=== PATIENT | female | born 1990 | race Caucasian/White ===

== ENCOUNTER 2019-12-13 16:28 | Outpatient (CLI) | payer OTHER, SELFPAY ==
[2019-12-13 17:17] LABS: Basophils Percent Auto 0.2 % (0.2-1.2); Eosinophils Absolute Auto 0.2 K/mm3 (0-0.3); Eosinophils Percent Auto 0.8 % (0-4.4); Hematocrit 36.7 % (37.0-47.0); Hemoglobin 12.7 g/dL (12.0-15.0); Immature Granulocyte Absolute 0.12 K/mm3 (0.00-0.031); Immature Granulocyte Percent A 0.7 % (0-0.5); Lymphocytes Absolute Auto 2.87 K/mm3 (0.9-3.2); Mean Corpuscular HGB Conc 34.6 g/dl (32-36); Mean Corpuscular Hemoglobin 31.1 pg (26-34); Mean Corpuscular Volume 89.7 fl (80-100); Mean Platelet Volume 9.4 fl (7.4-10.4); Monocytes Absolute Auto 1.2 K/mm3 (0.1-0.6); Monocytes Percent Auto 6.5 % (2.6-8.5); Neutrophils Absolute Auto 13.6 K/mm3 (1.3-6.7); Neutrophils Percent Auto 75.8 % (45.5-73.1); Platelet Count Result 355 k/mm3 (150-375); Red Blood Count 4.09 M/mm3 (4.2-5.4); Red Cell Distribution Width 12.6 % (11.5-14.5); White Blood Count 17.9 K/mm3 (4.5-10.0)
[2019-12-13 17:18] VITALS: BP 130/72; PULSE 93; BMI 45.3
[2019-12-13 17:20] VITALS: BP 130/72; PULSE 97
[2019-12-13 17:25] LABS: Add Urine Microscopic? YES; Appearance Urine Clear (Clear); Bacteria Urine Trace /hpf; Bilirubin Urine Negative (Negative); Blood Urine Negative (Negative); Color Urine Yellow (Yellow); Glucose Urine UA 1+ mg/dL (Negative); Ketones Urine Negative (Negative); Leukocyte Esterase Ur Negative LEU/UL (Negative); Mucus Urine Rare /lpf; Nitrate Urine Negative (Negative); Protein Urine Negative (Negative); RBC Urine 0-2 /hpf (0-2); Specific Grav Ur 1.019 (1.001-1.035); Squamous Epithelial Cell Urine Few /hpf (Few); Urobilinogen Urine Negative mg/dL (<2.0); WBC Urine 0-3 /hpf
[2019-12-13 17:27] VITALS: BP 130/72; PULSE 98
[2019-12-13 17:27] LABS: Total Protein Urine Random 14 mg/dL
--- NOTE | 2019-12-13 17:27 | OBADM ---
This patient, Kaleigh Mancera, admitted to the OB room 116 as clinical outpatient for evaluation of hypertension in . Patient/family oriented to hospital policies and general routines including ID bracelet, bed and alarms, visiting hours, pain management, procedures, bathroom and other care routines, personal items, smoking policy, room service/diet, and visiting hours. Patient/Family are encouraged to report perceived risks to care and to ask questions if they do not understand what they are told or what they should do.
[2019-12-13 17:29] LABS: Alanine Aminotransferase 20 U/L (4-35); Albumin Level 3.5 g/dL (3.5-5.1); Alkaline Phosphatase 105 U/L (38-126); Aspartate Amino Transferase 23 U/L (14-36); Bilirubin,Total 0.1 mg/dL (0.2-1.3); Blood Urea Nitrogen 6 mg/dL (7-17); Carbon Dioxide 23 mmol/L (22-30); Chloride 99 mmol/L (98-107); Estimated CRCL calculation 198 ml/min; Estimated Glomerular Filt Rate > 60; Glucose 104 mg/dL (65-105); Potassium 3.5 mmol/L (3.4-5.0); Sodium 132 mmol/L (137-145); Uric Acid 2.6 mg/dL (2.5-7.5)
[2019-12-13 17:31] VITALS: BP 123/60; PULSE 89
[2019-12-13 17:39] LABS: Creatinine Urine 116.8 mg/dL
[2019-12-13 17:44] VITALS: BP 124/65; PULSE 96
--- NOTE | 2019-12-13 17:44 | PC.NURSE ---
Dr. Delgado informed of lab results, BP's, NST reactive with 15 beat accels at 28 wks gestation. Orders for discharge received.
== END 2019-12-13 18:17 | disposition home or self-care (01) ==
LOC: ANHOBOP 16:32 → ANHOBPP 18:09
PROVIDERS: Obstetrics & Gynecology; Visit Provider Obstetrics & Gynecology Gynecology
DX: O13.9 Gestational [pregnancy-induced] hypertension without significant proteinuria, unspecified trimester (principal)
CPT/HCPCS: 36415; 59025; 80053; 81001; 82570; 84156; 84550; 85025; 99199

== ENCOUNTER 2019-12-21 15:26 | Outpatient (CLI) | payer OTHER, SELFPAY ==
[2019-12-21 15:52] LABS: Hematocrit 37.1 % (37.0-47.0); Hemoglobin 12.6 g/dL (12.0-15.0); Mean Corpuscular Hemoglobin 30.4 pg (26-34); Mean Corpuscular Volume 89.4 fl (80-100); Mean Platelet Volume 9.2 fl (7.4-10.4); Platelet Count Result 348 k/mm3 (150-375); Red Blood Count 4.15 M/mm3 (4.2-5.4); Red Cell Distribution Width 12.3 % (11.5-14.5); White Blood Count 20.5 K/mm3 (4.5-10.0)
[2019-12-21 16:04] LABS: Partial Thromboplastin Time 26.6 SECONDS (22.3-36.8)
[2019-12-21 16:07] LABS: Alanine Aminotransferase 20 U/L (4-35); Albumin Level 3.5 g/dL (3.5-5.1); Alkaline Phosphatase 109 U/L (38-126); Aspartate Amino Transferase 22 U/L (14-36); Bilirubin,Total < 0.1 mg/dL (0.2-1.3); Blood Urea Nitrogen 5 mg/dL (7-17); Calcium 9.2 mg/dL (8.4-10.2); Carbon Dioxide 24 mmol/L (22-30); Chloride 99 mmol/L (98-107); Estimated Glomerular Filt Rate > 60; Glucose 105 mg/dL (65-105); Lactate Dehydrogenase 355 U/L (313-618); Potassium 3.6 mmol/L (3.4-5.0); Sodium 136 mmol/L (137-145)
== END 2019-12-21 15:50 | disposition home or self-care (01) ==
LOC: ANHOBOP 15:29 → ANHLDR 15:32
PROVIDERS: Visit Provider Obstetrics & Gynecology Gynecology
DX: I10 Essential (primary) hypertension (principal)
CPT/HCPCS: 36415; 80053; 83615; 84550; 85027; 85730; 99199

== ENCOUNTER 2019-12-24 11:08 | Outpatient (CLI) | payer OTHER, SELFPAY ==
[2019-12-24 11:42] VITALS: BP 140/83; PULSE 104
[2019-12-24 11:46] VITALS: BP 138/73; PULSE 100
[2019-12-24 11:47] VITALS: BP 140/83
[2019-12-24 11:48] LABS: Basophils Absolute Auto 0.1 K/mm3 (0.0-0.1); Basophils Percent Auto 0.3 % (0.2-1.2); Eosinophils Absolute Auto 0.1 K/mm3 (0-0.3); Eosinophils Percent Auto 0.4 % (0-4.4); Hematocrit 37.8 % (37.0-47.0); Hemoglobin 12.5 g/dL (12.0-15.0); Immature Granulocyte Absolute 0.14 K/mm3 (0.00-0.031); Immature Granulocyte Percent A 0.7 % (0-0.5); Lymphocytes Absolute Auto 2.18 K/mm3 (0.9-3.2); Lymphocytes Percent Auto 11.3 % (18.3-44.2); Mean Corpuscular HGB Conc 33.1 g/dl (32-36); Mean Corpuscular Hemoglobin 30.2 pg (26-34); Mean Corpuscular Volume 91.3 fl (80-100); Mean Platelet Volume 9.4 fl (7.4-10.4); Monocytes Absolute Auto 0.7 K/mm3 (0.1-0.6); Monocytes Percent Auto 3.4 % (2.6-8.5); Neutrophils Absolute Auto 16.2 K/mm3 (1.3-6.7); Neutrophils Percent Auto 83.9 % (45.5-73.1); Platelet Count Result 358 k/mm3 (150-375); Red Blood Count 4.14 M/mm3 (4.2-5.4); Red Cell Distribution Width 12.3 % (11.5-14.5); White Blood Count 19.3 K/mm3 (4.5-10.0)
[2019-12-24 11:50] VITALS: TEMP 36.4
[2019-12-24 12:01] VITALS: BP 125/72; PULSE 97
[2019-12-24 12:02] LABS: Alanine Aminotransferase 21 U/L (4-35); Albumin Level 3.2 g/dL (3.5-5.1); Alkaline Phosphatase 110 U/L (38-126); Aspartate Amino Transferase 26 U/L (14-36); Bilirubin,Total 0.2 mg/dL (0.2-1.3); Blood Urea Nitrogen 7 mg/dL (7-17); Carbon Dioxide 24 mmol/L (22-30); Chloride 101 mmol/L (98-107); Estimated Glomerular Filt Rate > 60; Glucose 165 mg/dL (65-105); Potassium 3.7 mmol/L (3.4-5.0); Sodium 137 mmol/L (137-145); Uric Acid 3.6 mg/dL (2.5-7.5)
[2019-12-24 12:09] VITALS: BP 140/83
--- NOTE | 2019-12-24 12:17 | PC.NURSE ---
5702- Spoke with Dr. Delgado regarding patient lab results. Labs and BP's reviewed. Orders to administer celestone 12 mg M once today, then patient to return tomorrow for a repeat dose. Discharge to home.
[2019-12-24] MEDS: BETAMETHASONE SOD PHOS/ACETATE 30 MG/5 ML VIAL 12 MG IM (12:24)
== END 2019-12-24 12:29 | disposition home or self-care (01) ==
LOC: ANHOBOP 11:17 → ANHOBPP 11:21
PROVIDERS: Visit Provider Obstetrics & Gynecology Gynecology
DX: O14.90 Unspecified pre-eclampsia, unspecified trimester (principal)
CPT/HCPCS: 36415; 59025; 80053; 81050; 82575; 84156; 84550; 85025; 96372; 99199; J0702

== ENCOUNTER 2019-12-25 12:19 | Outpatient (CLI) | payer OTHER, SELFPAY ==
[2019-12-25] MEDS: BETAMETHASONE SOD PHOS/ACETATE 30 MG/5 ML VIAL 12 MG IM (12:50)
== END 2019-12-25 12:30 | disposition home or self-care (01) ==
LOC: ANHOBOP 12:26 → ANHLDR 12:38
PROVIDERS: Visit Provider Obstetrics & Gynecology Gynecology
DX: Z34.90 Encounter for supervision of normal pregnancy, unspecified, unspecified trimester (principal); Z3A.00 Weeks of gestation of pregnancy not specified
CPT/HCPCS: 96372; 99199; J0702

== ENCOUNTER → 2020-01-02 15:19 | Outpatient (CLI) | payer OTHER, SELFPAY ==
--- NOTE | ~2020-01-02 | US_ITS ---
EXAMINATION: US OB follow up DATE: 01/02/2020 15:44 INDICATION: Gestational diabetes. TECHNIQUE: Real-time transabdominal obstetric ultrasound. FINDINGS: Comparison to multiple prior studies sequentially, with oldest reviewed study dated 019. There is a single living fetus in vertex presentation. The placenta is posterior without placenta pr evia. cardiac activity and movement is noted with a heart rate of 157 beats per minute. T he amniotic fluid volume is normal. WAYNE measures 23.1 cm (normal range for gestational age is 8.8-23. 8 cm). The following biometric data were obtained: BPD: 78mm corresponds to gestational age 31 weeks 2 days. Head circumference: 297mm corresponds to gestational age 32 weeks 6 days. Abdominal circumference: 310mm corresponds to gestational age 35 weeks 0 days. Femur length: 64mm corresponds to gestational age 32 weeks 6 days. Estimated weight: 2278grams +/- 342grams. Estimated weight is greater than 97th percentil e. IMPRESSION: 1. Single living intrauterine in vertex presentation with an estimated gestational age of 30 weeks 6 days by inititial ultrasound. 2: Accelerated interval growth. Estimated weight greater than 97th percentile, compatibl e with macrosomia. Reviewed, dictated and finalized at location A. BORE OPERATOR IMPRESSION: 1. Single living intrauterine in vertex presentation with an estimat ed gestational age of 30 weeks 6 days by inititial ultrasound. 2: Accelerated interval growth. Estimated weight greater than 97th percentile, compatible with macrosomia.
== END ==
PROVIDERS: Visit Provider Obstetrics & Gynecology Gynecology
DX: O24.419 Gestational diabetes mellitus in pregnancy, unspecified control (principal); O14.93 Unspecified pre-eclampsia, third trimester; Z3A.30 30 weeks gestation of pregnancy
CPT/HCPCS: 76816

== ENCOUNTER 2020-02-02 21:02 | Outpatient (CLI) | payer OTHER, SELFPAY ==
[2020-02-02 21:26] VITALS: BP 100/48; PULSE 97; RESP 18
[2020-02-02 21:30] VITALS: BP 107/49; PULSE 91
[2020-02-02 21:38] VITALS: BP 101/57
[2020-02-02 21:57] VITALS: BP 100/48; PULSE 91
--- NOTE | 2020-02-02 22:12 | PC.NURSE ---
Notified Dr. Delgado of patient's arrival with complaints of increased blood pressures all day. Pt states that her blood pressure has been 180's/100's all day at different times. Pt has had 3 blood pressures here that have all been normal. Pt's pressure was 101/57 and at the same time was 152/95 on pt's own blood pressure cuff. Discharge orders received.
== END 2020-02-02 21:03 | disposition home or self-care (01) ==
PROVIDERS: Family Provider Obstetrics & Gynecology Gynecology; Visit Provider Obstetrics & Gynecology Gynecology
DX: O13.9 Gestational [pregnancy-induced] hypertension without significant proteinuria, unspecified trimester (principal)
CPT/HCPCS: 59025

== ENCOUNTER 2020-02-11 13:42 | Outpatient (CLI) | payer OTHER, SELFPAY ==
[2020-02-11] VITALS (7 sets, daily range): BP systolic 85–144; BP diastolic 41–75; PULSE 84–97
[2020-02-11 14:30] LABS: Basophils Absolute Auto 0.1 K/mm3 (0.0-0.1); Basophils Percent Auto 0.3 % (0.2-1.2); Eosinophils Absolute Auto 0.1 K/mm3 (0-0.3); Eosinophils Percent Auto 0.7 % (0-4.4); Hematocrit 37.4 % (37.0-47.0); Hemoglobin 12.6 g/dL (12.0-15.0); Immature Granulocyte Percent A 0.6 % (0-0.5); Lymphocytes Absolute Auto 2.16 K/mm3 (0.9-3.2); Lymphocytes Percent Auto 12.5 % (18.3-44.2); Mean Corpuscular HGB Conc 33.7 g/dl (32-36); Mean Corpuscular Hemoglobin 30.1 pg (26-34); Mean Corpuscular Volume 89.3 fl (80-100); Mean Platelet Volume 10.1 fl (7.4-10.4); Monocytes Absolute Auto 1.2 K/mm3 (0.1-0.6); Monocytes Percent Auto 6.7 % (2.6-8.5); Neutrophils Absolute Auto 13.7 K/mm3 (1.3-6.7); Neutrophils Percent Auto 79.2 % (45.5-73.1); Platelet Count Result 334 k/mm3 (150-375); Red Blood Count 4.19 M/mm3 (4.2-5.4); Red Cell Distribution Width 12.4 % (11.5-14.5); White Blood Count 17.3 K/mm3 (4.5-10.0)
[2020-02-11 14:48] LABS: Add Urine Microscopic? YES; Appearance Urine Cloudy (Clear); Bacteria Urine Trace /hpf; Bilirubin Urine Negative (Negative); Blood Urine Negative (Negative); Color Urine Yellow (Yellow); Glucose Urine UA 1+ mg/dL (Negative); Ketones Urine Negative (Negative); Leukocyte Esterase Ur Negative LEU/UL (NEGATIVE); Mucus Urine Rare /lpf; Nitrate Urine Negative (Negative); Protein Urine 2+ mg/dL (Negative); RBC Urine 0-2 /hpf (0-2); Specific Grav Ur 1.024 (1.001-1.035); Squamous Epithelial Cell Urine Many /hpf (Few); Urobilinogen Urine Negative mg/dL (<2.0); WBC Urine 0-3 /hpf (0-3)
[2020-02-11 14:59] LABS: Total Protein Urine Random 14 mg/dL
[2020-02-11 15:23] LABS: Alanine Aminotransferase 16 U/L (4-35); Alkaline Phosphatase 134 U/L (38-126); Aspartate Amino Transferase 23 U/L (14-36); Bilirubin,Total 0.1 mg/dL (0.2-1.3); Blood Urea Nitrogen 7 mg/dL (7-17); Calcium 8.8 mg/dL (8.4-10.2); Carbon Dioxide 24 mmol/L (22-30); Chloride 106 mmol/L (98-107); Estimated Glomerular Filt Rate > 60; Glucose 104 mg/dL (65-105); Potassium 3.8 mmol/L (3.4-5.0); Sodium 133 mmol/L (137-145); Uric Acid 3.7 mg/dL (2.5-7.5)
--- NOTE | 2020-02-11 15:38 | PC.NURSE ---
1530- Spoke with Dr. Delgado, BPS and labs reveiwed. Orders to discharge home with induction scheduled later this week.
== END 2020-02-11 15:50 | disposition home or self-care (01) ==
LOC: ANHOBOP 13:46 → ANHOBPP 13:47
PROVIDERS: PCP Physician Assistant Medical; Visit Provider Obstetrics & Gynecology Gynecology
DX: O13.9 Gestational [pregnancy-induced] hypertension without significant proteinuria, unspecified trimester (principal)
CPT/HCPCS: 36415; 59025; 80053; 81001; 82570; 84156; 84550; 85025; 87086; 87088; 99199

== ENCOUNTER 2020-02-14 16:55 | Inpatient (IN) | payer OTHER, SELFPAY ==
[2020-02-14] VITALS (22 sets, daily range): BP systolic 116–156; BP diastolic 60–93; PULSE 87–107; BMI 49.1
[2020-02-14 17:40] LABS: Basophils Percent Auto 0.2 % (0.2-1.2); Eosinophils Absolute Auto 0.1 K/mm3 (0-0.3); Eosinophils Percent Auto 0.7 % (0-4.4); Hematocrit 36.9 % (37.0-47.0); Hemoglobin 12.3 g/dL (12.0-15.0); Immature Granulocyte Absolute 0.17 K/mm3 (0.00-0.031); Lymphocytes Absolute Auto 2.56 K/mm3 (0.9-3.2); Lymphocytes Percent Auto 14.6 % (18.3-44.2); Mean Corpuscular HGB Conc 33.3 g/dl (32-36); Mean Corpuscular Hemoglobin 29.6 pg (26-34); Mean Corpuscular Volume 88.9 fl (80-100); Monocytes Absolute Auto 1.1 K/mm3 (0.1-0.6); Monocytes Percent Auto 6.1 % (2.6-8.5); Neutrophils Absolute Auto 13.6 K/mm3 (1.3-6.7); Neutrophils Percent Auto 77.4 % (45.5-73.1); Platelet Count Result 348 k/mm3 (150-375); Red Blood Count 4.15 M/mm3 (4.2-5.4); Red Cell Distribution Width 12.7 % (11.5-14.5); White Blood Count 17.6 K/mm3 (4.5-10.0)
--- NOTE | 2020-02-14 17:41 | LDADM ---
This patient, Kaleigh Mancera, was admitted to Labor/Delivery/Recovery 107 on 02/14/20 at 16:55. Plans for labor, pain management and were discussed with patient. Patient/family oriented to hospital policies and general routines including ID bracelet, bed and alarms, visiting hours, pain management, procedures, bathroom and other care routines, personal items, smoking policy, room service/diet and guest tray routines, security routines, and visiting hours. Patient/Family are encouraged to report perceived risks to care and to ask questions if they do not understand what they are told or what they should do. See OBIX for further documentation.
[2020-02-14 17:51] LABS: Alanine Aminotransferase 16 U/L (4-35); Albumin Level 3.1 g/dL (3.5-5.1); Alkaline Phosphatase 132 U/L (38-126); Aspartate Amino Transferase 23 U/L (14-36); Bilirubin,Total 0.1 mg/dL (0.2-1.3); Blood Urea Nitrogen 9 mg/dL (7-17); Calcium 9.1 mg/dL (8.4-10.2); Carbon Dioxide 23 mmol/L (22-30); Chloride 108 mmol/L (98-107); Estimated CRCL calculation 142 ml/min; Estimated Glomerular Filt Rate > 60; Glucose 80 mg/dL (65-105); Potassium 3.8 mmol/L (3.4-5.0); Sodium 135 mmol/L (137-145)
[2020-02-14 17:52] LABS: Uric Acid 3.6 mg/dL (2.5-7.5)
[2020-02-14 18:27] LABS: Glucose Point of Care 58 (65-105)
[2020-02-14] MEDS: DINOPROSTONE 10 MG VAG INSERT VAGINAL (18:38)
[2020-02-14 19:54] LABS: Glucose Point of Care 74 (65-105)
[2020-02-14] MEDS: LABETALOL HCL 100 MG TABLET PO (20:59)
[2020-02-15] VITALS (131 sets, daily range): BP systolic 87–168; BP diastolic 36–96; PULSE 80–122; TEMP 36.6–37.2; O2SAT 96–100
[2020-02-15 04:24] LABS: Glucose Point of Care 127 (65-105)
[2020-02-15 04:47] LABS: Glucose Point of Care 80 (65-105)
[2020-02-15 06:49] LABS: Glucose Point of Care 86 (65-105)
[2020-02-15] MEDS: LACTATED RINGERS 1,000 ML 125 ML IV CONT ×3 (08:00→20:04)
[2020-02-15] MEDS: OXYTOCIN 30 UNITS/NS 500 ML 30 UNITS/500 ML BAG IV CONT (08:00)
[2020-02-15] MEDS: LABETALOL HCL 100 MG TABLET PO (09:03)
[2020-02-15 09:20] LABS: Glucose Point of Care 101 (65-105)
[2020-02-15 11:05] LABS: Glucose Point of Care 78 (65-105)
--- NOTE | 2020-02-15 12:21 | WPDOBADMIT ---
Obstetrics - Admit Note Admission Note: AROm clear fluid 1//-2 station record reviewed. No pertinent additions to the history and/or any subsequent changes in thet physical findings that are not consistent with the expected course of the were found. Additions to the history and/or subsequent changes in the physical findings follow. None.
[2020-02-15 13:21] LABS: Glucose Point of Care 68 (65-105)
[2020-02-15 13:36] LABS: Rapid Plasma Reagin Non-Reactive (NonReactive)
[2020-02-15 15:31] LABS: Glucose Point of Care 59 (65-105)
[2020-02-15 18:39] LABS: Glucose Point of Care 75 (65-105)
--- NOTE | 2020-02-15 20:02 | WPDANESEPPF ---
Anes - Initial Pre Proc Eval Date/Time: 02/15/20 20:02 Surgeon: Tiarra Delgado MD Pre Op Diagnosis: MIL Patient Data Age: 29 Gender: F Height: 5 ft 1.5 in Weight: 120 kg Last Vital Signs Temp 36.9 C 02/15/20 18:34 Pulse 106 H 02/15/20 20:01 BP 124/72 02/15/20 20:01 Pulse Ox 98 02/15/20 19:58 Allergies Allergy/AdvReac Type Severity Reaction Status Date / Time ceftriaxone [From Rocephin] Allergy Intermediate Other Verified 02/05/20 14:38 spironolactone Allergy Rash Verified 02/05/20 14:39 buspirone [From BuSpar] AdvReac Agitated Verified 02/05/20 14:38 doxycycline AdvReac Unknown Verified 02/15/20 05:08 Home Medications Medication Instructions Recorded Confirmed Type PNV cmb#95-ferrous fumarate-FA 1 tablet PO DAILY 11/15/19 02/15/20 History [] acetaminophen [Tylenol Extra 1,000 mg PO Q6H PRN 30 Days tablet 11/15/19 02/15/20 Rx Strength] aspirin [Adult Low Dose Aspirin] 81 mg PO DAILY 11/15/19 02/15/20 History docusate sodium [Colace] 300 mg PO HS PRN 11/15/19 02/15/20 History ergocalciferol (vitamin D2) 50,000 unit PO 2XW 02/05/20 02/15/20 History [Vitamin D2] insulin NPH isoph U-100 human 20 unit SUBCUT BID 02/05/20 02/15/20 History [Humulin N NPH Insulin KwikPen] insulin lispro [Humalog KwikPen 20 unit SUBCUT QAM 02/05/20 02/15/20 History Insulin] insulin lispro [Humalog KwikPen 24 unit SUBCUT QPM 02/05/20 02/15/20 History Insulin] labetalol 100 mg PO Q12H 02/05/20 02/15/20 History Laboratory Tests 02/14/20 02/15/20 02/15/20 17:32 00:07 04:41 POC Capillary Glucose 127 mg/dl H mg/dl 80 mg/dl mg/dl (65-105) (65-105) RPR Non-reactive (NonReactive) 02/15/20 02/15/20 02/15/20 06:46 09:05 11:02 POC Capillary Glucose 86 mg/dl mg/dl 101 mg/dl mg/dl 78 mg/dl mg/dl (65-105) (65-105) (65-105) RPR 02/15/20 02/15/20 02/15/20 13:17 15:28 18:33 POC Capillary Glucose 68 mg/dl mg/dl 59 mg/dl L* mg/dl 75 mg/dl mg/dl (65-105) (65-105) (65-105) RPR Patient hx anesthesia problems: other (aggressive wake-up) Family hx anesthesia problems: none PMF Past Medical History Medical History ADHD Diabetes Hypertension Morbid obesity Family History Family History Grandparent Diabetes mellitus Mother Heart murmur Social History Social History Smoking status: Former smoker Tobacco type: cigarettes Second hand tobacco smoke exposure: No Smoking end date: 07/24/19 Substance use: never Spiritual care concerns: No Anes - Eval Final PreProcedure Day of Procedure 02/15/20 20:02 Patient weight: morbidly obese Heart: regular rate and rhythm Lungs: decreased breath sounds Neurological: alert and oriented ASA classification: III Emergent: no Anesthetic plan: proceed Anesthesia type and monitoring: regional epidural and standard monitoring Informed Consent: The patient's anesthetic plan and its attendant risks and benefits were discussed with the patient/family/POA. Questions were solicited and answers provided to the satisfaction of the patient/family/POA.
[2020-02-15 22:27] LABS: Glucose Point of Care 76 (65-105)
[2020-02-16] VITALS (218 sets, daily range): BP systolic 113–159; BP diastolic 58–91; PULSE 91–133; RESP 15–16; TEMP 36.2–38.2; O2SAT 93–99
[2020-02-16 00:50] LABS: Glucose Point of Care 74 (65-105)
[2020-02-16] MEDS: AMPICILLIN 2 GM/NS 100 ML 2 GM/100 ML BAG IVPB (03:13)
[2020-02-16 05:28] LABS: Glucose Point of Care 79 (65-105)
[2020-02-16] MEDS: LACTATED RINGERS 1,000 ML 125 ML IV CONT (05:41)
[2020-02-16] MEDS: OXYTOCIN 30 UNITS/NS 500 ML 30 UNITS/500 ML BAG IV CONT (05:59)
[2020-02-16] MEDS: ONDANSETRON INJ 4 MG/2 ML VIAL IV PUSH (06:53)
[2020-02-16] MEDS: AMPICILLIN 1 GM/NS 50 ML 1 GM/50 ML BAG IVPB ×2 (07:09→11:13)
[2020-02-16] MEDS: GENTAMICIN 80MG/SOD CHL 50 ML 80 MG/50 ML BAG 100 MG IVPB ×2 (08:00→16:33)
[2020-02-16 10:24] LABS: Glucose Point of Care 75 (65-105)
--- NOTE | 2020-02-16 10:35 | PM.OBPNVD ---
OB - PN: Subj Subjective Date/time seen: 02/16/20 10:35 Interval history: Patient with slow progress. Now /-2 with significant caput. Discussed with patient and will proceed with csection once anesthesia available in approx. 1 hour as long as FHTs remain reassuring. OB - PN: Obj Data Labs CBC & Chem 7: 02/14/20 17:32 02/14/20 17:32 Labs: Laboratory Results - last 24 hr 02/14/20 02/15/20 02/15/20 17:32 11:02 13:17 POC Capillary Glucose 78 68 RPR Non-reactive 02/15/20 02/15/20 02/15/20 15:28 18:33 22:24 POC Capillary Glucose 59 L* 75 76 RPR 02/16/20 02/16/20 02/16/20 00:43 05:13 10:21 POC Capillary Glucose 74 79 75 RPR OB - PN A/P Time Spent With Patient Time: Total time spent is greater than 50% in coordination of care (as documented) at patient's floor/unit and/or counseling patient:
--- NOTE | 2020-02-16 11:56 | PM.OP ---
Procedure Note - Brief Procedure Note - Brief Date of procedure: 02/16/20 Pre-op diagnosis: MIL IUP 37 2/7 wks; CHTN with superimposed preeclampsia; failure to progress Post-op diagnosis: same Procedure performed: LTCS Anesthesia: epidural Surgeon: Tiarra Delgado MD Estimated blood loss (mL): 360 Drains: Yes (altamirano) Packing: No Pathology: yes (placenta) Complications: No immediate complications Condition: stable Disposition: floor Findings: female infant 8#3 oz with 8/9 ; nuchal cord x 1; normal appearing tubes, ovaries, and uterus
--- NOTE | 2020-02-16 11:58 | PM.OBDSVD ---
DS: Diagnosis Discharge Diagnosis (1) delivery delivered: Code(s): O82 - Encounter for delivery without indication Status: Acute (2) Pre-eclampsia superimposed on chronic hypertension: Code(s): O11.9 - Pre-existing hypertension with pre-eclampsia, unspecified trimester Status: Acute (3) GDM, class A2: Code(s): O24.419 - Gestational diabetes mellitus in , unspecified control Status: Acute (4) Failure to progress in labor: Code(s): O62.2 - Other uterine inertia Status: Acute (5) 37 weeks gestation of : Code(s): Z3A.37 - 37 weeks gestation of Status: Acute OB - DS: Summary OB Procedures : NST, PIH Mgmt and Ultrasound OB Procedures Intrapartum: low cervical, transverse OB Procedures: : None Peripartum Data Infant Delivery Method: Section Procedures: Procedures Operation Date: 02/16/20 11:00 <No data on this case meets the specified criteria> complications: none Status at Discharge Functional status at discharge: independent ambulation Overall status at discharge: patient is progressing back to baseline Time Spent with Patient Time attestation: Total time spent providing and/or coordinating discharge services: DS: Data Data Completed and Pending Labs on day of discharge: Labs from last 24 hours 02/16/20 02/16/20 02/16/20 10:21 05:13 00:43 POC Capillary Glucose 75 79 74 RPR 02/15/20 02/15/20 02/15/20 22:24 18:33 15:28 POC Capillary Glucose 76 75 59 L* RPR 02/15/20 02/14/20 13:17 17:32 POC Capillary Glucose 68 RPR Non-reactive Discharge Plan Discharge Attending physician on discharge: Tiarra Delgado Discharging Clinician: Tiarra Delgado Anticipated Discharge Date/Time: 02/18/20 10:40 Patient Disposition: Home, Self-Care Activity: may shower, may drive after 2 weeks and pelvic rest Diet: regular Wound Care Instructions: other - see discharge instructions Discharge Instructions: Keep dressing on until follow up in 1 wk Patient Instructions: Antibiotic Form Stand Alone Forms: General Discharge Information Follow-up/Referrals: Tiarra Delgado MD [Physician] - 1 Week Discharge Medications: New hydrocodone-acetaminophen 5-325 mg Tablet 1 tab PO Q3H PRN (Reason: Moderate Pain (4-6)) Qty: 20 RF: 0 ibuprofen 600 mg Tablet 600 mg PO Q6H PRN (Reason: Cramping) Qty: 60 RF: 0 norethindrone (contraceptive) 0.35 mg tablet 0.35 mg PO DAILY Qty: 84 RF: 3 Continued PNV cmb#95-ferrous fumarate-FA [] 28 mg iron- 800 mcg Tablet 1 tablet PO DAILY RF: 0 acetaminophen [Tylenol Extra Strength] 500 mg Tablet 1,000 mg PO Q6H PRN (Reason: Headache) 30 Days RF: 0 ergocalciferol (vitamin D2) [Vitamin D2] 1,250 mcg (50,000 unit) Capsule 50,000 unit PO 2XW RF: 0 Discontinued aspirin [Adult Low Dose Aspirin] 81 mg Tablet,Delayed Release (Dr/Ec) 81 mg PO DAILY RF: 0 docusate sodium [Colace] 100 mg Capsule 300 mg PO HS PRN (Reason: Constipation) RF: 0 labetalol 100 mg Tablet 100 mg PO Q12H RF: 0 insulin lispro [Humalog KwikPen Insulin] 100 unit/mL Insulin Pen 24 unit SUBCUT QPM RF: 0 insulin lispro [Humalog KwikPen Insulin] 100 unit/mL Insulin Pen 20 unit SUBCUT QAM RF: 0 Humulin N NPH Insulin KwikPen 100 unit/mL (3 mL) Insulin Pen 20 unit SUBCUT BID RF: 0 Date of admission: 02/14/20 16:55 Primary Care Provider: Aretha,Angelique Villagomez Admitting Provider: Tiarra Delgado Attending physician on admission: Tiarra Delgado Condition: Stable
[2020-02-16] MEDS: OXYTOCIN 30 UNITS/NS 500 ML 30 UNITS/500 ML BAG 125 UNITS IV CONT (12:44)
--- NOTE | 2020-02-16 12:50 | OP_ITS ---
DATE OF PROCEDURE: 02/16/2020 PREOPERATIVE DIAGNOSES: 1. Intrauterine at 37 and 2/7th weeks. 2. Gestational diabetes, insulin requiring. 3. Chronic hypertension with superimposed preeclampsia. 4. Failure to progress. 5. Chorioamnionitis. POSTOPERATIVE DIAGNOSES: 1. Intrauterine at 37 and 2/7th weeks. 2. Gestational diabetes, insulin requiring. 3. Chronic hypertension with superimposed preeclampsia. 4. Failure to progress. 5. Chorioamnionitis. PROCEDURE: Primary low transverse section. SURGEON: Tiarra Delgado M.D. ANESTHESIA: Epidural. FINDINGS: An 8-pound 3-ounce female with 8 and 9 Apgars. Normal-appearing tubes, ovaries, and uterus. ESTIMATED BLOOD LOSS: 360 cc. PATHOLOGY: Placenta. DESCRIPTION OF PROCEDURE: The patient was taken to the operating room and placed under epidural anesthesia in the dorsal supine position with a leftward tilt. Once anesthesia was deemed adequate, she was prepped and draped in the usual sterile fashion. A Trexi self-retractor was placed. Once anesthesia was deemed adequate, a Pfannenstiel skin incision was made with a scalpel and carried down to the underlying layer of the fascia. The fascia was nicked in the midline and extended laterally using the Sandoval scissors. Ochsner's were used to tent the fascia, which was then dissected off using sharp and blunt dissection. The rectus muscles were in the midline. The perineum was tented and entered with the Metzenbaum's. The incision was extended with blunt traction. An Isaias O retractor was placed. The vesicouterine perineum was tented, entered with the Metzenbaum's, and extended laterally. A bladder flap was created digitally. The lower uterine segment was incised in a transverse fashion with a scalpel and extended laterally using blunt traction. The 's head was brought up into the incision and delivered through the incision while the business support assistant applied fundal pressure. The nuchal cord x1 was reduced. The cord was clamped and cut, and the was handed to the waiting nursery nurse. The placenta was removed using manual traction. The uterus was cleared of all clots and debris. The uterine incision was closed using 0 Monocryl in a running locked fashion. Same suture was used to imbricate. Good hemostasis was noted. The cul-de-sac and gutters were irrigated. The incision was again inspected and noted to be hemostatic. The fascia was closed using 0 Vicryl in a running fashion. The subcutaneous tissues were irrigated and made hemostatic using Bovie cautery. The skin was closed using 4-0 Vicryl in a subcuticular fashion. DermaFlex and the Mepilex dressing were placed. Sponge, instrument, and needle counts were correct. D I MT: Anil IRAHETA
[2020-02-16] MEDS: KETOROLAC 30 MG/ML VIAL (*BKC) IV PUSH (14:17)
--- NOTE | 2020-02-16 16:47 | OBPPTRN ---
Patient transferred to post room #284 via stretcher, transferred by [facility] [employer] 3 Bs performed prior to transfer. Support person present. Oriented to unit, room, information board, rooming in, admission packet and security measures. Patient verbalizes understanding.
[2020-02-16] MEDS: DEXTROSE 5%/0.45% SOD CHL 1,000 ML 125 ML IV CONT (17:50)
[2020-02-17] VITALS (8 sets, daily range): BP systolic 126–153; BP diastolic 75–88; PULSE 99–112; RESP 14–20; TEMP 35.8–36.8; O2SAT 97–100
[2020-02-17] MEDS: KETOROLAC 30 MG/ML VIAL (*BKC) IV PUSH (01:31)
[2020-02-17] MEDS: LABETALOL HCL 100 MG TABLET PO ×4 (01:32→21:59)
[2020-02-17 04:51] LABS: Basophils Absolute Auto 0.1 K/mm3 (0.0-0.1); Basophils Percent Auto 0.2 % (0.2-1.2); Eosinophils Percent Auto 0.1 % (0-4.4); Hematocrit 35.8 % (37.0-47.0); Hemoglobin 12.1 g/dL (12.0-15.0); Immature Granulocyte Absolute 0.45 K/mm3 (0.00-0.031); Immature Granulocyte Percent A 1.2 % (0-0.5); Lymphocytes Percent Auto 5.2 % (18.3-44.2); Mean Corpuscular HGB Conc 33.8 g/dl (32-36); Mean Corpuscular Hemoglobin 30.3 pg (26-34); Mean Corpuscular Volume 89.7 fl (80-100); Monocytes Absolute Auto 1.3 K/mm3 (0.1-0.6); Monocytes Percent Auto 3.6 % (2.6-8.5); Neutrophils Absolute Auto 32.6 K/mm3 (1.3-6.7); Neutrophils Percent Auto 89.7 % (45.5-73.1); Platelet Count Result 296 k/mm3 (150-375); Red Blood Count 3.99 M/mm3 (4.2-5.4); Red Cell Distribution Width 12.7 % (11.5-14.5); White Blood Count 36.4 K/mm3 (4.5-10.0)
[2020-02-17] MEDS: MULTIVIT/MIN/PREN/FOL AC/IRON TABLET 1 TAB PO (08:38)
[2020-02-17] MEDS: DOCUSATE SODIUM 100 MG CAPSULE PO ×2 (08:38→21:42)
[2020-02-17] MEDS: IBUPROFEN 600 MG TABLET PO ×3 (08:41→22:12)
--- NOTE | 2020-02-17 09:32 | WPDANLDPN2 ---
Anes-Prog Note L&D Date/Time: 02/17/20 09:32 Comfortable throughout: labor and section Neuraxial method: epidural Epidural/Spinal procedure site: clean & non-tender Neuro status: Neuro function grossly intact. Cardiovascular status: normal Respiratory status: normal Airway patency: baseline Mental status: baseline Post-Op hydration status: normal Vital Signs: Last Vital Signs Temp 96.5 F L 02/17/20 03:40 Pulse 108 H 02/17/20 08:38 Resp 16 02/17/20 03:40 BP 126/75 02/17/20 03:40 Pulse Ox 100 02/17/20 03:40 I/O: Intake & Output 02/16/20 02/17/20 02/17/20 23:59 07:59 15:59 Intake Total 300 450 Output Total 600 1550 Balance -300 -1100 Patient feedback: Patient satisfied with anesthetic care.
--- NOTE | 2020-02-17 09:33 | WPDANLDNPN2 ---
Anes-Prog Note L&D-Neuraxial Date/Time: 02/17/20 09:33 Neuraxial medications: epidural PF morphine Opiod-related complaints: pruritis mild, no treatment Patient feedback: Patient satisfied with post-operative pain management.
--- NOTE | 2020-02-17 12:36 | P.PNOB_ITS ---
OB - PN: Subj Subjective Date/time seen: 02/17/20 12:36 Interval history: Patient with slow progress. Now /-2 with significant caput. Discussed with patient and will proceed with csection once anesthesia available in approx. 1 hour as long as FHTs remain reassuring. Patient comments: no complaints and pain well controlled baby status: NICU (at [facility] post several episodes of going limp and blud) OB - PN: Obj Data Labs CBC & Chem 7: 02/17/20 03:33 02/14/20 17:32 Labs: Laboratory Results - last 24 hr 02/17/20 03:33 WBC 36.4 H RBC 3.99 L Hgb 12.1 Hct 35.8 L MCV 89.7 MCH 30.3 MCHC 33.8 RDW 12.7 Plt Count 296 MPV 10.0 Immature Gran % (Auto) 1.2 H Neut % (Auto) 89.7 H Lymph % (Auto) 5.2 L [place] % (Auto) 3.6 Eos % (Auto) 0.1 Baso % (Auto) 0.2 Lymph # (Auto) 1.90 [place] # (Auto) 1.3 H Eos # (Auto) 0.0 Baso # (Auto) 0.1 Abs Immat Gran (auto) 0.45 H Absolute Neuts (auto) 32.6 H Absolute Nucleated RBC 0.0 Nucleated RBC % 0.0 OB - PN A/P Assessment and Plan (1) delivery delivered: Code(s): O82 - Encounter for delivery without indication Status: Acute Assessment and Plan: Patient doing well. Continue care. Possible pass to [facility] this evening (2) Pre-eclampsia superimposed on chronic hypertension: Code(s): O11.9 - Pre-existing hypertension with pre-eclampsia, unspecified trimester Status: Acute Assessment and Plan: BP stable. Continue labetalol. Good diuresis Plan day: 1 Plan: routine care Time Spent With Patient Time: Total time spent is greater than 50% in coordination of care (as documented) at patient's floor/unit and/or counseling patient: Exam GI: Other: bandage c/d/i : Bimanual exam- vagina & uterus: other (Uterus firm, nt @U)
--- NOTE | 2020-02-17 16:10 | PC.NURSE ---
Left on 4-6 hour.Theraputic Pass to [facility] to visit . FOB will be driving.
[2020-02-17] MEDS: LANOLIN (LANSINOH) 7.5 GM CREAM 1 APPLIC TOPICAL (21:44)
--- NOTE | 2020-02-17 21:46 | PC.NURSE ---
Pt and spouse returned from pass at this time.
[2020-02-18] MEDS: IBUPROFEN 600 MG TABLET PO (05:32)
[2020-02-18 07:20] VITALS: BP 132/77; PULSE 96; RESP 18; TEMP 36.4; O2SAT 99
[2020-02-18] MEDS: DOCUSATE SODIUM 100 MG CAPSULE PO (08:16)
[2020-02-18] MEDS: LABETALOL HCL 100 MG TABLET PO (08:16)
[2020-02-18] MEDS: MULTIVIT/MIN/PREN/FOL AC/IRON TABLET 1 TAB PO (08:17)
--- NOTE | 2020-02-18 09:55 | PC.NURSE ---
Consult with pt., mother is pumping due to transfer. Mother has concerns of volume pumping at this time, assured mother this is normal at this time and milk supply should transition in within a few days. Instructions given on breast pump care and usage, pumping schedule, nipple care, and collection and storage of breast milk. Encouraged [id number], breast massage and manual expression to stimulate supply. Pumping log provided and reviewed. Assessed patient for correct flange size, placement and draw. Patient verbalizes and demonstrates understanding of instructions.
--- NOTE | 2020-02-18 10:32 | PC.NURSE ---
Patient was given the opportunity to view the discharge video Mother & Baby Care, The First Two Weeks and to ask questions. Patient declined viewing the video and has been given the mother/baby guide for home reference.
--- NOTE | 2020-02-18 10:39 | PM.OBPNVD ---
OB - PN: Subj Subjective Date/time seen: 02/18/20 10:39 Interval history: Patient with slow progress. Now /-2 with significant caput. Discussed with patient and will proceed with csection once anesthesia available in approx. 1 hour as long as FHTs remain reassuring. Patient comments: no complaints and pain well controlled baby status: doing well OB - PN: Obj Data Labs CBC & Chem 7: 02/17/20 03:33 02/14/20 17:32 OB - PN A/P Assessment and Plan (1) delivery delivered: Code(s): O82 - Encounter for delivery without indication Status: Acute (2) Pre-eclampsia superimposed on chronic hypertension: Code(s): O11.9 - Pre-existing hypertension with pre-eclampsia, unspecified trimester Status: Acute Assessment and Plan: continue labetalol BP check 2 d Plan day: 2 Plan: routine care, discharge home and other (follow up 2 days for BP check and 1 wk to remove bandage and check incision) Time Spent With Patient Time: Total time spent is greater than 50% in coordination of care (as documented) at patient's floor/unit and/or counseling patient: Exam GI: Other: bandage c/d/i : Bimanual exam- vagina & uterus: other (Uterus firm, nt @U)
--- NOTE | 2020-02-28 14:02 | P.HP_ITS ---
H&P: HPI History of Present Illness Chief complaint: MIL Narrative: Kaleigh Mancera is a 29 year old female G1 at 37 2/7 wks here for MIL for CHTN with superimposed preeclampsia. Patient labor not progressive and developed chorioamnionitis. Recommend to proceed with csection and patient agreed. Patient also compliated by GDMA2. REPLACED BY [facility] Past Medical History Medical History (Updated 02/28/20 @ 14:06 by Tiarra Delgado MD) ADHD Bipolar 1 disorder Hx of suicide attempt Borderline personality disorder Diabetes GDMA2 Hypertension Morbid obesity Surgical History Surgical History (Updated 02/28/20 @ 14:06 by Tiarra Delgado MD) S/P ACL repair S/P tonsillectomy Family History Family History Grandparent Diabetes mellitus Mother Heart murmur Social History Social History (Updated 02/28/20 @ 14:07 by Tiarra Delgado MD) Smoking status: Former smoker Tobacco type: cigarettes Second hand tobacco smoke exposure: No Smoking end date: 07/24/19 Alcohol use details: social when not Substance use: never Substance use type: former substance user and marijuana Spiritual care concerns: No Meds Home Medications and Allergies Home Medications Medication Instructions Recorded Confirmed Type PNV cmb#95-ferrous fumarate-FA 1 tablet PO DAILY 11/15/19 02/15/20 History [] acetaminophen [Tylenol Extra 1,000 mg PO Q6H PRN 30 Days tablet 11/15/19 02/15/20 Rx Strength] ergocalciferol (vitamin D2) 50,000 unit PO 2XW 02/05/20 02/15/20 History [Vitamin D2] hydrocodone-acetaminophen 1 tab PO Q3H PRN #20 tablet 02/18/20 Rx ibuprofen 600 mg PO Q6H PRN #60 tablet 02/18/20 Rx norethindrone (contraceptive) 0.35 mg PO DAILY #84 tablet 02/18/20 Rx Allergies Allergy/AdvReac Type Severity Reaction Status Date / Time ceftriaxone [From Rocephin] Allergy Intermediate Other Verified 02/05/20 14:38 spironolactone Allergy Rash Verified 02/05/20 14:39 buspirone [From BuSpar] AdvReac Agitated Verified 02/05/20 14:38 doxycycline AdvReac Unknown Verified 02/15/20 05:08 Exam Resp: Auscultation: clear to auscultation bilaterally Cardio: Rate: regular rate Rhythm: regular rhythm GI: GI Palp: Yes Soft to palpation : Bimanual exam- vagina & uterus: enlarged (41 cm fundal height) Assessment and Plan Assessment and plan (1) Failure to progress in labor: Code(s): O62.2 - Other uterine inertia Status: Acute Assessment and Plan: proceed with csection (2) 37 weeks gestation of : Code(s): Z3A.37 - 37 weeks gestation of Status: Acute (3) Pre-eclampsia superimposed on chronic hypertension: Code(s): O11.9 - Pre-existing hypertension with pre-eclampsia, unspecified trimester Status: Acute (4) GDM, class A2: Code(s): O24.419 - Gestational diabetes mellitus in , unspecified control Status: Acute
== END 2020-02-18 12:53 | disposition home or self-care (01) | DRG 788 ==
LOC: ANHLDR 02-16 12:02 → ANHOB2 02-16 16:05
PROVIDERS: Admitting Provider Obstetrics & Gynecology Gynecology; PCP Physician Assistant Medical; Visit Provider Obstetrics & Gynecology Gynecology
PROC: (CPT 59514; principal; 2020-02-16 09:00)
DX: O24.429 Gestational diabetes mellitus in childbirth, unspecified control (principal); O11.4 Pre-existing hypertension with pre-eclampsia, complicating childbirth; O99.214 Obesity complicating childbirth; F90.9 Attention-deficit hyperactivity disorder, unspecified type; E66.01 Morbid (severe) obesity due to excess calories; Z3A.37 37 weeks gestation of pregnancy; Z37.0 Single live birth; Z23 Encounter for immunization; O69.81X0 Labor and delivery complicated by cord around neck, without compression, not applicable or unspecified; O62.2 Other uterine inertia; O41.1290 Chorioamnionitis, unspecified trimester, not applicable or unspecified; O26.893 Other specified pregnancy related conditions, third trimester; L29.9 Pruritus, unspecified; T40.605A Adverse effect of unspecified narcotics, initial encounter
CPT/HCPCS: 36415; 80053; 84550; 85025; 86592; 86850; 86900; 86901; A9270; J0131; J0290; J1580; J1885; J2274; J2405; J2590; J2795; J3010; J7120

== ENCOUNTER → 2020-07-29 15:36 | Outpatient (CLI) | payer OTHER, SELFPAY ==
--- NOTE | ~2020-07-29 | XR_ITS ---
EXAMINATION: XR lumbar spine min 4V DATE: 07/29/2020 16:16 INDICATION: Acute left-sided low back pain without sciatica. TECHNIQUE: 5 views of lumbar spine were obtained. COMPARISON: CT abdomen and pelvis 03/14/2018 FINDINGS: There is 3 degrees dextrocurvature of lumbar spine. There is mild chronic anterior wedging of T12 and L1 vertebral bodies. There is mildly decreased disc height at T12-L1 and L3-L4. The facet joints are unremarkable. IMPRESSION: 1. Mild lumbar spondylosis. Reviewed, dictated and finalized at location A. IMPRESSION: 1. Mild lumbar spondylosis.
== END ==
PROVIDERS: PCP Physician Assistant Medical; Visit Provider Family Medicine
DX: M47.896 Other spondylosis, lumbar region (principal)
CPT/HCPCS: 72110

== ENCOUNTER → 2020-08-01 14:52 | Outpatient (CLI) | payer OTHER, SELFPAY ==
--- NOTE | ~2020-08-01 | XR_ITS ---
EXAMINATION: XR chest 2V 08/01/2020 15:16 INDICATION: Leukocytosis PROCEDURE: 2 view chest COMPARISON: No prior studies for comparison. FINDINGS: The lungs are clear. The cardiomediastinal silhouette is within normal limits. There are no pleural effusions. There is no pneumothorax suspected. IMPRESSION: 1: NO ACUTE CARDIOPULMONARY DISEASE. Reviewed, dictated and finalized at location B.
== END ==
PROVIDERS: PCP Physician Assistant Medical; Visit Provider Physician Assistant Medical
DX: D72.829 Elevated white blood cell count, unspecified (principal)
CPT/HCPCS: 71046

== ENCOUNTER 2020-08-18 11:05 | Outpatient (CLI) | payer OTHER, SELFPAY ==
[2020-08-18 11:27] LABS: Basophils Absolute Auto 0.1 K/mm3 (0.0-0.1); Basophils Percent Auto 0.5 % (0.2-1.2); Eosinophils Absolute Auto 0.2 K/mm3 (0-0.3); Eosinophils Percent Auto 1.3 % (0-4.4); Hematocrit 44.3 % (37.0-47.0); Hemoglobin 14.9 g/dL (12.0-15.0); Immature Granulocyte Absolute 0.03 K/mm3 (0.00-0.031); Immature Granulocyte Percent A 0.2 % (0-0.5); Lymphocytes Absolute Auto 3.74 K/mm3 (0.9-3.2); Lymphocytes Percent Auto 29.7 % (18.3-44.2); Mean Corpuscular HGB Conc 33.6 g/dl (32-36); Mean Corpuscular Hemoglobin 29.4 pg (26-34); Mean Corpuscular Volume 87.4 fl (80-100); Mean Platelet Volume 8.7 fl (7.4-10.4); Monocytes Absolute Auto 0.7 K/mm3 (0.1-0.6); Monocytes Percent Auto 5.6 % (2.6-8.5); Neutrophils Absolute Auto 7.9 K/mm3 (1.3-6.7); Neutrophils Percent Auto 62.7 % (45.5-73.1); Platelet Count Result 393 k/mm3 (150-375); Red Blood Count 5.07 M/mm3 (4.2-5.4); Red Cell Distribution Width 12.4 % (11.5-14.5); White Blood Count 12.6 K/mm3 (4.5-10.0)
[2020-08-18 12:16] LABS: Alanine Aminotransferase 32 U/L (4-35); Albumin Level 4.2 g/dL (3.5-5.1); Alkaline Phosphatase 72 U/L (38-126); Anion Gap 8 mmol/L (8-16); Aspartate Amino Transferase 32 U/L (14-36); Bilirubin,Total 0.4 mg/dL (0.2-1.3); Blood Urea Nitrogen 6 mg/dL (7-17); CRP 0.6 mg/dL (<1.0); Calcium 9.9 mg/dL (8.4-10.2); Carbon Dioxide 31 mmol/L (22-30); Chloride 101 mmol/L (98-107); Estimated Glomerular Filt Rate > 60; Glucose 102 mg/dL (65-105); Potassium 4.2 mmol/L (3.4-5.0); Sodium 140 mmol/L (137-145)
[2020-08-18 12:26] LABS: Erythrocyte Sedimentation Rate 7 mm/hr (0-20)
== END 2020-08-18 11:06 | disposition home or self-care (01) ==
LOC: ANHLAB 11:07
PROVIDERS: PCP Physician Assistant Medical; Visit Provider Internal Medicine Hematology & Oncology
DX: D72.829 Elevated white blood cell count, unspecified (principal)
CPT/HCPCS: 36415; 80053; 85025; 85652; 86140; 88184

== ENCOUNTER 2021-06-30 14:59 | Outpatient (CLI) | payer OTHER, SELFPAY ==
--- NOTE | ~2021-06-30 | US_ITS ---
EXAMINATION: US breast BI limited HISTORY: Bilateral milky nipple discharge for one month TECHNIQUE: Targeted subareolar ultrasound of the breasts is performed. FINDINGS: There is no evidence of focal abnormal cystic or solid mass in the subareolar breasts. No d ilated subareolar ducts are identified. IMPRESSION: No specific sonographic correlate is identified for the patient's nipple discharge. Further evaluatio n at this time should be based on clinical assessment. Continued follow-up physical examination is re commended. BI-RADS Category 1: Negative Reviewed, dictated and finalized at location A. IMPRESSION: No specific sonographic correlate is identified for the patient's nipple discha rge. Further evaluation at this time should be based on clinical assessment. Co ntinued follow-up physical examination is recommended. BI-RADS Category 1: Negative
== END 2021-06-30 15:00 ==
PROVIDERS: Visit Provider Nurse Practitioner
DX: N64.52 Nipple discharge (principal)
CPT/HCPCS: 76642

== ENCOUNTER → 2021-07-31 15:32 | Outpatient (CLI) | payer OTHER, SELFPAY ==
--- NOTE | ~2021-07-31 | MR_ITS ---
EXAMINATION: MR knee LT wo con DATE: 07/31/2021 16:08 INDICATION: Left knee pain, persistent burning at the lateral aspect of the knee and popping, locking and giving out. TECHNIQUE: Magnetic resonance imaging (MRI) of the left knee was performed without intravenous contra st. Sequences included coronal PD-weighted FSE, coronal PD-weighted FS FSE, sagittal T2-weighted FSE , sagittal PD-weighted FS FSE and axial PD weighted fat saturated FSE. COMPARISON: 04/24/2015 FINDINGS: Medial compartment: Medial meniscus is normal. Articular cartilage is normal. Lateral compartment: Again seen is a discoid lateral meniscus without discrete tear Articular cartilage is normal. Patellofemoral compartment: Articular cartilage is normal. Ligaments and tendons: Again seen are changes of prior anterior cruciate ligament repair. There is intact, taut-appearing no rmal low signal intensity graft extending between the femoral and tibial tunnels. The graft however a ppears thinner than on the prior study on all 3 planes of imaging suspicious for interval partial tea r although no discrete torn portion of the tendons appreciated. The posterior cruciate ligament is no rmal. The medial collateral ligament and fibular collateral ligament complex are normal. Again seen i s a sagittally oriented cleft extending along the central aspect of the patellar tendon consistent wi th a prior patellar tendon autograft donor site. The visualized medial and lateral hamstring tendons as well as the iliotibial band are normal. Fluid: Physiologic amount of fluid in the joint space. No loose osteochondral bodies identified. Osseous/other: Normal marrow signal. No fracture or pathologic marrow replacing process. IMPRESSION: 1. Anterior cruciate ligament reconstruction with intact appearing graft but which appears thinner th an on the prior study suggesting interval partial tear. Reviewed, dictated and finalized at location A. IMPRESSION: 1. Anterior cruciate ligament reconstruction with intact appearing graft but wh ich appears thinner than on the prior study suggesting interval partial tear.
== END ==
PROVIDERS: PCP Physician Assistant Medical; Visit Provider Orthopaedic Surgery
DX: M25.562 Pain in left knee (principal)
CPT/HCPCS: 73721

== ENCOUNTER 2021-08-11 16:21 | Outpatient (CLI) | payer OTHER, SELFPAY ==
--- NOTE | ~2021-08-11 | MR_ITS ---
EXAMINATION: MR lumbar spine wo con EXAM DATE: 08/11/2021 17:12 INDICATION: Low back pain. TECHNIQUE: Multi-sequential, multiplanar MR images of the lumbar spine were obtained without contrast . Sagittal T1, T2, T2 fat saturation images. Axial T2 weighted images. Correlation is made to lumba r x-ray from 2008. FINDINGS: The vertebral bodies are aligned in the AP dimension. There is mild disc disease L3-4 and L 5-S1. There are no suspicious marrow signal abnormalities. The conus medullaris terminates at the L1/ 2 level and has normal signal intensity and morphology. Paraspinal soft tissue is unremarkable. Level by level evaluation: T12-L1: Disc does not extend beyond the endplate margin. Facet arthropathy: None. Neural foraminal stenosis: No stenosis. Central canal stenosis: No stenosis. L1-L2: Disc does not extend beyond the endplate margin. Facet arthropathy: Mild. Neural foraminal stenosis: No stenosis. Central canal stenosis: No stenosis. L2-L3: Disc does not extend beyond the endplate margin. Facet arthropathy: Mild. Neural foraminal stenosis: No stenosis. Central canal stenosis: No stenosis. L3-L4: There is a minimal diffuse disc bulge. Facet arthropathy: Mild. Neural foraminal stenosis: No stenosis. Central canal stenosis: No stenosis. L4-L5: There is a minimal diffuse disc bulge. Facet arthropathy: Mild. Neural foraminal stenosis: No stenosis. Central canal stenosis: No stenosis. L5-S1: There is a mild diffuse disc bulge. Facet arthropathy: Mild. Neural foraminal stenosis: No stenosis. Central canal stenosis: No stenosis. IMPRESSION: 1. Mild lumbar spondylosis without stenosis Reviewed, dictated and finalized at location A.
== END 2021-08-11 16:22 ==
LOC: MICIMG 16:22
PROVIDERS: PCP Physician Assistant Medical; Visit Provider Orthopaedic Surgery
DX: M47.896 Other spondylosis, lumbar region (principal)
CPT/HCPCS: 72148

== ENCOUNTER 2023-03-09 15:49 | Outpatient (CLI) | payer OTHER, SELFPAY ==
[2023-03-09 16:02] LABS: Basophils Absolute Auto 0.1 K/mm3 (0.0-0.1); Basophils Percent Auto 0.4 % (0.2-1.2); Eosinophils Absolute Auto 0.2 K/mm3 (0-0.3); Eosinophils Percent Auto 0.9 % (0-4.4); Hematocrit 46.5 % (37.0-47.0); Hemoglobin 15.8 g/dL (12.0-15.0); Immature Granulocyte Absolute 0.09 K/mm3 (0.00-0.031); Immature Granulocyte Percent A 0.5 % (0-0.5); Lymphocytes Absolute Auto 4.75 K/mm3 (0.9-3.2); Lymphocytes Percent Auto 24.5 % (18.3-44.2); Mean Corpuscular Hemoglobin 30.3 pg (26-34); Mean Corpuscular Volume 89.1 fl (80-100); Mean Platelet Volume 8.6 fl (7.4-10.4); Neutrophils Absolute Auto 13.4 K/mm3 (1.3-6.7); Neutrophils Percent Auto 68.7 % (45.5-73.1); Platelet Count Result 428 k/mm3 (150-375); Red Blood Count 5.22 M/mm3 (4.2-5.4); Red Cell Distribution Width 11.8 % (11.5-14.5); White Blood Count 19.4 K/mm3 (4.5-10.0)
[2023-03-09 16:06] LABS: Blood Urea Nitrogen 9 mg/dL (8-26); Carbon Dioxide 32 mmol/L (22-30); Chloride 96 mmol/L (98-109); Estimated Glomerular Filt Rate > 60; Glucose 148 mg/dL (70-105); Ionized Calcium (POC) 1.21 mmol/L (1.11-1.31); Potassium 4.1 mmol/L (3.5-4.9); Sodium 138 mmol/L (138-146)
[2023-03-09 16:53] LABS: Alanine Aminotransferase 36 U/L (6-35); Albumin Level 4.3 g/dL (3.5-5.1); Alkaline Phosphatase 88 U/L (38-126); Anion Gap 4 mmol/L (8-16); Aspartate Amino Transferase 34 U/L (14-36); Bilirubin,Total 0.5 mg/dL (0.2-1.3); Blood Urea Nitrogen 10 mg/dL (7-17); Calcium 9.1 mg/dL (8.4-10.2); Carbon Dioxide 34 mmol/L (22-30); Chloride 98 mmol/L (98-107); Estimated Glomerular Filt Rate > 60; Glucose 145 mg/dL (65-110); Potassium 4.1 mmol/L (3.4-5.0); Sodium 136 mmol/L (137-145)
== END 2023-03-09 15:50 | disposition home or self-care (01) ==
PROVIDERS: PCP Physician Assistant Medical; Visit Provider Internal Medicine Hematology & Oncology
DX: D72.823 Leukemoid reaction (principal)
CPT/HCPCS: 36415; 80047; 80053; 85025

== ENCOUNTER → 2023-05-16 08:33 | Outpatient (CLI) | payer OTHER, SELFPAY ==
--- NOTE | ~2023-05-16 | XR_ITS ---
EXAMINATION: XR lumbar spine 2-3V DATE: 05/16/2023 09:00 INDICATION: Low back pain TECHNIQUE: Standing anteroposterior, lateral and cone-down lateral lumbosacral views of the lumbar sp ine obtained. COMPARISON: None. FINDINGS: A degree lumbar dextrocurvature. Sagittal alignment is normal. Vertebral body heights are normal. Min imal disc height loss at L5-S1 and with small anterior endplate osteophytes at L3-L4. Sacrum and bila teral sacroiliac joints are unremarkable. IMPRESSION: 1. 8 degree lumbar dextrocurvature with mild spondylosis. Reviewed, dictated and finalized at location D.
== END ==
PROVIDERS: PCP Physician Assistant Medical; Visit Provider Nurse Practitioner Family
DX: M47.896 Other spondylosis, lumbar region (principal)
CPT/HCPCS: 72100

== ENCOUNTER 2023-05-24 02:50 | Day surgery (SDC) | payer OTHER, SELFPAY ==
[2023-05-11 15:01] VITALS: BMI 44.9
[2023-05-24 08:30] VITALS: BP 126/99; PULSE 99; RESP 18; TEMP 36.1; O2SAT 98; BMI 44.9
[2023-05-24 08:43] LABS: Glucose Point of Care 187 mg/dl (65-105)
[2023-05-24] MEDS: LACTATED RINGERS 1,000 ML 150 ML IV CONT (08:43)
--- NOTE | 2023-05-24 09:08 | WPDANESEPPF ---
Anes - Initial Pre Proc Eval Procedure: Operation Date: 05/24/23 09:30 Proposed Procedures p Esophagogastroduodenoscopy - Hudson Griffith MD Date/Time: 05/24/23 09:08 Surgeon: Hudson Griffith MD Pre Op Diagnosis: nausea, vomiting Patient Data Age: 32 Gender: F Height: 1.55 m Weight: 107.8 kg Last Vital Signs Temp 36.1 C L 05/24/23 08:30 Pulse 99 05/24/23 08:30 Resp 18 05/24/23 08:30 BP 126/99 H 05/24/23 08:30 Pulse Ox 98 05/24/23 08:30 O2 Del Method Room Air 05/24/23 08:30 Allergies Allergy/AdvReac Type Severity Reaction Status Date / Time ceftriaxone [From Rocephin] Allergy Intermediate Other Verified 05/24/23 08:24 spironolactone Allergy Rash Verified 05/24/23 08:24 dapagliflozin [From Farxiga] AdvReac Severe Vomiting Verified 05/24/23 08:24 doxycycline AdvReac Severe Vomiting Verified 05/24/23 08:24 metformin AdvReac Mild dysfunctional Verified 05/24/23 08:30 uterine bleeding buspirone [From BuSpar] AdvReac Agitated Verified 05/24/23 08:24 Home Medications Medication Instructions Recorded Confirmed Type hydroxyzine HCl 25 mg tablet 25 mg PO TID PRN Dizziness Or 10/01/22 05/24/23 History Vertigo risankizumab-rzaa 75 mg/0.83 mL 150 mg (1.66 mL) subcut .Q3 months 11/17/22 05/11/23 Rx subcutaneous syringe (David) #0.83 mL blood sugar diagnostic (FreeStyle #100 ea 12/13/22 05/11/23 Rx Lite Strips) blood-glucose meter (FreeStyle #1 ea 12/13/22 05/11/23 Rx Sunset Lite kit) lancets 28 gauge (FreeStyle #100 ea 12/13/22 05/11/23 Rx Lancets) metoprolol succinate 50 mg 75 mg PO DAILY #90 tabs 02/11/23 05/24/23 Rx tablet,extended release 24 hr albuterol sulfate 90 mcg/actuation 2 inh inhalation Q4H PRN shortness 02/24/23 05/24/23 Rx aerosol inhaler of breath or wheezing #8.5 grams omeprazole 40 mg capsule,delayed 40 mg PO DAILY 1 month #30 caps 04/14/23 05/11/23 Rx release semaglutide 1 mg/dose (4 mg/3 mL) See Rx Instructions .Route 04/21/23 05/24/23 Rx subcutaneous pen injector (Ozempic) .COMPLEX #3 mL aripiprazole 10 mg tablet 10 mg PO HS 05/11/23 05/24/23 History Laboratory Tests 05/24/23 08:41 POC Capillary Glucose 187 H mg/dl (65-105) Patient hx anesthesia problems: none Family hx anesthesia problems: none Results Review: All pre-operative results and documents have been reviewed as part of the pre-operative evaluation. [facility] Past Medical History Medical History 37 weeks gestation of ADHD Alternating constipation and diarrhea Bipolar 1 disorder Hx of suicide attempt Borderline personality disorder delivery delivered Diabetes Failure to progress in labor GDM, class A2 Hypertension Lumbago Morbid obesity Pre-eclampsia superimposed on chronic hypertension Tachycardia Surgical History Surgical History S/P ACL repair S/P tonsillectomy [place] teeth extracted Family History Family History Grandparent Diabetes mellitus Mother Heart murmur Social History Social History Smoking packs per day: 0.5 Smoking cigarettes per day: 10.0 Years smoked: 20 Smoking pack-years: 10.00 Smoking status: Current every day smoker Tobacco type: cigarettes Second hand tobacco smoke exposure: No Smoking end date: 07/24/19 Alcohol intake: current Drinks per week: 6 Alcohol use details: social when not Substance use: current Substance use type: marijuana Other substance usage details: smokes marijuana daily Last use: yesterday - for pain Living arrangements: with family Occupation/Education: occupation Spiritual care concerns: No Anes - Eval Final PreProcedure Day of Procedure 05/24/23 09:08 Patient weight: morbidly obese Heart: regular r
--- NOTE | 2023-05-24 09:15 | PM.HPGS ---
History of Present Illness History of Present Illness Consent: Risks, benefits, and alternatives have been discussed and questions answered. Patient agrees to proceed with procedure. Chief complaint: nausea, vomiting Narrative: Kaleigh Delgado is a 32 year old female Presents for EGD. Patient recently seen by the nurse practitioner in the GI office. Patient reports daily vomiting over the last 3 years. She states she will belch fall for smelling breath least weekly. She presents today for EGD to evaluate this. Patient has been treated with Ozempic for weight loss as well as for diabetes and smokes marijuana daily. She continues this despite her symptoms. Patient denies any weight loss. Family history noncontributory. Review of Systems Review of Systems: Review of systems noncontributory. [facility] Past Medical History Medical History 37 weeks gestation of ADHD Alternating constipation and diarrhea Bipolar 1 disorder Hx of suicide attempt Borderline personality disorder delivery delivered Diabetes Failure to progress in labor GDM, class A2 Hypertension Lumbago Morbid obesity Pre-eclampsia superimposed on chronic hypertension Tachycardia Surgical History Surgical History S/P ACL repair S/P tonsillectomy [place] teeth extracted Family History Family History Grandparent Diabetes mellitus Mother Heart murmur Social History Social History Smoking packs per day: 0.5 Smoking cigarettes per day: 10.0 Years smoked: 20 Smoking pack-years: 10.00 Smoking status: Current every day smoker Tobacco type: cigarettes Second hand tobacco smoke exposure: No Smoking end date: 07/24/19 Alcohol intake: current Drinks per week: 6 Alcohol use details: social when not Substance use: current Substance use type: marijuana Other substance usage details: smokes marijuana daily Last use: yesterday - for pain Living arrangements: with family Occupation/Education: occupation Spiritual care concerns: No Meds Home Medications and Allergies Home Medications Medication Instructions Recorded Confirmed Type hydroxyzine HCl 25 mg tablet 25 mg PO TID PRN Dizziness Or 10/01/22 05/24/23 History Vertigo risankizumab-rzaa 75 mg/0.83 mL 150 mg (1.66 mL) subcut .Q3 months 11/17/22 05/11/23 Rx subcutaneous syringe (Skyrizi) #0.83 mL blood sugar diagnostic (FreeStyle #100 ea 12/13/22 05/11/23 Rx Lite Strips) blood-glucose meter (FreeStyle #1 ea 12/13/22 05/11/23 Rx Norvell Lite kit) lancets 28 gauge (FreeStyle #100 ea 12/13/22 05/11/23 Rx Lancets) metoprolol succinate 50 mg 75 mg PO DAILY #90 tabs 02/11/23 05/24/23 Rx tablet,extended release 24 hr albuterol sulfate 90 mcg/actuation 2 inh inhalation Q4H PRN shortness 02/24/23 05/24/23 Rx aerosol inhaler of breath or wheezing #8.5 grams omeprazole 40 mg capsule,delayed 40 mg PO DAILY 1 month #30 caps 04/14/23 05/11/23 Rx release semaglutide 1 mg/dose (4 mg/3 mL) See Rx Instructions .Route 04/21/23 05/24/23 Rx subcutaneous pen injector (Fantasy Shopper) .COMPLEX #3 mL aripiprazole 10 mg tablet 10 mg PO HS 05/11/23 05/24/23 History Allergies Allergy/AdvReac Type Severity Reaction Status Date / Time ceftriaxone [From Rocephin] Allergy Intermediate Other Verified 05/24/23 08:24 spironolactone Allergy Rash Verified 05/24/23 08:24 dapagliflozin [From Farxiga] AdvReac Severe Vomiting Verified 05/24/23 08:24 doxycycline AdvReac Severe Vomiting Verified 05/24/23 08:24 metformin AdvReac Mild dysfunctional Verified 05/24/23 08:30 uterine bleeding buspirone [From BuSpar] AdvReac Agitated Verified 05/24/23 08:24 Vital Signs Vital Signs - 24 hr 05/24/23 08:30 Temperature
[2023-05-24] MEDS: BENZOCAINE (*SP) 60 ML SPRAY CAN (HURRICAINE) 1 SPRAY MUCOUS MEM (10:05)
[2023-05-24 10:12] VITALS: BP 156/97; PULSE 93; RESP 23; O2SAT 97
[2023-05-24 10:22] VITALS: BP 149/106; PULSE 93; RESP 23; O2SAT 97
[2023-05-24 10:32] VITALS: BP 131/74; PULSE 90; RESP 18; O2SAT 98
== END 2023-05-24 10:43 | disposition home or self-care (01) ==
PROVIDERS: PCP Physician Assistant Medical; Visit Provider Internal Medicine Gastroenterology
PROC: 0DJ08ZZ Inspection of Upper Intestinal Tract, Via Natural or Artificial Opening Endoscopic (ICD-10-PCS; CPT 43235; principal; 2023-05-24 09:30)
DX: R11.2 Nausea with vomiting, unspecified (principal); F31.9 Bipolar disorder, unspecified; E11.9 Type 2 diabetes mellitus without complications; I10 Essential (primary) hypertension; E66.01 Morbid (severe) obesity due to excess calories; Z68.41 Body mass index [BMI] 40.0-44.9, adult; Z79.899 Other long term (current) drug therapy; Z79.51 Long term (current) use of inhaled steroids; F17.210 Nicotine dependence, cigarettes, uncomplicated; F12.90 Cannabis use, unspecified, uncomplicated
CPT/HCPCS: 43239; 82948; 87081; J2704; J7120

== ENCOUNTER → 2023-06-11 09:06 | Outpatient (CLI) | payer OTHER, SELFPAY ==
--- NOTE | ~2023-06-11 | MR_ITS ---
MRI of the lumbar spine Clinical History: Back pain Technique: Axial T2-weighted images, and sagittal T1-weighted, T2-weighted, and T2 fat-sat images wer e acquired. COMPARISON: 08/03/2021 Findings: There is no fracture or subluxation of the lumbar spine. Mild chronic compression deformity of T12 noted. Vertebral bodies maintain normal height and alignment. No suspicious bone marrow signa l abnormality seen. At L1-L2, there is no disc bulge or herniation. No spinal canal stenosis or neural foraminal narrowin g. At L2-L3, there is no disc bulge or herniation. There is mild facet joint hypertrophy. No spinal ashish l stenosis or neural foraminal narrowing. L3-L4, there is no disc bulge or herniation. There is mild facet joint hypertrophy. No spinal canal s tenosis or neural foraminal narrowing. At L4-L5, there is no disc bulge or herniation. There is mild to moderate facet arthropathy. No centr al canal stenosis or neural foraminal narrowing. At L5-S1, there is mild central disc protrusion with mild facet arthropathy. No central canal stenosi s or definite neural foraminal narrowing. Paravertebral soft tissues are unremarkable. Impression: Minimal degenerative spondylosis, as above. Reviewed, dictated and finalized at location . Impression: Minimal degenerative spondylosis, as above.
== END ==
PROVIDERS: PCP Physician Assistant Medical; Visit Provider Nurse Practitioner Family
DX: M47.816 Spondylosis without myelopathy or radiculopathy, lumbar region (principal)
CPT/HCPCS: 72148

== ENCOUNTER 2023-10-03 12:29 | Outpatient (CLI) | payer OTHER, SELFPAY ==
[2023-10-03 12:44] LABS: Basophils Absolute Auto 0.1 K/mm3 (0.0-0.1); Basophils Percent Auto 0.4 % (0.2-1.2); Eosinophils Absolute Auto 0.1 K/mm3 (0-0.3); Eosinophils Percent Auto 0.8 % (0-4.4); Hematocrit 43.5 % (37.0-47.0); Hemoglobin 14.8 g/dL (12.0-15.0); Immature Granulocyte Absolute 0.08 K/mm3 (0.00-0.031); Immature Granulocyte Percent A 0.5 % (0-0.5); Lymphocytes Absolute Auto 3.19 K/mm3 (0.9-3.2); Lymphocytes Percent Auto 20.4 % (18.3-44.2); Mean Corpuscular Volume 91.2 fl (80-100); Mean Platelet Volume 8.8 fl (7.4-10.4); Monocytes Absolute Auto 0.7 K/mm3 (0.1-0.6); Monocytes Percent Auto 4.4 % (2.6-8.5); Neutrophils Absolute Auto 11.5 K/mm3 (1.3-6.7); Neutrophils Percent Auto 73.5 % (45.5-73.1); Platelet Count Result 343 k/mm3 (150-375); Red Blood Count 4.77 M/mm3 (4.2-5.4); White Blood Count 15.6 K/mm3 (4.5-10.0)
== END 2023-10-03 12:30 | disposition home or self-care (01) ==
PROVIDERS: PCP Physician Assistant Medical; Visit Provider Internal Medicine Hematology & Oncology
DX: D72.823 Leukemoid reaction (principal)
CPT/HCPCS: 36415; 85025

== ENCOUNTER 2023-10-21 09:14 | Outpatient (CLI) | payer OTHER, SELFPAY ==
--- NOTE | ~2023-10-21 | CT_ITS ---
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 TECHNIQUE: Computed tomographic angiography (CTA) of the chest was performed with 100 mL Omnipaque-35 0 intravenous contrast. The dose-length product was 1888.81 mGy-cm. Maximum intensity projection 3D-r econstructions of the aorta and other arteries were constructed by the technologist on a separate wor kstation. Automated exposure control and iterative reconstruction technique were employed. COMPARISON: None. FINDINGS: Study is technically adequate. No large central pulmonary embolism. Evaluation of the right upper lobe segmental arteries limited by streak artifact and contrast bolus timing. No significant p leural or pericardial effusion. Heart size normal. No endobronchial lesions. Fatty infiltration of th e liver. No endobronchial lesions. No pneumothorax. No focal airspace disease. No thoracic lymphadeno henrik. IMPRESSION: 1. No acute cardiopulmonary disease. No evidence for pulmonary embolism. Reviewed, dictated and finalized at location B. 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
== END 2023-10-21 09:15 | disposition home or self-care (01) ==
PROVIDERS: PCP Physician Assistant Medical; Visit Provider Physician Assistant Medical
DX: R07.9 Chest pain, unspecified (principal); R05.4 Cough syncope; R55 Syncope and collapse
CPT/HCPCS: 71275; Q9967

== ENCOUNTER 2024-04-02 14:57 | Outpatient (CLI) | payer OTHER, SELFPAY ==
[2024-04-02 15:09] LABS: Basophils Absolute Auto 0.1 K/mm3 (0.0-0.1); Basophils Percent Auto 0.4 % (0.2-1.2); Eosinophils Absolute Auto 0.2 K/mm3 (0-0.3); Eosinophils Percent Auto 1.1 % (0-4.4); Hematocrit 43.6 % (37.0-47.0); Immature Granulocyte Absolute 0.19 K/mm3 (0.00-0.031); Immature Granulocyte Percent A 0.8 % (0-0.5); Lymphocytes Absolute Auto 4.39 K/mm3 (0.9-3.2); Lymphocytes Percent Auto 19.4 % (18.3-44.2); Mean Corpuscular HGB Conc 34.4 g/dl (32-36); Mean Corpuscular Hemoglobin 31.6 pg (26-34); Mean Platelet Volume 8.5 fl (7.4-10.4); Monocytes Absolute Auto 1.2 K/mm3 (0.1-0.6); Monocytes Percent Auto 5.1 % (2.6-8.5); Neutrophils Absolute Auto 16.5 K/mm3 (1.3-6.7); Neutrophils Percent Auto 73.2 % (45.5-73.1); Platelet Count Result 386 k/mm3 (150-375); Red Blood Count 4.74 M/mm3 (4.2-5.4); Red Cell Distribution Width 11.3 % (11.5-14.5); White Blood Count 22.6 K/mm3 (4.5-10.0)
[2024-04-02 15:15] LABS: Blood Urea Nitrogen 4 mg/dL (8-26); Carbon Dioxide 26 mmol/L (22-30); Chloride 99 mmol/L (98-109); Estimated Glomerular Filt Rate > 60; Glucose 144 mg/dL (70-105); Ionized Calcium (POC) 1.19 mmol/L (1.11-1.31); Potassium 3.9 mmol/L (3.5-4.9); Sodium 138 mmol/L (138-146)
== END 2024-04-02 14:58 | disposition home or self-care (01) ==
LOC: ANHLAB 14:58
PROVIDERS: PCP Physician Assistant Medical; Visit Provider Internal Medicine Hematology & Oncology
DX: D72.823 Leukemoid reaction (principal)
CPT/HCPCS: 36415; 80047; 85025

== ENCOUNTER 2024-04-13 09:37 | Emergency (ER) | payer OTHER, SELFPAY ==
[2024-04-13 09:46] VITALS: BP 132/90; PULSE 101; RESP 16; TEMP 36.2; O2SAT 99
--- NOTE | 2024-04-13 10:00 | ED.GENADULT ---
HPI - General Adult General Chief complaint: Skin/Abscess/Foreign Body Stated complaint: Right foot toe infection Time Seen by Provider: 04/13/24 10:00 Source: patient, RN notes reviewed and old records reviewed Mode of arrival: ambulatory Limitations: no limitations History of Present Illness HPI narrative: 33-year-old female with a history diabetes presents to the [facility] with redness and pain to the right 5th toe that started 1-2 days ago. No treatment prior to arrival No fluctuance noted. Denies any injury. No open wounds. Onset (ago): day(s) (1-2) Related Data Home Medications Medication Instructions Recorded Confirmed hydroxyzine HCl 25 mg tablet 25 mg PO TID PRN Dizziness Or 10/01/22 04/13/24 Vertigo aripiprazole 10 mg tablet 10 mg PO HS 05/11/23 04/13/24 metoprolol succinate 50 mg 75 mg PO DAILY 11/15/23 04/13/24 tablet,extended release 24 hr levonorgestrel 21 mcg/24 hr (up to See Rx Instructions .Route .COMPLEX 04/13/24 04/13/24 8 years) 52 mg intrauterine device (Mirena) Allergies Allergy/AdvReac Type Severity Reaction Status Date / Time buspirone [From BuSpar] AdvReac Severe Agitated Verified 04/13/24 09:47 ceftriaxone [From Rocephin] AdvReac Intermediate Other Verified 04/13/24 09:47 dapagliflozin [From Farxiga] AdvReac Intermediate Nausea and Verified 04/13/24 09:47 Vomiting doxycycline AdvReac Intermediate Nausea and Verified 04/13/24 09:47 Vomiting metformin AdvReac Mild dysfunctional Verified 04/13/24 09:47 uterine bleeding spironolactone AdvReac Mild Rash Verified 04/13/24 09:47 Review of Systems Review of Systems: All systems reviewed & are unremarkable except as noted in HPI and below Constitutional: Constitutional: Reports no additional constitutional complaints Eyes: Eyes: Reports no additional eye complaints ENT: Reports system reviewed and no additional complaints, except as documented Cardiovascular: Cardiovascular: Reports no additional cardiovascular complaints, Denies chest pain and Denies dyspnea Respiratory: Respiratory: Reports no additional respiratory complaints, Denies chest congestion, Denies cough and Denies dyspnea Gastrointestinal: Gastrointestinal: Reports no additional gastrointestinal complaints, Denies abdominal pain, Denies nausea and Denies vomiting Musculoskeletal: Musculoskeletal: Reports as per HPI Integumentary/Breasts: Skin/Breast: Reports as per HPI Neurologic: Reports system reviewed and no additional complaints, except as documented Psychiatric: Psychiatric: Reports no additional psychiatric complaints Allergic/Immunologic: Allergic/Immunologic: Reports no additional allergic/immunologic complaints PMF Past Medical History Medical History 37 weeks gestation of ADHD Alternating constipation and diarrhea Bipolar 1 disorder Hx of suicide attempt Blood in stool Borderline personality disorder delivery delivered Diabetes Failure to progress in labor GDM, class A2 Hemorrhoids Hypertension Lumbago Morbid obesity Neutrophilic leukocytosis (~11/2019) Pre-eclampsia superimposed on chronic hypertension Smoker Tachycardia Surgical History Surgical History S/P ACL repair S/P tonsillectomy [place] teeth extracted Family History Family History Grandparent Diabetes mellitus Mother Heart murmur Social History Social History Smoking packs per day: 0.5 Smoking cigarettes per day: 10.0 Years smoked: 20 Smoking pack-years: 10.00 Smoking status: Current every day smoker Tobacco type: cigarettes Second hand tobacco smoke exposure: No Smoking end date: 07/24/19 Alcohol intake: current Drinks per week: 6 Alcohol use details: social when not Substance u
[2024-04-13 10:16] LABS: Glucose Point of Care 123 mg/dl (65-105)
== END 2024-04-13 10:19 | disposition home or self-care (01) ==
PROVIDERS: Emergency Provider Nurse Practitioner; PCP Physician Assistant Medical
DX: L03.031 Cellulitis of right toe (principal); Z87.891 Personal history of nicotine dependence; F12.90 Cannabis use, unspecified, uncomplicated; E11.9 Type 2 diabetes mellitus without complications; I10 Essential (primary) hypertension; E66.01 Morbid (severe) obesity due to excess calories; Z68.41 Body mass index [BMI] 40.0-44.9, adult
CPT/HCPCS: 82948; 99213; G0463

== ENCOUNTER 2024-04-16 12:38 | Outpatient (CLI) | payer OTHER, SELFPAY ==
[2024-04-25 01:04] LABS: Block/Specimen ID BLOOD; JAK2 V617F Mutation NOT DETECTED (NOT DETECTED); Specimen Source Blood
== END 2024-04-16 12:39 | disposition home or self-care (01) ==
LOC: ANHLAB 12:41
PROVIDERS: PCP Physician Assistant Medical; Visit Provider Internal Medicine Hematology & Oncology
DX: D72.823 Leukemoid reaction (principal); D47.3 Essential (hemorrhagic) thrombocythemia
CPT/HCPCS: 36415; 81270; 88184

== ENCOUNTER 2024-06-12 01:33 | Emergency (ER) | payer OTHER, SELFPAY ==
[2024-06-12 01:43] VITALS: BP 155/102; PULSE 108; RESP 12; TEMP 36.6; O2SAT 97
--- NOTE | 2024-06-12 01:45 | ED.NAVMDI ---
HPI - Nausea/Vomiting/Diarrhea General Chief complaint: Nausea/Vomiting/Diarrhea <Nat Valentine PA-C - Last Filed: 06/12/24 04:07> Stated complaint: n/v x 3 days <aNt Valentine PA-C - Last Filed: 06/12/24 04:07> Time Seen by Provider: 06/12/24 01:36 <Nat Valentine PA-C - Last Filed: 06/12/24 04:07> History of Present Illness HPI Narrative: 33-year-old female with a past medical history of diabetes, hypertension and chronic lumbar pain presents to emergency department for nausea and vomiting for 3 days. Patient states she is unable to keep down food or fluid due to vomiting. She states she has chronic GI issues in normally vomits daily but states this is different. States she has been seen for chronic n/v and told it is secondary to marijuana use. She denies fever, abdominal pain, dysuria or hematuria. Last bowel movement was today normal. She does states she had diarrhea yesterday but that has since resolved. States she is concerned about her sugars given she is diabetic step, however does state that they have been okay at home. She reports occasional alcohol use and states she normally smokes marijuana daily but has not used marijuana in past couple of days. <Nat Valentine PA-C - Last Filed: 06/12/24 04:07> Related Data Home medications: Home Medications Medication Instructions Recorded Confirmed hydroxyzine HCl 25 mg tablet 25 mg PO TID PRN Dizziness Or 10/01/22 06/11/24 Vertigo aripiprazole 10 mg tablet 10 mg PO HS 05/11/23 06/11/24 metoprolol succinate 50 mg 75 mg PO DAILY 11/15/23 06/11/24 tablet,extended release 24 hr levonorgestrel 21 mcg/24 hr (up to See Rx Instructions .Route .COMPLEX 04/13/24 06/11/24 8 years) 52 mg intrauterine device (Mirena) <PAT Zamora Last Filed: 06/12/24 04:07> Allergies/Adverse reactions: Allergies Allergy/AdvReac Type Severity Reaction Status Date / Time buspirone [From BuSpar] AdvReac Severe Agitated Verified 06/11/24 11:27 ceftriaxone [From Rocephin] AdvReac Intermediate Other Verified 06/11/24 11:27 dapagliflozin [From Farxiga] AdvReac Intermediate Nausea and Verified 06/11/24 11:27 Vomiting doxycycline AdvReac Intermediate Nausea and Verified 06/11/24 11:27 Vomiting metformin AdvReac Mild dysfunctional Verified 06/11/24 11:27 uterine bleeding spironolactone AdvReac Mild Rash Verified 06/11/24 11:27 <Nat Valentine PA-C - Last Filed: 06/12/24 04:07> Review of Systems Review of Systems: All systems reviewed & are unremarkable except as noted in HPI and below <Nat Valentine PA-C - Last Filed: 06/12/24 04:07> [facility] Past Medical History Medical History: Medical History 37 weeks gestation of ADHD Alternating constipation and diarrhea Bipolar 1 disorder Hx of suicide attempt Blood in stool Borderline personality disorder delivery delivered Diabetes Failure to progress in labor GDM, class A2 Hemorrhoids Hypertension Lumbago Morbid obesity Neutrophilic leukocytosis (~11/2019) Pre-eclampsia superimposed on chronic hypertension Smoker Tachycardia <Nat Valentine PA-C - Last Filed: 06/12/24 04:07> Surgical History Surgical History: Surgical History S/P ACL repair S/P tonsillectomy [place] teeth extracted <Nat Valentine PA-C - Last Filed: 06/12/24 04:07> Family History Family History: Family History Grandparent Diabetes mellitus Mother Heart murmur <Nat Valentine PA-C - Last Filed: 06/12/24 04:07> Social History Social History: Social History Smoking packs per day: 0.5 Smoking cigarettes per day: 10.0 Years smoked: 20 Smoking pack-years: 10.00 Smoking status: Cur
[2024-06-12] MEDS: SODIUM CHLORIDE 0.9% IV 1,000 ML 999 ML IV CONT (01:56)
[2024-06-12] MEDS: ONDANSETRON INJ 4 MG/2 ML VIAL IV PUSH (01:57)
[2024-06-12 02:05] LABS: Basophils Absolute Auto 0.1 K/mm3 (0.0-0.1); Basophils Percent Auto 0.4 % (0.2-1.2); Hematocrit 43.5 % (37.0-47.0); Hemoglobin 15.1 g/dL (12.0-15.0); Immature Granulocyte Absolute 0.12 K/mm3 (0.00-0.031); Immature Granulocyte Percent A 0.6 % (0-0.5); Lymphocytes Absolute Auto 2.74 K/mm3 (0.9-3.2); Lymphocytes Percent Auto 12.9 % (18.3-44.2); Mean Corpuscular HGB Conc 34.7 g/dl (32-36); Mean Corpuscular Hemoglobin 32.1 pg (26-34); Mean Corpuscular Volume 92.6 fl (80-100); Mean Platelet Volume 9.1 fl (7.4-10.4); Monocytes Absolute Auto 1.1 K/mm3 (0.1-0.6); Monocytes Percent Auto 5.3 % (2.6-8.5); Neutrophils Absolute Auto 17.1 K/mm3 (1.3-6.7); Neutrophils Percent Auto 80.8 % (45.5-73.1); Platelet Count Result 399 k/mm3 (150-375); Red Cell Distribution Width 11.8 % (11.5-14.5); White Blood Count 21.2 K/mm3 (4.5-10.0)
[2024-06-12 02:15] LABS: Alanine Aminotransferase 25 U/L (6-35); Albumin Level 4.6 g/dL (3.5-5.1); Alkaline Phosphatase 85 U/L (38-126); Anion Gap 13 mmol/L (4-12); Aspartate Amino Transferase 30 U/L (14-36); Bilirubin,Total 0.5 mg/dL (0.2-1.3); Blood Urea Nitrogen 10 mg/dL (7-17); Calcium 9.4 mg/dL (8.4-10.2); Carbon Dioxide 32 mmol/L (22-30); Chloride 93 mmol/L (98-107); Estimated CRCL calculation 67 ml/min; Estimated Glomerular Filt Rate 57; Glucose 182 mg/dL (65-110); Lipase 89 U/L (23-300); Potassium 3.1 mmol/L (3.4-5.0); Sodium 138 mmol/L (137-145)
[2024-06-12 02:26] LABS: Lactic Acid Reflex 1.7 mmol/L (0.7-2.0)
[2024-06-12 02:33] LABS: BEDSIDEPREGUCG Negative
[2024-06-12 02:46] LABS: Appearance Urine Cloudy (Clear); Bacteria Urine 1+ /hpf; Bilirubin Urine Negative (Negative); Blood Urine Negative (Negative); Color Urine Yellow (Yellow); Glucose Urine UA Negative (Negative); Ketones Urine 1+ mg/dL (Negative); Leukocyte Esterase Ur Negative LEU/UL (Negative); Need Manual Microscopic Reviewed; Nitrate Urine Negative (Negative); Protein Urine 1+ mg/dL (Negative); Specific Grav Ur 1.018 (1.001-1.035); Squamous Epithelial Cell Urine Few /hpf (Few); WBC Urine 0-5 /hpf (0-3)
[2024-06-12 02:47] LABS: Add Urine Microscopic? YES
[2024-06-12 02:52] LABS: Beta-Hydroxybutyrate/Acetoacetate 0.21 mmol/L (0.02-0.27)
[2024-06-12] MEDS: LACTATED RINGERS 1,000 ML 999 ML IV CONT (02:53)
[2024-06-12] MEDS: POTASSIUM CHLORIDE 20 MEQ PACKET (FOR LIQUID) 40 MEQ PO (02:53)
[2024-06-12 03:01] LABS: Magnesium 2.2 mg/dL (1.6-2.3)
[2024-06-12 03:07] VITALS: BP 198/89; PULSE 109; RESP 20; O2SAT 100
[2024-06-12] MEDS: HALOPERIDOL LACTATE 5 MG/ML VIAL IM (03:27)
[2024-06-12 03:45] VITALS: BP 187/90; PULSE 105; RESP 16; O2SAT 98
== END 2024-06-12 05:05 | disposition home or self-care (01) ==
PROVIDERS: Emergency Provider Physician Assistant; PCP Physician Assistant Medical
DX: R11.2 Nausea with vomiting, unspecified (principal); F12.90 Cannabis use, unspecified, uncomplicated; E87.6 Hypokalemia; D72.829 Elevated white blood cell count, unspecified; E11.9 Type 2 diabetes mellitus without complications; I10 Essential (primary) hypertension; M54.50 Low back pain, unspecified; G89.29 Other chronic pain; E66.01 Morbid (severe) obesity due to excess calories; Z68.38 Body mass index [BMI] 38.0-38.9, adult; Z87.891 Personal history of nicotine dependence; Z97.5 Presence of (intrauterine) contraceptive device; Z79.899 Other long term (current) drug therapy; Z79.85 Long-term (current) use of injectable non-insulin antidiabetic drugs
CPT/HCPCS: 36415; 80053; 81001; 81025; 82010; 83605; 83690; 83735; 85025; 96361; 96372; 96374; 99284; A9270; J1630; J2405; J7030; J7120

== ENCOUNTER 2024-07-23 08:27 | Outpatient (CLI) | payer OTHER, SELFPAY ==
--- NOTE | ~2024-07-23 | MMUS_ITS ---
EXAMINATION: MM diagnostic isi BI w dora, US breast BI limited HISTORY: Palpable bilateral breast lumps TECHNIQUE: Additional 3-D tomosynthesis images of the bilateral breasts were performed and synthetic 2-D images were generated. CAD analysis was submitted and interpreted. High resolution limited bilate ral breast ultrasound was performed. COMPARISON: None BREAST PARENCHYMAL COMPOSITION:Not Dense. The breasts are almost entirely fatty FINDINGS: MAMMOGRAPHIC FINDINGS: No abnormal mass lesion or architectural distortion seen in either breast. No suspicious calcificatio ns seen. No mammographic abnormality evident. ULTRASOUND: There is no evidence of focal abnormal solid or cystic lesion in the areas scanned, including the rig ht breast 3:00 and 9:00 positions, and left breast 4:00 position. IMPRESSION: No mammographic evidence for malignancy. No mammographic or sonographic correlate seen for the areas of palpable concern. BI-RADS Category 1: Negative Reviewed, dictated and finalized at [facility]. IMPRESSION: No mammographic evidence for malignancy. No mammographic or sonographic correl ate seen for the areas of palpable concern. BI-RADS Category 1: Negative
== END 2024-07-23 08:28 | disposition home or self-care (01) ==
LOC: MICIMG 08:29
PROVIDERS: PCP Physician Assistant Medical; Visit Provider Nurse Practitioner Women's Health
DX: N63.10 Unspecified lump in the right breast, unspecified quadrant (principal); N63.20 Unspecified lump in the left breast, unspecified quadrant; R92.8 Other abnormal and inconclusive findings on diagnostic imaging of breast
CPT/HCPCS: 76642; 77062; 77066; G0279

== ENCOUNTER 2024-07-23 08:31 | Outpatient (CLI) | payer OTHER, SELFPAY ==
--- NOTE | ~2024-07-23 | XR_ITS ---
EXAMINATION: XR lumbar spine min 4V DATE: 07/23/2024 09:03 INDICATION: Other intervertebral disc degeneration of lumbar region. TECHNIQUE: 4 views of lumbar spine including flexion and extension views were obtained. COMPARISON: Lumbar spine radiographs 05/16/2023 FINDINGS: There is 4 degrees dextrocurvature of lumbar spine. There is mild chronic anterior wedging of L1 and L3 vertebral bodies. There is mildly decreased disc height at L4-L5 and L5-S1. No abnormal motion on flexion or extension. There is multilevel facet joint osteoarthritis, severe in lower lumba r spine. IMPRESSION: 1. Mild lumbar spondylosis. Reviewed, dictated and finalized at location A. IMPRESSION: 1. Mild lumbar spondylosis.
== END 2024-07-23 08:32 | disposition home or self-care (01) ==
PROVIDERS: PCP Physician Assistant Medical
DX: M51.36 Other intervertebral disc degeneration, lumbar region (principal); M47.816 Spondylosis without myelopathy or radiculopathy, lumbar region
CPT/HCPCS: 72110

== ENCOUNTER 2024-08-04 09:57 | Emergency (ER) | payer OTHER, SELFPAY ==
--- NOTE | ~2024-08-04 | CT_ITS ---
EXAMINATION: CT abdomen pelvis w con DATE: 08/04/2024 11:12 INDICATION: Bowel obstruction. TECHNIQUE: Computed tomography (CT) of the abdomen and pelvis was performed with 100 mL Omnipaque 350 intravenous contrast. Automated exposure control and iterative reconstruction technique were employe d. The dose-length product was 982.62 mGy-cm. COMPARISON: CT abdomen and pelvis 03/14/2018 FINDINGS: The visualized portions of the lung bases are clear without pneumonia or pleural effusion. The heart size is normal. No pericardial effusion. There is fluid in the distal esophagus. The liver, gallbladder, spleen, pancreas, adrenal glands, and kidneys are normal. There is an intrauterine gi ce in expected position. There are no dilated loops of bowel. The appendix is normal. There are no pa thologically enlarged lymph nodes. There is no free intraperitoneal fluid. There is mild thoracic spo ndylosis and moderate lumbar spondylosis. IMPRESSION: 1. No etiology for the patient's symptoms. Reviewed, dictated and finalized at location A.
[2024-08-04 10:18] VITALS: BP 158/117; PULSE 115; RESP 18; TEMP 36.3; O2SAT 100
[2024-08-04 10:21] LABS: Basophils Absolute Auto 0.1 K/mm3 (0.0-0.1); Basophils Percent Auto 0.2 % (0.2-1.2); Eosinophils Absolute Auto 0.1 K/mm3 (0-0.3); Eosinophils Percent Auto 0.2 % (0-4.4); Hematocrit 46.1 % (37.0-47.0); Hemoglobin 16.5 g/dL (12.0-15.0); Immature Granulocyte Percent A 0.4 % (0-0.5); Lymphocytes Absolute Auto 3.45 K/mm3 (0.9-3.2); Lymphocytes Percent Auto 13.6 % (18.3-44.2); Mean Corpuscular HGB Conc 35.8 g/dl (32-36); Mean Corpuscular Hemoglobin 32.2 pg (26-34); Mean Corpuscular Volume 89.9 fl (80-100); Monocytes Absolute Auto 1.7 K/mm3 (0.1-0.6); Monocytes Percent Auto 6.6 % (2.6-8.5); Neutrophils Absolute Auto 20.1 K/mm3 (1.3-6.7); Platelet Count Result 412 k/mm3 (150-375); Red Blood Count 5.13 M/mm3 (4.2-5.4); Red Cell Distribution Width 11.2 % (11.5-14.5); White Blood Count 25.4 K/mm3 (4.5-10.0)
[2024-08-04 10:34] LABS: Alanine Aminotransferase 35 U/L (6-35); Albumin Level 4.9 g/dL (3.5-5.1); Alkaline Phosphatase 76 U/L (38-126); Anion Gap 12 mmol/L (4-12); Aspartate Amino Transferase 37 U/L (14-36); Bilirubin,Total 0.7 mg/dL (0.2-1.3); Blood Urea Nitrogen 11 mg/dL (7-17); Calcium 9.3 mg/dL (8.4-10.2); Carbon Dioxide 30 mmol/L (22-30); Chloride 92 mmol/L (98-107); Estimated CRCL calculation 87 ml/min; Estimated Glomerular Filt Rate > 60; Glucose 182 mg/dL (65-110); Lipase 109 U/L (23-300); Magnesium 2.5 mg/dL (1.6-2.3); Potassium 4.1 mmol/L (3.4-5.0); Sodium 134 mmol/L (137-145)
[2024-08-04] MEDS: SODIUM CHLORIDE 0.9% IV 1,000 ML 999 ML IV CONT (10:35)
--- NOTE | 2024-08-04 11:03 | ED.ABDPAIN ---
HPI - Abdominal Pain General Chief Complaint: Abdominal Pain Stated Complaint: constipated Time Seen by Provider: 08/04/24 10:07 History of Present Illness HPI narrative: Patient is a 33-year-old female who presents to the emergency department this morning complaining of constipation for the past 8 days. Patient states that she does not normally struggles constipation and the last time that her constipation got bad was approximately 5 years ago while she was and at that time patient did not have a bowel movement for approximately 5 days. Patient states that this time it has been 8 days since she had a bowel movement. Patient states that for the past 3 days she has resorted to a liquid diet to try and help alleviate the constipation and states that she has been struggling with keep the fluid down and admits to multiple episodes of nausea and vomiting. Denies any history of bowel obstruction. Patient denies any urinary symptoms including dysuria or hematuria. Patient states that every time she has the urge to go the bathroom no matter how hard she strains she feels as though there is a large stool in her rectum. Patient tried to perform a manual disimpaction herself with no improvement of her symptoms. She states that she has tried all oral laxatives and enemas and suppositories without any relief. Denies any abdominal pain, states that she only feels a little bit of pressure in her lower abdomen when she stands up. Denies any sick contacts at home, any chest pain or shortness of breath and any recent fevers or chills. No additional symptoms or concerns at this time. Related Data Home Medications Medication Instructions Recorded Confirmed hydroxyzine HCl 25 mg tablet 25 mg PO TID PRN Dizziness Or 10/01/22 06/11/24 Vertigo aripiprazole 10 mg tablet 10 mg PO HS 05/11/23 06/11/24 metoprolol succinate 50 mg 75 mg PO DAILY 11/15/23 06/11/24 tablet,extended release 24 hr levonorgestrel 21 mcg/24 hr (up to See Rx Instructions .Route .COMPLEX 04/13/24 06/11/24 8 years) 52 mg intrauterine device (Mirena) Allergies Allergy/AdvReac Type Severity Reaction Status Date / Time buspirone [From BuSpar] AdvReac Severe Agitated Verified 08/04/24 10:22 ceftriaxone [From Rocephin] AdvReac Intermediate Other Verified 08/04/24 10:22 dapagliflozin [From Farga] AdvReac Intermediate Nausea and Verified 08/04/24 10:22 Vomiting doxycycline AdvReac Intermediate Nausea and Verified 08/04/24 10:22 Vomiting metformin AdvReac Mild dysfunctional Verified 08/04/24 10:22 uterine bleeding spironolactone AdvReac Mild Rash Verified 08/04/24 10:22 Review of Systems Review of Systems: All systems are reviewed and are negative unless stated otherwise in the HPI. [facility] Past Medical History Medical History 37 weeks gestation of ADHD Alternating constipation and diarrhea Bipolar 1 disorder Hx of suicide attempt Blood in stool Borderline personality disorder delivery delivered Diabetes Failure to progress in labor GDM, class A2 Hemorrhoids Hypertension Lumbago Morbid obesity Neutrophilic leukocytosis (~11/2019) Pre-eclampsia superimposed on chronic hypertension Smoker Tachycardia Surgical History Surgical History S/P ACL repair S/P tonsillectomy [place] teeth extracted Family History Family History Grandparent Diabetes mellitus Mother Heart murmur Social History Social History Smoking packs per day: 0.5 Smoking cigarettes per day: 10.0 Years smoked: 20 Smoking pack-years: 10.00 Smoking status: Current every day smoker Tobacco type: cigarettes Second hand tobacco smoke exposure: No Smoking end date: 07/24/19 Alcohol intake: current Drinks per
--- NOTE | 2024-08-04 11:23 | PC.NURSE ---
pt states that she is still unable to urinate.
[2024-08-04 11:31] VITALS: BP 135/92; PULSE 101; RESP 18; O2SAT 97
[2024-08-04 12:00] VITALS: O2SAT 97
[2024-08-04 12:01] LABS: BEDSIDEPREGUCG Negative (Negative)
[2024-08-04 12:16] LABS: Add Urine Microscopic? YES; Appearance Urine Clear (Clear); Bacteria Urine None Seen /hpf; Bilirubin Urine Negative (Negative); Blood Urine Negative (Negative); Color Urine Yellow (Yellow); Glucose Urine UA Negative (Negative); Ketones Urine Negative (Negative); Leukocyte Esterase Ur Negative LEU/UL (Negative); Nitrate Urine Negative (Negative); Non Pathogenic Casts 0-2; Protein Urine 1+ mg/dL (Negative); Specific Grav Ur > 1.045 (1.001-1.035); Squamous Epithelial Cell Urine None Seen /hpf (Few); Urobilinogen Urine 0.2 mg/dL (<2.0); WBC Urine 0-5 /hpf (0-3); pH Urine 7.5 (5.0-9.0)
[2024-08-04 12:36] VITALS: BP 142/102; PULSE 129; RESP 20; TEMP 36.4; O2SAT 99
== END 2024-08-04 12:38 | disposition home or self-care (01) ==
PROVIDERS: Emergency Medicine; Emergency Provider Emergency Medicine; PCP Physician Assistant Medical
DX: R10.9 Unspecified abdominal pain (principal); R11.2 Nausea with vomiting, unspecified; I10 Essential (primary) hypertension; E11.9 Type 2 diabetes mellitus without complications; E66.01 Morbid (severe) obesity due to excess calories; Z68.36 Body mass index [BMI] 36.0-36.9, adult; F90.9 Attention-deficit hyperactivity disorder, unspecified type; F31.9 Bipolar disorder, unspecified; Z87.891 Personal history of nicotine dependence; Z97.5 Presence of (intrauterine) contraceptive device; Z79.85 Long-term (current) use of injectable non-insulin antidiabetic drugs; Z79.899 Other long term (current) drug therapy; Z79.69 Long term (current) use of other immunomodulators and immunosuppressants
CPT/HCPCS: 36415; 74177; 80053; 81001; 81025; 83690; 83735; 85025; 96360; 96361; 99284; J7030; Q9967

== ENCOUNTER 2024-10-29 12:36 | Outpatient (CLI) | payer OTHER, SELFPAY ==
[2024-10-29 12:52] LABS: Basophils Absolute Auto 0.1 K/mm3 (0.0-0.1); Basophils Percent Auto 0.4 % (0.2-1.2); Eosinophils Absolute Auto 0.1 K/mm3 (0-0.3); Eosinophils Percent Auto 0.6 % (0-4.4); Hematocrit 43.2 % (37.0-47.0); Hemoglobin 14.8 g/dL (12.0-15.0); Immature Granulocyte Absolute 0.06 K/mm3 (0.00-0.031); Immature Granulocyte Percent A 0.3 % (0-0.5); Lymphocytes Absolute Auto 3.04 K/mm3 (0.9-3.2); Lymphocytes Percent Auto 16.3 % (18.3-44.2); Mean Corpuscular HGB Conc 34.3 g/dl (32-36); Mean Corpuscular Hemoglobin 32.2 pg (26-34); Mean Corpuscular Volume 93.9 fl (80-100); Mean Platelet Volume 9.7 fl (7.4-10.4); Monocytes Absolute Auto 0.8 K/mm3 (0.1-0.6); Monocytes Percent Auto 4.3 % (2.6-8.5); Neutrophils Absolute Auto 14.6 K/mm3 (1.3-6.7); Neutrophils Percent Auto 78.1 % (45.5-73.1); Platelet Count Result 388 k/mm3 (150-375); Red Cell Distribution Width 11.4 % (11.5-14.5); White Blood Count 18.7 K/mm3 (4.5-10.0)
[2024-10-29 12:59] LABS: Blood Urea Nitrogen 6 mg/dL (8-26); Carbon Dioxide 29 mmol/L (22-30); Chloride 99 mmol/L (98-109); Estimated Glomerular Filt Rate > 60; Glucose 98 mg/dL (70-105); Ionized Calcium (POC) 1.06 mmol/L (1.11-1.31); Potassium 3.9 mmol/L (3.5-4.9); Sodium 139 mmol/L (138-146)
== END 2024-10-29 12:37 | disposition home or self-care (01) ==
LOC: ANHLAB 12:37
PROVIDERS: PCP Nurse Practitioner Family; Visit Provider Internal Medicine Hematology & Oncology
DX: D47.3 Essential (hemorrhagic) thrombocythemia (principal)
CPT/HCPCS: 36415; 80047; 85025

== ENCOUNTER 2024-11-19 08:09 | Outpatient (CLI) | payer OTHER, SELFPAY ==
--- NOTE | ~2024-11-19 | US_ITS ---
US soft tissue lower back 11/19/2024 08:28 Indication: Localized swelling Procedure: Real-time Limited soft tissue ultrasound of the left lower back in the area of palpable co ncern Comparison: No prior studies for comparison. Findings: Normal heterogeneous echotexture without focal solid or cystic mass. Impression: 1: Normal limited soft tissue ultrasound of the left lower back. Reviewed, dictated and finalized at location B. T ENGINEER Impression: 1: Normal limited soft tissue ultrasound of the left lower back.
== END 2024-11-19 08:10 | disposition home or self-care (01) ==
LOC: MICIMG 08:11
PROVIDERS: PCP Nurse Practitioner Family; Visit Provider Nurse Practitioner Family
DX: R22.2 Localized swelling, mass and lump, trunk (principal)
CPT/HCPCS: 76705

== ENCOUNTER 2025-01-14 12:39 | Outpatient (CLI) | payer OTHER, SELFPAY | END 2025-01-14 12:40 | disposition home or self-care (01) | LOC: MICIMG 12:40 | PROVIDERS: PCP Nurse Practitioner Family; Visit Provider Nurse Practitioner Women's Health | DX: N83.292 Other ovarian cyst, left side (principal); R10.32 Left lower quadrant pain | CPT/HCPCS: 76830 ==

== ENCOUNTER 2025-02-11 12:46 | Outpatient (CLI) | payer OTHER, SELFPAY ==
--- NOTE | 2025-02-11 12:54 | ECG_ITS ---
Test Date: 2025-02-11 13:25:03 Measurements Intervals [place] Rate: 99 P: 38 MT: 123 QRS: 49 QRSD: 81 T: 36 QT: 323 QTc: 415 Interpretive Statements SINUS RHYTHM WITH SHORT MT INTERVAL ABNORMAL ECG No previous ECG available for comparison Electronically Signed On 02-11-2025 14:07:55 CDT by Arnulfo Martinez M.D.
[2025-02-11 13:53] LABS: Anion Gap 8 mmol/L (4-12); Blood Urea Nitrogen 11 mg/dL (7-17); Calcium 9.4 mg/dL (8.4-10.2); Carbon Dioxide 31 mmol/L (22-30); Chloride 96 mmol/L (98-107); Estimated Glomerular Filt Rate > 60; Glucose 166 mg/dL (65-110); Potassium 4.3 mmol/L (3.4-5.0); Sodium 135 mmol/L (137-145)
--- OUTSIDE RECORDS SUMMARY | 2025-02-11 14:05 | XMS_ITS ---
Author Organization [facility] As [facility] Address [address] [facility] [address] [place] [address] Care Team Providers Care Health Safety Specialist Name Role Phone Kathie Patel Unavailable [phone] Allergies Allergen (clinical drug ingredient) Drug/Non Drug Allergy documented on EMR Reaction Allergy Type Onset Date Status BuSpar Unknown Drug Allergy 02/13/2024 Active Rocephin Unknown Drug Allergy 02/13/2024 Active REASON FOR VISIT Follow up Medications Medication SIG (Take, Route, Frequency, Duration) Notes Start Date End Date Status Minoxidil 2.5 MG TAKE 1 TABLET BY MOUTH DAILY Oral for 90 Days Active Spironolactone 100 MG TAKE 1 TABLET BY MOUTH TWICE DAILY Oral for 90 Days Active ARIPiprazole 10 MG 1 tablet Oral Once a day for 90 days Active hydrOXYzine HCl 10 MG 1 tablet Orally twice a day for 90 days Active Qelbree 200 MG 2 capsule Oral Once a day for 90 days Active Omeprazole 40 MG Oral for 90 Days Active Ozempic (2 MG/DOSE) 8 MG/3ML Subcutaneous for 84 Days Active valACYclovir HCl 500 MG TAKE 1 TABLET BY MOUTH EVERY DAY Oral for 90 Days Active Metoprolol Succinate ER 50 MG TAKE 1 AND 1/2 TABLETS BY MOUTH DAILY Oral for 90 Days Active SKYRIZI 150 MG/ML SUBCUTANEOUS SYRINGE *Reorder from [facility] for eRx and Interaction Alerts* 02/13/2024 Active Social History Tobacco Use: Social History Observation Description Date Details (start date - stop date) Former Smoker NA - NA Sex Assigned At : Social History Observation Description Sex Assigned At Female Household Question Answer Notes Marital status: Number of adults in household: 2 Number of children in household: 1 Tobacco Control (Standard) Question Answer Notes Tobacco use: Former smoker How long has it been since you last smoked? 1-3 months Additional Findings: Tobacco non-user Current no nsmoker AUDIT-C (Standard) Question Answer Notes Did you have a drink contain ing alcohol in the past year? Yes How often did you have six o r more drinks on one occasion in the past year? Less than monthly (1 point) How many drinks did you have on a typical day when you were drinking in the past year? 1 or 2 drinks (0 point) How often did you have a dri nk containing alcohol in the past year? 2 to 4 times a month (2 points) Points 3 Interpretation Positive Problems Problem Type SNOMED Code ICD Code Onset Dates Problem Status W/U Status Risk Notes Problem [id number] Marijuana user (F12.90) Active confirmed Problem 806805146 Tobacco user (Z72.0) Active confirmed Vital Signs Respiratory Rate 16 /min 11/16/2024 Height 61.00 in 11/16/2024 Weight 183 lbs 11/16/2024 BMI 34.57 kg/m2 11/16/2024 Height-cm 154.94 cm 11/16/2024 Weight-kg 83.01 kg 11/16/2024 [facility]counters [facility] [address] [address] 11/16/2024 Kathie Patel Bipolar disorder, current episode depressed, mild F31.31 ; Generalized anxiety disorder F41.1 ; Attention-deficit hyperactivity disorder, unspecified type F90.9 ; 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 Bipolar I disorder, most recent episode depression - Abilify 10 mg at night labs reviewed in [facility] 06/06 compelted educated on all medications, benefits, side effects and risk, and educated on depression, anxiety, and ADHD, mood d/o and educated on compliance of medications, metabolic and movement d/o education appointment is, continue therapy discussion with patient about course of treatment and patient instructions. education on serotonin syndrome Second generation antipsychotics (SGAs) have metabolic syndrome issues with weight gain, increase in prolactin, increased waist circumference, increased lipids, and increased glucose. Thus routine monitoring of weight, metabolic labs, etc. is indicated. A general rank ordering of antipsychotics that have the greatest to the least risk of metabolic effects is olanzapine, quetiapine, risperidone, ziprasidone, and aripiprazole. However, weight gain can occur with all of these drugs and considerable variability exists among patients receiving the same drug regarding the risk of metabolic effects. Anti-psychotic agents not only increase the risk of metabolic disorder, they also increase the risk of CVA, akathisia, and movement disorders including EPS or tardive dyskinesia (more common with first generation antipsychotics) and more. discuss seeing Dr. Downing for austic dxn http_s://www.sofia .org/About-Mental -Illness/Mental-H ealth-Conditions http_s://psychcen tral.com/depressi on/the-cognitive- hxqsrkhn-jw-phmrs ssion#treatments http__s://www.[facility].nih.gov/health/ topics/mental-hea lth-medications http__s://www.nam i.org/About-Menta l-Illness/Treatme nts/Mental-Health -Medications 2. Generalized anxiety disorder - Hydroxyzine 10 mg twice a day as needed for anxiety - therapy SSRI side effects discussed including but not limited to, gastric upset, nausea, vomiting, diarrhea and/or constipation, weight changes, sexual side effects including loss of libido, increased suicidal thoughts/behavior s in children and young adults, and serotonin syndrome. 3. Attention deficit hyperactivity disorder - no stimulates related to cannabis use Qelbree 400 mg daily co-pay card given ducation on rx hx Wellbutrin 4. Cannabis use Recommend decrease/stop cannabis use as it can negatively impact mood, motivation, anxiety, sleep, focus/concentrati on/memory (vigilance, elasticity, processing and attention); can also contribute to development of psychosis. http_s://www.[facility] .nih.gov/health/t opics/mental-heal th-medications http_s://www.sofia .org/About-Mental -Illness/Treatmen ts/Mental-Health- Medications Recommend decrease/stop cannabis use as it may be negatively impacting mood, motivation, anxiety, sleep, focus; can also contribute to development of psychosis Cannabis/marijuan a information: http_s://sierra.nih .gov/publications /drugfacts/cannab is-marijuana http_s://www.[employer]/canna uor-knx-ehkosbac- marijuana-adhd/ 5. tobacco use Do not smoke. Nicotine and other chemicals in cigarettes and cigars can cause lung damage. Ask your healthcare provider for information if you currently smoke and need help to quit. E-cigarettes or smokeless tobacco still contain nicotine. Talk to your healthcare provider before you use these products. education on decrease to stopping nicotine products and stop smoking hotline given 814-Quit - Yes [place] Tobacco Quitline Call a Smoking Quitline The [employer]'s Smoking Quitline, (0-591-07N-QUIT) Smokefree.gov, which connects you with your [facility]'s Quitline, (3-339-PPMHSKM) [facility] Smoking Quitline, (9-585-ZEWCYFR) . Long-term drug therapy 11/16/2024 Generalized anxiety disorder (ICD-10 - F41.1) 1. Bipolar I disorder, most recent episode depression - Abilify 10 mg at night labs reviewed in [facility] 06/06 compelted educated on all medications, benefits, side effects and risk, and educated on depression, anxiety, and ADHD, mood d/o and educated on compliance of medications, metabolic and movement d/o education appointment is, continue therapy discussion with patient about course of treatment and patient instructions. education on serotonin syndrome Second generation antipsychotics (SGAs) have metabolic syndrome issues with weight gain, increase in prolactin, increased waist circumference, increased lipids, and increased glucose. Thus routine monitoring of weight, metabolic labs, etc. is indicated. A general rank ordering of antipsychotics that have the greatest to the least risk of metabolic effects is olanzapine, quetiapine, risperidone, ziprasidone, and aripiprazole. However, weight gain can occur with all of these drugs and considerable variability exists among patients receiving the same drug regarding the risk of metabolic effects. Anti-psychotic agents not only increase the risk of metabolic disorder, they also increase the risk of CVA, akathisia, and movement disorders including EPS or tardive dyskinesia (more common with first generation antipsychotics) and more. discuss seeing Dr. Downing for austic dxn http_s://www.sofia .org/About-Mental -Illness/Mental-H ealth-Conditions http_s://psychcen tral.com/depressi on/the-cognitive- gswwmruv-jb-xzdqo ssion#treatments http__s://www.[facility].nih.gov/health/ topics/mental-hea lth-medications http__s://www.[facility] i.org/About-Menta l-Illness/Treatme nts/Mental-Health -Medications 2. Generalized anxiety disorder - Hydroxyzine 10 mg twice a day as needed for anxiety - therapy SSRI side effects discussed including but not limited to, gastric upset, nausea, vomiting, diarrhea and/or constipation, weight changes, sexual side effects including loss of libido, increased suicidal thoughts/behavior s in children and young adults, and serotonin syndrome. 3. Attention deficit hyperactivity disorder - no stimulates related to cannabis use Qelbree 400 mg daily co-pay card given ducation on rx hx Wellbutrin 4. Cannabis use Recommend decrease/stop cannabis use as it can negatively impact mood, motivation, anxiety, sleep, focus/concentrati on/memory (vigilance, elasticity, processing and attention); can also contribute to development of psychosis. http_s://www.nim .nih.gov/health/t opics/mental-heal th-medications http_s://www.sofia .org/About-Mental -Illness/Treatmen ts/Mental-Health- Medications Recommend decrease/stop cannabis use as it may be negatively impacting mood, motivation, anxiety, sleep, focus; can also contribute to development of psychosis Cannabis/marijuan a information: http_s://sierra.nih .gov/publications /drugfacts/cannab is-marijuana http_s://www.[employer]/canna eql-hut-pkzojzvz- marijuana-adhd/ 5. tobacco use Do not smoke. Nicotine and other chemicals in cigarettes and cigars can cause lung damage. Ask your healthcare provider for information if you currently smoke and need help to quit. E-cigarettes or smokeless tobacco still contain nicotine. Talk to your healthcare provider before you use these products. education on decrease to stopping nicotine products and stop smoking hotline given Quit - Yes [place] Tobacco Quitline Call a Smoking Quitline The [employer]'s Smoking Quitline, (4-534-73I-QUIT) Smokefree.gov, which connects you with your State's Quitline, (8-940-QVUMJNM) [facility] Smoking Quitline, (4-322-SBNBHSW) . Long-term drug therapy 11/16/2024 Attention-deficit hyperactivity disorder, unspecified type (ICD-10 - F90.9) 1. Bipolar I disorder, most recent episode depression - Abilify 10 mg at night labs reviewed in [facility] 06/06 compelted educated on all medications, benefits, side effects and risk, and educated on depression, anxiety, and ADHD, mood d/o and educated on compliance of medications, metabolic and movement d/o education appointment is, continue therapy discussion with patient about course of treatment and patient instructions. education on serotonin syndrome Second generation antipsychotics (SGAs) have metabolic syndrome issues with weight gain, increase in prolactin, increased waist circumference, increased lipids, and increased glucose. Thus routine monitoring of weight, metabolic labs, etc. is indicated. A general rank ordering of antipsychotics that have the greatest to the least risk of metabolic effects is olanzapine, quetiapine, risperidone, ziprasidone, and aripiprazole. However, weight gain can occur with all of these drugs and considerable variability exists among patients receiving the same drug regarding the risk of metabolic effects. Anti-psychotic agents not only increase the risk of metabolic disorder, they also increase the risk of CVA, akathisia, and movement disorders including EPS or tardive dyskinesia (more common with first generation antipsychotics) and more. discuss seeing Dr. Downing for austic dxn http_s://www.sofia .org/About-Mental -Illness/Mental-H ealth-Conditions http_s://psychcen tral.com/depressi on/the-cognitive- tvanekfq-es-daaqr ssion#treatments http__s://www.nim h.nih.gov/health/ topics/mental-hea lth-medications http__s://www.nam i.org/About-Menta l-Illness/Treatme nts/Mental-Health -Medications 2. Generalized anxiety disorder - Hydroxyzine 10 mg twice a day as needed for anxiety - therapy SSRI side effects discussed including but not limited to, gastric upset, nausea, vomiting, diarrhea and/or constipation, weight changes, sexual side effects including loss of libido, increased suicidal thoughts/behavior s in children and young adults, and serotonin syndrome. 3. Attention deficit hyperactivity disorder - no stimulates related to cannabis use Qelbree 400 mg daily co-pay card given ducation on rx hx Wellbutrin 4. Cannabis use Recommend decrease/stop cannabis use as it can negatively impact mood, motivation, anxiety, sleep, focus/concentrati on/memory (vigilance, elasticity, processing and attention); can also contribute to development of psychosis. http_s://www.[facility] .nih.gov/health/t opics/mental-heal th-medications http_s://www.sofia .org/About-Mental -Illness/Treatmen ts/Mental-Health- Medications Recommend decrease/stop cannabis use as it may be negatively impacting mood, motivation, anxiety, sleep, focus; can also contribute to development of psychosis Cannabis/marijuan a information: http_s://sierra.nih .gov/publications /drugfacts/cannab is-marijuana http_s://www.[employer]/canna mlg-wax-urmyjvev- marijuana-adhd/ 5. tobacco use Do not smoke. Nicotine and other chemicals in cigarettes and cigars can cause lung damage. Ask your healthcare provider for information if you currently smoke and need help to quit. E-cigarettes or smokeless tobacco still contain nicotine. Talk to your healthcare provider before you use these products. education on decrease to stopping nicotine products and stop smoking hotline given Quit - Yes [place] Tobacco Quitline Call a Smoking Quitline The [employer]'s Smoking Quitline, (8-217-77F-QUIT) Smokefree.gov, which connects you with your State's Quitline, (0-501-PGHHDZI) [facility] Smoking Quitline, (3-824-WPWNUUI) . Long-term drug therapy 11/16/2024 Other snf (current) drug therapy (ICD-10 - Z79.899) 1. Bipolar I disorder, most recent episode depression - Abilify 10 mg at night labs reviewed in [facility] 06/06 compelted educated on all medications, benefits, side effects and risk, and educated on depression, anxiety, and ADHD, mood d/o and educated on compliance of medications, metabolic and movement d/o education appointment is, continue therapy discussion with patient about course of treatment and patient instructions. education on serotonin syndrome Second generation antipsychotics (SGAs) have metabolic syndrome issues with weight gain, increase in prolactin, increased waist circumference, increased lipids, and increased glucose. Thus routine monitoring of weight, metabolic labs, etc. is indicated. A general rank ordering of antipsychotics that have the greatest to the least risk of metabolic effects is olanzapine, quetiapine, risperidone, ziprasidone, and aripiprazole. However, weight gain can occur with all of these drugs and considerable variability exists among patients receiving the same drug regarding the risk of metabolic effects. Anti-psychotic agents not only increase the risk of metabolic disorder, they also increase the risk of CVA, akathisia, and movement disorders including EPS or tardive dyskinesia (more common with first generation antipsychotics) and more. discuss seeing Dr. Downing for austic dxn http_s://www.sofia .org/About-Mental -Illness/Mental-H ealth-Conditions http_s://psychcen tral.com/depressi on/the-cognitive- ghggndxl-vy-woxhv ssion#treatments http__s://www.nim h.nih.gov/health/ topics/mental-hea lth-medications http__s://www.nam i.org/About-Menta l-Illness/Treatme nts/Mental-Health -Medications 2. Generalized anxiety disorder - Hydroxyzine 10 mg twice a day as needed for anxiety - therapy SSRI side effects discussed including but not limited to, gastric upset, nausea, vomiting, diarrhea and/or constipation, weight changes, sexual side effects including loss of libido, increased suicidal thoughts/behavior s in children and young adults, and serotonin syndrome. 3. Attention deficit hyperactivity disorder - no stimulates related to cannabis use Qelbree 400 mg daily co-pay card given ducation on rx hx Wellbutrin 4. Cannabis use Recommend decrease/stop cannabis use as it can negatively impact mood, motivation, anxiety, sleep, focus/concentrati on/memory (vigilance, elasticity, processing and attention); can also contribute to development of psychosis. http_s://www.nimh .nih.gov/health/t opics/mental-heal th-medications http_s://www.sofia .org/About-Mental -Illness/Treatmen ts/Mental-Health- Medications Recommend decrease/stop cannabis use as it may be negatively impacting mood, motivation, anxiety, sleep, focus; can also contribute to development of psychosis Cannabis/marijuan a information: http_s://sierra.nih .gov/publications /drugfacts/cannab is-marijuana http_s://www.[employer]/canna cwg-arw-gvauihye- marijuana-adhd/ 5. tobacco use Do not smoke. Nicotine and other chemicals in cigarettes and cigars can cause lung damage. Ask your healthcare provider for information if you currently smoke and need help to quit. E-cigarettes or smokeless tobacco still contain nicotine. Talk to your healthcare provider before you use these products. education on decrease to stopping nicotine products and stop smoking hotline given 584-Quit - Yes [place] Tobacco Quitline Call a Smoking Quitline The [employer] Smoking Quitline, (7-048-18T-QUIT) Smokefree.gov, which connects you with your State's Quitline, (1-615-MYCXRSF) [facility] Smoking Quitline, (5-240-PMGKKSZ) . Long-term drug therapy 11/16/2024 Borderline personality disorder (ICD-10 - F60.3) 1. Bipolar I disorder, most recent episode depression - Abilify 10 mg at night labs reviewed in [facility] 06/06 compelted educated on all medications, benefits, side effects and risk, and educated on depression, anxiety, and ADHD, mood d/o and educated on compliance of medications, metabolic and movement d/o education appointment is, continue therapy discussion with patient about course of treatment and patient instructions. education on serotonin syndrome Second generation antipsychotics (SGAs) have metabolic syndrome issues with weight gain, increase in prolactin, increased waist circumference, increased lipids, and increased glucose. Thus routine monitoring of weight, metabolic labs, etc. is indicated. A general rank ordering of antipsychotics that have the greatest to the least risk of metabolic effects is olanzapine, quetiapine, risperidone, ziprasidone, and aripiprazole. However, weight gain can occur with all of these drugs and considerable variability exists among patients receiving the same drug regarding the risk of metabolic effects. Anti-psychotic agents not only increase the risk of metabolic disorder, they also increase the risk of CVA, akathisia, and movement disorders including EPS or tardive dyskinesia (more common with first generation antipsychotics) and more. discuss seeing Dr. Downing for austic dxn http_s://www.sofia .org/About-Mental -Illness/Mental-H ealth-Conditions http_s://psychcen Lifesuml.com/depressi on/the-cognitive- wdmtdifv-zg-tckys ssion#treatments http__s://www.[facility].nih.gov/health/ topics/mental-hea lth-medications http__s://www.nam i.org/About-Menta l-Illness/Treatme nts/Mental-Health -Medications 2. Generalized anxiety disorder - Hydroxyzine 10 mg twice a day as needed for anxiety - therapy SSRI side effects discussed including but not limited to, gastric upset, nausea, vomiting, diarrhea and/or constipation, weight changes, sexual side effects including loss of libido, increased suicidal thoughts/behavior s in children and young adults, and serotonin syndrome. 3. Attention deficit hyperactivity disorder - no stimulates related to cannabis use Qelbree 400 mg daily co-pay card given ducation on rx hx Wellbutrin 4. Cannabis use Recommend decrease/stop cannabis use as it can negatively impact mood, motivation, anxiety, sleep, focus/concentrati on/memory (vigilance, elasticity, processing and attention); can also contribute to development of psychosis. http_s://www.nim .nih.gov/health/t opics/mental-heal th-medications http_s://www.sofia .org/About-Mental -Illness/Treatmen ts/Mental-Health- Medications Recommend decrease/stop cannabis use as it may be negatively impacting mood, motivation, anxiety, sleep, focus; can also contribute to development of psychosis Cannabis/marijuan a information: http_s://sierra.nih .gov/publications /drugfacts/cannab is-marijuana http_s://www.[employer]/canna edz-iyx-xymfslzi- marijuana-adhd/ 5. tobacco use Do not smoke. Nicotine and other chemicals in cigarettes and cigars can cause lung damage. Ask your healthcare provider for information if you currently smoke and need help to quit. E-cigarettes or smokeless tobacco still contain nicotine. Talk to your healthcare provider before you use these products. education on decrease to stopping nicotine products and stop smoking hotline given 803-Quit - Yes [place] Tobacco Quitline Call a Smoking Quitline The [employer] Smoking Quitline, (8-893-14G-QUIT) Smokefree.gov, which connects you with your State's Quitline, (5-923-IUQIJUR) [facility] Smoking Quitline, (9-659-YXIOUJS) . Long-term drug therapy 11/16/2024 Marijuana user (ICD-10 - F12.90) 1. Bipolar I disorder, most recent episode depression - Abilify 10 mg at night labs reviewed in [facility] 06/06 compelted educated on all medications, benefits, side effects and risk, and educated on depression, anxiety, and ADHD, mood d/o and educated on compliance of medications, metabolic and movement d/o education appointment is, continue therapy discussion with patient about course of treatment and patient instructions. education on serotonin syndrome Second generation antipsychotics (SGAs) have metabolic syndrome issues with weight gain, increase in prolactin, increased waist circumference, increased lipids, and increased glucose. Thus routine monitoring of weight, metabolic labs, etc. is indicated. A general rank ordering of antipsychotics that have the greatest to the least risk of metabolic effects is olanzapine, quetiapine, risperidone, ziprasidone, and aripiprazole. However, weight gain can occur with all of these drugs and considerable variability exists among patients receiving the same drug regarding the risk of metabolic effects. Anti-psychotic agents not only increase the risk of metabolic disorder, they also increase the risk of CVA, akathisia, and movement disorders including EPS or tardive dyskinesia (more common with first generation antipsychotics) and more. discuss seeing Dr. Downing for austic dxn http_s://www.sofia .org/About-Mental -Illness/Mental-H ealth-Conditions http_s://psychcen tral.com/depressi on/the-cognitive- dflfncdd-dk-akhzy ssion#treatments http__s://www.[facility].nih.gov/health/ topics/mental-hea lth-medications http__s://www.[facility] i.org/About-Menta l-Illness/Treatme nts/Mental-Health -Medications 2. Generalized anxiety disorder - Hydroxyzine 10 mg twice a day as needed for anxiety - therapy SSRI side effects discussed including but not limited to, gastric upset, nausea, vomiting, diarrhea and/or constipation, weight changes, sexual side effects including loss of libido, increased suicidal thoughts/behavior s in children and young adults, and serotonin syndrome. 3. Attention deficit hyperactivity disorder - no stimulates related to cannabis use Qelbree 400 mg daily co-pay card given ducation on rx hx Wellbutrin 4. Cannabis use Recommend decrease/stop cannabis use as it can negatively impact mood, motivation, anxiety, sleep, focus/concentrati on/memory (vigilance, elasticity, processing and attention); can also contribute to development of psychosis. http_s://www.nim .nih.gov/health/t opics/mental-heal th-medications http_s://www.sofia .org/About-Mental -Illness/Treatmen ts/Mental-Health- Medications Recommend decrease/stop cannabis use as it may be negatively impacting mood, motivation, anxiety, sleep, focus; can also contribute to development of psychosis Cannabis/marijuan a information: http_s://sierra.nih .gov/publications /drugfacts/cannab is-marijuana http_s://www.AllClear [employer].S&N Airoflo/canna gfs-hsv-wlvmvnvg- marijuana-adhd/ 5. tobacco use Do not smoke. Nicotine and other chemicals in cigarettes and cigars can cause lung damage. Ask your healthcare provider for information if you currently smoke and need help to quit. E-cigarettes or smokeless tobacco still contain nicotine. Talk to your healthcare provider before you use these products. education on decrease to stopping nicotine products and stop smoking hotline given -Quit - Yes [place] Tobacco Quitline Call a Smoking Quitline The National [employer] [place]'s Smoking Quitline, (9-199-34Q-QUIT) Smokefree.gov, which connects you with your State's Quitline, (2-282-MWWFCGQ) Veterans Smoking Quitline, (3-489-YBQYMML) . Long-term drug therapy 11/16/2024 Tobacco user (ICD-10 - Z72.0) 1. Bipolar I disorder, most recent episode depression - Abilify 10 mg at night labs reviewed in Prism 06/06 compelted educated on all medications, benefits, side effects and risk, and educated on depression, anxiety, and ADHD, mood d/o and educated on compliance of medications, metabolic and movement d/o education appointment is, continue therapy discussion with patient about course of treatment and patient instructions. education on serotonin syndrome Second generation antipsychotics (SGAs) have metabolic syndrome issues with weight gain, increase in prolactin, increased waist circumference, increased lipids, and increased glucose. Thus routine monitoring of weight, metabolic labs, etc. is indicated. A general rank ordering of antipsychotics that have the greatest to the least risk of metabolic effects is olanzapine, quetiapine, risperidone, ziprasidone, and aripiprazole. However, weight gain can occur with all of these drugs and considerable variability exists among patients receiving the same drug regarding the risk of metabolic effects. Anti-psychotic agents not only increase the risk of metabolic disorder, they also increase the risk of CVA, akathisia, and movement disorders including EPS or tardive dyskinesia (more common with first generation antipsychotics) and more. discuss seeing Dr. Downing for austic dxn http_s://www.sofia .org/About-Mental -Illness/Mental-H ealth-Conditions http_s://psychcen tral.com/depressi on/the-cognitive- wvaogjvd-rl-jedzt ssion#treatments http__s://www.[facility].nih.gov/health/ topics/mental-hea lth-medications http__s://www.nam i.org/About-Menta l-Illness/Treatme nts/Mental-Health -Medications 2. Generalized anxiety disorder - Hydroxyzine 10 mg twice a day as needed for anxiety - therapy SSRI side effects discussed including but not limited to, gastric upset, nausea, vomiting, diarrhea and/or constipation, weight changes, sexual side effects including loss of libido, increased suicidal thoughts/behavior s in children and young adults, and serotonin syndrome. 3. Attention deficit hyperactivity disorder - no stimulates related to cannabis use Qelbree 400 mg daily co-pay card given ducation on rx hx Wellbutrin 4. Cannabis use Recommend decrease/stop cannabis use as it can negatively impact mood, motivation, anxiety, sleep, focus/concentrati on/memory (vigilance, elasticity, processing and attention); can also contribute to development of psychosis. http_s://www.[facility] .nih.gov/health/t opics/mental-heal th-medications http_s://www.sofia .org/About-Mental -Illness/Treatmen ts/Mental-Health- Medications Recommend decrease/stop cannabis use as it may be negatively impacting mood, motivation, anxiety, sleep, focus; can also contribute to development of psychosis Cannabis/marijuan a information: http_s://sierra.nih .gov/publications /drugfacts/cannab is-marijuana http_s://www.[employer]/canna dpc-bnp-asxzukpe- marijuana-adhd/ 5. tobacco use Do not smoke. Nicotine and other chemicals in cigarettes and cigars can cause lung damage. Ask your healthcare provider for information if you currently smoke and need help to quit. E-cigarettes or smokeless tobacco still contain nicotine. Talk to your healthcare provider before you use these products. education on decrease to stopping nicotine products and stop smoking hotline given Quit - Yes [place] Tobacco Quitline Call a Smoking Quitline The [employer]'s Smoking Quitline, (5-142-90R-QUIT) Smokefree.gov, which connects you with your State's Quitline, (1-294-KUMYGNA) [facility] Smoking Quitline, (2-119-UZUPSFN) . Long-term drug therapy Plan Of Treatment Medication Medication Name Sig Start Date Stop Date Notes ARIPiprazole 10 MG 1 tablet Oral Once a day for 90 days hydrOXYzine HCl 10 MG 1 tablet Orally tw ice a day for 90 days Qelbree 200 MG 2 capsule Oral Once a day for 90 days Next Appt Details Follow Up: 3 Months, Reason: f/u rx Provider Name:Kathie Patel , 02/14/2025 01:30:00 PM, [address], [facility] [address], [place], [address], Progress Notes * CAROLINA LEWISREADOB:1989 (34 yo F)Acc No.[id number]:11/16/2024 Patient: PALOMO HITCHCOCK Provider: MARIANNA HANDHNP :1990 A ge:34 Y S ex:Female Date:11/16/2024 Address:[address] [place], [place] [id number] Subjective: * Chief Complaints: * 1 . Follow up. * HPI: D epression screening: PHQ-9 L ittle interest or pleasure in doing things N ot at all, F eeling down, depressed, or hopeless N ot at all, T rouble falling or staying asleep, or sleeping too much N ot at all, F eeling tired or having little energy N ot at all, P oor appetite or overeating N ot at all, F eeling bad about yourself or that you are a failure, or have let yourself or your family down N ot at all, T rouble concentrating on things, such as reading the newspaper or watching television N ot at all, M oving or speaking so slowly that other people could have noticed; or the opposite, being so fidgety or restless that you have been moving around a lot more than usual N ot at all, T houghts that you would be better off or of hurting yourself in some way N ot at all, T otal Score 1 , I nterpretation M inimal Depression. I ntervention D epression Screening Findings N egative, F ollow-Up for Depression M ental health care management, S uicide Risk Assessment Performed , A dditional Evaluation for Depression P sychiatric interview and evaluation, N nathalie of the standardized tool used for adult depression screening: [facility] (PHQ-9). Bipolar depression and anxiety chronic since report I things been ok I am seeing surgery for back and and I decided on getting a divorce we only got r/t I was and I am working at [employer] as [employer] and I will have state insurance when divorce and I am in so much pain with back and US Tuesday and need surgery, I see surgeon 11/29/24, over all mood good and concentration and focus still same and Qelbree not best and I know I can not have stimulate wiht cannabis and I have to make it work, and I have lost 65 pounds and plan to lose about 20 pounds more, daughter is almost 5 years old, no hopeless or helpless, and no sad or down, no psychosis, no jie, no SI/HI, tolerating all rx no s/e, no abnormal involuntary movement reported or noted, anxiety is always and certain things cause it like going to store and public, I go still, and also driving. I am getting better, I have [place] to [place] times, and sleep fine and and I are in seperate rooms, and I am still on Ozempic, A1c still consider DM but low and next time may be consider pre DM and unsure if stay on Ozempic maintain, in open marriage body is creating cancer with RBC increase and may get lukemia and I do not have generic Roberto 2 mutation and seen GI and I Cough less since stopped smoking 9 weeks ago and still NV daily s ick, (chronic GI issues) I see neurosurgeon 06/08/24 with back pain thinking about gastric bypass, still have to pay co-pay and not able to this year,Labs and PAP done 12/06 I will rather smoke cannabis than take Adderall smoking 2 ppd-trying to quit, Chantix,1 week etoh occasional-twice a month, 5-6 drinks at that time drugs cannabis-, was smoking daily labs recently BC IUD AND Condoms psoriasis. D epression Screening: LINDA-7 (2018 Edition) F eeling nervous, anxious, or on edge?Several days, N ot being able to stop or control worrying S everal days, W orrying too much about different things N ot at all, T rouble relaxing N ot at all, B eing so restless that it is hard to sit still S everal days, B ecoming easily annoyed or irritable?Not at all, F eeling afraid as if something awful might happen N ot at all. C [place]-Suicide Severity Rating Scale: Suicide Risk (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) i n the past one month Have you wished you were or wished you could go to sleep and not wake up? N o, i n the past one month Have you actually had any thoughts of killing yourself? N o, H ave you ever done anything, started to do anything, or prepared to do anything to end your life? N o. * ROS: P rigoient reports w eight loss (65 lbs) (Ozempic). She reports improved sleep apnea with weight loss (no CPAP) b ut reports no cough and no shortness of breath. She reports a bdominal pain, nausea, vomiting, and frequent diarrhea b ut reports no constipation, less appetite, and no GERD; s een GI and had upper GI GI issues chronic- G I issues 11/03/23 and seen PCP . S he reports a rthralgias/joint pain (knees), back pain, and neck pain b ut reports no muscle aches, no muscle weakness, and no difficulty walking; p matt management surgeon schedule for back. She reports a nxiety b ut reports no depression, no sleep disturbances, feeling safe in a relationship, no alcohol abuse, no hallucinations, no suicidal thoughts, no mood swings, no memory loss, no agitation, S he reports f atigue. S he reports wears glasses. She reports no chest pain, no shortness of breath no palpitations, no known heart murmur, and no ankle swelling. S he reports no incontinence, no difficulty urinating, and no increased frequency. She reports no loss of consciousness, no weakness, no seizures, no dizziness, and no gait dysfunction. * Medical History: P roblems: Attention deficit hyperactivity disorder, Bipolar I disorder, most recent episode depression, Borderline personality disorder, Cannabis dependence, Drug indicated, Generalized anxiety disorder, Long-term drug therapy, Moderate mixed bipolar I disorder, Tobacco user, ,, Past Psychiatric Hospitalizations: Y Past Suicide Attempt: Y Anxiety Disorder: Y Bipolar Disorder: Y Depression Major: Y Panic Episodes: Y Psychotic Episodes: Y ADD/ADHD: Y Anemia: Y Diabetes Mellitus: Y Obesity: Y Notes: Carpal Tunnel; PCOS; Frontal Fibrosing Alopecia; Psoriasis; pre- eclampsia. HSV. * Social History: T obacco Use: T obacco Control (Standard) T obacco use: F ormer smoker, H ow long has it been since you last smoked? 1 -3 months, A dditional Findings: Tobacco non-user C urrent nonsmoker. M igrated Social History: M igrated Social History: Alcohol Intake: Occasional 09/08/2018,Tobacco Years: Current every day smoker 08/18/2023,Smoking Status: 12 12/23/2023. D rug/Alcohol: D rugs H ave you used drugs other than those for medical reasons in the past 12 months??Yes, M arijuana? Y es. D o you smoke marijuana?: Admits. Do you drink alcohol?: Yes. AUDIT-C (Standard) D id you have a drink containing alcohol in the past year? Y es, H ow often did you have six or more drinks on one occasion in the past year? L ess than monthly (1 point), H ow many drinks did you have on a typical day when you were drinking in the past year??1 or 2 drinks (0 point), H ow often did you have a drink containing alcohol in the past year? 2 to 4 times a month (2 points), P oints 3 , I nterpretation P ositive. H ousehold: H ousehold M arital status: m arried, N umber of adults in household: 2 , N umber of children in household: 1 , M arital status of the child's parents: m arried, With whom does the child live? w ith both parents, A ny household tobacco use? Y es. M iscellaneous: A dvance Care Planning A re you your own decision-maker Y es, D o you have Power of Newspaper Delivery Counselor for Health or Medical? N o. * Medications: T aking Omeprazole 40 MG Capsule Delayed Release Oral , Taking valACYclovir HCl 500 MG Tablet TAKE 1 TABLET BY MOUTH EVERY DAY Oral , Taking Ozempic (2 MG/DOSE) 8 MG/3ML Solution Pen-injector Subcutaneous , Taking Metoprolol Succinate ER 50 MG Tablet Extended Release 24 Hour TAKE 1 AND 1/2 TABLETS BY MOUTH DAILY Oral , Taking SKYRIZI 150 MG/ML SUBCUTANEOUS SYRINGE , Notes to Pharmacist: *Reorder from [facility] for eRx and Interaction Alerts*, Taking ARIPiprazole 10 MG Tablet 1 tablet Oral Once a day , Taking Qelbree 200 MG Capsule Extended Release 24 Hour 2 capsule Oral Once a day , Taking hydrOXYzine HCl 10 MG Tablet 1 tablet Orally twice a day , Taking Spironolactone 100 MG Tablet TAKE 1 TABLET BY MOUTH TWICE DAILY Oral , Taking Minoxidil 2.5 MG Tablet TAKE 1 TABLET BY MOUTH DAILY Oral , Medication List reviewed and reconciled with the patient * Allergies: B uSpar: Allergy - Onset Date 02/13/2024, Rocephin: Allergy - Onset Date 02/13/2024. Objective: * Vitals: R R:16/min, Wt:183lbs, Wt-k.01 kg, Ht: 61.00 in, Ht-cm: 154.94 cm, BMI:34.57Index, Body Surface Area: 1.89. * Examination: P sychiatry: Appearance: w ell-groomed, well-nourished, appears stated age. Abnormal body movements: n one. Affect / mood: a ppropriate, full range. Aggression: l ow. Anger control: g ood. Attention: g ood. Attitude: c ooperative. Homicidal ideation: n one. Suicidal ideation: n one. Memory status: n o impairment. Degree of awareness of surroundings: w ithin normal limits.? Delusions: n o. Hallucinations: n o. Impulse control: g ood. Insight: g ood. Comprehension - Intellectual function: a verage. Judgement: g ood. Orientation: a wake, alert and oriented x 3. Perceptual disorders: n o perceptual disorder noted. Psychomotor activity: w ithin normal range. Sexual impulse control: g ood. Speech / language: a ppropriate pitch/modulation, clear and coherent, normal rate, volume, and articulation (RVR), proper grammar used. Thought content: a ppropriate. Thought process: i ntact. Assessment: * Assessment: 1. B ipolar disorder, current episode depressed, mild - F31.31 (Primary) 2 .?Generalized anxiety disorder - F41.1 3 . A ttention-deficit hyperactivity disorder, unspecified type - F90.9 4 . 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 B orderline personality disorder - F60.3 6 . M arijuana user - F12.90 7 . T obacco user - Z72.0 1. Bipolar I disorder, most recent episode depression - Abilify 10 mg at night labs reviewed in Prism 06/06 compelted educated on all medications, benefits, side effects and risk, and educated on depression, anxiety, and ADHD, mood d/o and educated on compliance of medications, metabolic and movement d/o education appointment is, continue therapy discussion with patient about course of treatment and patient instructions. education on serotonin syndrome Second generation antipsychotics (SGAs) have metabolic syndrome issues with weight gain, increase in prolactin, increased waist circumference, increased lipids, and increased glucose. Thus routine monitoring of weight, metabolic labs, etc. is indicated. A general rank ordering of antipsychotics that have the greatest to the least risk of metabolic effects is olanzapine, quetiapine, risperidone, ziprasidone, and aripiprazole. However, weight gain can occur with all of these drugs and considerable variability exists among patients receiving the same drug regarding the risk of metabolic effects. Anti-psychotic agents not only increase the risk of metabolic disorder, they also increase the risk of CVA, akathisia, and movement disorders including EPS or tardive dyskinesia (more common with first generation antipsychotics) and more. discuss seeing Dr. Downing for austic dxn http_s://www.sofia.org/Cxexm-Nalufr-Zxfqxun/Xchjxc-Ulnwzu-Mcpgfipjub http_s://psychcentral.com/depression/xbe-qjhdzcvqy-rcdoymky-of-depression#treatm ents http__s://www.nimh.nih.gov/health/topics/yususl-tawjqt-uhcvgounkay http__s://www.sofia.org/Ahxvm-Jzsoyd-Mjkdygn/Treatments/Ulveih-Tdzdbg-Kjjjoyytqmu 2. Generalized anxiety disorder - Hydroxyzine 10 mg twice a day as needed for anxiety - therapy SSRI side effects discussed including but not limited to, gastric upset, nausea, vomiting, diarrhea and/or constipation, weight changes, sexual side effects including loss of libido, increased suicidal thoughts/behaviors in children and young adults, and serotonin syndrome. 3. Attention deficit hyperactivity disorder - no stimulates related to cannabis use Qelbree 400 mg daily co-pay card given ducation on rx hx Wellbutrin 4. Cannabis use Recommend decrease/stop cannabis use as it can negatively impact mood, motivation, anxiety, sleep, focus/concentration/memory (vigilance, elasticity, processing and attention); can also contribute to development of psychosis. http_s://www.nimh.nih.gov/health/topics/ioobze-oxmkea-gukbyltmfgn http_s://www.sofia.org/Gwghs-Lxzgyu-Jvdsmyr/Treatments/Ocicum-Lfubna-Udoipsxztzf Recommend decrease/stop cannabis use as it may be negatively impacting mood, motivation, anxiety, sleep, focus; can also contribute to development of psychosis Cannabis/marijuana information: http_s://sierra.nih.gov/publications/drugfacts/cannabis-marijuana http_s://www.[employer]/pfcpzhwm-dbo-imrbfrtb-marijuana-adhd/ 5. tobacco use Do not smoke. Nicotine and other chemicals in cigarettes and cigars can cause lung damage. Ask your healthcare provider for information if you currently smoke and need help to quit. E-cigarettes or smokeless tobacco still contain nicotine. Talk to your healthcare provider before you use these products. education on decrease to stopping nicotine products and stop smoking hotline given 37-Quit - Yes [place] Tobacco Quitline Call a Smoking Quitline The [employer] Smoking Quitline, (3-507-60M-QUIT) Smokefree.gov, which connects you with your State's Quitline, (2-427-GFAVCXO) Veterans Smoking Quitline, (7-174-KJOFFEL) . Long-term drug therapy Plan: * Treatment: 2. A ttention-deficit hyperactivity disorder, unspecified type Refill Qelbree Capsule Extended Release 24 Hour, 200 MG, 2 capsule, Oral, Once a day, 90 days, 180 Capsule, Refills 0. * Procedure Codes: G 9902 Pt scrn tbco and id as user, G2211 VISIT COMPLEXITY INHERENT TO ONGOING CARE RELATED TO A PATIENT'S SINGLE, SERIOUS CONDITION OR A COMPLEX CONDITION * Preventive Medicine: Counseling: C ommunication to patient: Nayeli ounseled the Patient on tobacco use; cessation provided 0 11/16/2024 Do not smoke. Nicotine and other chemicals in cigarettes and cigars can cause lung damage. Ask your healthcare provider for information if you currently smoke and need help to quit. E-cigarettes or smokeless tobacco still contain nicotine. Talk to your healthcare provider before you use these products.education on decrease to stopping nicotine products and stop smoking hotline qtalb0-148-Waew - Yes [place] Tobacco QuitlineCall a Smoking QuitlineThe National Cancer [place]'s Smoking Quitline, (8-663-03B-QUIT)Smokefree.gov, which connects you with your [facility]'s Quitline, (2-252-ZXMWBGQ)[facility] Smoking Quitline, (3-048-TRCIDSK). Screenings: F all risk screening F all Risk Assessment: N o falls in the past year. B reast cancer screening (mammogram) H ave you had a recent mammogram? Y es,?Date of mammogram: 1 . C ervical cancer screening (Pap smear) H ave you had a recent Pap smear? Y es, D ate of Pap smear: 0 06/14/2024, R esult of Pap smear:?normal cervical cytology. D iabetes screening H ave you had a recent diabetes screening??Yes, D ate of diabetes screenin 04/16/2024. D epression screening H ave you had a recent depression screening? Y es, D ate of depression screenin 11/16/2024. A lcohol misuse screening H ave you had a recent alcohol misuse screening? Y es, D ate of alcohol misuse screenin 11/16/2024. S moking Cessation counseling done Discuss the importance of quitting smoking,. * Follow Up: 3 Months (Reason: f/u rx) * Billing Information: * Visit Code: 63710 OFFICE OUTPATIENT VISIT 25 MINUTES DETAILED HISTORY AND EXAM/MODERATE MEDICAL DECISION MAKING. * Procedure Codes: G9902 Pt scrn tbco and id as user. G2211 VISIT COMPLEXITY INHERENT TO ONGOING CARE RELATED TO A PATIENT'S SINGLE, SERIOUS CONDITION OR A COMPLEX CONDITION. * N [employer] OFFICER Sign off status: Completed true * Provider: URBAN HANDP Date: 0 11/16/2024 Generated for Margarita russo/Jeff/Jennifer on: 0 02/11/2025 02:05 PM CDT History and Physical Notes * HPI (History of Present Illness) Category Sub-Category Detail Notes Category Not es Depression screening PHQ-9 Little inte rest or pleasure in doing things: Not at all Bipolar depression and anxiety chronic since report I things been ok I am seeing surgery for back and and I decided on getting a divorce we only got r/t I was and I am working at [employer] as [employer] and I will have state insurance when divorce and I am in so much pain with back and US Tuesday and need surgery, I see surgeon 11/29/24, over all mood good and concentration and focus still same and Qelbree not best and I know I can not have stimulate wiht cannabis and I have to make it work, and I have lost 65 pounds and plan to lose about 20 pounds more, daughter is almost 5 years old, no hopeless or helpless, and no sad or down, no psychosis, no jie, no SI/HI, tolerating all rx no s/e, no abnormal involuntary movement reported or noted, anxiety is always and certain things cause it like going to store and public, I go still, and also driving. I am getting better, I [place] times, and sleep fine and and I are in seperate rooms, and I am still on Ozempic, A1c still consider DM but low and next time may be consider pre DM and unsure if stay on Ozempic maintain, in open marriage body is creating cancer with RBC increase and may get lukemia and I do not have generic Roberto 2 mutation and seen GI and I Cough less since stopped smoking 9 weeks ago and still NV daily sick, (chronic GI issues) I see neurosurgeon 06/08/24 with back pain thinking about gastric bypass, still have to pay co-pay and not able to this year,Labs and PAP done 12/06 I will rather smoke cannabis than take Adderall smoking 11/15 ppd-trying to quit, Chantix,1 week etoh occasional-twice a month, 5-6 drinks at that time drugs cannabis-, was smoking daily labs recently BC IUD AND Condoms psoriasis Feeling down, depressed, or hopeless: No t at all Trouble falling or staying asleep, or sl eeping too much: Not at all Feeling tired or having little energy: N ot at all Poor appetite or overeating: Not at all Feeling bad about yourself o r that you are a failure, or have let yourself or your family down: Not at all Trouble concentrating on thi ngs, such as reading the newspaper or watching television: Not at all Moving or speaking so slowly that other people could have noticed; or the opposite, being so fidgety or restless that you have been moving around a lot more than usual: Not at all Thoughts that you would be b [place] off or of hurting yourself in some way: Not at all Total Score: 1 Interpretation: Minimal Depression Intervention Depression Screening Findings: N egative Follow-Up for Depression: Mental health care management Suicide Risk Assessment Performed: ____ Additional Evaluation for Depression: Ps ychiatric interview and evaluation Name of the standardized too l used for adult depression screening:: Patient Health Questionnaire (PHQ-9) Depression Screening LINDA-7 (2018 Edition) Feelin g nervous, anxious, or on edge: Several days Not being able to stop or control worryi ng: Several days Worrying too much about different things : Not at all Trouble relaxing: Not at all Being so restless that it is hard to sit still: Several days Becoming easily annoyed or irritable: No t at all Feeling afraid as if something awful lee ht happen: Not at all [place]-Suicide Severity Rating Scale Suicide Risk (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) in the past one month Have you wished you were or wished you could go to sleep and not wake up?: No in the past one month Have y ou actually had any thoughts of killing yourself?: No Have you ever done anything, started to do anything, or prepared to do anything to end your life?: No Examination Category Sub-Category Detail Notes Category Not es Psychiatry Appearance: well-groomed, we ll-nourished, appears stated age Attitude: cooperative Psychomotor activity: within normal rang e Abnormal body movements: none Attention: good Degree of awareness of surroundings: wit hin normal limits Orientation: awake, alert and marya ented x 3 Affect / mood: appropriate, full ra nge Speech / language: appropriate pitch/mo dulation, clear and coherent, normal rate, volume, and articulation (RVR), proper grammar used Insight: good Judgement: good Thought process: intact Thought content: appropriate Perceptual disorders: no perceptual diso rder noted Aggression: low Anger control: good Suicidal ideation: none Homicidal ideation: none Impulse control: good Sexual impulse control: good Memory status: no impairment Delusions: no Hallucinations: no Comprehension - Intellectual function: a verage
--- OUTSIDE RECORDS SUMMARY | 2025-02-11 14:06 | XMS_ITS | Encounter Summary ---
Author Organization [facility] Address [address] [place] [address] Care Team Providers Care Child Support Agent Name Role Phone Ambrosio Landers MD Primary Care Provider +1 [phone] Encounter Details Date Type Department Care Team (Latest Contact Info) Description 07/10/2003 Inpatient Historical HIS PATIENT IN A BED [place], Seamus Varghese MD 1 [facility] [place] [phone] BIPOLAR AFFECTIVE NOS (CMS/HCC) (Primary Dx) Social History Tobacco Use Types Packs/Day Years Used Date Smoking Tobacco: Never Assessed Comments Unknown Sex and Gender Information Value Date Recorded Sex Assigned at Not on file 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 Gender Identity Not on file Sexual Orientation Not on file documented as of this encounter Plan of Treatment Upcoming Encounters Date Type Department Care Team (Late st Contact Info) Description 04/29/2025 1:15 PM CDT Office Visit [facility] Oncology and Hematology - [place] [address] [facility] [address] [place] [address] Michele Ford MD 2[address] [facility] [address] [place] [address] documented as of this encounter Visit Diagnoses Diagnosis Bipolar I disorder, most recent episode (or current) unspecified (CMS/HCC)- Primary Bipolar I disorder, most recent episode (or current) unspecified documented in this encounter Care Teams Child Support Agent Relationship Specialty Start Date End Date Ambrosio Landers MD [address] [place] [phone] PCP - General Family Practice 04/02/24 documented as of this encounter
--- OUTSIDE RECORDS SUMMARY | 2025-02-11 14:06 | XMS_ITS ---
Author Organization [facility] Address [address] [facility] [address] [place] [address] Care Team Providers Care Hearing Screen Coordinator Name Role Phone Kathie Patel Unavailable [phone] Nandini Schumacher Unavailable [phone] REASON FOR VISIT Medical stressors, Financial stressors Medications Medication SIG (Take, Route, Frequency, Duration) Notes Start Date End Date Status Ozempic (2 MG/DOSE) 8 MG/3ML Subcutaneous for 84 Days Active Metoprolol Succinate ER 50 MG TAKE 1 AND 1/2 TABLETS BY MOUTH DAILY Oral for 90 Days Active SKYRIZI 150 MG/ML SUBCUTANEOUS SYRINGE *Reorder from [facility] for eRx and Interaction Alerts* 02/13/2024 Active Spironolactone 100 MG TAKE 1 TABLET BY MOUTH TWICE DAILY Oral for 90 Days Active Minoxidil 2.5 MG TAKE 1 TABLET BY MOUTH DAILY Oral for 90 Days Active Qelbree 200 MG 2 capsule Oral Once a day for 90 days Active hydrOXYzine HCl 10 MG 1 tablet Orally twice a day for 90 days Active ARIPiprazole 10 MG 1 tablet Oral Once a day for 90 days Active Omeprazole 40 MG Oral for 90 Days Active valACYclovir HCl 500 MG TAKE 1 TABLET BY MOUTH EVERY DAY Oral for 90 Days Active Social History Tobacco Use: Social History [...] month (2 points) Points 3 Interpretation Positive Encounters Encounter Location Date [facility] [address] [place] [address] [place] [address] 12/06/2024 Nandini Schumacher Attention-deficit hyperactivity disorder, predominantly inattentive type F90.0 and Generalized anxiety disorder F41.1 Assessments Encounter Date Diagnosis (ICD Code) Assessment Notes Treatment Notes Treatment Clinical Notes Section Notes 12/06/2024 Attention-deficit hyperactivity disorder, predominantly inattentive type (ICD-10 - F90.0) 12/06/2024 Generalized anxiety disorder (ICD-10 - F41.1) Plan Of Treatment Next Appt Details Follow Up: prn, Reason: Provider Name:Kathie Patel , 02/14/2025 01:30:00 PM, [address], [facility] [address], [place], [address], Progress Notes * CAROLINA LEWISREADOB:1989 (34 yo F)Acc No.[id number]:12/06/2024 Patient: PALOMO HITCHCOCK Provider: Halima SCHUMACHER LCSW :1990 A ge:34 Y S ex:Female Date:12/06/2024 Address:[address] [place] [address], [id number] Data: * Time Tracker: * Date Start Time End Time Duration User Type Captured By Mode Notes 12/06/2024 01:58 PM 03:04 PM 01:05:35 Therapist Nandini Schumacher Prosper er * Chief Complaints: * 1 . Medical stressors. 2. Financial stressors. * HPI: F unctional Status: Date: 06 December 2024 Current symptoms: Anxiety, worry, chronic pain Severity: severe Context: Cl. reported significant stressors- upcoming surgery in December, lost job in June- has been working at [employer] at [employer]. Getting . Considering re-do of diagnosis- Cl. discussed dx bipolar disorder and possibilty that sx may be attributed to autism- sensory processing sensitivities which cause rage- textures- food pickiness- realization that seeing Ex at work was causing high level of anxiety-not vomiting every day before work anymore. Cl. plans to ask Kathie about med change for ADHD- Cl. having difficulty focusing on anything and needing to get life back together after the above mentioned losses. Discussed concerns about financial situation and frustration with insurance issue Intervention: During this session, clinician prompted Cl. to process thoughts and feelings associated with f amily system, medical stressors, financial stressors for the purpose of gaining insight. Clinician provided support and validation where appropriate. Response: Cl. participated actively in discussion and displayed good insight. Cl. appears to be making good progress. Plan: See treatment plan. * Family History: F ather: No current problems or disability . M other: No current problems or disability .? * Social History: T obacco Use: T [...] child live? w ith both parents, A mi household tobacco use? Y es. M iscellaneous: A dvance Care Planning A re you your own decision-maker Y es, D o you have Power of Business Rules Analyst for Health or Medical? N o. * Medications: T aking ARIPiprazole 10 MG Tablet 1 tablet Oral Once a day , Taking Qelbree 200 MG Capsule Extended Release 24 Hour 2 capsule Oral Once a day , Taking hydrOXYzine HCl 10 MG Tablet 1 tablet Orally twice a day , Taking Omeprazole 40 MG Capsule Delayed Release Oral [...] SYRINGE , Notes to Pharmacist: *Reorder from [facility] for eRx and Interaction Alerts*, Taking Spironolactone 100 MG Tablet TAKE 1 TABLET BY MOUTH TWICE DAILY Oral , Taking Minoxidil 2.5 MG Tablet TAKE 1 TABLET BY MOUTH DAILY Oral * Examination: P sychiatry: Appearance: w ell-groomed. Attitude: c ooperative. Insight: g ood. Intellectual functioning: a dayna average. Orientation: a wake, alert and oriented x 3. Speech / language: a ppropriate pitch/modulation, clear and coherent, normal rate, volume, and articulation (RVR), proper grammar used. Assessment: * Assessment: 1. A ttention-deficit hyperactivity disorder, predominantly inattentive type - F90.0 (Primary)? 2. G eneralized anxiety disorder - F41.1 Plan: * Treatment: * Procedure Codes: 9 0837 PSYCHOTHERAPY W/PATIENT 60 MINUTES * Follow Up: p rn * Billing Information: * Visit Code: * Procedure Codes: 18905 PSYCHOTHERAPY W/PATIENT 60 MINUTES. * THODONTIST Sign off status: Completed Signatures: No Ad Hoc Signature Added true * Provider: Halima SCHUMACHER LCSW Date: 0 12/06/2024 Generated for Margarita russo/Jeff/Jennifer on: 0 02/11/2025 02:05 PM CDT History and Physical Notes * HPI (History of Present Illness) Category Sub-Category Detail Notes Category Not es Functional Status Date: 06 December 2024 Current symptoms: Anxiety, worry, chronic pain Severity: severe Context: Cl. reported significant stressors- upcoming surgery in December, lost job in June- has been working at [employer] at [employer]. Getting . Considering re-do of diagnosis- Cl. discussed dx bipolar disorder and possibilty that sx may be attributed to autism- sensory processing sensitivities which cause rage- textures- food pickiness- realization that seeing Ex at work was causing high level of anxiety-not vomiting every day before work anymore. Cl. plans to ask Kathie about med change for ADHD- Cl. having difficulty focusing on anything and needing to get life back together after the above mentioned losses. Discussed concerns about financial situation and frustration with insurance issue Intervention: During this session, clinician prompted Cl. to process thoughts and feelings associated with family system, medical stressors, financial stressors for the purpose of gaining insight. Clinician provided support and validation where appropriate. Response: Cl. participated actively in discussion and displayed good insight. Cl. appears to be making good progress. Plan: See treatment plan Examination Category Sub-Category Detail Notes Category Not es Psychiatry Appearance: well-groomed Attitude: cooperative Orientation: awake, alert and marya ented x 3 Speech / language: appropriate pitch/mo dulation, clear and coherent, normal rate, volume, and articulation (RVR), proper grammar used Insight: good Intellectual functioning: above average
--- OUTSIDE RECORDS SUMMARY | 2025-02-11 14:06 | XMS_ITS | Clinical Summary ---
Author Organization [facility] Address [address] [address] Care Team Providers Care Engineered Wood Designer Name Role Phone Ambrosio Landers MD Primary Care Provider [phone] [phone] Allergies Active Allergy Reactions Criticality Noted Date Comments Bupropion Other (See Comments) 06/18/2020 Suicidal thoughts Ceftriaxone Anaphylaxis High 03/09/2023 Medications ARIPiprazole (ABILIFY) 10 mg tablet Take 1 Tablet by mouth daily. 0 Active albuterol sulfate HFA 90 mcg/actuation aerosol inhaler INHALE 2 PUFFS BY MOUTH EVERY 4 HOURS NEEDED FOR SHORTNESS OF BREATH OR WHEEZING 3 Active atomoxetine (STRATTERA) 80 mg capsule TAKE 1 CAPSULE BY MOUTH EVERY DAY IN THE MORNING 3 Active FreeStyle Lite Strips Strip TEST ONCE DAILY 3 Active cyclobenzaprine (FLEXERIL) 5 mg Tablet TAKE 1 TO 2 TABLETS BY MOUTH EVERY DAY AT BEDTIME NEEDED FOR MUSCLE SPASM 3 Active hydrOXYzine HCL (ATARAX) 10 mg tablet TAKE 1 TABLET BY MOUTH TWICE DAILY NEEDED 3 Active Super Thin Lancets 28 gauge USE TO TEST EVERY DAY 3 Active metoprolol succinate (TOPROL XL) 25 mg Extended Release 24 hour tablet Take 25 mg by mouth daily. 3 Active metoprolol succinate (TOPROL XL) 50 mg Extended Release 24 hour tablet Take 50 mg by mouth daily. 3 Active ondansetron (ZOFRAN ODT) 8 mg Tablet, Rapid Dissolve DISSOLVE 1 TABLET ON THE TONGUE EVERY 8 HOURS FOR 5 DAYS NEEDED FOR NAUSEA OR VOMITING 3 Active Ozempic 1 mg/dose (4 mg/3 mL) Pen Injector INJECT 1 MG UNDER THE SKIN WEEKLY 3 Active varenicline (CHANTIX) 0.5 mg (11)- 1 mg (42) tablets STARTER dose pack FOLLOW PACKAGE DIRECTIONS 3 Active valACYclovir (VALTREX) 500 mg tablet Take 500 mg by mouth 2 times daily. Active minoxidiL (LONITEN) 2.5 mg tablet Take 1 Tablet by mouth daily. 4 Active spironolactone (ALDACTONE) 100 mg tablet Take 100 mg by mouth every 24 hours. 4 Active Active Problems Problem Noted Date Diagnosed Date Leukemoid reaction 08/18/2020 Encounters Date Type Department Care Team Description 01/30/2025 External Device Data [facility] ABSTRACTION Provider, Abstract 01/30/2025 External Device Data [facility]STRACTION Provider, Abstract 01/19/2025 External Device Data [facility] Provider, Abstract 01/18/2025 External Device Data [facility] Provider, Abstract 01/16/2025 External Device Data [facility]STRACTION Provider, Abstract 01/02/2025 External Device Data [facility] ABSTRACTION Provider, Abstract 12/11/2024 External Device Data [facility]STRACTION Provider, Abstract 12/05/2024 External Device Data [facility]STRACTION Provider, Abstract 12/05/2024 External Device Data [facility]STRACTION Provider, Abstract from Last 3 Months Family History Medical History Relation Name Comments No Known Problems Daughter No Known Problems Father No Known Problems Half-Brother No Known Problems Half-Sister Diabetes Maternal Grandfather Diabetes Maternal Grandmother No Known Problems Mother Diabetes Paternal Grandfather Stroke Paternal Grandfather No Known Problems Paternal Grandmother Relation Name Status Comments Daughter Alive Father Alive Half-Brother Alive Half-Sister Alive Maternal Grandfather Alive Maternal Grandmother Alive Mother Alive Paternal Grandfather Alive Paternal Grandmother Alive Social History Tobacco Use Types Packs/Day Years Used Date Smoking Tobacco: Former Cigarettes 0.5 12 0 07/19/2007 - 07/19/2019 Smokeless Tobacco: Never Tobacco Cessation:Counseling Given: Not Answered Alcohol Use Standard Drinks/Week Comments Yes 0 (1 standard drink = 0.6 oz pur e alcohol) Comments No Sex and Gender Information Value Date Recorded Sex Assigned at Not on file 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 Gender Identity Not on file Sexual Orientation Not on file Last Filed Vital Signs Vital Sign Reading Time Taken Comments Blood Pressure 137/91 10/29/2024 1:07 PM PV INSTALLER TECH Pulse 59 04/02/2024 3:10 PM CDT Temperature 41.1 C (106 F) 10/29/2024 1:04 PM PV INSTALLER TECH Respiratory Rate 16 10/29/2024 1:04 PM PV INSTALLER TECH Oxygen Saturation 96% 10/29/2024 1:0 4 PM PV INSTALLER TECH Inhaled Oxygen Concentration - - Weight 84.2 kg (185 lb 9.6 oz) 10/29/2024 1:04 PM PV INSTALLER TECH Patient verbally confirmed that since bein on Ozempic it has caused her to lose weight Height 157.5 cm (5' 2 ) 08/18/2020 10:2 5 AM CDT Body Mass Index 33.95 08/18/2020 10:25 AM CDT Plan of Treatment Upcoming Encounters Date Type Department Care Team (Late st Contact Info) Description 04/29/2025 1:15 PM CDT Office Visit [facility] Oncology and Hematology - [place] [address] [facility] [address] [place] [address] Michele Ford MD [address] [facility] [address] [place] [address] Health Maintenance Due Date Last Done Comments PNEUMOCOCCAL VACCINE 0-49 YE ARS (1 of 2 - PCV) 1995 DIABETES ANNUAL FOOT EXAM 2007 DIABETES ANNUAL RETINAL EXAM 2007 DIABETES HBA1C Q 6 MONTHS 2007 DIABETES MICROALBUMIN ANNUAL SCREEN 2007 LDL CHOLESTEROL ANNUAL 2007 DTAP/TDAP/TD VACCINES (1 - Tdap) 2008 HEPATITIS B VACCINES (1 of 3 - 19+ 3-dose series) 2008 HPV/Cotest (30-65) 2019 CERVICAL CANCER SCREENING 09/26/2020 PAP SMEAR 09/26/2020 09/26/2017 PAP SMEAR 09/26/2020 09/26/2017 INFLUENZA VACCINE (#1) 2024 HPV VACCINES Aged Out No longer eligi ble based on patient's age to complete this topic Insurance Care Teams Engineered Wood Designer Relationship Specialty Start Date End Date Ambrosio Landers MD [address] [place] [phone] PCP - General Family Practice 04/02/24
--- OUTSIDE RECORDS SUMMARY | 2025-02-11 14:06 | XMS_ITS | Encounter Summary ---
Author Organization [facility] Address [address] [place] [address] Care Team Providers Care Book Editor Name Role Phone Ambrosio Landers MD Primary Care Provider +1 [phone] Encounter Details Date Type Department Care Team (Late Contact Info) Description 07/11/2003 Outpatient Historical [facility] Child and Adolescent Psychiatry [facility] [address] [place] [address] Seamus Castro MD 6[address] [facility] [place] [address] Social History Tobacco Use Types Packs/Day Years Used Date Smoking Tobacco: Never Assessed Comments Unknown Sex and Gender Information Value Date Recorded Sex Assigned at Not on file 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 Gender Identity Not on file Sexual Orientation Not on file documented as of this encounter Plan of Treatment Upcoming Encounters Date Type Department Care Team (Late Contact Info) Description 04/29/2025 1:15 PM CDT Office Visit [facility] Oncology and Hematology - [place] [address] [facility] [address] [place] [address] Michele Ford MD [address] [facility] [address] [place] [address] documented as of this encounter Visit Diagnoses Not on filedocumented in this encounter Care Teams Book Editor Relationship Specialty Start Date End Date Ambrosio Landers MD [address] [place] [phone] PCP - General Family Practice 04/02/24 documented as of this encounter
--- OUTSIDE RECORDS SUMMARY | 2025-02-11 14:06 | XMS_ITS | Encounter Summary ---
Author Organization [facility] Address [address] [place] [address] Care Team Providers Care Land Planner Name Role Phone Ambrosio Landers MD Primary Care Provider +1 [phone] Encounter Details Date Type Department Care Team (Late Contact Info) Description 09/30/2003 Outpatient Historical [facility] Child and Adolescent Psychiatry [facility] [address] [place] [address] Seamus Castro MD 6[address] [facility] [place] [address] Social History Tobacco Use Types Packs/Day Years Used Date Smoking Tobacco: Never Assessed Comments Unknown Sex and Gender Information Value Date Recorded Sex Assigned at Not on file 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 Gender Identity Not on file Sexual Orientation Not on file documented as of this encounter Plan of Treatment Upcoming Encounters Date Type Department Care Team (Late Contact Info) Description 04/29/2025 1:15 PM CDT Office Visit [facility] Oncology and Hematology - [place] [address] [facility] [address] [place] [address] Michele Ford MD [address] [facility] [address] [place] [address] documented as of this encounter Visit Diagnoses Not on filedocumented in this encounter Care Teams Land Planner Relationship Specialty Start Date End Date Ambrosio Landers MD [address] [place] [phone] PCP - General Family Practice 04/02/24 documented as of this encounter
--- OUTSIDE RECORDS SUMMARY | 2025-02-11 14:06 | XMS_ITS | Encounter Summary ---
Author Organization [facility] Address [address] [place] [address] Care Team Providers Care Power Chisel Operator Name Role Phone Ambrosio Landers MD Primary Care Provider +1 [phone] Encounter Details Date Type Department Care Team (Late Contact Info) Description 07/24/2003 Outpatient Historical [facility] Child and Adolescent Psychiatry [facility] [address] [place] [address] Seamus Castro MD 6[address] [facility] [place] [address] Social History Tobacco Use Types Packs/Day Years Used Date Smoking Tobacco: Never Assessed Comments Unknown Sex and Gender Information Value Date Recorded Sex Assigned at Not on file 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 Gender Identity Not on file Sexual Orientation Not on file documented as of this encounter Plan of Treatment Upcoming Encounters Date Type Department Care Team (Late Contact Info) Description 04/29/2025 1:15 PM CDT Office Visit [facility] Oncology and Hematology - [place] 2[address] [facility] [address] [place] [address] Michele Ford MD [address] [facility] [address] [place] [address] documented as of this encounter Visit Diagnoses Not on filedocumented in this encounter Care Teams Power Chisel Operator Relationship Specialty Start Date End Date Ambrosio Landers MD [address] [place] [phone] PCP - General Family Practice 04/02/24 documented as of this encounter
--- OUTSIDE RECORDS SUMMARY | 2025-02-11 14:06 | XMS_ITS | Clinical Summary ---
Author Organization [facility] Address [address] [place] [address] Care Team Providers Care Manhole Builder Name Role Phone Jarett aHile MD Primary Care Provider [phone] Allergies Active Allergy Reactions Criticality Noted Date Comments Buspirone Unknown 06/06/2024 Ceftriaxone Chest pressure High 06/06/2024 Dapagliflozin Unknown 06/06/2024 Doxycycline Unknown 06/06/2024 Spironolactone Unknown 06/06/2024 Tizanidine Other (see comment) Medium 06/06/2024 Mental fogginess, dry mouth Medications valACYclovir (VALTREX) 500 MG tablet Take 1 tablet (500 mg total) by mouth 2 (two) times daily. Active Viloxazine HCl ER (QELBREE) 200 MG CAPSULE SR 24 HR Take 400 mg by mouth 2 (two) times a day. Active ARIPiprazole (ABILIFY) 2 MG tablet Take 1 tablet (2 mg total) by mouth daily. Active Semaglutide (OZEMPIC, 0.25 OR 0.5 MG/DOSE, SC) Active omeprazole (PRILOSEC) 40 MG capsule Take 1 capsule (40 mg total) by mouth daily. Active metoprolol succinate ER (TOPROL-XL) 50 MG 24 hr tablet Take 1 tablet (50 mg total) by mouth daily. Active hydrOXYzine (ATARAX) 25 MG tablet Take 1 tablet (25 mg total) by mouth 3 (three) times daily as needed for Itching. Active albuterol sulfate HFA 108 (90 Base) MCG/ACT inhaler Inhale 2 puffs into the lungs every 6 (six) hours as needed for Wheezing. Active spironolactone (ALDACTONE) 100 MG tablet Take 1 tablet (100 mg total) by mouth daily. 07/04/2024 Active Active Problems Problem Noted Date Diagnosed Date Migraine headache 06/06/2024 Hypertension 06/06/2024 Asthma ([facility]) 06/06/2024 Diabetes ([facility]) 06/06/2024 Depression 06/06/2024 Anxiety 06/06/2024 Sleep apnea 06/06/2024 Social History Tobacco Use Types Packs/Day Years Used Date Smoking Tobacco: Former Cigarettes Smokeless Tobacco: Never Alcohol Use Standard Drinks/Week Comments Yes 0 (1 standard drink = 0.6 oz pur e alcohol) PHQ-2 Answer Date Recorded Patient Health Questionnaire-2 Score 0 07/12/2024 Comments Unknown Sex and Gender Information Value Date Recorded Sex Assigned at Not on file Legal Sex Female 7:29 PM CDT Gender Identity Not on file Sexual Orientation Not on file Last Filed Vital Signs Vital Sign Reading Time Taken Comments Blood Pressure 147/95 07/12/2024 1:15 PM CDT Pulse 97 07/12/2024 1:15 PM CDT Temperature 36.3 C (97.4 F) 07/12/2024 1:15 PM CDT Respiratory Rate 16 07/12/2024 1:15 PM CDT Oxygen Saturation 93% 07/12/2024 1:15 PM CDT Inhaled Oxygen Concentration - - Weight 91.6 kg (202 lb) 07/12/2024 1:15 PM CDT Height 154.9 cm (5' 1 ) 07/12/2024 1:15 PM CDT Body Mass Index 38.17 07/12/2024 1:15 PM CDT Plan of Treatment Health Maintenance Due Date Last Done Comments Kidney Health Evaluation 1989 Hemoglobin A1C 1989 Lipid Panel 1989 Annual Physical 1992 Pneumococcal Vaccine: Pediat rics (0 to 5 Years) and At-Risk Patients (6 to 64 Years) (1 of 2 - PCV) 1995 Diabetes: Retinopathy Eye Exam 2007 Hepatitis C 2007 DTaP, Tdap and Td Vaccines ( 1 - Tdap) 2008 Hepatitis B Vaccines (1 of 3 - 19+ 3-dose series) 2008 Cervical Cancer Screening Pa p with HPV Testing (Age 30 to 64) Every 5 Years 2019 09/26/2017 Cervical Cancer Screening Pa p Smear (Age 30 to 64) Every 3 Years 09/26/2020 09/26/2017 Cervical Cancer Screening with HPV 09/26/2020 COVID-19 Vaccine (2023- 5 season) 2024 Influenza Adult (#1) 2024 PHQ-2 ([facility]ician [facility] [facility]) 11/14/2024 07/12/2024 HPV Vaccines Aged Out No longer eligi ble based on patient's age to complete this topic Meningococcal B Vaccine Aged Out No l onger eligible based on patient's age to complete this topic Meningococcal Vaccine Aged Out No bentley adair eligible based on patient's age to complete this topic RSV Immunizations Under 20 Months Aged Out No longer eligible based on patient's age to complete this topic Insurance GENERIC - COMMERCIAL on file [employer] Care Teams Manhole Builder Relationship Specialty Start Date End Date Jarett Haile MD [address] [place] [id number] PCP - General INTERNAL MEDICINE 11/13/19
--- OUTSIDE RECORDS SUMMARY | 2025-02-11 14:06 | XMS_ITS ---
Author Organization [facility] Address [address] [facility] [address] [address] Care Team Providers Care Fluxer Name Role Phone AmandaMaria ElenaKathie Unavailable [phone] Nandini Rodríguez [phone] Social History Sex Assigned At : Social History Observation Description Sex Assigned At Female Encounters Encounter Location Date Provider Diagnosis [facility] [address] [facility] [address] [address] 08/23/2024 Nandini Rodríguez Plan Of Treatment Next Appt Details Provider Name:Kathie Amanda , 02/14/2025 01:30:00 PM, [address], [address], [address], Progress Notes * CAROLINA LEWISREADOB:1989 (34 yo F)Acc No.[id number]:08/23/2024 Patient: PALOMO HITCHCOCK Provider: Halima RODRÍGUEZ LCSW :1990 A ge:33 Y S ex:Female Date:08/23/2024 Address:[address] [facility] Data: * Chief Complaints: * Assessment: Plan: * Treatment: * Billing Information: * Visit Code: * Procedure Codes: * Electronic signature of Nandini Rodríguez LCSW on 02/11/2025 at 02:05 PM CDT Sign off status: Pending Signatures: No Ad Hoc Signature Added * Provider: Halima RODRÍGUEZ LCSW Date: 1 Generated for Margarita russo/Jeff/Jennifer on: 0 02/11/2025 02:05 PM CDT
== END 2025-02-11 12:47 | disposition home or self-care (01) ==
LOC: ANHSURGERY 12:52
PROVIDERS: Anesthesiology; PCP Nurse Practitioner Family; Visit Provider Surgery
DX: E11.9 Type 2 diabetes mellitus without complications (principal); I10 Essential (primary) hypertension; Z01.818 Encounter for other preprocedural examination
CPT/HCPCS: 36415; 80048; 93005

== ENCOUNTER 2025-02-15 00:20 | Day surgery (SDC) | payer OTHER, SELFPAY ==
[2024-12-26 08:18] VITALS: BMI 34.5
--- NOTE | 2024-12-26 08:27 | PC.NURSE ---
Report to the Outpatient Waiting Room, entrance under the green pavilion located off [facility], at time 1200_ on date _01/04/25_. Planned Procedure Time: .? 1400 Time changes happen often and if your time is changed the preop area will call you the afternoon before. - You and your visitor will be asked to self-screen and do not enter if you have any COVID symptoms. Please call surgeon if you need to reschedule. - A mask is optional within the hospital at this time. Patients may have clear liquids (water, carbonated beverages, clear teas, apple juice) until 3 hours prior to surgery with a maximum of 20 ounces. - No food from midnight until time of surgery and no smoking, or chewing tobacco (or any form of nicotine). No chewing gum, candy or mints. - Infants may have breast milk until 4 hours before surgery, formula 6 hours prior to surgery. - Children will be allowed to drink immediately following surgery.? If applicable, please bring a bottle or sippy cup to assist with drinking. Juice, water, soda, and popsicles are readily available.? For infants on formula, please bring formula the day of surgery.? Pacifiers are allowed. Take only the following medications with a SIP of water on the morning of surgery: HYDROXIZINE DO NOT STOP ANY OF YOUR OTHER PRESCRIPTION MEDICATIONS PRIOR TO SURGERY EXCEPT THE FOLLOWING Hold all vitamins and supplements for 3 days per anesthesiologist. Medications to discontinue per physician NONE Date to take last dose Please no make-up, nail czech, hairspray, perfume, deodorant, or body powder the day of surgery.? No jewelry (including any body piercings) or valuables the day of surgery, leave them at home.? Please take a shower or bath the night before, or the morning of, surgery with HIBICLENS antibacterial soap.? Wear comfortable, loose fitting clothing.? Children are encouraged to wear pajamas. - Jewelry must be removed prior to entering the operating room.? Rings and piercings that are not removed may be cut off. - The hospital will not accept responsibility for valuables.? - Please leave all valuables, including medications, at home the day of surgery. If you are going home after surgery, a licensed driver starting gate must drive you home.? - NO public transportation without another adult if you receive anesthesia. - We recommend that an adult stay with you for 24 hours following discharge. - We also recommend that you do not drive, make important decision, drink alcoholic beverages, or take any drugs that were not prescribed by your health care provider for at least 24 hours after your discharge time. For Pediatric surgeries, we recommend two adults accompany the child home. Follow any additional instructions given to you from your surgeon. Telephone instructions given to _PATIENT__and asked if any additional questions and then verbalized understanding. Patient advised to call surgeon office or pre surgery nurse liaison [phone] if any additional questions.
--- NOTE | 2025-02-06 10:13 | PC.NURSE ---
Report to the Outpatient Waiting Room, entrance under the green pavilion located off [facility], at time _1100_ on date _[id number]_. Planned Procedure Time: _1pm_.? Time changes happen often and if your time is changed the preop area will call you the afternoon before. - You and your visitor will be asked to self-screen and do not enter if you have any COVID symptoms. Please call surgeon if you need to reschedule. - A mask is optional within the hospital at this time. Patients may have clear liquids (water, carbonated beverages, clear teas, apple juice) until 3 hours prior to surgery with a maximum of 20 ounces. - No food from midnight until time of surgery and no smoking, or chewing tobacco (or any form of nicotine). No chewing gum, candy or mints. Take only the following medications with a SIP of water on the morning of surgery: ___Hydroxyzine__ DO NOT STOP ANY OF YOUR OTHER PRESCRIPTION MEDICATIONS PRIOR TO SURGERY EXCEPT THE FOLLOWING Hold all vitamins and supplements for 3 days per anesthesiologist. Medications to discontinue per physician Date to take last dose Please no make-up, nail vatican citizen, hairspray, perfume, deodorant, or body powder the day of surgery.? No jewelry (including any body piercings) or valuables the day of surgery, leave them at home.? Please take a shower or bath the night before, or the morning of, surgery with an antibacterial soap.? Wear comfortable, loose fitting clothing.? - Jewelry must be removed prior to entering the operating room.? Rings and piercings that are not removed may be cut off. - The hospital will not accept responsibility for valuables.? - Please leave all valuables, including medications, at home the day of surgery. If you are going home after surgery, a licensed corporate driver must drive you home.? - NO public transportation without another adult if you receive anesthesia. - We recommend that an adult stay with you for 24 hours following discharge. - We also recommend that you do not drive, make important decision, drink alcoholic beverages, or take any drugs that were not prescribed by your health care provider for at least 24 hours after your discharge time. Follow any additional instructions given to you from your surgeon. Telephone instructions given to __Kaleigh__and asked if any additional questions and then verbalized understanding. Patient advised to call surgeon office or pre surgery nurse liaison [phone] if any additional questions.
[2025-02-15] VITALS (7 sets, daily range): BP systolic 114–143; BP diastolic 51–88; PULSE 77–92; RESP 12–16; TEMP 36.2–36.4; O2SAT 99–100
--- OUTSIDE RECORDS SUMMARY | 2025-02-15 00:23 | XMS_ITS | Encounter Summary ---
Author Organization [facility] Address [address] [place] [address] Care Team Providers Care Police Matron Name Role Phone Ambrosio Landers MD Primary Care Provider [phone] Encounter Details Date Type Department Care Team (Latest Contact Info) Description 07/10/2003 Inpatient Historical HIS PATIENT IN A BED [place], Seamus Varghese MD 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 Gender Identity Not on file Sexual Orientation Not on file documented as of this encounter Plan of Treatment Upcoming Encounters Date Type Department Care Team (Late st Contact Info) Description 04/29/2025 1:15 PM CDT Office Visit [facility] Oncology and Hematology - [place] [address] [facility] [address] [place] [address] Michele Ford MD [address] [facility] [address] [place] [address] documented as of this encounter Visit Diagnoses Diagnosis Bipolar I disorder, most recent episode (or current) unspecified (CMS/HCC)- Primary Bipolar I disorder, most recent episode (or current) unspecified documented in this encounter Care Teams Police Matron Relationship Specialty Start Date End Date Ambrosio Landers MD [address] [place] [phone] PCP - General Family Practice 04/02/24 documented as of this encounter
--- OUTSIDE RECORDS SUMMARY | 2025-02-15 00:23 | XMS_ITS ---
Author Organization [facility] Address [address] [facility] [address] [place] [address] Care Team Providers Care Plate Drying Machine Tender Name Role Phone Kathie Patel Unavailable [phone] Nandini Schumacher Unavailable [phone] REASON FOR VISIT Medical stressors, Financial stressors Medications Medication SIG (Take, Route, Frequency, Duration) Notes Start Date End Date Status Ozempic (2 MG/DOSE) 8 MG/3ML Subcutaneous for 84 Days Active Metoprolol Succinate ER 50 MG TAKE 1 AND 1/2 TABLETS BY MOUTH DAILY Oral for 90 Days Active SKYRIZI 150 MG/ML SUBCUTANEOUS SYRINGE *Reorder from [employer] for eRx and Interaction Alerts* 02/13/2024 Active [...] Positive Encounters Encounter [facility] Date [facility] [address] [place] [address] 12/06/2024 Nandini Schumacher Attention-deficit hyperactivity disorder, predominantly inattentive type F90.0 and Generalized anxiety disorder F41.1 Assessments Encounter Date Diagnosis (ICD Code) Assessment Notes Treatment Notes Treatment Clinical Notes Section Notes 12/06/2024 Attention-deficit hyperactivity disorder, predominantly inattentive type (ICD-10 - F90.0) 12/06/2024 Generalized anxiety disorder (ICD-10 - F41.1) Plan Of Treatment Next Appt Details Follow Up: prn, Reason: Provider Name:Kathie Patel , 05/20/2025 01:30:00 PM, [address], [facility] [address], [place], [address], Progress Notes * CAROLINA LEWISREADOB:1989 (34 yo F)Acc No.[id number]:12/06/2024 Patient: PALOMO HITCHCOCK Provider: Halima SCHUMACHER LCSW :1990 A ge:34 Y S ex:Female Date:12/06/2024 Address:[address] [place] [address], [facility] Data: * Time Tracker: * Date Start [...] job in June- has been working at [employer]. Getting . Considering re-do of diagnosis- Cl. [...] child live? w ith both parents, A fl household tobacco use? Y es. M iscellaneous: A dvance Care Planning A re you your own decision-maker Y es, D o you have Power of Heel Scourer for Health or Medical? N o. * [...] SYRINGE , Notes to Pharmacist: *Reorder from [place] for eRx and Interaction Alerts*, Taking Spironolactone [...] Information: * Visit Code: * Procedure Codes: 16232 PSYCHOTHERAPY W/PATIENT 60 MINUTES. * BLOCKER Sign off status: Completed Signatures: No Ad Hoc Signature Added true * Provider: Halima SCHUMACHER LCSW Date: 0 12/06/2024 Generated for Margarita russo/Jeff/Jennifer on: 0 02/15/2025 12:23 AM CDT History and Physical Notes * HPI (History of Present Illness) Category Sub-Category Detail Notes Category Not es Functional Status Date: 06 December 2024 Current symptoms: Anxiety, worry, chronic pain Severity: severe Context: Cl. reported significant stressors- upcoming surgery in December, lost job in June- has been working at [employer]. Getting . Considering re-do of diagnosis- Cl. [...]
--- OUTSIDE RECORDS SUMMARY | 2025-02-15 00:23 | XMS_ITS | Clinical Summary ---
Author Organization [facility] Address [address] [place] [address] Care Team Providers Care Windows Deployment Technician Name Role Phone Jarett Haile MD Primary Care Provider [phone] Allergies Active Allergy Reactions Criticality Noted Date [...] Date Migraine headache 06/06/2024 Hypertension 06/06/2024 Asthma ([facility]) 06/06/2024 Diabetes ([facility]) 06/06/2024 Depression 06/06/2024 Anxiety 06/06/2024 Sleep apnea [...] 2024 Influenza Adult (#1) 2024 PHQ-2 (Physician [place]) 11/14/2024 07/12/2024 HPV Vaccines Aged Out [...] - COMMERCIAL on file [employer] Care Teams Windows Deployment Technician Relationship Specialty Start Date End Date Jarett Haile MD [address] [place] [id number] PCP - General INTERNAL MEDICINE 11/13/19
--- OUTSIDE RECORDS SUMMARY | 2025-02-15 00:24 | XMS_ITS ---
Author Organization [facility] [employer] Address [address] [facility] [address] [place] [address] Care Team Providers Care Medical Office Supervisor Name Role Phone Kathie Patel Unavailable [phone] Allergies Allergen (clinical drug ingredient) Drug/Non Drug Allergy documented on EMR Reaction Allergy Type Onset Date Status BuSpar Unknown Drug Allergy 02/13/2024 Active Rocephin Unknown Drug Allergy 02/13/2024 Active REASON FOR VISIT f/u rx Medications Medication SIG (Take, Route, Frequency, Duration) Notes Start Date End Date Status Qelbree 200 MG 2 capsule Oral Once a day for 30 days PA approved 12/10/24-01/09/26 01/09/2025 Active Metoprolol Succinate ER 50 MG TAKE 1 AND 1/2 TABLETS BY MOUTH DAILY Oral for 90 Days Not-Taking Qelbree 200 MG 2 capsule Oral Once a day for 90 days Active hydrOXYzine HCl 10 MG 1 tablet Orally twice a day for 90 days Active Minoxidil 2.5 MG TAKE 1 TABLET BY MOUTH DAILY Oral for 90 Days Active ARIPiprazole 10 MG 1 tablet Oral Once a day for 90 days Active SKYRIZI 150 MG/ML SUBCUTANEOUS SYRINGE *Reorder from [facility] for eRx and Interaction Alerts* 02/13/2024 Active Spironolactone 100 MG TAKE 1 TABLET BY MOUTH TWICE DAILY Oral for 90 Days Active valACYclovir HCl 500 MG TAKE 1 TABLET BY MOUTH EVERY DAY Oral for 90 Days Active Ozempic (2 MG/DOSE) 8 MG/3ML Subcutaneous for 84 Days Active Omeprazole 40 MG Oral for 90 Days Active Social History [...] Problem Status W/U Status Risk Notes Problem Depression Screening (657924030) Encounter for screening for depression (Z13.31) Active confirmed Problem Screening for cardiovascular system disease (911063742) Encounter for screening for cardiovascular disorders (Z13.6) Active confirmed Problem Dietary management surveillance (328651678) Dietary counseling and surveillance (Z71.3) Active confirmed Vital Signs Blood pressure systolic 130 mm Hg 02/15/20 25 Blood pressure diastolic 92 mm Hg 025 Heart Rate 103 /min 02/14/2025 Height 61.00 in 02/14/2025 Weight 183 lbs 02/14/2025 BMI 34.57 kg/m2 02/14/2025 Height-cm 154.94 cm 02/14/2025 Weight-kg 83.01 kg 02/14/2025 Encounters [facility]counter [facility] [address] [address] 02/14/2025 Kathie Patel Bipolar disorder, current episode depressed, mild F31.31 ; Generalized anxiety disorder F41.1 ; Attention-deficit hyperactivity disorder, unspecified type F90.9 ; Other watermaster (current) drug therapy Z79.899 ; Borderline personality disorder F60.3 ; Marijuana user F12.90 ; Tobacco user Z72.0 ; Encounter for screening for depression Z13.31 ; Encounter for screening for cardiovascular disorders Z13.6 and Dietary counseling and surveillance Z71.3 Assessments Encounter Date Diagnosis (ICD Code) Assessment Notes Treatment Notes Treatment Clinical Notes Section Notes 02/14/2025 Bipolar disorder, current episode depressed, mild (ICD-10 - F31.31) 1. Bipolar I disorder, most recent episode depression - Abilify 10 mg at night labs reviewed in [facility] 06/06 completed educated on all medications, benefits, side effects [...] http_s://www.sofia .org/About-Mental -Illness/Mental-H ealth-Conditions http_s://psychcen tral.com/depressi on/the-cognitive- dpxlqaci-bu-nidlu ssion#treatments http__s://www.nim h.nih.gov/health/ topics/mental-hea lth-medications http__s://www.nam i.org/About-Menta [...] syndrome. 3. Attention deficit hyperactivity disorder - disucss stimualtes use when not using cannabis and random UDS over next few months patient reported plan to stop cannabis hx Adderall, Concerta, Vyvanse no stimulates related to cannabis use Qelbree [...] Cannabis/marijuan a information: http_s://sierra.nih .gov/publications /drugfacts/cannab is-marijuana http_s://www.6Waves/canna siz-rel-sskfnzav- marijuana-adhd/ . Long-term drug therapy 02/14/2025 Generalized anxiety disorder (ICD-10 - F41.1) 1. Bipolar I disorder, most recent episode depression - Abilify 10 mg at night labs reviewed in [facility] 06/06 completed educated on all medications, benefits, side effects [...] http_s://www.sofia .org/About-Mental -Illness/Mental-H ealth-Conditions http_s://psychcen tral.com/depressi on/the-cognitive- tugnhcld-tw-gdgkf ssion#treatments http__s://www.nim .nih.gov/health/ topics/mental-hea lth-medications http__s://www.nam i.org/About-Menta l-Illness/Treatme nts/Mental-Health -Medications [...] syndrome. 3. Attention deficit hyperactivity disorder - disucss stimualtes use when not using cannabis and random UDS over next few months patient reported plan to stop cannabis hx Adderall, Concerta, Vyvanse no stimulates related to cannabis use Qelbree [...] Cannabis/marijuan a information: http_s://sierra.nih .gov/publications /drugfacts/cannab is-marijuana http_s://www.6Waves/jose elias acz-vca-yyaghwai- marijuana-adhd/ . Long-term drug therapy 02/14/2025 Attention-deficit hyperactivity disorder, unspecified type (ICD-10 - F90.9) 1. Bipolar I disorder, most recent episode depression - Abilify 10 mg at night labs reviewed in [facility] 06/06 completed educated on all medications, benefits, side effects [...] http_s://www.sofia .org/About-Mental -Illness/Mental-H ealth-Conditions http_s://psychcen tral.com/depressi on/the-cognitive- tnxnvrbx-jt-qduyt ssion#treatments http__s://www.nim h.nih.gov/health/ topics/mental-hea lth-medications http__s://www.nam i.org/About-Menta [...] syndrome. 3. Attention deficit hyperactivity disorder - disucss stimualtes use when not using cannabis and random UDS over next few months patient reported plan to stop cannabis hx Adderall, Concerta, Vyvanse no stimulates related to cannabis use Qelbree [...] Cannabis/marijuan a information: http_s://sierra.nih .gov/publications /drugfacts/cannab is-marijuana http_s://www.6Waves/canna arp-xor-yrjuoygq- marijuana-adhd/ . Long-term drug therapy 02/14/2025 Other watermaster (current) drug therapy (ICD-10 - Z79.899) 1. Bipolar I disorder, most recent episode depression - Abilify 10 mg at night labs reviewed in [facility] 06/06 completed educated on all medications, benefits, side effects [...] http_s://www.sofia .org/About-Mental -Illness/Mental-H ealth-Conditions http_s://psychcen tral.com/depressi on/the-cognitive- aftvnoiv-yw-ezais ssion#treatments http__s://www.[facility].nih.gov/health/ topics/mental-hea lth-medications http__s://www.nam i.org/About-Menta l-Illness/Treatme nts/Mental-Health [...] syndrome. 3. Attention deficit hyperactivity disorder - disucss stimualtes use when not using cannabis and random UDS over next few months patient reported plan to stop cannabis hx Adderall, Concerta, Vyvanse no stimulates related to cannabis use Qelbree [...] Cannabis/marijuan a information: http_s://sierra.nih .gov/publications /drugfacts/cannab is-marijuana http_s://www.6Waves/jose elias luy-lzi-fdrhaxtg- marijuana-adhd/ . Long-term drug therapy 02/14/2025 Borderline personality disorder (ICD-10 - F60.3) 1. Bipolar I disorder, most recent episode depression - Abilify 10 mg at night labs reviewed in [facility] 06/06 completed educated on all medications, benefits, side effects [...] austic dxn http_s://www.sofia .org/About-Mental -Illness/Mental-H ealth-Conditions http_s://psychcen Punchhl.com/depressi on/the-cognitive- aquijqtd-vz-mfbvz ssion#treatments http__s://www.nim h.nih.gov/health/ topics/mental-hea lt-medications http__s://www.nam i.org/About-Menta l-Illness/Treatme nts/Mental-Health -Medications 2. Generalized [...] syndrome. 3. Attention deficit hyperactivity disorder - disucss stimualtes use when not using cannabis and random UDS over next few months patient reported plan to stop cannabis hx Adderall, Concerta, Vyvanse no stimulates related to cannabis use Qelbree [...] Cannabis/marijuan a information: http_s://sierra.nih .gov/publications /drugfacts/cannab is-marijuana http_s://www.6Waves/[employer] jjt-lkj-tpxqilhq- marijuana-adhd/ . Long-term drug therapy 02/14/2025 Marijuana user (ICD-10 - F12.90) 1. Bipolar I disorder, most recent episode depression - Abilify 10 mg at night labs reviewed in [facility] 06/06 completed educated on all medications, benefits, side effects [...] http_s://www.sofia .org/About-Mental -Illness/Mental-H ealth-Conditions http_s://psychcen tral.com/depressi on/the-cognitive- axdmlwcw-lf-hotlw ssion#treatments http__s://www.nim .nih.gov/health/ topics/mental-hea [facility]-medications http__s://www.nam i.org/About-Menta l-Illness/Treatme nts/Mental-Health -Medications 2. Generalized [...] syndrome. 3. Attention deficit hyperactivity disorder - disucss stimualtes use when not using cannabis and random UDS over next few months patient reported plan to stop cannabis hx Adderall, Concerta, Vyvanse no stimulates related to cannabis use Qelbree [...] Cannabis/marijuan a information: http_s://sierra.nih .gov/publications /drugfacts/cannab is-marijuana http_s://www.6Waves/jose elias fnr-aqr-flhtdrji- marijuana-adhd/ . Long-term drug therapy 02/14/2025 Tobacco user (ICD-10 - Z72.0) 1. Bipolar I disorder, most recent episode depression - Abilify 10 mg at night labs reviewed in [facility] 06/06 completed educated on all medications, benefits, side effects [...] http_s://www.sofia .org/About-Mental -Illness/Mental-H ealth-Conditions http_s://psychcen tral.com/depressi on/the-cognitive- bpqqmgvs-sv-yvlew ssion#treatments http__s://www.nim h.nih.gov/health/ topics/mental-hea lth-medications http__s://www.nam i.org/About-Menta [...] syndrome. 3. Attention deficit hyperactivity disorder - disucss stimualtes use when not using cannabis and random UDS over next few months patient reported plan to stop cannabis hx Adderall, Concerta, Vyvanse no stimulates related to cannabis use Qelbree [...] Cannabis/marijuan a information: http_s://sierra.nih .gov/publications /drugfacts/cannab is-marijuana http_s://www.6Waves/canna egs-emr-mvqwojia- marijuana-adhd/ . Long-term drug therapy 02/14/2025 Encounter for screening for depression (ICD-10 - Z13.31) 1. Bipolar I disorder, most recent episode depression - Abilify 10 mg at night labs reviewed in [facility] 06/06 completed educated on all medications, benefits, side effects [...] http_s://www.sofia .org/About-Mental -Illness/Mental-H ealth-Conditions http_s://psychcen tral.com/depressi on/the-cognitive- ahcqjzqk-ir-azrwz ssion#treatments http__s://www.[facility].nih.gov/health/ topics/mental-hea [facility]-medications http__s://www.nam i.org/About-Menta l-Illness/Treatme nts/Mental-Health -Medications 2. Generalized [...] syndrome. 3. Attention deficit hyperactivity disorder - disucss stimualtes use when not using cannabis and random UDS over next few months patient reported plan to stop cannabis hx Adderall, Concerta, Vyvanse no stimulates related to cannabis use Qelbree 400 mg daily co-pay card given ducation on rx hx Wellbutrin 4. Cannabis use Recommend decrease/stop cannabis use as it can negatively impact mood, motivation, anxiety, sleep, focus/concentrati on/memory (vigilance, elasticity, processing and attention); can also contribute to development of psychosis. http_s://www.[facility] .nih.gov/health/t opics/mental-heal th-medications http_s://www.sofia .org/About-Mental -Illness/Treatmen ts/Mental-Health- Medications Recommend decrease/stop cannabis use as it may be negatively impacting mood, motivation, anxiety, sleep, focus; can also contribute to development of psychosis Cannabis/marijuan a information: http_s://sierra.nih .gov/publications /drugfacts/cannab is-marijuana http_s://www.6Waves/cannchata bgd-kmg-qxcmwooc- marijuana-adhd/ . Long-term drug therapy 02/14/2025 Encounter for screening for cardiovascular disorders (ICD-10 - Z13.6) 1. Bipolar I disorder, most recent episode depression - Abilify 10 mg at night labs reviewed in [facility] 06/06 completed educated on all medications, benefits, side effects [...] austic dxn http_s://www.sofia .org/About-Mental -Illness/Mental-H ealth-Conditions http_s://psychcen [employer].com/depressi on/the-cognitive- nzabyvux-jh-lrney ssion#treatments http__s://www.[facility].nih.gov/health/ topics/mental-hea lth-medications http__s://www.[facility] i.org/About-Menta l-Illness/Treatme nts/Mental-Health -Medications 2. Generalized anxiety [...] syndrome. 3. Attention deficit hyperactivity disorder - disucss stimualtes use when not using cannabis and random UDS over next few months patient reported plan to stop cannabis hx Adderall, Concerta, Vyvanse no stimulates related to cannabis use Qelbree 400 mg daily co-pay card given ducation on rx hx Wellbutrin 4. Cannabis use Recommend decrease/stop cannabis use as it can negatively impact mood, motivation, anxiety, sleep, focus/concentrati on/memory (vigilance, elasticity, processing and attention); can also contribute to development of psychosis. http_s://www.[facility] .nih.gov/health/t opics/mental-heal th-medications http_s://www.sofia .org/About-Mental -Illness/Treatmen ts/Mental-Health- Medications Recommend decrease/stop cannabis use as it may be negatively impacting mood, motivation, anxiety, sleep, focus; can also contribute to development of psychosis Cannabis/marijuan a information: http_s://sierra.nih .gov/publications /drugfacts/cannab is-marijuana http_s://www.6Waves/cannLuqit ctj-urp-djcnkqcx- marijuana-adhd/ . Long-term drug therapy 02/14/2025 Dietary counseling and surveillance (ICD-10 - Z71.3) 1. Bipolar I disorder, most recent episode depression - Abilify 10 mg at night labs reviewed in [facility] 06/06 completed educated on all medications, benefits, side effects [...] http_s://www.sofia .org/About-Mental -Illness/Mental-H ealth-Conditions http_s://psychcen tral.com/depressi on/the-cognitive- mtilsymv-tm-sjkup ssion#treatments http__s://www.nim .nih.gov/health/ topics/mental-hea lth-medications http__s://www.nam i.org/About-Menta l-Illness/Treatme nts/Mental-Health -Medications [...] syndrome. 3. Attention deficit hyperactivity disorder - disucss stimualtes use when not using cannabis and random UDS over next few months patient reported plan to stop cannabis hx Adderall, Concerta, Vyvanse no stimulates related to cannabis use Qelbree [...] Cannabis/marijuan a information: http_s://sierra.nih .gov/publications /drugfacts/cannab is-marijuana http_s://www.6Waves/jose elias tns-nck-wewdjxay- marijuana-adhd/ . Long-term drug therapy Plan Of Treatment Medication Medication Name Sig Start Date Stop Date Notes Qelbree 200 MG 2 capsule Oral Once a day for 90 days hydrOXYzine HCl 10 MG 1 tablet Orally tw ice a day for 90 days ARIPiprazole 10 MG 1 tablet Oral Once a day for 90 days Next Appt Details Follow Up: 3 Months, Reason: medication follow up Provider Name:Kathie Patel , 05/20/2025 01:30:00 PM, [address], [address], [place], [address], Progress Notes * CAROLINA LEWISREADOB:1989 (34 yo F)Acc No.[id number]:02/14/2025 Patient: PALOMO HITCHCOCK Provider: NORA HAND :1990 A ge:34 Y S ex:Female Date:02/14/2025 Address:[address] [place] [address], [facility], [id number] Subjective: * Chief Complaints: * 1 . F/u rx. * HPI: D epression screening: PHQ-9 L ittle interest or pleasure in doing things?Not at all F eeling down, depressed, or hopeless N ot at all T rouble falling or staying asleep, or sleeping too much N ot at all F eeling tired or having little energy N ot at all P oor appetite or overeating N ot at all F eeling bad about yourself or that you are a failure, or have let yourself or your family down N ot at all T rouble concentrating on things, such as reading the newspaper or watching television N ot at all M oving or speaking so slowly that other people could have noticed; or the opposite, being so fidgety or restless that you have been moving around a lot more than usual N ot at all T houghts that you would be better off or of hurting yourself in some way N ot at all T otal Score 1 I nterpretation M inimal Depression Intervention D epression Screening Findings N egative F ollow-Up for Depression M ental health care management S uicide Risk Assessment Performed 0 02/14/2025 denies SI/HI no plans or intent A dditional Evaluation for Depression P sychiatric interview and evaluation N nathalie of the standardized tool used for adult depression screening: P atient Health Questionnaire (PHQ-9) Bipolar depression and anxiety chronic since report I things been good, I am having back surgery 02/15/25 remove cyst out back and daughter turns 5 tomorrow also, I do use cannabis I smoke it couple times a day and I can not focus with Qelbree and I am willing to stop cannabis to get back on stimulas I have to force self to clean house and take everything to get up and do it and over whelm, when on stimulate I am able to get things done, I am willing to stop cannabis and get my life back functioning, I am willing to do random UDS, 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, and going well, still and co-existing, been ok, and not talked about file for divorce we may stay for a while and I can not afford insurance and not make enough to pay, it will help me get back on my feet, no hopeless or helpless, and no sad or down, no psychosis, no jie, no SI/HI, tolerating all rx no s/e, no abnormal involuntary movement reported or noted, h air growing back being on rx and Spirolactone helps my facial hair also (prescribed by another provider), I feel anxious with surgery and woke up with anxious this am, and not normal anxiety, appetite on Ozempic still and working well and BS good, weight loss still and I am at 183 pounds now, I had COVID last month when I was to have surgery and had to wait to have surgery. in open marriage body is creating cancer [...] to this year,Labs and PAP done 12/06 former smoking 2 ppd- 1 year stopped hx vap- former etoh occasional-twice a month, 5-6 drinks at that time drugs cannabis-, smoking daily labs recently BC IUD AND Condoms psoriasis. D epression Screening: LINDA-7 (2018 Edition) F eeling nervous, anxious, or on edge N ot at all N ot being able to stop or control worrying?Not at all W orrying too much about different things N ot at all T rouble relaxing N ot at all B eing so restless that it is hard to sit still N ot at all B ecoming easily annoyed or irritable N ot at all F eeling afraid as if something awful might happen N ot at all T otal LINDA-7 Score 3 I f you checked any problems, how difficult have they made it for you to do your work, take care of things at home, or get along with other people? V marlon difficult I nterpretation of Total ( 0 to 4) No Anxiety C [place]-Suicide Severity Rating Scale: Suicide Risk (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) i n the past one month Have you wished you were or wished you could go to sleep and not wake up? N o i n the past one month Have you actually had any thoughts of killing yourself? N o H ave you ever done anything, started to do anything, or prepared to do anything to end your life? N o H istory of Presenting Problem: Depression screening negativeDepression screening negativeElevated BP. * ROS: P atient reports w eight loss ( lbs) (Ozempic). She reports improved sleep apnea with weight loss (no CPAP) b ut reports no cough and no shortness of breath. She reports a bdominal pain, nausea, vomiting, and no frequent diarrhea b ut reports no constipation, less appetite, and no GERD; s een GI and had upper GI GI issues chronic- G I issues 11/03/23 and seen PCP . S he reports a rthralgias/joint pain (knees), back pain, and neck pain b ut reports no muscle aches, no muscle weakness, and no difficulty walking; p ain management surgery schedule for back.- cycst 02/15/25 She reports a nxiety b ut reports [...] no gait dysfunction. * Medical History: P jose manuel: Attention deficit hyperactivity disorder, Bipolar I disorder, most recent episode depression, Borderline personality disorder, Cannabis dependence, Drug indicated, Generalized anxiety disorder, Long-term drug therapy, Moderate mixed bipolar I disorder, Tobacco user former, ,, Past Psychiatric Hospitalizations: Y Past Suicide Attempt: Y Anxiety Disorder: Y Bipolar Disorder: Y Depression Major: Y Panic Episodes: Y Psychotic Episodes: Y ADD/ADHD: Y Anemia: Y Diabetes Mellitus: Y Obesity: Y Notes: Carpal Tunnel; PCOS; Frontal Fibrosing Alopecia; Psoriasis; pre- eclampsia. HSV. * Social History: T obacco Use: T obacco Control (Standard) T obacco use: F ormer smoker H ow long has it been since you last smoked??1-3 months A dditional Findings: Tobacco non-user C urrent nonsmoker M igrated Social History: M igrated Social History: Alcohol Intake: Occasional 09/08/2018,Tobacco Years: Current every day smoker 08/18/2023,Smoking Status: 12 12/23/2023. D rug/Alcohol: D rugs H ave you used drugs other than those for medical reasons in the past 12 months? Y es M arijuana? Y es Do you smoke marijuana?: Admits. Do you drink alcohol?: Yes. AUDIT-C (Standard) D id you have a drink containing alcohol in the past year? Y es H ow often did you have six or more drinks on one occasion in the past year? L ess than monthly (1 point) H ow many drinks did you have on a typical day when you were drinking in the past year? 1 or 2 drinks (0 point) H ow often did you have a drink containing alcohol in the past year? 2 to 4 times a month (2 points) P oints 3 I nterpretation P ositive H ousehold: H ousehold M arital status: m arried N umber of adults in household: 2 N umber of children in household: 1 M arital status of the child's parents: m arried W ith whom does the child live? w ith both parents A ny household tobacco use? Y es M iscellaneous: A dvance Care Planning A re you your own decision-maker Y es D o you have Power of Saw Boss for Health or Medical? N o * Medications: T aking ARIPiprazole 10 MG Tablet 1 tablet Oral Once a day , Taking hydrOXYzine HCl 10 MG Tablet 1 tablet Orally twice a day , Taking Omeprazole 40 MG Capsule Delayed Release Oral , Taking valACYclovir HCl 500 MG Tablet TAKE 1 TABLET BY MOUTH EVERY DAY Oral , Taking Ozempic (2 MG/DOSE) 8 MG/3ML Solution Pen-injector Subcutaneous , Taking SKYRIZI 150 MG/ML SUBCUTANEOUS SYRINGE , Notes to Pharmacist: *Reorder from [facility] for eRx and Interaction Alerts*, Taking Spironolactone 100 MG Tablet TAKE 1 TABLET BY MOUTH TWICE DAILY Oral , Taking Minoxidil 2.5 MG Tablet TAKE 1 TABLET BY MOUTH DAILY Oral , Taking Qelbree 200 MG Capsule Extended Release 24 Hour 2 capsule Oral Once a day , stop date 07/08/2025, Notes to Pharmacist: FRANDY approved 12/10/24-01/09/26, Not-Taking Metoprolol Succinate ER 50 MG Tablet Extended Release 24 Hour TAKE 1 AND 1/2 TABLETS BY MOUTH DAILY Oral , Medication List reviewed and reconciled with the patient * Allergies: B uSpar: Allergy - Onset Date 02/13/2024, Rocephin: Allergy - Onset Date 02/13/2024. Objective: * Vitals: B P:130/92mm Hg, HR:103/min, Wt:183lbs, Wt-k.01 kg, Ht: 61.00 in, Ht-cm: [...] type - F90.9 4 . O ther retirement (current) drug therapy - Z79.899 5 . B orderline personality disorder - F60.3 6 . M arijuana user - F12.90 7 . T obacco user - Z72.0 8 . E ncounter for screening for depression - Z13.31 9 . E ncounter for screening for cardiovascular disorders - Z13.6 1 0. D ietary counseling and surveillance - Z71.3 ? 1. Bipolar I disorder, most recent episode depression - Abilify 10 mg at night labs reviewed in [facility] 06/06 completed educated on all medications, benefits, side effects [...] discuss seeing Dr. Downing for austic dxn http_s://www.sofia.org/Usjpi-Tkfxej-Awdzbsc/Mpjhcy-Zhdrqt-Ptscpdfpgr http_s://psychcentral.com/depression/zkj-fqnhfvmpn-wmsyddqx-of-depression#treatm ents http__s://www.nimh.nih.gov/health/topics/ptbzfy-klvmkn-yhzsjckempx http__s://www.sofia.org/Mjufr-Xohvmn-Obfqzpy/Treatments/Rgugas-Fyutsz-Krfdjntldmb 2. Generalized anxiety disorder - Hydroxyzine 10 mg twice a day as needed for anxiety - therapy SSRI side effects discussed including but not limited to, gastric upset, nausea, vomiting, diarrhea and/or constipation, weight changes, sexual side effects including loss of libido, increased suicidal thoughts/behaviors in children and young adults, and serotonin syndrome. 3. Attention deficit hyperactivity disorder - disucss stimualtes use when not using cannabis and random UDS over next few months patient reported plan to stop cannabis hx Adderall, Concerta, Vyvanse no stimulates related to cannabis use Qelbree 400 mg daily co-pay card given ducation on rx hx Wellbutrin 4. Cannabis use Recommend decrease/stop cannabis use as it can negatively impact mood, motivation, anxiety, sleep, focus/concentration/memory (vigilance, elasticity, processing and attention); can also contribute to development of psychosis. http_s://www.nimh.nih.gov/health/topics/ffkrqd-wwyklj-yjsujymkhru http_s://www.sofia.org/Fdmuo-Jpzhzc-Bfjeykg/Treatments/Aayxtx-Ecysrn-Vegpcjrszlo Recommend decrease/stop cannabis use as it may be negatively impacting mood, motivation, anxiety, sleep, focus; can also contribute to development of psychosis Cannabis/marijuana information: http_s://sierra.nih.gov/publications/drugfacts/cannabis-marijuana http_s://www.[employer]/ubisgnsd-yoa-wixtivck-marijuana-adhd/ . Long-term drug therapy Plan: * Treatment: 2. A ttention-deficit hyperactivity disorder, unspecified type Refill Qelbree Capsule Extended Release 24 Hour, 200 MG, 2 capsule, Oral, Once a day, 90 days, 180 Capsule, Refills 0. * Procedure Codes: G 8950 PREHTN/HTN BP DOC INDCD F/U DOC, 89505 BEHAV ASSMT W/SCORE & DOCD/STAND INSTRUMENT, 26069 BEHAV ASSMT W/SCORE & DOCD/STAND INSTRUMENT, G8755 MOST RECENT DIASTOLIC BP >= 90MM HG, G2211 VISIT COMPLEXITY INHERENT TO ONGOING CARE RELATED TO A PATIENT'S SINGLE, SERIOUS CONDITION OR A COMPLEX CONDITION * Preventive Medicine: Counseling: B P Management: PRE-HYPERTENSIVE FOLLOW-UP PLAN: F ollow-up 2-3 months LIFESTYLE RECOMMENDATION: L ifestyle education REFERRAL TO ALTERNATIVE / PRIMARY CARE PROVIDER: Varsha snowden to general physician educated on healthy b/p 120/80monitor b/p at homerefer to PCP,heart healthy diet and exciselimit salt intakelimit soda intake and caffieneincrease water * Follow Up: 3 Months (Reason: medication follow up) * Billing Information: * Visit Code: 31543 OFFICE OUTPATIENT VISIT 25 MINUTES DETAILED HISTORY AND EXAM/MODERATE MEDICAL DECISION MAKING. * Procedure Codes: G8950 PREHTN/HTN BP DOC INDCD F/U DOC. 85356 BEHAV ASSMT W/SCORE & DOCD/STAND INSTRUMENT. 38899 BEHAV ASSMT W/SCORE & DOCD/STAND INSTRUMENT. G8755 MOST RECENT DIASTOLIC BP >= 90MM HG. G2211 VISIT COMPLEXITY INHERENT TO ONGOING CARE RELATED TO A PATIENT'S SINGLE, SERIOUS CONDITION OR A COMPLEX CONDITION. * Sign off status: Completed true * Provider: NORA HAND Date: 0 02/14/2025 Generated for Margarita russo/Jeff/Tishaitting on: 0 02/15/2025 12:23 AM CDT History and Physical Notes * HPI (History of Present Illness) Category Sub-Category Detail Notes Category Not es Depression screening PHQ-9 Little inte rest or pleasure in doing things: Not at all Bipolar depression and anxiety chronic since report I things been good, I am having back surgery 02/15/25 remove cyst out back and daughter turns 5 tomorrow also, I do use cannabis I smoke it couple times a day and I can not focus with Qelbree and I am willing to stop cannabis to get back on stimulas I have to force self to clean house and take everything to get up and do it and over whelm, when on stimulate I am able to get things done, I am willing to stop cannabis and get my life back functioning, I am willing to do random UDS, 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, and going well, still and co-existing, been ok, and not talked about file for divorce we may stay for a while and I can not afford insurance and not make enough to pay, it will help me get back on my feet, no hopeless or helpless, and no sad or down, no psychosis, no jie, no SI/HI, tolerating all rx no s/e, no abnormal involuntary movement reported or noted, hair growing back being on rx and Spirolactone helps my facial hair also (prescribed by another provider), I feel anxious with surgery and woke up with anxious this am, and not normal anxiety, appetite on Ozempic still and working well and BS good, weight loss still and I am at 183 pounds now, I had COVID last month when I was to have surgery and had to wait to have surgery. in open marriage body is creating cancer [...] to this year,Labs and PAP done 12/06 former smoking 11/15 ppd- 1 year stopped hx vap- former etoh occasional-twice a month, 5-6 drinks at that time drugs cannabis-, smoking daily labs recently BC IUD AND [...] Screening Findings: N egative Follow-Up for Depression: [facility] health care management Suicide Risk Assessment Performed: 02/14 denies SI/HI no plans or intent Additional Evaluation for De pression: Psychiatric interview and evaluation Name of the standardized too l used for adult depression screening:: Patient Health Questionnaire (PHQ-9) Depression Screening LINDA-7 (2018 Edition) Johnnie roa nervous, anxious, or on edge: Not at all Not being able to stop or control worryi ng: Not at all Worrying too much about different things : Not at all Trouble relaxing: Not at all Being so restless that it is hard to sit still: Not at all Becoming easily annoyed or irritable: No t at all Feeling afraid as if something awful lee ht happen: Not at all Total LINDA-7 Score: 3 If you checked any problems, how difficult have they made it for you to do your work, take care of things at home, or get along with other people?: Very difficult Interpretation of Total: (0 to 4) No Anx iety [place]-Suicide Severity Rating Scale Suicide Risk (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) in [...]
--- OUTSIDE RECORDS SUMMARY | 2025-02-15 00:24 | XMS_ITS | Encounter Summary ---
Author Organization [facility] Address [address] [place] [address] Care Team Providers Care White Goods Appliance Tech Name Role Phone Ambrosio Landers MD Primary Care Provider [phone] [phone] Encounter Details Date Type Department Care Team (Late Contact Info) Description 09/30/2003 Outpatient Historical [facility] Child and Adolescent Psychiatry [facility] [address] [place] [address] Seamus Castro MD [address] [facility] [place] [address] Social History Tobacco Use Types Packs/Day Years Used Date Smoking Tobacco: Never Assessed Comments Unknown Sex and Gender Information Value Date Recorded Sex Assigned at Not on file 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 Gender Identity Not on file Sexual Orientation Not on file documented as of this encounter Plan of Treatment Upcoming Encounters Date Type Department Care Team (Late Contact Info) Description 04/29/2025 1:15 PM CDT Office Visit [facility] Oncology and Hematology - [place] [address] [facility] [address] [place] [address] Michele Ford MD [address] [facility] [address] [place] [address] documented as of this encounter Visit Diagnoses Not on filedocumented in this encounter Care Teams White Goods Appliance Tech Relationship Specialty Start Date End Date Ambrosio Landers MD [address] [place] [phone] PCP - General Family Practice 04/02/24 documented as of this encounter
--- OUTSIDE RECORDS SUMMARY | 2025-02-15 00:24 | XMS_ITS | Encounter Summary ---
Author Organization [facility] Address [address] [place] [address] Care Team Providers Care Amortization Clerk Name Role Phone Ambrosio Landers MD Primary Care Provider [phone] Encounter Details Date Type Department Care Team (Late Contact Info) Description 07/24/2003 Outpatient Historical [facility] Child and Adolescent Psychiatry [facility] [address] [place] [address] Seamus Castro MD [address] [facility] [place] [address] Social History Tobacco Use Types Packs/Day Years Used Date Smoking Tobacco: Never Assessed Comments Unknown Sex and Gender Information Value Date Recorded Sex Assigned at Not on file 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 [address] [place] [address] documented as of this encounter Visit Diagnoses Not on filedocumented in this encounter Care Teams Amortization Clerk Relationship Specialty Start Date End Date Ambrosio Landers MD [address] [place] [phone] PCP - General Family Practice 04/02/24 documented as of this encounter
--- OUTSIDE RECORDS SUMMARY | 2025-02-15 00:24 | XMS_ITS | Clinical Summary ---
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 Gender Identity Not on file Sexual Orientation Not on file Last Filed Vital Signs Vital Sign Reading Time Taken Comments Blood Pressure 137/91 10/29/2024 1:07 PM SUPERVISOR PUBLIC HEALTH NURSING Pulse 59 04/02/2024 3:10 PM CDT Temperature 41.1 C (106 F) 10/29/2024 1:04 PM SUPERVISOR PUBLIC HEALTH NURSING Respiratory Rate 16 10/29/2024 1:04 PM SUPERVISOR PUBLIC HEALTH NURSING Oxygen Saturation 96% 10/29/2024 1:0 4 PM SUPERVISOR PUBLIC HEALTH NURSING Inhaled Oxygen Concentration - - Weight 84.2 kg (185 lb 9.6 oz) 10/29/2024 1:04 PM SUPERVISOR PUBLIC HEALTH NURSING Patient verbally confirmed that since bein on Ozempic it has caused her to lose weight Height 157.5 cm (5' 2 ) 08/18/2020 10:2 5 AM CDT Body Mass Index 33.95 08/18/2020 10:25 AM CDT Plan of Treatment Upcoming Encounters Date Type Department Care Team (Late st Contact Info) Description 04/29/2025 1:15 PM CDT Office Visit [facility] Oncology and Hematology - [place] [address] [facility] [address] [place] [address] Michele Ford MD [address] [facility] [address] [place] [address] Health Maintenance Due Date Last Done Comments PNEUMOCOCCAL VACCINE 0-49 YE ARS (1 of 2 - PCV) 1995 DIABETES ANNUAL FOOT EXAM 2007 DIABETES ANNUAL RETINAL EXAM 2007 DIABETES HBA1C Q 6 MONTHS 2007 DIABETES MICROALBUMIN ANNUAL SCREEN 2007 LDL CHOLESTEROL ANNUAL 2007 DTAP/TDAP/TD VACCINES (1 - Tdap) 2008 HEPATITIS B VACCINES (1 of 3 - 19+ 3-dose series) 2008 HPV/Cotest (21-29) 2010 HPV/Cotest (30-65) 2019 CERVICAL CANCER SCREENING 09/26/2020 PAP SMEAR 09/26/2020 09/26/2017 PAP SMEAR 09/26/2020 09/26/2017 INFLUENZA VACCINE (#1) 2024 HPV VACCINES Aged Out No longer eligi ble based on patient's age to complete this topic Insurance ALLEGIANCE OPEN ACCESS Care Teams Manufacturing Millwright Relationship Specialty Start Date End Date Ambrosio Landers MD [address] [place] [phone] PCP - General Family Practice 04/02/24
--- OUTSIDE RECORDS SUMMARY | 2025-02-15 00:24 | XMS_ITS | Encounter Summary ---
Author Organization [facility] Address [address] [place] [address] Care Team Providers Care Storm Window Installer Name Role Phone Ambrosio Landers MD Primary Care Provider [phone] [phone] Encounter Details Date Type Department Care Team (Late Contact Info) Description 07/11/2003 Outpatient Historical [facility] Child and Adolescent Psychiatry [facility] [address] [place] [address] Seamus Castro MD [address] [facility] [place] [address] Social History Tobacco Use Types Packs/Day Years Used Date Smoking Tobacco: Never Assessed Comments Unknown Sex and Gender Information Value Date Recorded Sex Assigned at Not on file 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 Gender Identity Not on file Sexual Orientation Not on file documented as of this encounter Plan of Treatment Upcoming Encounters Date Type Department Care Team (Late Contact Info) Description 04/29/2025 1:15 PM CDT Office Visit [facility] Oncology and Hematology - [place] [address] [facility] [address] [place] [address] Michele Ford MD [address] [facility] [address] [place] [address] documented as of this encounter Visit Diagnoses Not on filedocumented in this encounter Care Teams Storm Window Installer Relationship Specialty Start Date End Date Ambrosio Landers MD [address] [place] [phone] PCP - General Family Practice 04/02/24 documented as of this encounter
[2025-02-15 10:41] LABS: Glucose Point of Care 118 mg/dl (65-105)
[2025-02-15] MEDS: LACTATED RINGERS 1,000 ML 30 ML IV CONT ×2 (10:50→13:43)
--- NOTE | 2025-02-15 11:37 | WPDANESEPPF ---
Anes - Initial Pre Proc Eval Procedure: Operation Date: 02/15/25 12:00 Proposed Procedures p Excision of Left Lower Back Mass - Tyrone Joya DO Date/Time: 02/15/25 11:37 Surgeon: Tyrone Joya DO Pre Op Diagnosis: Lt Lower Back Mass, 4cm Patient Data Age: 34 Gender: F Height: 1.55 m Weight: 82.9 kg Last Vital Signs Temp 97.5 F L 02/15/25 10:42 Pulse 77 02/15/25 10:42 Resp 14 02/15/25 10:42 BP 123/51 L 02/15/25 10:42 Pulse Ox 100 02/15/25 10:42 O2 Del Method Room Air 02/15/25 10:42 Allergies Allergy/AdvReac Type Severity Reaction Status Date / Time buspirone (From BuSpar) AdvReac Severe Agitated Verified 02/15/25 10:51 ceftriaxone (From [facility]) AdvReac Intermediate Other Verified 02/15/25 10:51 dapagliflozin (From Farxiga) AdvReac Intermediate Nausea and Verified 02/15/25 10:51 Vomiting doxycycline AdvReac Intermediate Nausea and Verified 02/15/25 10:51 Vomiting metformin AdvReac Mild dysfunctional Verified 02/15/25 10:51 uterine bleeding Home Medications ?Medication ?Instructions ?Recorded ?Confirmed ?Type hydroxyzine HCl 25 mg tablet 25 mg PO TID PRN Dizziness Or 10/01/22 02/05/25 History Vertigo risankizumab-rzaa 75 mg/0.83 mL 150 mg (1.66 mL) subcut .Q3 months 11/17/22 02/05/25 Rx subcutaneous syringe (Skyrizi) #0.83 mL blood-glucose meter (FreeStyle #1 ea 12/13/22 02/06/25 Rx [place] Lite kit) albuterol sulfate 90 mcg/actuation 2 inh inhalation Q4H PRN shortness 02/24/23 02/05/25 Rx aerosol inhaler of breath or wheezing #8.5 grams aripiprazole 10 mg tablet 10 mg PO DAILY 05/11/23 02/05/25 History valacyclovir 500 mg tablet 500 mg PO DAILY #90 tabs 10/11/23 02/05/25 Rx (Valtrex) levonorgestrel (Mirena) See Rx Instructions .Route .COMPLEX 04/13/24 02/05/25 History ubrogepant 100 mg tablet (Ubrelvy) 100 mg PO ONCE PRN migraine 11/05/24 02/05/25 Rx headache #14 tabs ondansetron 4 mg disintegrating 4 mg PO Q8H #20 tabs 11/23/24 02/05/25 Rx tablet semaglutide 2 mg/dose (8 mg/3 mL) 2 mg (0.75 mL) subcut WEEKLY #3 mL 12/21/24 02/15/25 Rx subcutaneous pen injector (Ozempic) spironolactone 100 mg tablet 100 mg PO BID 12/26/24 02/05/25 History blood sugar diagnostic (FreeStyle #100 ea 01/23/25 02/06/25 Rx Lite Strips) lancets 28 gauge (FreeStyle #100 ea 01/23/25 02/06/25 Rx Lancets) minoxidil 2.5 mg tablet 2.5 mg PO DAILY #90 tabs 01/25/25 02/06/25 Rx Laboratory Tests 02/15/25 10:36 POC Capillary Glucose 118 H mg/dl (65-105) Patient hx anesthesia problems: none Family hx anesthesia problems: none Results Review: All pre-operative results and documents have been reviewed as part of the pre-operative evaluation. [facility] Past Medical History Medical History Blood in stool Hemorrhoids Neutrophilic leukocytosis (~11/2019) Smoker Tachycardia Lumbago Borderline personality disorder Bipolar 1 disorder Hx of suicide attempt GDM, class A2 delivery delivered Failure to progress in labor Pre-eclampsia superimposed on chronic hypertension 37 weeks gestation of Morbid obesity Hypertension Diabetes ADHD Surgical History Surgical History [place] teeth extracted S/P ACL repair S/P tonsillectomy Family History Family History Grandparent Diabetes mellitus Mother Heart murmur Social History Social History Social History: 01/16/25 somewhat confident with medical forms, Smoking packs per day: 0.5 Smoking cigarettes per day: 10.0 Years smoked: 20 Smoking pack-years: 10.00 Smoking status: Current every day smoker Tobacco type: cigarettes Second hand tobacco smoke exposure: No Smoking end date: 07/24/19 Additional smoking assessment comments: QUIT DATE 01/2024 Alcohol intake: current Drinks per week: 6 Alcohol use details: social when not Substance use: current Substance use type: marijuana Other substance usage details: smokes marijuana daily Last use: yesterday - for pain Do You Feel Safe in your Home?: Yes Lack of Transportation: No Lack of Food: Sometimes True Current Housing: Decline to Answer Concerned About Future Housing: No Difficulty Paying Gas/Electric Bills: No Difficulty Paying for Meds: No Currently Unemployed: No Education: High School Diploma/GED Difficulty w/ Childcare or Family Care: No Living arrangements: with family Occupation/Education: occupation Spiritual care concerns: No Anes - Eval Final PreProcedure Day of Procedure 02/15/25 11:37 Patient weight: normal Lungs: normal air movement Airway: Mallampati scale class II Neurological: alert and oriented Last oral intake: >/= 8 hours ASA classification: III Emergent: no Anesthetic plan: proceed Anesthesia type and monitoring: general ETT and standard monitoring Results Review: All pre-operative results and documents have been reviewed as part of the pre-operative evaluation. BMI 34, smoker, quit 2023, now smokes marijuana 3 bowls/day, hx bipolar disorder. Informed Consent: The patient's anesthetic plan and its attendant risks and benefits were discussed with the patient/family/POA. Questions were solicited and answers provided to the satisfaction of the patient/family/POA.
--- NOTE | 2025-02-15 11:48 | WPDHPUPDATE1 ---
History and Physical Update Update Date/Time: 02/15/25 11:48 History and Physical has been reviewed, including an updated exam of the patient. There are NO changes in the patient's condition. Risks, benefits, and alternatives have been discussed and questions answered. Patient agrees to proceed with procedure.
--- NOTE | 2025-02-15 11:49 | PM.IMHP ---
H&P: HPI History of Present Illness Date/Time: 02/15/25 11:49 Chief Complaint: back mass Narrative: 34 yo woman presents for excision of left lower back mass. She reports no changes since last seen in office. Review of Systems Review of Systems: All systems reviewed & are unremarkable except as noted in HPI and below Constitutional: Constitutional: Denies chills, Denies fever(s), Denies headache(s) and Denies weight loss Eyes: Eyes: Denies change in vision ENT: Denies dizziness, Denies headache(s), Denies neck mass and Denies throat swelling Cardiovascular: Cardiovascular: Denies chest pain, Denies lightheadedness and Denies dyspnea Respiratory: Respiratory: Denies cough, Denies dyspnea and Denies wheezing Gastrointestinal: Gastrointestinal: Denies abdominal pain, Denies change in bowel habits, Denies nausea and Denies vomiting Genitourinary: Genitourinary: Denies hematuria and Denies dysuria Musculoskeletal: Musculoskeletal: Reports as per HPI Integumentary/Breasts: Skin/Breast: Reports as per HPI Neurologic: Denies dizziness and Denies headache(s) Allergic/Immunologic: Allergic/Immunologic: Denies throat swelling and Denies wheezing PMF Past Medical History Medical History Blood in stool Hemorrhoids Neutrophilic leukocytosis (~11/2019) Smoker Tachycardia Lumbago Borderline personality disorder Bipolar 1 disorder Hx of suicide attempt GDM, class A2 delivery delivered Failure to progress in labor Pre-eclampsia superimposed on chronic hypertension 37 weeks gestation of Morbid obesity Hypertension Diabetes ADHD Surgical History Surgical History [place] teeth extracted S/P ACL repair S/P tonsillectomy Family History Family History Grandparent Diabetes mellitus Mother Heart murmur Social History Social History Social History: 01/16/25 somewhat confident with medical forms, Smoking packs per day: 0.5 Smoking cigarettes per day: 10.0 Years smoked: 20 Smoking pack-years: 10.00 Smoking status: Current every day smoker Tobacco type: cigarettes Second hand tobacco smoke exposure: No Smoking end date: 07/24/19 Additional smoking assessment comments: QUIT DATE 01/2024 Alcohol intake: current Drinks per week: 6 Alcohol use details: social when not Substance use: current Substance use type: marijuana Other substance usage details: smokes marijuana daily Last use: yesterday - for pain Do You Feel Safe in your Home?: Yes Lack of Transportation: No Lack of Food: Sometimes True Current Housing: Decline to Answer Concerned About Future Housing: No Difficulty Paying Gas/Electric Bills: No Difficulty Paying for Meds: No Currently Unemployed: No Education: High School Diploma/GED Difficulty w/ Childcare or Family Care: No Living arrangements: with family Occupation/Education: occupation Spiritual care concerns: No Meds Home Medications and Allergies Home Medications ?Medication ?Instructions ?Recorded ?Confirmed ?Type hydroxyzine HCl 25 mg tablet 25 mg PO TID PRN Dizziness Or 10/01/22 02/05/25 History Vertigo risankizumab-rzaa 75 mg/0.83 mL 150 mg (1.66 mL) subcut .Q3 months 11/17/22 02/05/25 Rx subcutaneous syringe (Skyrizi) #0.83 mL blood-glucose meter (FreeStyle #1 ea 12/13/22 02/06/25 Rx [place]bin Lite kit) albuterol sulfate 90 mcg/actuation 2 inh inhalation Q4H PRN shortness 02/24/23 02/05/25 Rx aerosol inhaler of breath or wheezing #8.5 grams aripiprazole 10 mg tablet 10 mg PO DAILY 05/11/23 02/05/25 History valacyclovir 500 mg tablet 500 mg PO DAILY #90 tabs 10/11/23 02/05/25 Rx (Valtrex) levonorgestrel (Mirena) See Rx Instructions .Route .COMPLEX 04/13/24 02/05/25 History ubrogepant 100 mg tablet (Ubrelvy) 100 mg PO ONCE PRN migraine 11/05/24 02/05/25 Rx headache #14 tabs ondansetron 4 mg disintegrating 4 mg PO Q8H #20 tabs 11/23/24 02/05/25 Rx tablet semaglutide 2 mg/dose (8 mg/3 mL) 2 mg (0.75 mL) subcut WEEKLY #3 mL 12/21/24 02/15/25 Rx subcutaneous pen injector (Ozempic) spironolactone 100 mg tablet 100 mg PO BID 12/26/24 02/05/25 History blood sugar diagnostic (FreeStyle #100 ea 01/23/25 02/06/25 Rx Lite Strips) lancets 28 gauge (FreeStyle #100 ea 01/23/25 02/06/25 Rx Lancets) minoxidil 2.5 mg tablet 2.5 mg PO DAILY #90 tabs 01/25/25 02/06/25 Rx Allergies Allergy/AdvReac Type Severity Reaction Status Date / Time buspirone (From BuSpar) AdvReac Severe Agitated Verified 02/15/25 10:51 ceftriaxone (From Rocephin) AdvReac Intermediate Other Verified 02/15/25 10:51 dapagliflozin (From Farxiga) AdvReac Intermediate Nausea and Verified 02/15/25 10:51 Vomiting doxycycline AdvReac Intermediate Nausea and Verified 02/15/25 10:51 Vomiting metformin AdvReac Mild dysfunctional Verified 02/15/25 10:51 uterine bleeding Vital Signs Vital Signs - 24 hr 02/15/25 10:42 Temperature 97.5 F L Pulse Rate 77 Respiratory Rate 14 Blood Pressure 123/51 L Pulse Oximetry 100 Oxygen Delivery Room Air Exam Const: General: no acute distress and alert Orientation/consciousness: patient oriented x3 HENMT: Head: normocephalic and atraumatic Ears: hearing grossly normal bilaterally Face/Nose/Sinus: Normal nares present Mouth: Yes Normal oral and palatal mucosa present Eyes: Periorbital: periorbital findings normal Sclera: sclerae normal EOM: EOMs intact bilaterally Neck: Neck: normal visual inspection, no lymphadenopathy and trachea midline Chest: Chest palpation & inspection: normal inspection of the chest Resp: Effort & Inspection: normal respiratory effort Auscultation: clear to auscultation bilaterally Cardio: Jugular venous distension: no JVD Rate: regular rate Rhythm: regular rhythm Heart sounds: S1 normal heart sound present and S2 normal heart sound present Peripheral pulses: Peripheral pulses 2+ throughout GI: Inspection: normal to inspection GI Palp: Yes Soft to palpation, No Tenderness to palpation present (GI), No Guarding due to palpation present (GI) and No Rebound tenderness present Percussion: Yes normal to percussion Auscultation: normal bowel sounds : General: Yes no CVA tenderness Back/Spine/Pelvis: Back: no CVA tenderness Skin: Other: 4cm left lower back mass consistent with lipoma Neuro: General: patient oriented x3, no focal motor deficits and CN's II-XI intact bilaterally Cognition (Neuro): normal cognition Speech: normal speech Motor exam (neuro): 5/5 motor strength present throughout Extrem: General: capillary refill normal and no clubbing, cyanosis or edema Assessment and Plan Assessment and plan (1) Palpable mass of lower back: Code(s): R22.2 - Localized swelling, mass and lump, trunk Status: Acute Assessment and Plan: I have recommended excision of 4cm left lower back mass. I have discussed the procedure, risks, benefits, and alternatives with the patient. All questions answered. No changes since last seen in office.
[2025-02-15] MEDS: CLINDAMYCIN 900 MG/D5W 50 ML 900 MG/50 ML PIGGYBACK 50 MG IVPB (12:12)
[2025-02-15] MEDS: LIDO 1%/EPINEPHRINE 1:100,000 20 ML VIAL 30 ML INFILTRATE (12:32)
--- NOTE | 2025-02-15 12:58 | W.PM.PROC2 ---
Procedure Note - Detailed Date of Procedure 02/15/25 Pre-op Diagnosis Left lower back mass Post-op Diagnosis Same Procedure Performed Excision of 4 cm left lower back mass Surgeon Tyrone Joya, DO Anesthesia General (LMA) and Local (1% lidocaine with epinephrine) Indications This is a 34-year-old woman who presented with a painful left lower back mass that had been present for several years. She had prior workup included ultrasound which appeared normal, however on exam she was found to have a mobile subcutaneous mass consistent with a lipoma. This was causing her significant tenderness around the area which was worse with bending or pressing on the area. Discussions were made with the patient about treatment options and decision was made to proceed with excision of left lower back mass. Findings Excision of 4 cm left lower back mass was performed. The patient was found have a subcutaneous mobile lipoma within the deep subcutaneous area. This did not appear to be extending beyond the fascia or muscle layers. The fatty tissue was completely excised and sent to the lab for pathology. No other surrounding abnormalities were noted. Description of Procedure Procedure as well as risks, benefits, and alternatives were discussed with the patient. Written consent was obtained and placed in chart prior to procedure. Patient was brought back to surgical suite. She was placed supine on operating table. Time-out was done to confirm patient and procedure. She was then intubated by the anesthesia department. She was then repositioned into right lateral decubitus position. Her left back area was prepped and draped in sterile fashion using chlorhexidine prep. 1% lidocaine with epinephrine was then infiltrated locally around the palpable mass. A 6 cm transverse incision was made over the mass using a 15 blade scalpel. Electrocautery was used for hemostasis and for dissection through subcutaneous tissue. The mass was identified and carefully dissected free using electrocautery. This was completely excised and sent to the lab for pathology. The wound bed was then inspected. No other palpable abnormalities were noted within this region. Hemostasis appeared adequate. Shoshana's fascia was reapproximated using 3-0 Vicryl simple interrupted sutures. The skin was then approximated using 3-0 nylon vertical mattress interrupted sutures. Bacitracin ointment was then applied 4 x 4 gauze and tape. The patient was then awakened from anesthesia, extubated, and transferred to recovery. Estimated Blood Loss 5 Pathology Yes (left lower back mass) Complications No immediate complications Condition Stable Disposition Same day [facility] - Charge Forward: Surgery Billing
[2025-02-15 13:32] LABS: Glucose Point of Care 130 mg/dl (65-105)
[2025-02-15 14:30] LABS: Glucose Point of Care 135 mg/dl (65-105)
== END 2025-02-15 14:58 | disposition home or self-care (01) ==
PROVIDERS: PCP Nurse Practitioner Family; Visit Provider Surgery
PROC: (CPT 21931; principal; 2025-02-15 12:00)
DX: D17.1 Benign lipomatous neoplasm of skin and subcutaneous tissue of trunk (principal); E11.9 Type 2 diabetes mellitus without complications; I10 Essential (primary) hypertension; R00.0 Tachycardia, unspecified; F60.3 Borderline personality disorder; F31.9 Bipolar disorder, unspecified; F90.9 Attention-deficit hyperactivity disorder, unspecified type; F17.210 Nicotine dependence, cigarettes, uncomplicated; F12.90 Cannabis use, unspecified, uncomplicated; Z79.51 Long term (current) use of inhaled steroids; Z79.85 Long-term (current) use of injectable non-insulin antidiabetic drugs; Z98.890 Other specified postprocedural states; Z82.49 Family history of ischemic heart disease and other diseases of the circulatory system
CPT/HCPCS: 21931; 82948; 88304; A9270; J1100; J2003; J2004; J2250; J2371; J2405; J2704; J3010; J7120

== ENCOUNTER 2025-04-29 13:00 | Outpatient (CLI) | payer OTHER, SELFPAY ==
[2025-04-29 13:12] LABS: Basophils Absolute Auto 0.1 K/mm3 (0.0-0.1); Basophils Percent Auto 0.4 % (0.2-1.2); Eosinophils Absolute Auto 0.2 K/mm3 (0-0.3); Eosinophils Percent Auto 0.7 % (0-4.4); Hematocrit 45.2 % (37.0-47.0); Hemoglobin 15.3 g/dL (12.0-15.0); Immature Granulocyte Percent A 0.5 % (0-0.5); Lymphocytes Absolute Auto 7.25 K/mm3 (0.9-3.2); Lymphocytes Percent Auto 35.7 % (18.3-44.2); Mean Corpuscular HGB Conc 33.8 g/dl (32-36); Mean Corpuscular Hemoglobin 31.5 pg (26-34); Mean Platelet Volume 8.6 fl (7.4-10.4); Monocytes Absolute Auto 1.1 K/mm3 (0.1-0.6); Monocytes Percent Auto 5.6 % (2.6-8.5); Neutrophils Absolute Auto 11.6 K/mm3 (1.3-6.7); Neutrophils Percent Auto 57.1 % (45.5-73.1); Platelet Count Result 370 k/mm3 (150-375); Red Blood Count 4.86 M/mm3 (4.2-5.4); Red Cell Distribution Width 11.2 % (11.5-14.5); White Blood Count 20.3 K/mm3 (4.5-10.0)
[2025-04-29 13:17] LABS: Blood Urea Nitrogen 10 mg/dL (8-26); Carbon Dioxide 30 mmol/L (22-30); Chloride 96 mmol/L (98-109); Estimated Glomerular Filt Rate > 60; Glucose 121 mg/dL (70-105); Ionized Calcium (POC) 1.24 mmol/L (1.11-1.31); Potassium 3.6 mmol/L (3.5-4.9); Sodium 139 mmol/L (138-146)
--- OUTSIDE RECORDS SUMMARY | 2025-04-29 13:54 | XMS_ITS | Clinical Summary ---
Author Organization [facility] Address [address] [place] [address] Care Team Providers Care Fashion Consultant Sales Name Role Phone Jarett Haile MD Primary Care Provider [phone] Allergies Active Allergy Reactions Criticality Noted Date [...] Date Migraine headache 06/06/2024 Hypertension 06/06/2024 Asthma ([facility]) 06/06/2024 Diabetes ([facility]) 06/06/2024 Depression 06/06/2024 Anxiety 06/06/2024 Sleep apnea [...] 1:15 PM CDT Height 154.9 cm (5' 1) 07/12/2024 1:15 PM CDT Body Mass Index 38.17 07/12/2024 1:15 PM CDT Plan of Treatment Health Maintenance Due Date Last Done Comments Kidney Health Evaluation 1989 Hemoglobin A1C 1989 Lipid Panel 1989 Annual Physical 1992 Diabetes: Retinopathy Eye Exam 2007 Hepatitis C 2007 DTaP, Tdap and Td Vaccines ( 1 - Tdap) 2008 Hepatitis B Vaccines (1 of 3 - 19+ 3-dose series) 2008 Pneumococcal Vaccine: Pediat rics (0 to 5 Years) and At-Risk Patients (6 to 49 Years) (1 of 2 - PCV) 2008 Cervical Cancer Screening Pa p with HPV Testing (Age 30 to 64) Every 5 Years 2019 09/26/2017 Cervical Cancer Screening Pa p Smear (Age 30 to 64) Every 3 Years 09/26/2020 09/26/2017 Cervical Cancer Screening with HPV 09/26/2020 COVID-19 Vaccine (2023- 5 season) 2024 PHQ-2 (Physician [place]) 11/14/2024 07/12/2024 HPV Vaccines Aged Out No [...] - COMMERCIAL on file [employer] Care Teams Fashion Consultant Sales Relationship Specialty Start Date End Date Jarett Haile MD [address] [place] [address] [phone] PCP - General INTERNAL MEDICINE 12/31/19
--- OUTSIDE RECORDS SUMMARY | 2025-04-29 13:54 | XMS_ITS | Encounter Summary ---
Author Organization [employer] Address [address] [place] [address] Care Team Providers Care Insurance Claims Analyst Name Role Phone Ambrosio Landers MD Primary Care Provider [phone] Encounter Details Date Type Department Care Team (Latest Contact Info) Description 07/10/2003 Inpatient Historical HIS PATIENT IN A BED [place], Seamus Varghese MD 1 [facility] [place] [address] [phone] BIPOLAR AFFECTIVE NOS (CMS/HCC) (Primary Dx) Social History Tobacco Use Types Packs/Day Years Used Date Smoking Tobacco: Never Assessed Comments Unknown Sex and Gender Information Value Date Recorded Sex Assigned at Not on file Legal 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 Gender Identity Not on file Sexual Orientation Not on file documented as of this encounter Plan of Treatment Upcoming Encounters Date Type Department Care Team (Late st Contact Info) Description 10/31/2025 10:15 AM ASSEMBLY INSPECTOR HELPER Office Visit [facility] Oncology and Hematology - [place] [address] [facility] [address] [place] [address] Michele Ford MD [address] [facility] [address] [place] [address] documented as of this encounter Visit Diagnoses Diagnosis Bipolar I disorder, most recent episode (or current) unspecified (CMS/HCC)- Primary Bipolar I disorder, most recent episode (or current) unspecified documented in this encounter Care Teams Insurance Claims Analyst Relationship Specialty Start Date End Date Ambrosio Landers MD [address] [place] [phone] PCP - General Family Practice 04/02/24 04/28/25 documented as of this encounter
--- OUTSIDE RECORDS SUMMARY | 2025-04-29 13:54 | XMS_ITS | Patient Health Record ---
Author Organization [facility] Message [facility] Address [address] [facility] [address] [place] [address] Care Team Providers Care General Merchandise Manager Name Role Phone Kathie Patel Unavailable [phone] Nandini Rodríguez Unavailable [phone] Allergies Allergen (clinical drug ingredient) Drug/Non Drug Allergy documented on EMR Reaction Allergy Type Onset Date Status BuSpar Unknown Drug Allergy 02/13/2024 Active Rocephin Unknown Drug Allergy 02/13/2024 Active Reason For Referral No Information Medications Medication SIG (Take, Route, Frequency, Duration) Notes Start Date End Date Status ARIPiprazole 10 MG 1 tablet Oral Once a day for 90 days Active hydrOXYzine HCl 10 MG 1 tablet Orally twice a day for 90 days Active Qelbree 200 MG 2 capsule Oral Once a day for 90 days Active valACYclovir HCl 500 MG TAKE 1 TABLET BY MOUTH EVERY DAY Oral for 90 Days Active Omeprazole 40 MG Oral for 90 Days Active SKYRIZI 150 MG/ML SUBCUTANEOUS SYRINGE *Reorder from [employer] for eRx and Interaction Alerts* 02/13/2024 Active Ozempic (2 MG/DOSE) 8 MG/3ML Subcutaneous for 84 Days Active Minoxidil 2.5 MG TAKE 1 TABLET BY MOUTH DAILY Oral for 90 Days Active Spironolactone 100 MG TAKE 1 TABLET BY MOUTH TWICE DAILY Oral for 90 Days Active Metoprolol Succinate ER 50 MG TAKE 1 AND 1/2 TABLETS BY MOUTH DAILY Oral for 90 Days Not-Taking Qelbree 200 MG 2 capsule Oral Once a day for 30 days PA approved 12/10/24-2/26/26 01/09/2025 08/25/202 5 Active Immunizations Vaccine Route Administration Date Status Comme nts Influenza virus vaccine, quadrivalent (IIV4), split virus, 0.25 mL dosage Unknown 09/27/2019 Administered Moderna Covid-19 Vaccine 1st dose Unknown 03/11/2021 Ad ministered Moderna Covid-19 Vaccine 1st dose Unknown 04/08/2021 Ad ministered Social History Tobacco Use: Social History Observation [...] month (2 points) Points 3 Interpretation Positive Section Notes: Do you or have you ever smok ed tobacco?: Current every day smokerHow many years have you smoked tobacco?: 12 (Notes: off and on - mainly on)At what age did you start smoking tobacco?: 11How much tobacco do you smoke?: 1/2 pack per dayDo you or have you ever used any other forms of tobacco or nicotine?: YesDo you or have you ever used e-cigarettes or vape?: Former user of electronic cigarettesDo you or have you ever used smokeless tobacco?: Never used smokeless tobaccoHow much tobacco do you chew?: noneWhat was the date of your most recent tobacco screening?: 02/13/2024Has tobacco cessation counseling been provided?: YesOn what date was tobacco cessation counseling provided?: 11/18/2023What is your level of alcohol consumption?: OccasionalHow many years have you consumed alcohol?: 13Have you ever been counseled for unhealthy alcohol use?: NoDo you use any illicit or recreational drugs?: YesWhich illicit or recreational drugs have you used?: MarijuanaHave you used IV drugs?: NoWhat is your level of caffeine consumption?: ModerateEducation and OccupationWhat is the highest grade or level of school you have completed or the highest degree you have received?: Some college, no degreeAre you currently in school?: NoAre you currently employed?: YesWho is your employer?: [employer]Marriage and SexualityWhat is your relationship status?: MarriedAre you sexually active?: YesDo you use protection during sex?: UsuallyHow many children do you have?: 1 (Notes: daughter)Home and EnvironmentAre you a caregiver?: Yes (Notes: one daughter)Do you have any siblings?: 2 (Notes: Step brother (real estate transaction coordinator)-no close; Half brother-trying to work on improving relationship.)Do you have any pets?: YesDo you have smoke and carbon monoxide detectors in your home?: YesAre there any smokers in your house?: NoAre there any guns present in your home?: NoDiet and ExerciseWhat type of diet are you following?: RegularLifestyleDo you use your seat belt or car seat routinely?: YesAdvance DirectiveDo you have an advance directive?: NoWhat is your code status?: Full CodeDo you have a medical power of senior trial attorney?: NoPublic Health and TravelHave you been to an area known to be high risk for COVID-19?: NoActivities of Daily LivingAre you able to care for yourself?: YesAre you blind or do you have difficulty seeing?: NoAre you deaf or do you have serious difficulty hearing? : NoDo you have difficulty concentrating, remembering or making decisions?: NoDo you have difficulty walking or climbing stairs?: NoDo you have difficulty dressing or bathing?: NoDo you have difficulty doing errands alone?: NoAre you able to walk?: Yes: walks without restrictionsDo you have transportation difficulties?: NoOtherHigh blood pressure: YesHigh Cholesterol: NoPast steroid/HgH use?: NoGender Identity and LGBTQ IdentityGender identity: Identifies as FemaleAssigned sex at : FemaleFirst name used: ANDREASexual orientation: Straight or heterosexual Problems Problem Type SNOMED Code ICD Code Onset Dates Problem Status W/U Status Risk Notes Problem Bipolar affective disorder, currently depressed, mild (339284474) Bipolar disorder, current episode depressed, mild (F31.31) 02/13/20 24 Active confirmed Problem Generalized anxiety disorder (39247385) Generalized anxiety disorder (F41.1) 03/23/20 24 Active confirmed Problem Borderline personality disorder (53196477) Borderline personality disorder (F60.3) 04/07/20 23 Active confirmed Problem Attention deficit hyperactivity disorder, predominantly inattentive type (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) Attention-deficit hyperactivity disorder, 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 confirmed Problem Attention deficit hyperactivity disorder (626164382) Attention-deficit hyperactivity disorder, unspecified type (F90.9) 01/23/20 24 Active confirmed Problem Screening for cardiovascular system disease (905754195) Encounter for screening for cardiovascular disorders (Z13.6) Active confirmed Problem Dietary management surveillance (635900645) Dietary counseling and surveillance (Z71.3) Active confirmed Problem Long-term current use of drug therapy (733389179) Other stick puller (current) drug therapy (Z79.899) 02/13/20 24 Active confirmed Problem Depression Screening (873027653) Encounter for screening for depression (Z13.31) Active confirmed Problem 951881739 Marijuana user (F12.90) Active confirmed Problem 272938947 Tobacco user (Z72.0) Active confirmed Vital Signs Heart Rate 103 /min 02/14/2025 Respiratory Rate 16 /min 11/16/2024 Height-cm 154.94 cm 02/14/2025 Blood pressure diastolic 92 mm Hg 02/14/2025 Weight-kg 83.01 kg 02/14/2025 Height 61.00 in 02/14/2025 Blood pressure systolic 130 mm Hg 02/14/2025 Weight 183 lbs 02/14/2025 BMI 34.57 kg/m2 02/14/2025 Encounters Encounter Location Date Provider Diagnosis [facility] [address] [facility] [address] [place] [address] 07/23/2024 Nandiin Rodríguez [facility] [address] [facility] [address] [place] [address] 05/14/2024 Kathie Patel Bipolar disorder, current episode depressed, mild F31.31 ; Generalized anxiety disorder F41.1 ; Attention-deficit hyperactivity disorder, unspecified type F90.9 ; Other mcc (current) drug therapy Z79.899 and Borderline personality disorder F60.3 [facility] [address] [facility] [address] [facility] [address] [place] [address] 05/24/2024 Nandini Hemann Attention-deficit hyperactivity disorder, predominantly inattentive type F90.0 and Generalized anxiety disorder F41.1 [facility] [address] [facility] [address] [facility] [address] [place] [address] 08/17/2024 Kathie Patel Bipolar disorder, current episode depressed, mild F31.31 ; Generalized anxiety disorder F41.1 ; Attention-deficit hyperactivity disorder, unspecified type F90.9 ; Other stick puller (current) drug therapy Z79.899 and Borderline personality disorder F60.[address] [facility] [address] [place] [address] 11/16/2024 Kathie Patel Bipolar disorder, current episode depressed, mild F31.31 ; Generalized anxiety disorder F41.1 ; Attention-deficit hyperactivity disorder, unspecified type F90.9 ; Other mcc (current) drug therapy Z79.899 ; Borderline personality disorder F60.3 ; Marijuana user F12.90 and Tobacco user Z72.0 [place] [id number] [facility] [address] [facility] [address] [place] [address] 12/06/2024 Nandini Hemann Attention-deficit hyperactivity disorder, predominantly inattentive type F90.0 and Generalized anxiety disorder F41.1 [place] [id number] [facility] [address] [facility] [address] [place] [address] 02/14/2025 Kathie Patel Bipolar disorder, current episode depressed, mild F31.31 ; Generalized anxiety disorder F41.1 ; Attention-deficit hyperactivity disorder, unspecified type F90.9 ; Other stick puller (current) drug therapy Z79.899 ; Borderline personality disorder F60.3 ; Marijuana user F12.90 ; Tobacco user Z72.0 ; Encounter for screening for depression Z13.31 ; Encounter for screening for cardiovascular disorders Z13.6 and Dietary counseling and surveillance [facility]71.3 [facility] [address] [facility] [address] [place] [address] 04/01/2025 Nandini Hemann Attention-deficit hyperactivity disorder, predominantly inattentive type F90.0 and Generalized anxiety disorder F41.1 Assessments Encounter Date Diagnosis (ICD Code) Assessment Notes Treatment Notes Treatment Clinical Notes Section Notes 05/14/2024 Bipolar disorder, current episode depressed, mild (ICD-10 - F31.31) 1. Bipolar I disorder, most recent episode depression -Abilify 10 mg at nightlabs order educated on all medications, benefits, side effects [...] common with first generation antipsychotics) and more. F31.31: Bipolar disorder, current episode depressed, mildaripiprazole 10 mg tablet - TAKE 1 TABLET BY MOUTH EVERY DAY AT BEDTIME Qty: (90) tablet Refills: 0 Pharmacy: [facility] #[id number] 2. Generalized anxiety disorder -Hydroxyzine 10 mg twice a day as needed for anxiety - therapy SSRI side effects discussed including but not limited to, gastric upset, nausea, vomiting, diarrhea and/or constipation, weight changes, sexual side effects including loss of libido, increased suicidal thoughts/behaviors in children and young adults, and serotonin syndrome.F41.1: Generalized anxiety disorder 3. 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 Qty: 180 Pharmacy: [facility] #[id number] 4. Long-term drug therapy 1. Bipolar I disorder, most recent episode depression - Abilify 10 mg at night labs order educated on all medications, benefits, side effects [...] common with first generation antipsychotics) and more. F31.31: Bipolar disorder, current episode depressed, mild aripiprazole 10 mg tablet - TAKE 1 TABLET BY MOUTH EVERY DAY AT BEDTIME Qty: (90) tablet Refills: 0 Pharmacy: [facility] #[id number] 2. Generalized anxiety disorder - Hydroxyzine 10 mg twice a day as needed for anxiety - therapy SSRI side effects discussed including but not limited to, gastric upset, nausea, vomiting, diarrhea and/or constipation, weight changes, sexual side effects including loss of libido, increased suicidal thoughts/behavio rs in children and young adults, and serotonin syndrome. F41.1: Generalized anxiety disorder 3. 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 Qty: 180 Pharmacy: [facility] #[id number] 4. Long-term drug therapy 05/14/2024 Generalized anxiety disorder (ICD-10 - F41.1) 1. Bipolar I disorder, most recent episode depression - Abilify 10 mg at night labs order educated on all medications, benefits, side effects [...] common with first generation antipsychotics) and more. F31.31: Bipolar disorder, current episode depressed, mild aripiprazole 10 mg tablet - TAKE 1 TABLET BY MOUTH EVERY DAY AT BEDTIME Qty: (90) tablet Refills: 0 Pharmacy: [facility] #[id number] 2. Generalized anxiety disorder - Hydroxyzine 10 mg twice a day as needed for anxiety - therapy SSRI side effects discussed including but not limited to, gastric upset, nausea, vomiting, diarrhea and/or constipation, weight changes, sexual side effects including loss of libido, increased suicidal thoughts/behavio rs in children and young adults, and serotonin syndrome. F41.1: Generalized anxiety disorder 3. 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 Qty: 180 Pharmacy: [facility] #[id number] 4. Long-term drug therapy 04/01/2025 Attention-defici t hyperactivity disorder, predominantly inattentive type (ICD-10 - F90.0) 05/24/2024 Attention-defici t hyperactivity disorder, predominantly inattentive type (ICD-10 - F90.0) 08/17/2024 Bipolar disorder, current episode depressed, mild (ICD-10 - F31.31) 1. Bipolar I disorder, most recent episode depression - Abilify 10 mg at night labs obtain from ER educated on all medications, benefits, side effects [...] discuss seeing Dr. Downing for austic dxn 2. Generalized anxiety disorder - Hydroxyzine 10 mg twice a day as needed for anxiety - therapy SSRI side effects discussed including but not limited to, gastric upset, nausea, vomiting, diarrhea and/or constipation, weight changes, sexual side effects including loss of libido, increased suicidal thoughts/behavio rs in children and young adults, and serotonin syndrome. 3. Attention deficit hyperactivity disorder - no stimulates related to cannabis use Qelbree 400 mg daily co-pay card givene ducation on rx hx Wellbutrin 4. Long-term drug therapy 11/16/2024 Bipolar disorder, current episode depressed, mild [...] discuss seeing Dr. Downing for austic dxn http_s://www.nam i.org/About-Ment al-Illness/Menta j-Jydigl-Hdnnhtl ons http_s://[employer]ce [employer].Alk[employer]os/maya alcantar/the-cogniti ul-zpvlyyjy-pl-d epression#treatm ents http__s://www.ni .nih.gov/healt h/topics/mental- health-medicatio ns http__s://www.na mi.org/About-Men andrea-Illness/Malaika tments/Mental-He alth-Medications 2. Generalized anxiety disorder - Hydroxyzine 10 mg twice a day as needed for anxiety - therapy SSRI side effects discussed including but not limited to, gastric upset, nausea, vomiting, diarrhea and/or constipation, weight changes, sexual side effects including loss of libido, increased suicidal thoughts/behavio rs in children and young adults, and serotonin syndrome. 3. Attention deficit hyperactivity disorder - no stimulates related to cannabis use Qelbree 400 mg daily co-pay card given ducation on rx hx Wellbutrin 4. Cannabis use Recommend decrease/stop cannabis use as it can negatively impact mood, motivation, anxiety, sleep, focus/concentrat ion/memory (vigilance, elasticity, processing and attention); can also contribute to development of psychosis. http_s://www.nim h.nih.gov/health /topics/mental-h ealth-medication s http_s://www.nam i.org/About-Ment al-Illness/Treat ments/Mental-Hea lth-Medications Recommend decrease/stop cannabis use as it may be negatively impacting mood, motivation, anxiety, sleep, focus; can also contribute to development of psychosis Cannabis/marijua na information: http_s://sierra.ni h.gov/publicatio ns/drugfacts/can nabis-marijuana http_s://www.[employer]/can sanfg-ftc-eiyxnn kh-zlysxafxo-rol d/ 5. tobacco use Do not smoke. Nicotine and other chemicals in cigarettes and cigars can cause lung damage. Ask your healthcare provider for information if you currently smoke and need help to quit. E-cigarettes or smokeless tobacco still contain nicotine. Talk to your healthcare provider before you use these products. education on decrease to stopping nicotine products and stop smoking hotline given 239-Quit - Yes [place] Tobacco Quitline Call a Smoking Quitline The [employer] [place]'s Smoking Quitline, (1-452-72G-QUIT) Smokefree.gov, which connects you with your State's Quitline, (3-174-POYARJE) Veterans Smoking Quitline, (2-507-SKVJBRJ) . Long-term drug therapy 11/16/2024 Generalized anxiety [...] discuss seeing Dr. Downing for austic dxn http_s://www.nam i.org/About-Ment al-Illness/Menta b-Stigsr-Fndulhn ons http_s://[employer]/depres ortiz/the-cogniti qi-hhgjmebo-uy-d epression#treatm ents http__s://www.[facility].nih.gov/healt h/topics/mental- health-medicatio ns http__s://www.na mi.org/About-Men andrea-Illness/Malaika tments/Mental-He alth-Medications 2. Generalized anxiety disorder - Hydroxyzine 10 mg twice a day as needed for anxiety - therapy SSRI side effects discussed including but not limited to, gastric upset, nausea, vomiting, diarrhea and/or constipation, weight changes, sexual side effects including loss of libido, increased suicidal thoughts/behavio rs in children and young adults, and serotonin syndrome. 3. Attention deficit hyperactivity disorder - no stimulates related to cannabis use Qelbree 400 mg daily co-pay card given ducation on rx hx Wellbutrin 4. Cannabis use Recommend decrease/stop cannabis use as it can negatively impact mood, motivation, anxiety, sleep, focus/concentrat ion/memory (vigilance, elasticity, processing and attention); can also contribute to development of psychosis. http_s://www.[facility] h.nih.gov/health /topics/mental-h ealth-medication s http_s://www.nam i.org/About-Ment al-Illness/Treat ments/Mental-Hea lth-Medications Recommend decrease/stop cannabis use as it may be negatively impacting mood, motivation, anxiety, sleep, focus; can also contribute to development of psychosis Cannabis/marijua na information: http_s://sierra.ni h.gov/publicatio ns/drugfacts/can nabis-marijuana http_s://www.[employer]/can tqozh-jce-uqzmyd qg-eljycmxsw-uoq d/ 5. tobacco use Do not smoke. Nicotine and other chemicals in cigarettes and cigars can cause lung damage. Ask your healthcare provider for information if you currently smoke and need help to quit. E-cigarettes or smokeless tobacco still contain nicotine. Talk to your healthcare provider before you use these products. education on decrease to stopping nicotine products and stop smoking hotline given 3045-Quit - Yes [place] Tobacco Quitline Call a Smoking Quitline The [employer] [facility] [place]'s Smoking Quitline, (3-063-50F-QUIT) Smokefree.gov, which connects you with your [facility]'s Quitline, (2-488-ZJLTGIB) [facility] Smoking Quitline, (5-702-JWQZLTZ) . Long-term drug therapy 12/06/2024 Attention-defici t hyperactivity disorder, predominantly inattentive type (ICD-10 - F90.0) 02/14/2025 Bipolar disorder, current episode depressed, mild [...] discuss seeing Dr. Downing for austic dxn http_s://www.nam i.org/About-Ment al-Illness/Menta p-Eqpera-Unyvspr ons http_s://psychce [employer].com/depres ortiz/the-cogniti ne-bmozxksj-pp-d epression#treatm ents http__s://www.ni .nih.gov/healt h/topics/mental- health-medicatio ns http__s://www.na mi.org/About-Men andrea-Illness/Malaika tments/Mental-He alth-Medications 2. Generalized anxiety disorder - Hydroxyzine 10 mg twice a day as needed for anxiety - therapy SSRI side effects discussed including but not limited to, gastric upset, nausea, vomiting, diarrhea and/or constipation, weight changes, sexual side effects including loss of libido, increased suicidal thoughts/behavio rs in children and young adults, and serotonin [...] can negatively impact mood, motivation, anxiety, sleep, focus/concentrat ion/memory (vigilance, elasticity, processing and attention); can also contribute to development of psychosis. http_s://www.nim h.nih.gov/health /topics/mental-h ealth-medication s http_s://www.nam i.org/About-Ment al-Illness/Treat ments/Mental-Hea lth-Medications Recommend decrease/stop cannabis use as it may be negatively impacting mood, motivation, anxiety, sleep, focus; can also contribute to development of psychosis Cannabis/marijua na information: http_s://sierra.ni h.gov/publicatio ns/drugfacts/can nabis-marijuana http_s://www.[employer].Alkymos/can vucro-knd-ppctal lv-viavqabzu-iij d/ . Long-term drug therapy 02/14/2025 Generalized anxiety [...] discuss seeing Dr. Downing for austic dxn http_s://www.nam i.org/About-Ment al-Illness/Menta r-Ruvzyg-Dqhjwvo ons http_s://psychce ntral.com/depres ortiz/the-cogniti ot-qrcwayle-oq-d epression#treatm ents http__s://www.ni mh.nih.gov/healt h/topics/mental- health-medicatio ns http__s://www.na mi.org/About-Men andrea-Illness/Malaika tments/Mental-He alth-Medications 2. Generalized anxiety disorder - Hydroxyzine 10 mg twice a day as needed for anxiety - therapy SSRI side effects discussed including but not limited to, gastric upset, nausea, vomiting, diarrhea and/or constipation, weight changes, sexual side effects including loss of libido, increased suicidal thoughts/behavio rs in children and young adults, and serotonin [...] can negatively impact mood, motivation, anxiety, sleep, focus/concentrat ion/memory (vigilance, elasticity, processing and attention); can also contribute to development of psychosis. http_s://www.nim h.nih.gov/health /topics/mental-h ealth-medication s http_s://www.nam i.org/About-Ment al-Illness/Treat ments/Mental-Hea lth-Medications Recommend decrease/stop cannabis use as it may be negatively impacting mood, motivation, anxiety, sleep, focus; can also contribute to development of psychosis Cannabis/marijua na information: http_s://sierra.ni h.gov/publicatio ns/drugfacts/can nabis-marijuana http_s://www.[employer]/can tbruo-shj-yrmttm ve-chbvvodtc-mla d/ . Long-term drug therapy 04/01/2025 Generalized anxiety disorder (ICD-10 - F41.1) 05/24/2024 Generalized anxiety disorder (ICD-10 - F41.1) 12/06/2024 Generalized anxiety disorder (ICD-10 - F41.1) 11/16/2024 Attention-defici t hyperactivity disorder, unspecified type (ICD-10 - F90.9) [...] discuss seeing Dr. Downing for austic dxn http_s://www.nam i.org/About-Ment al-Illness/Menta s-Dldlii-Bynmoup ons http_s://[employer]/deprchristy ortiz/the-cogniti ms-olmwqwyp-yx-d epression#treatm ents http__s://www.[facility].nih.gov/healt h/topics/mental- health-medicatio ns http__s://www.na mi.org/About-Men andrea-Illness/Malaika tments/Mental-He alth-Medications 2. Generalized anxiety disorder - Hydroxyzine 10 mg twice a day as needed for anxiety - therapy SSRI side effects discussed including but not limited to, gastric upset, nausea, vomiting, diarrhea and/or constipation, weight changes, sexual side effects including loss of libido, increased suicidal thoughts/behavio rs in children and young adults, and serotonin syndrome. 3. Attention deficit hyperactivity disorder - no stimulates related to cannabis use Qelbree 400 mg daily co-pay card given ducation on rx hx Wellbutrin 4. Cannabis use Recommend decrease/stop cannabis use as it can negatively impact mood, motivation, anxiety, sleep, focus/concentrat ion/memory (vigilance, elasticity, processing and attention); can also contribute to development of psychosis. http_s://www.[facility] h.nih.gov/health /topics/mental-h ealth-medication s http_s://www.nam i.org/About-Ment al-Illness/Treat ments/Mental-Hea lth-Medications Recommend decrease/stop cannabis use as it may be negatively impacting mood, motivation, anxiety, sleep, focus; can also contribute to development of psychosis Cannabis/marijua na information: http_s://sierra.ni h.gov/publicatio ns/drugfacts/can nabis-marijuana http_s://www.Blend.Alkymos/can wbpqw-iex-zntpye rf-ydpzrezbz-vkt d/ 5. tobacco use Do not smoke. Nicotine and other chemicals in cigarettes and cigars can cause lung damage. Ask your healthcare provider for information if you currently smoke and need help to quit. E-cigarettes or smokeless tobacco still contain nicotine. Talk to your healthcare provider before you use these products. education on decrease to stopping nicotine products and stop smoking hotline given 330-Quit - Yes [place] Tobacco Quitline Call a Smoking Quitline The [employer] [place]'s Smoking Quitline, (1-255-54Z-QUIT) Smokefree.gov, which connects you with your State's Quitline, (3-411-IQANWLV) [facility] Smoking Quitline, (2-126-QPLBHJN) . Long-term drug therapy 08/17/2024 Generalized anxiety disorder (ICD-10 - F41.1) 1. Bipolar I disorder, most recent episode depression - Abilify 10 mg at night labs obtain from ER educated on all medications, benefits, side effects [...] discuss seeing Dr. Downing for austic dxn 2. Generalized anxiety disorder - Hydroxyzine 10 mg twice a day as needed for anxiety - therapy SSRI side effects discussed including but not limited to, gastric upset, nausea, vomiting, diarrhea and/or constipation, weight changes, sexual side effects including loss of libido, increased suicidal thoughts/behavio rs in children and young adults, and serotonin syndrome. 3. Attention deficit hyperactivity disorder - no stimulates related to cannabis use Qelbree 400 mg daily co-pay card givene ducation on rx hx Wellbutrin 4. Long-term drug therapy 05/14/2024 Attention-defici t hyperactivity disorder, unspecified type (ICD-10 - F90.9) 1. Bipolar I disorder, most recent episode depression - Abilify 10 mg at night labs order educated on all medications, benefits, side effects [...] common with first generation antipsychotics) and more. F31.31: Bipolar disorder, current episode depressed, mild aripiprazole 10 mg tablet - TAKE 1 TABLET BY MOUTH EVERY DAY AT BEDTIME Qty: (90) tablet Refills: 0 Pharmacy: [facility] #[id number] 2. Generalized anxiety disorder - Hydroxyzine 10 mg twice a day as needed for anxiety - therapy SSRI side effects discussed including but not limited to, gastric upset, nausea, vomiting, diarrhea and/or constipation, weight changes, sexual side effects including loss of libido, increased suicidal thoughts/behavio rs in children and young adults, and serotonin syndrome. F41.1: Generalized anxiety disorder 3. 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 Qty: 180 Pharmacy: [facility] #[id number] 4. Long-term drug therapy 05/14/2024 Other [facility] (current) drug therapy (ICD-10 - Z79.899) 1. Bipolar I disorder, most recent episode depression - Abilify 10 mg at night labs order educated on all medications, benefits, side effects [...] common with first generation antipsychotics) and more. F31.31: Bipolar disorder, current episode depressed, mild aripiprazole 10 mg tablet - TAKE 1 TABLET BY MOUTH EVERY DAY AT BEDTIME Qty: (90) tablet Refills: 0 Pharmacy: [facility] #[id number] 2. Generalized anxiety disorder - Hydroxyzine 10 mg twice a day as needed for anxiety - therapy SSRI side effects discussed including but not limited to, gastric upset, nausea, vomiting, diarrhea and/or constipation, weight changes, sexual side effects including loss of libido, increased suicidal thoughts/behavio rs in children and young adults, and serotonin syndrome. F41.1: Generalized anxiety disorder 3. 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 Qty: 180 Pharmacy: [facility] #[id number] 4. Long-term drug therapy 08/17/2024 Attention-defici t hyperactivity disorder, unspecified type (ICD-10 - F90.9) 1. Bipolar I disorder, most recent episode depression - Abilify 10 mg at night labs obtain from ER educated on all medications, benefits, side effects [...] discuss seeing Dr. Downing for austic dxn 2. Generalized anxiety disorder - Hydroxyzine 10 mg twice a day as needed for anxiety - therapy SSRI side effects discussed including but not limited to, gastric upset, nausea, vomiting, diarrhea and/or constipation, weight changes, sexual side effects including loss of libido, increased suicidal thoughts/behavio rs in children and young adults, and serotonin syndrome. 3. Attention deficit hyperactivity disorder - no stimulates related to cannabis use Qelbree 400 mg daily co-pay card givene ducation on rx hx Wellbutrin 4. Long-term drug therapy 11/16/2024 Other [facility] (current) drug therapy (ICD-10 - Z79.899) 1. [...] discuss seeing Dr. Downing for austic dxn http_s://www.nam i.org/About-Ment al-Illness/Menta e-Rrvuzy-Jrnmeft ons http_s://psychce ntral.com/depres ortiz/the-cogniti tl-cbnnzwyr-fm-d epression#treatm ents http__s://www.ni mh.nih.gov/healt h/topics/mental- health-medicatio ns http__s://www.na mi.org/About-Men andrea-Illness/Malaika tments/Mental-He alth-Medications 2. Generalized anxiety disorder - Hydroxyzine 10 mg twice a day as needed for anxiety - therapy SSRI side effects discussed including but not limited to, gastric upset, nausea, vomiting, diarrhea and/or constipation, weight changes, sexual side effects including loss of libido, increased suicidal thoughts/behavio rs in children and young adults, and serotonin syndrome. 3. Attention deficit hyperactivity disorder - no stimulates related to cannabis use Qelbree 400 mg daily co-pay card given ducation on rx hx Wellbutrin 4. Cannabis use Recommend decrease/stop cannabis use as it can negatively impact mood, motivation, anxiety, sleep, focus/concentrat ion/memory (vigilance, elasticity, processing and attention); can also contribute to development of psychosis. http_s://www.nim h.nih.gov/health /topics/mental-h ealth-medication s http_s://www.nam i.org/About-Ment al-Illness/Treat ments/Mental-Hea lth-Medications Recommend decrease/stop cannabis use as it may be negatively impacting mood, motivation, anxiety, sleep, focus; can also contribute to development of psychosis Cannabis/marijua na information: http_s://sierra.ni h.gov/publicatio ns/drugfacts/can nabis-marijuana http_s://www.FortyCloud/can rnwnc-zgs-strqfq cw-ltzlyhpnd-lpk d/ 5. tobacco use Do not smoke. Nicotine and other chemicals in cigarettes and cigars can cause lung damage. Ask your healthcare provider for information if you currently smoke and need help to quit. E-cigarettes or smokeless tobacco still contain nicotine. Talk to your healthcare provider before you use these products. education on decrease to stopping nicotine products and stop smoking hotline given 14-Quit - Yes [place] Tobacco Quitline Call a Smoking Quitline The [employer] [facility] [place]'s Smoking Quitline, (2-448-01U-QUIT) Smokefree.gov, which connects you with your State's Quitline, (1-954-DLLSQJG) [facility] Smoking Quitline, (9-317-UPQZJOU) . Long-term drug therapy 02/14/2025 Attention-defici t hyperactivity disorder, unspecified type (ICD-10 - F90.9) [...] discuss seeing Dr. Downing for austic dxn http_s://www.nam i.org/About-Ment al-Illness/Menta a-Bzqddo-Ckfkiou ons http_s://psychce Future Simple.com/deprchristy ortiz/the-cogniti wm-muyhfury-cp-d epression#treatm ents http__s://www.ni .nih.gov/healt h/topics/mental- health-medicatio ns http__s://www.na mi.org/About-Men andrea-Illness/Malaika tments/Mental-He alth-Medications 2. Generalized anxiety disorder - Hydroxyzine 10 mg twice a day as needed for anxiety - therapy SSRI side effects discussed including but not limited to, gastric upset, nausea, vomiting, diarrhea and/or constipation, weight changes, sexual side effects including loss of libido, increased suicidal thoughts/behavio rs in children and young adults, and serotonin [...] can negatively impact mood, motivation, anxiety, sleep, focus/concentrat ion/memory (vigilance, elasticity, processing and attention); can also contribute to development of psychosis. http_s://www.nim h.nih.gov/health /topics/mental-h ealth-medication s http_s://www.nam i.org/About-Ment al-Illness/Treat ments/Mental-Hea lth-Medications Recommend decrease/stop cannabis use as it may be negatively impacting mood, motivation, anxiety, sleep, focus; can also contribute to development of psychosis Cannabis/marijua na information: http_s://sierra.ni h.gov/publicatio ns/drugfacts/can nabis-marijuana http_s://www.FortyCloud/can vgwht-xwk-jvttap ga-vriqngwfh-foy d/ . Long-term drug therapy 02/14/2025 Other stick puller (current) drug therapy (ICD-10 - Z79.899) 1. [...] discuss seeing Dr. Downing for austic dxn http_s://www.nam i.org/About-Ment al-Illness/Menta i-Rnbfzy-Sqdxank ons http_s://psychce Future Simple.com/valentinchristy alcantar/the-cogniti zz-ttjtovzo-ym-d epression#treatm ents http__s://www.ni .nih.gov/healt h/topics/mental- health-medicatio ns http__s://www.na mi.org/About-Men andrea-Illness/Malaika tments/Mental-He alth-Medications 2. Generalized anxiety disorder - Hydroxyzine 10 mg twice a day as needed for anxiety - therapy SSRI side effects discussed including but not limited to, gastric upset, nausea, vomiting, diarrhea and/or constipation, weight changes, sexual side effects including loss of libido, increased suicidal thoughts/behavio rs in children and young adults, and serotonin [...] can negatively impact mood, motivation, anxiety, sleep, focus/concentrat ion/memory (vigilance, elasticity, processing and attention); can also contribute to development of psychosis. http_s://www.nim h.nih.gov/health /topics/mental-h ealth-medication s http_s://www.nam i.org/About-Ment al-Illness/Treat ments/Mental-Hea lth-Medications Recommend decrease/stop cannabis use as it may be negatively impacting mood, motivation, anxiety, sleep, focus; can also contribute to development of psychosis Cannabis/marijua na information: http_s://sierra.ni h.gov/publicatio ns/drugfacts/can nabis-marijuana http_s://www.FortyCloud/can tstov-grk-tigzat dp-ycmlvisqf-ble d/ . Long-term drug therapy 11/16/2024 Borderline personality [...] discuss seeing Dr. Downing for austic dxn http_s://www.nam i.org/About-Ment al-Illness/Menta u-Gsljfe-Njbdiwa ons http_s://psychce Cloupia/depres ortiz/the-cogniti hk-qgsbkevb-da-d epression#treatm ents http__s://www.ni mh.nih.gov/healt h/topics/mental- health-medicatio ns http__s://www.na mi.org/About-Men andrea-Illness/Malaika tments/Mental-He alth-Medications 2. Generalized anxiety disorder - Hydroxyzine 10 mg twice a day as needed for anxiety - therapy SSRI side effects discussed including but not limited to, gastric upset, nausea, vomiting, diarrhea and/or constipation, weight changes, sexual side effects including loss of libido, increased suicidal thoughts/behavio rs in children and young adults, and serotonin syndrome. 3. Attention deficit hyperactivity disorder - no stimulates related to cannabis use Qelbree 400 mg daily co-pay card given ducation on rx hx Wellbutrin 4. Cannabis use Recommend decrease/stop cannabis use as it can negatively impact mood, motivation, anxiety, sleep, focus/concentrat ion/memory (vigilance, elasticity, processing and attention); can also contribute to development of psychosis. http_s://www.nim h.nih.gov/health /topics/mental-h ealth-medication s http_s://www.nam i.org/About-Ment al-Illness/Treat ments/Mental-Hea lth-Medications Recommend decrease/stop cannabis use as it may be negatively impacting mood, motivation, anxiety, sleep, focus; can also contribute to development of psychosis Cannabis/marijua na information: http_s://sierra.ni h.gov/publicatio ns/drugfacts/can nabis-marijuana http_s://www.FortyCloud/can lpaeb-apf-mvbldk kd-imoitokag-chr d/ 5. tobacco use Do not smoke. Nicotine and other chemicals in cigarettes and cigars can cause lung damage. Ask your healthcare provider for information if you currently smoke and need help to quit. E-cigarettes or smokeless tobacco still contain nicotine. Talk to your healthcare provider before you use these products. education on decrease to stopping nicotine products and stop smoking hotline given 492-Quit - Yes [place] Tobacco Quitline Call a Smoking Quitline The [employer] [place]'s Smoking Quitline, (6-111-63W-QUIT) Smokefree.gov, which connects you with your State's Quitline, (6-411-HQFLRGE) [facility] Smoking Quitline, (4-428-KDFICQM) . Long-term drug therapy 08/17/2024 Other stick puller (current) drug therapy (ICD-10 - Z79.899) 1. Bipolar I disorder, most recent episode depression - Abilify 10 mg at night labs obtain from ER educated on all medications, benefits, side effects [...] discuss seeing Dr. Downing for austic dxn 2. Generalized anxiety disorder - Hydroxyzine 10 mg twice a day as needed for anxiety - therapy SSRI side effects discussed including but not limited to, gastric upset, nausea, vomiting, diarrhea and/or constipation, weight changes, sexual side effects including loss of libido, increased suicidal thoughts/behavio rs in children and young adults, and serotonin syndrome. 3. Attention deficit hyperactivity disorder - no stimulates related to cannabis use Qelbree 400 mg daily co-pay card givene ducation on rx hx Wellbutrin 4. Long-term drug therapy 05/14/2024 Borderline personality disorder (ICD-10 - F60.3) 1. Bipolar I disorder, most recent episode depression - Abilify 10 mg at night labs order educated on all medications, benefits, side effects [...] common with first generation antipsychotics) and more. F31.31: Bipolar disorder, current episode depressed, mild aripiprazole 10 mg tablet - TAKE 1 TABLET BY MOUTH EVERY DAY AT BEDTIME Qty: (90) tablet Refills: 0 Pharmacy: [facility] #[id number] 2. Generalized anxiety disorder - Hydroxyzine 10 mg twice a day as needed for anxiety - therapy SSRI side effects discussed including but not limited to, gastric upset, nausea, vomiting, diarrhea and/or constipation, weight changes, sexual side effects including loss of libido, increased suicidal thoughts/behavio rs in children and young adults, and serotonin syndrome. F41.1: Generalized anxiety disorder 3. 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 Qty: 180 Pharmacy: [facility] #[id number] 4. Long-term drug therapy 08/17/2024 Borderline personality disorder (ICD-10 - F60.3) 1. Bipolar I disorder, most recent episode depression - Abilify 10 mg at night labs obtain from ER educated on all medications, benefits, side effects [...] discuss seeing Dr. Downing for austic dxn 2. Generalized anxiety disorder - Hydroxyzine 10 mg twice a day as needed for anxiety - therapy SSRI side effects discussed including but not limited to, gastric upset, nausea, vomiting, diarrhea and/or constipation, weight changes, sexual side effects including loss of libido, increased suicidal thoughts/behavio rs in children and young adults, and serotonin syndrome. 3. Attention deficit hyperactivity disorder - no stimulates related to cannabis use Qelbree 400 mg daily co-pay card givene ducation on rx hx Wellbutrin 4. Long-term drug therapy 11/16/2024 Marijuana user (ICD-10 [...] discuss seeing Dr. Downing for austic dxn http_s://www.nam i.org/About-Ment al-Illness/Menta f-Pgdspc-Igybdim ons http_s://psychce ntral.com/depres ortiz/the-cogniti fi-klyxnvqi-ac-d epression#treatm ents http__s://www.[facility].nih.gov/healt h/topics/mental- health-medicatio ns http__s://www.na mi.org/About-Men andrea-Illness/Malaika tments/Mental-He alth-Medications 2. Generalized anxiety disorder - Hydroxyzine 10 mg twice a day as needed for anxiety - therapy SSRI side effects discussed including but not limited to, gastric upset, nausea, vomiting, diarrhea and/or constipation, weight changes, sexual side effects including loss of libido, increased suicidal thoughts/behavio rs in children and young adults, and serotonin syndrome. 3. Attention deficit hyperactivity disorder - no stimulates related to cannabis use Qelbree 400 mg daily co-pay card given ducation on rx hx Wellbutrin 4. Cannabis use Recommend decrease/stop cannabis use as it can negatively impact mood, motivation, anxiety, sleep, focus/concentrat ion/memory (vigilance, elasticity, processing and attention); can also contribute to development of psychosis. http_s://www.[facility] h.nih.gov/health /topics/mental-h ealth-medication s http_s://www.nam i.org/About-Ment al-Illness/Treat ments/Mental-Hea lth-Medications Recommend decrease/stop cannabis use as it may be negatively impacting mood, motivation, anxiety, sleep, focus; can also contribute to development of psychosis Cannabis/marijua na information: http_s://sierra.ni h.gov/publicatio ns/drugfacts/can nabis-marijuana http_s://www.FortyCloud/can ybbbi-hke-yiqnby rr-hkekacbgr-wei d/ 5. tobacco use Do not smoke. Nicotine [...] stop smoking hotline given -Quit - Yes [place] Tobacco Quitline Call a Smoking Quitline The [employer] [place]'s Smoking Quitline, (1-975-82M-QUIT) Smokefree.gov, which connects you with your State's Quitline, (7-539-LDPWGCG) [facility] Smoking Quitline, (3-207-QTGUZVD) . Long-term drug therapy 02/14/2025 Borderline personality disorder (ICD-10 - F60.3) 1. Bipolar I disorder, most recent episode depression - Abilify 10 mg at night labs reviewed in [facility] 06/06 completed educated on all [...] discuss seeing Dr. Downing for austic dxn http_s://www.nam i.org/About-Ment al-Illness/Menta t-Zgiphw-Nzivnil ons http_s://psychce ntral.com/depres ortiz/the-cogniti rf-uuyjbyxg-tf-d epression#treatm ents http__s://www.ni mh.nih.gov/healt h/topics/mental- health-medicatio ns http__s://www.na mi.org/About-Men andrea-Illness/Malaika tments/Mental-He alth-Medications 2. Generalized anxiety disorder - Hydroxyzine 10 mg twice a day as needed for anxiety - therapy SSRI side effects discussed including but not limited to, gastric upset, nausea, vomiting, diarrhea and/or constipation, weight changes, sexual side effects including loss of libido, increased suicidal thoughts/behavio rs in children and young adults, and serotonin [...] can negatively impact mood, motivation, anxiety, sleep, focus/concentrat ion/memory (vigilance, elasticity, processing and attention); can also contribute to development of psychosis. http_s://www.nim h.nih.gov/health /topics/mental-h ealth-medication s http_s://www.nam i.org/About-Ment al-Illness/Treat ments/Mental-Hea lth-Medications Recommend decrease/stop cannabis use as it may be negatively impacting mood, motivation, anxiety, sleep, focus; can also contribute to development of psychosis Cannabis/marijua na information: http_s://sierra.ni h.gov/publicatio ns/drugfacts/can nabis-marijuana http_s://www.FortyCloud/can olxmo-bht-otccxv et-rqmdvrvmc-rgx d/ . Long-term drug therapy 02/14/2025 Marijuana user [...] discuss seeing Dr. Downing for austic dxn http_s://www.nam i.org/About-Ment al-Illness/Menta a-Iuzkra-Qjnrzjs ons http_s://psychce Future Simple.com/depres ortiz/the-cogniti kn-zdwinlsk-rf-d epression#treatm ents http__s://www.ni .nih.gov/healt h/topics/mental- health-medicatio ns http__s://www.na mi.org/About-Men andrea-Illness/Malaika tments/Mental-He alth-Medications 2. Generalized anxiety disorder - Hydroxyzine 10 mg twice a day as needed for anxiety - therapy SSRI side effects discussed including but not limited to, gastric upset, nausea, vomiting, diarrhea and/or constipation, weight changes, sexual side effects including loss of libido, increased suicidal thoughts/behavio rs in children and young adults, and serotonin [...] can negatively impact mood, motivation, anxiety, sleep, focus/concentrat ion/memory (vigilance, elasticity, processing and attention); can also contribute to development of psychosis. http_s://www.nim h.nih.gov/health /topics/mental-h ealth-medication s http_s://www.nam i.org/About-Ment al-Illness/Treat ments/Mental-Hea lth-Medications Recommend decrease/stop cannabis use as it may be negatively impacting mood, motivation, anxiety, sleep, focus; can also contribute to development of psychosis Cannabis/marijua na information: http_s://sierra.ni h.gov/publicatio ns/drugfacts/can nabis-marijuana http_s://www.FortyCloud/can dnpzb-nav-hgqozz mp-zrpsijslv-utw d/ . Long-term drug therapy 11/16/2024 Tobacco user [...] discuss seeing Dr. Downing for austic dxn http_s://www.nam i.org/About-Ment al-Illness/Menta i-Shprxq-Dulvcxv ons http_s://psychce ntral.com/depres ortiz/the-cogniti kv-fujzyyea-hc-d epression#treatm ents http__s://www.ni mh.nih.gov/healt h/topics/mental- health-medicatio ns http__s://www.na mi.org/About-Men andrea-Illness/Malaika tments/Mental-He alth-Medications 2. Generalized anxiety disorder - Hydroxyzine 10 mg twice a day as needed for anxiety - therapy SSRI side effects discussed including but not limited to, gastric upset, nausea, vomiting, diarrhea and/or constipation, weight changes, sexual side effects including loss of libido, increased suicidal thoughts/behavio rs in children and young adults, and serotonin syndrome. 3. Attention deficit hyperactivity disorder - no stimulates related to cannabis use Qelbree 400 mg daily co-pay card given ducation on rx hx Wellbutrin 4. Cannabis use Recommend decrease/stop cannabis use as it can negatively impact mood, motivation, anxiety, sleep, focus/concentrat ion/memory (vigilance, elasticity, processing and attention); can also contribute to development of psychosis. http_s://www.nim h.nih.gov/health /topics/mental-h ealth-medication s http_s://www.nam i.org/About-Ment al-Illness/Treat ments/Mental-Hea lth-Medications Recommend decrease/stop cannabis use as it may be negatively impacting mood, motivation, anxiety, sleep, focus; can also contribute to development of psychosis Cannabis/marijua na information: http_s://sierra.ni h.gov/publicatio ns/drugfacts/can nabis-marijuana http_s://www.FortyCloud/can xjbhw-cgc-culhms ks-noxqtfqgy-ctb d/ 5. tobacco use Do not smoke. Nicotine and other chemicals in cigarettes and cigars can cause lung damage. Ask your healthcare provider for information if you currently smoke and need help to quit. E-cigarettes or smokeless tobacco still contain nicotine. Talk to your healthcare provider before you use these products. education on decrease to stopping nicotine products and stop smoking hotline given 32-Quit - Yes [place] Tobacco Quitline Call a Smoking Quitline The [employer] [place]'s Smoking Quitline, (3-369-11V-QUIT) Smokefree.gov, which connects you with your State's Quitline, ([id number]) Veterans Smoking Quitline, (2-058-PODXTTO) . Long-term drug therapy 02/14/2025 Tobacco user [...] discuss seeing Dr. Downing for austic dxn http_s://www.nam i.org/About-Ment al-Illness/Menta s-Genwlj-Knmlmoe ons http_s://psychce Future Simple.com/deprchristy ortiz/the-cogniti mf-fbhykxfs-qh-d epression#treatm ents http__s://www.ni .nih.gov/healt h/topics/mental- health-medicatio ns http__s://www.na mi.org/About-Men andrea-Illness/Malaika tments/Mental-He alth-Medications 2. Generalized anxiety disorder - Hydroxyzine 10 mg twice a day as needed for anxiety - therapy SSRI side effects discussed including but not limited to, gastric upset, nausea, vomiting, diarrhea and/or constipation, weight changes, sexual side effects including loss of libido, increased suicidal thoughts/behavio rs in children and young adults, and serotonin [...] can negatively impact mood, motivation, anxiety, sleep, focus/concentrat ion/memory (vigilance, elasticity, processing and attention); can also contribute to development of psychosis. http_s://www.nim h.nih.gov/health /topics/mental-h ealth-medication s http_s://www.nam i.org/About-Ment al-Illness/Treat ments/Mental-Hea lth-Medications Recommend decrease/stop cannabis use as it may be negatively impacting mood, motivation, anxiety, sleep, focus; can also contribute to development of psychosis Cannabis/marijua na information: http_s://sierra.ni h.gov/publicatio ns/drugfacts/can nabis-marijuana http_s://www.FortyCloud/can ufllq-wce-qupihs jj-twvmiccez-tiv d/ . Long-term drug therapy 02/14/2025 Encounter for [...] discuss seeing Dr. Downing for austic dxn http_s://www.nam i.org/About-Ment al-Illness/Menta j-Pjhmgp-Tybrhdf ons http_s://psychce Future Simple.com/maya alcantar/the-cogniti iy-ohavvakx-fo-d epression#treatm ents http__s://www.[facility].nih.gov/healt h/topics/mental- health-medicatio ns http__s://www.na mi.org/About-Men andrea-Illness/Malaika tments/Mental-He alth-Medications 2. Generalized anxiety disorder - Hydroxyzine 10 mg twice a day as needed for anxiety - therapy SSRI side effects discussed including but not limited to, gastric upset, nausea, vomiting, diarrhea and/or constipation, weight changes, sexual side effects including loss of libido, increased suicidal thoughts/behavio rs in children and young adults, and serotonin [...] can negatively impact mood, motivation, anxiety, sleep, focus/concentrat ion/memory (vigilance, elasticity, processing and attention); can also contribute to development of psychosis. http_s://www.[facility] h.nih.gov/health /topics/mental-h ealth-medication s http_s://www.nam i.org/About-Ment al-Illness/Treat ments/Mental-Hea lth-Medications Recommend decrease/stop cannabis use as it may be negatively impacting mood, motivation, anxiety, sleep, focus; can also contribute to development of psychosis Cannabis/marijua na information: http_s://sierra.ni h.gov/publicatio ns/drugfacts/can nabis-marijuana http_s://www.Blend.Alkymos/can dmdmj-jko-xipbap pb-bgmqvltzj-cmx d/ . Long-term drug therapy 02/14/2025 Encounter for [...] discuss seeing Dr. Downing for austic dxn http_s://www.nam i.org/About-Ment al-Illness/Menta i-Dyfkzq-Gjyhfpf ons http_s://psychce Future Simple.Alkymos/deprchristy ortiz/the-cogniti uq-wslgsvje-qg-d epression#treatm ents http__s://www.ni .nih.gov/healt h/topics/mental- health-medicatio ns http__s://www.na mi.org/About-Men andrea-Illness/Malaika tments/Mental-He alth-Medications 2. Generalized anxiety disorder - Hydroxyzine 10 mg twice a day as needed for anxiety - therapy SSRI side effects discussed including but not limited to, gastric upset, nausea, vomiting, diarrhea and/or constipation, weight changes, sexual side effects including loss of libido, increased suicidal thoughts/behavio rs in children and young adults, and serotonin [...] can negatively impact mood, motivation, anxiety, sleep, focus/concentrat ion/memory (vigilance, elasticity, processing and attention); can also contribute to development of psychosis. http_s://www.nim h.nih.gov/health /topics/mental-h ealth-medication s http_s://www.nam i.org/About-Ment al-Illness/Treat ments/Mental-Hea lth-Medications Recommend decrease/stop cannabis use as it may be negatively impacting mood, motivation, anxiety, sleep, focus; can also contribute to development of psychosis Cannabis/marijua na information: http_s://sierra.ni h.gov/publicatio ns/drugfacts/can nabis-marijuana http_s://www.FortyCloud/can yrpgd-uey-fdotkn va-exaudeovu-iiv d/ . Long-term drug therapy 02/14/2025 Dietary counseling [...] discuss seeing Dr. Downing for austic dxn http_s://www.nam i.org/About-Ment al-Illness/Menta k-Grtowd-Uwkklcv ons http_s://psychce Future Simple.Alkymos/maya ortiz/the-cogniti kf-nggztdzy-hr-d epression#treatm ents http__s://www.ni .nih.gov/healt h/topics/mental- health-medicatio ns http__s://www.na mi.org/About-Men andrea-Illness/Malaika tments/Mental-He alth-Medications 2. Generalized anxiety disorder - Hydroxyzine 10 mg twice a day as needed for anxiety - therapy SSRI side effects discussed including but not limited to, gastric upset, nausea, vomiting, diarrhea and/or constipation, weight changes, sexual side effects including loss of libido, increased suicidal thoughts/behavio rs in children and young adults, and serotonin [...] can negatively impact mood, motivation, anxiety, sleep, focus/concentrat ion/memory (vigilance, elasticity, processing and attention); can also contribute to development of psychosis. http_s://www.nim h.nih.gov/health /topics/mental-h ealth-medication s http_s://www.nam i.org/About-Ment al-Illness/Treat ments/Mental-Hea lth-Medications Recommend decrease/stop cannabis use as it may be negatively impacting mood, motivation, anxiety, sleep, focus; can also contribute to development of psychosis Cannabis/marijua na information: http_s://sierra.ni h.gov/publicatio ns/drugfacts/can nabis-marijuana http_s://www.FortyCloud/can xdvja-ddz-tjyyks vt-vakitzsum-xuw d/ . Long-term drug therapy Plan Of Treatment Next Appt Details Provider Name:Kathie Patel , 05/20/2025 01:30:00 PM, [address] [facility] [address], [facility] [address], [place], [address], Insurance Providers Payer Name Payer Address Payer Phone Subscriber Number Group Number Insured Name Patient Relationship to Insured Coverage Start Date Coverage End Date [employer] Benef[employer] Plan Management [address] [place] [address] [id number] LUIS LEWIS Spouse - patient is the spouse of the insured Medical (General) History Medical History History ICD Code Problems: Attention deficit hyperactivit y disorder Bipolar I disorder, most recent episode depression Borderline personality disorder Cannabis dependence Drug indicated Generalized anxiety disorder Long-term drug therapy Moderate mixed bipolar I disorder Tobacco user former , Past Psychiatric Hospitaliza tions: Y Past Suicide Attempt: Y Anxiety Disorder: Y Bipolar Disorder: Y Depression Major: Y Panic Episodes: Y Psychotic Episodes: Y ADD/ADHD: Y Anemia: Y Diabetes Mellitus: Y Obesity: Y Notes: Carpal Tunnel; PCOS; Frontal Fibrosing Alopecia; Psoriasis; pre-eclampsia. HSV Surgical History Surgery Date(Month/Year) Tonsilectomy/adenoids Other 06/25/2013 tonsilectomy/adenoids Other - 06/25/2013 c section
--- OUTSIDE RECORDS SUMMARY | 2025-04-29 13:54 | XMS_ITS | Encounter Summary ---
Author Organization [facility] Address [address] [place] [address] Care Team Providers Care Image Scientist Name Role Phone Ambrosio Landers MD Primary Care Provider [phone] Encounter Details Date Type Department Care Team ([facility] Contact Info) Description 09/30/2003 Outpatient Historical [facility] Child and Adolescent Psychiatry [facility] [address] [place] [address] Seamus Castro MD [address] [facility] [place] [address] Social History Tobacco Use Types Packs/Day Years Used Date Smoking Tobacco: Never Assessed Comments Unknown Sex and Gender Information Value Date Recorded Sex Assigned at Not on file Legal Sex Female 4:44 AM PUBLIC HEALTH NURSE Gender Identity Not on file Sexual Orientation Not on file documented as of this encounter Plan of Treatment Upcoming Encounters Date Type Department Care Team (Late Contact Info) Description 10/31/2025 10:15 AM PUBLIC HEALTH NURSE Office Visit [facility] Oncology and Hematology - [place] [address] [facility] [address] [place] [address] Michele Ford MD [address] [facility] [address] [place] [address] documented as of this encounter Visit Diagnoses Not on filedocumented in this encounter Care Teams Image Scientist Relationship Specialty Start Date End Date Ambrosio Landers MD [address] [place] [phone] PCP - General Family Practice 04/02/24 04/28/25 documented as of this encounter
--- OUTSIDE RECORDS SUMMARY | 2025-04-29 13:55 | XMS_ITS | Encounter Summary ---
Author Organization [facility] Address [address] [place] [address] Care Team Providers Care Activities Concierge Name Role Phone Ambrosio Landers MD Primary Care Provider [phone] Encounter Details Date Type Department Care Team (Late Contact Info) Description 07/11/2003 Outpatient Historical [facility] Child and Adolescent Psychiatry [facility] [address] [place] [address] Seamus Castro MD [address] [facility] [place] [address] Social History Tobacco Use Types Packs/Day Years Used Date Smoking Tobacco: Never Assessed Comments Unknown Sex and Gender Information Value Date Recorded Sex Assigned at Not on file Legal Sex Female 4:44 AM PUMPING PLANT OPERATOR Gender Identity Not on file Sexual Orientation Not on file documented as of this encounter Plan of Treatment Upcoming Encounters Date Type Department Care Team (Late Contact Info) Description 10/31/2025 10:15 AM PUMPING PLANT OPERATOR Office Visit [facility] Oncology and Hematology - [place] [address] [facility] [address] [place] [address] Michele Ford MD [address] [facility] [address] [place] [address] documented as of this encounter Visit Diagnoses Not on filedocumented in this encounter Care Teams Activities Concierge Relationship Specialty Start Date End Date Ambrosio Landers MD [address] [place] [phone] PCP - General Family Practice 04/02/24 04/28/25 documented as of this encounter
--- OUTSIDE RECORDS SUMMARY | 2025-04-29 13:55 | XMS_ITS | Encounter Summary ---
Author Organization [facility] Address [address] [place] [address] Care Team Providers Care Ticket Speculator Name Role Phone Ambrosio Landers MD Primary Care Provider [phone] Encounter Details Date Type Department Care Team ([facility] Contact Info) Description 07/24/2003 Outpatient Historical [facility] Child and Adolescent Psychiatry [facility] [address] [place] [address] Seamus Castro MD [address] [facility] [place] [address] Social History Tobacco Use Types Packs/Day Years Used Date Smoking Tobacco: Never Assessed Comments Unknown Sex and Gender Information Value Date Recorded Sex Assigned at Not on file Legal Sex Female 4:44 AM ACCESS CONTROL SPECIALIST Gender Identity Not on file Sexual Orientation Not on file documented as of this encounter Plan of Treatment Upcoming Encounters Date Type Department Care Team (Late Contact Info) Description 10/31/2025 10:15 AM ACCESS CONTROL SPECIALIST Office Visit [facility] Oncology and Hematology - [place] [address] [facility] [address] [place] [address] Michele Ford MD [address] [facility] [address] [place] [address] documented as of this encounter Visit Diagnoses Not on filedocumented in this encounter Care Teams Ticket Speculator Relationship Specialty Start Date End Date Ambrosio Landers MD [address] [place] [phone] PCP - General Family Practice 04/02/24 04/28/25 documented as of this encounter
--- OUTSIDE RECORDS SUMMARY | 2025-04-29 13:55 | XMS_ITS | Encounter Summary ---
Author Organization [facility] JOHN Castellano [facility] Address [address] [place] [address] Care Team Providers Care Dental Ceramist Helper Name Role Phone Unavailable Primary Care Provider Unavailabl e Reason for Visit * Reason Comments Follow Up Encounter Details Date Type Department Care Team (Late st Contact Info) Description 04/29/2025 1:15 PM CDT Office Visit [facility] Oncology and Hematology - [place] [address] [place] [address] [facility] [address] [place] [address] Michele Ford MD [address] [facility] [address] [place] [address] Essential thrombocytosis (CMS/HCC) (Primary Dx) Social History Tobacco Use [...] on file Legal Sex Female 4:44 AM OFFICE CLEANER Gender Identity Not on file Sexual Orientation Not on file documented as of this encounter Last Filed Vital Signs Vital Sign Reading Time Taken Comments Blood Pressure 137/85 04/29/2025 1:13 PM CDT Pulse 95 04/29/2025 1:13 PM CDT Temperature 36.2 C (97.1 F) 04/29/2025 1:13 PM CDT Respiratory Rate 15 04/29/2025 1:13 PM CDT Oxygen Saturation 92% 04/29/2025 1:1 3 PM CDT Inhaled Oxygen Concentration - - Weight 92.6 kg (204 lb 3.2 oz) 04/29/2025 1:13 PM CDT Pt verbally stated that this is the correct weight Height - - Body Mass Index 37.35 08/18/2020 10:25 AM CDT documented in this encounter Progress Notes * Michele Ford MD - 04/29/2025 1:41 PM CDT HEMATOLOGY / ONCOLOGY PROGRESS NOTE Patient Identification: Name: Kaleigh Delgado Age: 34 y.o. Sex: female : 1990 DIAGNOSIS Reactive leukocytosis and thrombocytosis JAK2 mutation negative CURRENT TREATMENT Surveillance TREATMENT HISTORY SUBJECTIVE Patient came to the office for follow-up visit. She denies any night sweats fevers and chills. Complaining of back pain and knee pain. She is currently on a steroid for the back pain. No new lumps bumps or lymphadenopathy. Denies any other new complaints. Review of system Constitutional: Patient did not mention fevers, sweats, denies any tiredness and fatigue, weight and appetite stable HEENT: Patient did not mention sinus congestion, hearing or vision problems Respiratory: Patient did not mention cough, dyspnea, wheeze Cardiovascular: Patient did not mention chest pain, exertional chest pressure/discomfort, nausea, syncope, shortness of breath GI: Patient did not mention constipation, diarrhea, dsyphagia, reflux symptoms, vomiting, melena : Patient did not mention dysuria, frequency, incontinence, urgency Integumentary system: no lymphadenopathy, sweats, flushing Musculoskeletal: Patient not mention: myalgia, arthralgia, complain of bodyaches Neurological: Patient did not mention blurry or disturbed vision, numbness/weakness, dizziness Skin: No lumps, bumps or rashes. 12 point review of system was reviewed Objective: Vital signs in last 24 hours: As per nursing note Exam: HEENT: Atraumatic, external ears normal, nose normal, oropharynx moist, no pharyngeal exudates. no sinus tenderness Neck- normal range of motion, no tenderness, supple Respiratory: No respiratory distress, normal breath sounds, no rales, no wheezing Cardiovascular: Normal rate, normal rhythm, no murmurs, no gallops, no rubs GI: Soft, nondistended, normal bowel sounds, nontender, no splenomegaly, no hepatomegaly, no mass, no rebound, no guarding : No costovertebral angle tenderness Musculoskeletal: No edema, no tenderness, no deformities. Back- no tenderness Integument: Well hydrated, no rash, Digits and nails inspection normal Lymphatic: No lymphadenopathy noted Neurologic: Alert & oriented x 3, CN 2-12 normal, normal motor function, normal sensory function, no focal deficits noted Exam as above PATH LABS Labs from March 18 showed WBC 11.7 hemoglobin 14.5 platelet 420,000 neutrophils 72% lymphocyte 21% sedimentation rate 2 C-reactive protein 14.5 Labs from October 03 show WBC 15.6 hemoglobin 14.8 platelet 343,000 neutrophils 73% improved by 20% Labs from April 02 show WBC 22.6 hemoglobin 15 platelet 386,000 neutrophils 73% lymphocyte 19% creatinine 0.6 Labs from October 29 showed WBC 18.7 hemoglobin 14.8 platelet 388,000 neutrophils 78% lymphocyte 16% Labs from April 29 showed WBC 20.3 hemoglobin 15.3 hematocrit 45.2 platelets 370,000 neutrophil 57% creatinine 0.9 Assessment: Plan: Patient Active Problem List Diagnosis Date Noted Leukemoid reaction 08/18/2020 Reactive leukocytosis. Previous work-up showed elevated C-reactive protein consistent with reactiveleukocytosis. JAK2 mutation came back negative. Flow cytometric analysis done on April 17 showed no evidence of leukemia and lymphoma. Patient is clinically symptomatic with back and knees pain. Patient is on steroids with some improvement. No evidence of lymphadenopathy on my examination. WBC count has increased slightly but could be secondary to back pain and the use of a steroid. I will see her back in 6 months with repeat labs. Reactive thrombocytosis JAK2 mutation negative. Resolved. I have recommended regular exercise and weight loss. Continue baby aspirin. Psoriasis. Stable. Follow-up in 6 months. 04/29/2025 Michele Ford MD documented in this encounter Plan of Treatment Upcoming Encounters Date Type Department Care Team (Late st Contact Info) Description 10/31/2025 10:15 AM OFFICE CLEANER Office Visit [facility] Oncology and Hematology - [place] [address] [place] [address] Michele Ford MD [address] [facility] [address] [place] [address] Scheduled Orders Name Type Priority Associated Diagnoses Orde r Schedule CBC WITH DIFFERENTIAL Lab Stat Essential thrombocytosis (CMS/HCC) Expected: 10/29/2025, Expires: 04/29/2026 BASIC METABOLIC PANEL Lab Stat Essential thrombocytosis (CMS/HCC) Expected: 10/29/2025, Expires: 04/29/2026 documented as of this encounter Visit Diagnoses Diagnosis Essential thrombocytosis (CMS/HCC)- Primary Essential thrombocythemia documented in this encounter
--- OUTSIDE RECORDS SUMMARY | 2025-04-29 13:55 | XMS_ITS | Clinical Summary ---
Author Organization [facility] [place] Address [address] [address] Care Team Providers Care Flight Test Shop Mechanic Name Role Phone Unavailable Primary Care Provider Unavailabl e Allergies Active Allergy Reactions Criticality Noted Date [...] Encounters Date Type Department Care Team Description 04/29/2025 1:15 PM CDT Office Visit [facility] Oncology and Hematology [place] [address] [address] [address] Michele Ford MD Essential thrombocytosis (CMS/HCC) (Primary Dx) 04/09/2025 External Device Data STL ABSTRACTION Provider, Abstract 04/03/2025 External Device Data STL ABSTRACTION Provider, Abstract 04/02/2025 External Device Data STL ABSTRACTION Provider, Abstract 02/26/2025 External Device Data STL ABSTRACTION Provider, Abstract [...] file Legal Sex Female 4:44 AM SUPERVISOR METAL FABRICATING Gender Identity Not on file Sexual Orientation [...] that this is the correct weight Height 157.5 cm (5' 2) 08/18/2020 10:2 5 AM CDT Body Mass Index 37.35 08/18/2020 10:25 AM CDT Plan of Treatment Upcoming Encounters Date Type Department Care Team (Late st Contact Info) Description 10/31/2025 10:15 AM SUPERVISOR METAL FABRICATING Office Visit [facility] Oncology and Hematology - [place] [address] [facility] [address] [place] [address] Michele Ford MD [address] [facility] [address] [place] [address] Health Maintenance Due Date Last Done Comments DIABETES ANNUAL FOOT EXAM 2007 DIABETES ANNUAL RETINAL EXAM 2007 DIABETES HBA1C Q 6 MONTHS 2007 DIABETES MICROALBUMIN ANNUAL SCREEN 2007 LDL CHOLESTEROL ANNUAL 2007 DTAP/TDAP/TD VACCINES (1 - Tdap) 2008 HEPATITIS B VACCINES (1 of 3 - 19+ 3-dose series) 2008 HPV/Cotest (21-29) 2010 HPV/Cotest (30-65) 2019 CERVICAL CANCER SCREENING 09/26/2020 PAP SMEAR 09/26/2020 09/26/2017 INFLUENZA VACCINE (#1) 2024 09/27/2019 Preventative Visit- Commercial 11/14/2024 HPV VACCINES Aged Out No longer eligi ble based on patient's age to complete this topic Insurance
[2025-04-29 14:24] LABS: Alanine Aminotransferase 18 U/L (6-35); Albumin Level 4.3 g/dL (3.5-5.1); Alkaline Phosphatase 59 U/L (38-126); Anion Gap 7 mmol/L (4-12); Aspartate Amino Transferase 87 U/L (14-36); Bilirubin,Total 0.3 mg/dL (0.2-1.3); Blood Urea Nitrogen 12 mg/dL (7-17); Calcium 9.6 mg/dL (8.4-10.2); Carbon Dioxide 33 mmol/L (22-30); Chloride 98 mmol/L (98-107); Estimated Glomerular Filt Rate > 60; Glucose 119 mg/dL (65-110); Potassium 3.6 mmol/L (3.4-5.0); Sodium 138 mmol/L (137-145); Total Protein 7.2 g/dL (6.3-8.2)
== END 2025-04-29 13:01 | disposition home or self-care (01) ==
LOC: ANHLAB 13:01
PROVIDERS: PCP Nurse Practitioner Family; Visit Provider Internal Medicine Hematology & Oncology
DX: D47.3 Essential (hemorrhagic) thrombocythemia (principal)
CPT/HCPCS: 36415; 80047; 80053; 85025

== ENCOUNTER 2025-09-17 11:11 | Outpatient (CLI) | payer OTHER, SELFPAY ==
--- NOTE | ~2025-09-17 | XR_ITS ---
XR lumbar spine 2-3V Indication: Other low back pain Comparison: None Findings: The vertebral heights are intact. No fracture or subluxation. Moderate loss of disc height at L4-5 and L5-S1 Soft tissues unremarkable Impression: No acute abnormality. Reviewed, dictated and finalized at location P. T TILE SHADER Impression: No acute abnormality.
== END 2025-09-17 11:12 | disposition home or self-care (01) ==
LOC: MICIMG 11:12
PROVIDERS: PCP Nurse Practitioner Family; Visit Provider Nurse Practitioner Family
DX: M54.59 Other low back pain (principal); R29.890 Loss of height
CPT/HCPCS: 72100

== ENCOUNTER 2025-10-31 10:35 | Outpatient (CLI) | payer OTHER, SELFPAY ==
--- OUTSIDE RECORDS SUMMARY | 2024-07-23 09:00 | XMS_ITS ---
Author Organization [facility] As [employer] Address [address] [address] Care Team Providers Care [employer] And Policy Professor Name Role Phone Angelique Carias PA-C Primary Care Provider Kathie Pratt Unavailable [phone] Nandini Schumacher Unavailable [phone] Social History Sex Assigned At : Social History Observation Description Sex Assigned At Female Encounters Encounter Location Date Provider Diagnosis [facility] [address] [facility] [address] [place] [address] 07/23/2024 Nandini Schumacher Plan Of Treatment Next Appt Details Provider Name:Kathie Kapoordomo , 11/18/2025 11:15:00 AM, [address], [address], [address], Progress Notes * CAROLINA LEWISREADOB:1989 (34 yo F)Acc No.[id number]:07/23/2024 Patient: PALOMO HITCHCOCK Provider: Halima SCHUMACHER LCSW :1990 A ge:33 Y S ex:Female Date:07/23/2024 Address:[address], [place] Pcp:Angelique Carias PA-C Plan: * Procedure Codes: N STHR NO SHOW THERAPY Billing Information: * Procedure Codes: NSTHR NO SHOW THERAPY. * Electronic signature of Nandini Schumacher LCSW on 10/31/2025 at 11:27 AM IT APPLICATION SUPPORT ANALYST Sign off status: Pending Signatures: No Ad Hoc Signature Added * Provider: Halima SCHUMACHER LCSW Date: 0 07/23/2024 Generated for Margarita russo/Jeff/Jennifer on: 1 01/01/2025 11:27 AM IT APPLICATION SUPPORT ANALYST
--- OUTSIDE RECORDS SUMMARY | 2024-08-23 05:00 | XMS_ITS ---
Author Organization [facility] [employer] Address [address] [address] Care Team Providers Care Special Education Professor Name Role Phone Angelique Carias PA-C Primary Care Provider Kathie Pratt Unavailable [phone] Nandini Schumacher Unavailable [phone] Social History Sex Assigned At : Social History Observation Description Sex Assigned At Female Encounters Encounter Location Date Provider Diagnosis [facility] [email or web address] [facility] [address] [facility] [address] [place] [address] 08/23/2024 Nandini Schumacher Plan Of Treatment Next Appt Details Provider Name:Kathie Patel , 11/18/2025 11:15:00 AM, [address], [address], [address], Progress Notes * CAROLINA LEWISREADOB:1989 (34 yo F)Acc No.[id number]:08/23/2024 Patient: PALMOO HITCHCOCK Provider: Halima SCHUMACHER LCSW :1990 A ge:33 Y S ex:Female Date:08/23/2024 Address:[address] [place], [place] Pcp:Angelique Carias PA-C * Electronic signature of Nandini Schumacher LCSW on 10/31/2025 at 11:28 AM ENVIRONMENTAL CONSERVATION OFFICER Sign off status: Pending Signatures: No Ad Hoc Signature Added * Provider: Halima SCHUMACHER LCSW Date: 1 Generated for Margarita russo/Jeff/Jennifer on: 1 01/01/2025 11:28 AM ENVIRONMENTAL CONSERVATION OFFICER
--- OUTSIDE RECORDS SUMMARY | 2025-10-31 10:15 | XMS_ITS | Encounter Summary ---
Author Organization [facility] JOHN Castellano [facility] Address [address] [place] [address] Care Team Providers Care Plsql Developer Name Role Phone Unavailable Primary Care Provider Unavailabl e Encounter Details Date Type Department Care Team (Late st Contact Info) Description 10/31/2025 10:15 AM COSTUME RENTAL CLERK Office Visit [facility] Oncology and Hematology - [place] [address] [place] [address] [facility] [address] [place] [address] Michele Ford MD [address] [facility] [address] [place] [address] Essential thrombocytosis (CMS/HCC) (Primary Dx) [...] on file Legal Sex Female 4:44 AM COSTUME RENTAL CLERK Gender Identity Not on file Sexual Orientation Not on file documented as of this encounter Last Filed Vital Signs Vital Sign Reading Time Taken Comments Blood Pressure 139/87 10/31/2025 10:36 AM COSTUME RENTAL CLERK Pulse 69 10/31/2025 10:36 AM COSTUME RENTAL CLERK Temperature 36.2 C (97.1 F) 10/31/2025 10:36 AM COSTUME RENTAL CLERK Respiratory Rate 15 10/31/2025 10:36 AM COSTUME RENTAL CLERK Oxygen Saturation 94% 10/31/2025 10:36 AM COSTUME RENTAL CLERK Inhaled Oxygen Concentration - - Weight 81.6 kg (180 lb) 10/31/2025 10:36 AM COSTUME RENTAL CLERK Height - - Body Mass Index 32.92 08/18/2020 10:25 AM CDT documented in this encounter Plan of Treatment Upcoming Encounters Date Type Department Care Team (Late st Contact Info) Description 05/05/2026 10:15 AM CDT Office Visit [facility] Oncology and Hematology - [place] [address] [facility] [address] [place] [address] Michele Ford MD [address] [facility] [address] [place] [address] Scheduled Orders Name Type Priority Associated Diagnoses Orde r Schedule CBC WITH DIFFERENTIAL Lab Stat Essential thrombocytosis (CMS/HCC) Expected: 05/01/2026, Expires: 10/31/2026 documented as of this encounter Visit Diagnoses Diagnosis Essential thrombocytosis (CMS/HCC)- Primary Essential thrombocythemia documented in this encounter
[2025-10-31 10:44] LABS: Hematocrit 42.9 % (37.0-47.0); Hemoglobin 14.8 g/dL (12.0-15.0); Immature Granulocyte Percent A 0.3 % (0-0.5); Lymphocytes Absolute Auto 2.65 K/mm3 (0.9-3.2); Mean Corpuscular HGB Conc 34.5 g/dl (32-36); Mean Corpuscular Hemoglobin 31.3 pg (26-34); Mean Corpuscular Volume 90.7 fl (80-100); Nucleated Red Blood Cells Absolute Auto 0.000 K/mm3 (0.0-0.012); Nucleated Red Blood Cells Perc 0.0 % (0.0-0.2); Platelet Count Result 405 k/mm3 (150-375); Red Blood Count 4.73 M/mm3 (4.2-5.4); White Blood Count 14.9 K/mm3 (4.5-10.0)
[2025-10-31 11:19] LABS: Blood Urea Nitrogen 4 mg/dL (8-26); Carbon Dioxide 27 mmol/L (22-30); Chloride 101 mmol/L (98-109); Estimated Glomerular Filt Rate > 60; Glucose 97 mg/dL (70-105); Ionized Calcium (POC) 1.17 mmol/L (1.11-1.31); Potassium 3.9 mmol/L (3.5-4.9); Sodium 140 mmol/L (138-146)
--- OUTSIDE RECORDS SUMMARY | 2025-10-31 11:27 | XMS_ITS | Encounter Summary ---
Author Organization [facility] Address [address] [place] [address] Care Team Providers Care Payloader Machine Operator Name Role Phone Ambrosio Landers MD Primary Care Provider [phone] Encounter Details Date Type Department Care Team (Late Contact Info) Description 07/11/2003 Outpatient Historical [facility] Child and Adolescent Psychiatry [facility] [address] [place] [address] Seamus Castro MD [address] [facility] [place] [address] Social History Tobacco Use Types Packs/Day Years Used Date Smoking Tobacco: Never Assessed Comments Unknown Sex and Gender Information Value Date Recorded Sex Assigned at Not on file Legal Sex Female 4:44 AM SALESPERSON HOSIERY Gender Identity Not on file Sexual Orientation Not on file documented as of this encounter Plan of Treatment Upcoming Encounters Date Type Department Care Team (Late Contact Info) Description 05/05/2026 10:15 AM CDT Office Visit [facility] Oncology and Hematology - [place] [address] [facility] [address] [place] [address] Michele Ford MD [address] [facility] [address] [place] [address] documented as of this encounter Visit Diagnoses Not on filedocumented in this encounter Care Teams Payloader Machine Operator Relationship Specialty Start Date End Date Ambrosio Landers MD [address] [place] [phone] PCP - General Family Practice 04/02/24 04/28/25 documented as of this encounter
--- OUTSIDE RECORDS SUMMARY | 2025-10-31 11:27 | XMS_ITS | Encounter Summary ---
Author Organization [facility] Address [address] [place] [address] Care Team Providers Care Leather Colorer Name Role Phone Ambrosio Landers MD Primary Care Provider [phone] Encounter Details Date Type Department Care Team (Late Contact Info) Description 09/30/2003 Outpatient Historical [facility] Child and Adolescent Psychiatry [facility] [address] [place] [address] Seamus Castro MD [address] [facility] [place] [address] Social History Tobacco Use Types Packs/Day Years Used Date Smoking Tobacco: Never Assessed Comments Unknown Sex and Gender Information Value Date Recorded Sex Assigned at Not on file Legal Sex Female 4:44 AM MERCANTILE REPORTER Gender Identity Not on file Sexual Orientation Not on file documented as of this encounter Plan of Treatment Upcoming Encounters Date Type Department Care Team (Late Contact Info) Description 05/05/2026 10:15 AM CDT Office Visit [facility] Oncology and Hematology - [place] [address] [facility] [address] [place] [address] Michele Ford MD [address] [facility] [address] [place] [address] documented as of this encounter Visit Diagnoses Not on filedocumented in this encounter Care Teams Leather Colorer Relationship Specialty Start Date End Date Ambrosio Landers MD [address] [place] [phone] PCP - General Family Practice 04/02/24 04/28/25 documented as of this encounter
--- OUTSIDE RECORDS SUMMARY | 2025-10-31 11:27 | XMS_ITS | Encounter Summary ---
Author Organization [facility] Address [address] [place] [address] Care Team Providers Care Plant Senior Manager Name Role Phone Ambrosio Landers MD Primary Care Provider [phone] Encounter Details Date Type Department Care Team (Latest Contact Info) Description 07/10/2003 Inpatient Historical [facility] IN [facility] BED [place], Seamus Varghese MD [address] [facility] [address] [place] [id number] BIPOLAR AFFECTIVE NOS (CMS/HCC) (Primary Dx) Social History Tobacco Use Types Packs/Day Years Used Date Smoking Tobacco: Never Assessed Comments Unknown Sex and Gender Information Value Date Recorded Sex Assigned at Not on file Legal Sex Female 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 Gender Identity Not on file Sexual Orientation Not on file documented as of this encounter Plan of Treatment Upcoming Encounters Date Type Department Care Team (Late st Contact Info) Description 05/05/2026 10:15 AM CDT Office Visit [facility] Oncology and Hematology - [place] [address] [facility] [address] [place] [address] Michele Ford MD [address] [facility] [address] [place] [address] documented as of this encounter Visit Diagnoses Diagnosis Bipolar I disorder, most recent episode (or current) unspecified (CMS/HCC)- Primary Bipolar I disorder, most recent episode (or current) unspecified documented in this encounter Care Teams Plant Senior Manager Relationship Specialty Start Date End Date Ambrosio Landers MD [address] [place] [phone] PCP - General Family Practice 04/02/24 04/28/25 documented as of this encounter
--- OUTSIDE RECORDS SUMMARY | 2025-10-31 11:28 | XMS_ITS | Clinical Summary ---
Author Organization [facility] Address [address] [address] Care Team Providers Care Cellophane Worker Name Role Phone Unavailable Primary Care Provider [...] Encounters Date Type Department Care Team Description 10/31/2025 10:15 AM NEIGHBORHOOD AIDE Office Visit [facility] Oncology and Hematology - [place] [address] [facility] [address] [address] Michele Ford MD Essential thrombocytosis (CMS/HCC) (Primary Dx) 09/03/2025 External Device Data STL ABSTRACTION Provider, Abstract [...] on file Legal Sex Female 4:44 AM NEIGHBORHOOD AIDE Gender Identity Not on file Sexual Orientation Not on file Last Filed Vital Signs Vital Sign Reading Time Taken Comments Blood Pressure 139/87 10/31/2025 10:36 AM NEIGHBORHOOD AIDE Pulse 69 10/31/2025 10:36 AM NEIGHBORHOOD AIDE Temperature 36.2 C (97.1 F) 10/31/2025 10:36 AM NEIGHBORHOOD AIDE Respiratory Rate 15 10/31/2025 10:36 AM NEIGHBORHOOD AIDE Oxygen Saturation 94% 10/31/2025 10:36 AM NEIGHBORHOOD AIDE Inhaled Oxygen Concentration - - Weight 81.6 kg (180 lb) 10/31/2025 10:36 AM NEIGHBORHOOD AIDE Height 157.5 cm (5' 2) 08/18/2020 10:25 AM CDT Body Mass Index 32.92 08/18/2020 10:25 AM CDT Plan of Treatment Upcoming Encounters Date Type Department Care Team (Late st Contact Info) Description 05/05/2026 10:15 AM CDT Office Visit [facility] Oncology and Hematology - [place] [address] [facility] [address] [place] [address] Michele Ford MD [address] [facility] [address] [place] [address] Health Maintenance Due Date Last Done Comments DIABETES ANNUAL FOOT EXAM 2007 DIABETES ANNUAL RETINAL EXAM 2007 DIABETES HBA1C Q 6 MONTHS 2007 DIABETES MICROALBUMIN ANNUAL SCREEN 2007 LDL CHOLESTEROL ANNUAL 2007 DTAP/TDAP/TD VACCINES (1 - Tdap) 2008 HEPATITIS B VACCINES (1 of 3 - 19+ 3-dose series) 10/15 HPV/Cotest (21-29) 2010 HPV/Cotest (30-65) 2019 CERVICAL CANCER SCREENING 09/26/2020 PAP SMEAR 09/26/2020 09/26/2017 Preventative Visit- Commercial 11/14/2024 INFLUENZA VACCINE (#1) 2025 09/27/2019 HPV VACCINES (No Doses Required) Completed Insurance [employer] OPEN ACCESS
--- OUTSIDE RECORDS SUMMARY | 2025-10-31 11:28 | XMS_ITS | Encounter Summary ---
Author Organization [facility] Address [address] [place] [address] Care Team Providers Care Alining Inspector Name Role Phone Ambrosio Landers MD Primary Care Provider [phone] Encounter Details Date Type Department Care Team (Late Contact Info) Description 07/24/2003 Outpatient Historical [facility] Child and Adolescent Psychiatry [facility] [address] [place] [address] Seamus Castro MD [address] [facility] [place] [address] Social History Tobacco Use Types Packs/Day Years Used Date Smoking Tobacco: Never Assessed Comments Unknown Sex and Gender Information Value Date Recorded Sex Assigned at Not on file Legal Sex Female 4:44 AM MARKETING ADMINISTRATOR Gender Identity Not on file Sexual Orientation Not on file documented as of this encounter Plan of Treatment Upcoming Encounters Date Type Department Care Team (Late Contact Info) Description 05/05/2026 10:15 AM CDT Office Visit [facility] Oncology and Hematology - [place] [address] [facility] [address] [place] [address] Michele Ford MD [address] [facility] [address] [place] [address] documented as of this encounter Visit Diagnoses Not on filedocumented in this encounter Care Teams Alining Inspector Relationship Specialty Start Date End Date Ambrosio Landers MD [address] [place] [phone] PCP - General Family Practice 04/02/24 04/28/25 documented as of this encounter
--- OUTSIDE RECORDS SUMMARY | 2025-10-31 11:28 | XMS_ITS | Patient Health Record ---
Author Organization [facility] [employer] [facility] Address [address] [facility] [address] [place] [address] Care Team Providers Care Sap Bi Architect Name Role Phone Angelique Carias PA-C Primary Care Provider Kathie Pratt Unavailable [phone] Nandini Rodríguez Unavailable [phone] Allergies Allergen (clinical drug ingredient) Drug/Non Drug Allergy documented on EMR Reaction Allergy Type Onset Date Status BuSpar Unknown Drug Allergy 02/13/2024 Active Rocephin Unknown Drug Allergy 02/13/2024 Active Reason For Referral No Information Medications Medication SIG (Take, Route, Frequency, Duration) Notes Start Date End Date Status Gabapentin 100 MG Capsule 1 capsule at bedtime Orally Once a day Active Minoxidil 2.5 MG Tablet TAKE 1 TABLET BY MOUTH DAILY Oral; Duration: 90 Days Active hydrOXYzine HCl 10 MG Tablet 1 tablet Orally Once a day; Duration: 90 days 08/19/2025 Active Spironolactone 100 MG Tablet TAKE 1 TABLET BY MOUTH TWICE DAILY Oral; Duration: 90 Days Active Omeprazole 40 MG Capsule Delayed Release Oral; Duration: 90 Days Active ARIPiprazole 10 MG Tablet 1 tablet Oral Once a day; Duration: 90 days 08/19/2025 Active Qelbree 200 MG Capsule Extended Release 24 Hour 2 capsule Oral Once a day; Duration: 90 days 08/19/2025 Active SKYRIZI 150 MG/ML SUBCUTANEOUS SYRINGE *Reorder from [employer] Electronic Cigarette for eRx and Interaction Alerts* 02/13/2024 Active valACYclovir HCl 500 MG Tablet TAKE 1 TABLET BY MOUTH EVERY DAY Oral; Duration: 90 Days Active Metoprolol Succinate ER 50 MG Tablet Extended Release 24 Hour TAKE 1 AND 1/2 TABLETS BY MOUTH DAILY Oral; Duration: 90 Days Not-Taking Ozempic (2 MG/DOSE) 8 MG/3ML Solution Pen-injector Subcutaneous; Duration: 84 Days Active Immunizations Vaccine Route Administration Date Status Comme nts Influenza virus vaccine, quadrivalent (IIV4), split virus, 0.25 mL dosage Unknown 09/27/2019 Administered Moderna Covid-19 Vaccine 1st dose Unknown 03/11/2021 Ad ministered Moderna Covid-19 Vaccine 1st dose Unknown 04/08/2021 Ad ministered Social History Tobacco Use: Social History Observation Description Date Details (start date - stop date) Current Smoker NA - NA Sex Assigned At : Social History Observation Description Sex Assigned At Female Social History Miscellaneous: Social Info Question Answer Notes Advance Care Planning Are you your own decision-maker Yes Do you have Power of Supervisor [employer] [facility] or [facility]? No Household: Social Info Question Answer Notes Household Marital status: Number of adults in household: 2 Number of children in household: 1 Marital status of the child's parents: With whom does the child live? with both parents Any household tobacco use? Yes Drug/Alcohol: Social Info Question Answer Notes Drugs Have you used drugs other than those for medical reasons in the past 12 months? Yes Marijuana? Yes AUDIT-C (Standard) Did you have a drink containi ng alcohol in the past year? Yes How often did you have six or more drinks on one occasion in the past year? Less than monthly (1 point) How many drinks did you have on a typical day when you were drinking in the past year? 1 or 2 drinks (0 point) How often did you have a drink containing alcohol in the past year? 2 to 4 times a month (2 points) Points 3 Interpretation Positive Tobacco Use: Social Info Question Answer Notes Tobacco Control (Standard) How soon after you wake up do you smoke your first cigarette? After 60 minutes Are you interested in quitting? Ready to quit Tobacco use: Current smoker How long has it been since you last smoked? 1-3 months Additional Findings: Tobacco non-user Current no nsmoker Additional Details Category Social Info Options Details Migrated Social History Migrated Social History Alcohol Intake: Occasional 09/08/2018,Tobacco Years: Current every day smoker 08/18/2023,Smoking Status: 12 12/23/2023 Drug/Alcohol: Do you smoke marijuana? Adm its Do you drink alcohol? Yes Section Notes: Do you or have you [...] have any siblings?: 2 (Notes: Step brother (statement clerks supervisor)-no close; Half brother-trying to work on improving [...] you have a medical power of senior attorney?: NoPublic Health and TravelHave you been [...] Problem Bipolar affective disorder, currently depressed, mild (681332026) Bipolar disorder, current episode depressed, mild (F31.31) 02/13/20 24 Active confirmed Problem Generalized anxiety disorder (22328393) Generalized anxiety disorder (F41.1) 03/23/20 24 Active confirmed Problem Borderline personality disorder (36412870) Borderline personality disorder (F60.3) 04/07/20 23 Active confirmed Problem Attention deficit hyperactivity disorder, 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, 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 confirmed Problem Attention deficit hyperactivity disorder (504879703) Attention-deficit hyperactivity disorder, unspecified type (F90.9) 01/23/20 24 Active confirmed Problem Screening for cardiovascular system disease (551018201) Encounter for screening for cardiovascular disorders (Z13.6) Active confirmed Problem Dietary management surveillance (967956309) Dietary counseling and surveillance (Z71.3) Active confirmed Problem Long-term current use of drug therapy (505811207) 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 (Z79.899) 02/13/20 24 Active confirmed Problem Depression Screening (820893031) Encounter for screening for depression (Z13.31) Active confirmed Problem Marijuana user (340152992) Marijuana user (F12.90) Active confirmed Problem Tobacco user (836160605) Tobacco user (Z72.0) Active confirmed Vital Signs Heart Rate 85 /min 08/19/2025 Respiratory Rate 16 /min 08/19/2025 Blood pressure diastolic 93 mm Hg 08/19/2025 Height-cm 154.94 cm 08/19/2025 Weight-kg 85.55 kg 08/19/2025 Height 61.00 in 08/19/2025 Blood pressure systolic 134 mm Hg 08/19/2025 Weight 188.6 lbs 08/19/2025 BMI 35.63 kg/m2 08/19/2025 Encounters Encounter Location Date Provider Diagnosis [address] [address] 11/16/2024 Kathie Patel Bipolar disorder, current episode depressed, mild F31.31 ; Generalized anxiety disorder F41.1 ; Attention-deficit hyperactivity disorder, unspecified type F90.9 ; Other senior living (current) drug therapy Z79.899 ; Borderline personality disorder F60.3 ; Marijuana user F12.90 and Tobacco user Z72.0 [facility] [employer] [address] 12/06/2024 Nandini Rodríguez Attention-deficit hyperactivity disorder, predominantly inattentive type F90.0 and Generalized anxiety disorder F41.[address] [address] 02/14/2025 Kathie Patel Bipolar disorder, current episode depressed, mild F31.31 ; Generalized anxiety disorder F41.1 ; Attention-deficit hyperactivity disorder, unspecified type F90.9 ; 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 Z79.899 ; Borderline personality disorder F60.3 ; Marijuana user F12.90 ; Tobacco user Z72.0 ; Encounter for screening for depression Z13.31 ; Encounter for screening for cardiovascular disorders Z13.6 and Dietary counseling and surveillance Z71.[address] [address] 04/01/2025 Nandini Rodríguez Attention-deficit hyperactivity disorder, predominantly inattentive type F90.0 and Generalized anxiety disorder F41.1 [facility] [employer] [address] [place] [address] 05/20/2025 Kathie Patel Encounter for screen ing for cardiovascular disorders Z13.6 ; Bipolar disorder, current episode depressed, mild F31.31 ; Generalized anxiety disorder F41.1 ; Attention-deficit hyperactivity disorder, unspecified type F90.9 ; 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 Z79.899 ; Borderline personality disorder F60.3 ; Marijuana user F12.90 ; Tobacco user Z72.0 ; Encounter for screening for depression Z13.31 ; Dietary counseling and surveillance Z71.3 and Nicotine use Z72.0 [facility] [employer] [facility] [address] [place] [address] 08/19/2025 Kathie Patel Bipolar disorder, current episode depressed, mild F31.31 ; Generalized anxiety disorder F41.1 ; Attention-deficit hyperactivity disorder, unspecified type F90.9 ; Borderline personality disorder F60.3 ; Marijuana [...] austic dxn http_s://www.sofia .org/About-Mental -Illness/Mental-H ealth-Conditions http_s://psychcen Vocus Communicationsl.com/depressi on/the-cognitive- ztkvbsdh-ei-qlvxa ssion#treatments http__s://www.[facility].nih.gov/health/ topics/mental-hea lth-medications http__s://www.nam i.org/About-Menta l-Illness/Treatme nts/Mental-Health -Medications [...] Cannabis/marijuan a information: http_s://sierra.nih .gov/publications /drugfacts/cannab is-marijuana http_s://www.ReferralMD/canna hdb-xpq-octnutzq- marijuana-adhd/ 5. tobacco use Do not smoke. Nicotine and other chemicals in cigarettes and cigars can cause lung damage. Ask your healthcare provider for information if you currently smoke and need help to quit. E-cigarettes or smokeless tobacco still contain nicotine. Talk to your healthcare provider before you use these products. education on decrease to stopping nicotine products and stop smoking hotline given 2-691-Quit - Yes [place] Tobacco Quitline Call a Smoking Quitline The National Cancer [place]'s Smoking Quitline, (6-975-05O-QUIT) Smokefree.gov, which connects you with your State's Quitline, (0-323-JSRSMHV) Veterans Smoking Quitline, (2-505-AKRASSQ) . Long-term drug therapy 11/16/2024 Generalized anxiety [...] http_s://www.sofia .org/About-Mental -Illness/Mental-H ealth-Conditions http_s://psychcen tral.com/depressi on/the-cognitive- xvwslsqk-nx-sieay ssion#treatments http__s://www.nim .nih.gov/health/ topics/mental-hea lth-medications http__s://www.nam i.org/About-Menta [...] Cannabis/marijuan a information: http_s://sierra.nih .gov/publications /drugfacts/cannab is-marijuana http_s://www.ReferralMD/canna vqu-jvd-xmuupyqq- marijuana-adhd/ 5. tobacco use Do not smoke. [...] stop smoking hotline given -Quit - Yes [place] Tobacco Quitline Call a Smoking Quitline The National Cancer [place]'s Smoking Quitline, (1-957-69D-QUIT) Smokefree.gov, which connects you with your State's Quitline, (2-113-OCPJJDT) Veterans Smoking Quitline, (5-122-RBPJBLW) . Long-term drug therapy 12/06/2024 Attention-deficit hyperactivity disorder, predominantly inattentive type (ICD-10 - F90.0) 02/14/2025 Bipolar disorder, current episode depressed, mild (ICD-10 - F31.31) 1. Bipolar I disorder, most recent episode depression - Abilify 10 mg at night labs reviewed in [facility] 06/06 completed educated on all medications, benefits, [...] http_s://www.sofia .org/About-Mental -Illness/Mental-H ealth-Conditions http_s://psychcen tral.com/depressi on/the-cognitive- qhglhpuu-cl-zlped ssion#treatments http__s://www.nim h.nih.gov/health/ topics/mental-hea [facility]-medications http__s://www.nam i.org/About-Menta l-Illness/Treatme nts/Mental-Health -Medications 2. Generalized [...] Cannabis/marijuan a information: http_s://sierra.nih .gov/publications /drugfacts/cannab is-marijuana http_s://www.ReferralMD/jose elias ykp-eex-qodxtuxl- marijuana-adhd/ . Long-term drug therapy 04/01/2025 Attention-deficit hyperactivity disorder, predominantly inattentive type (ICD-10 - F90.0) 05/20/2025 Encounter for screening for cardiovascular disorders (ICD-10 - Z13.6) 1. Bipolar I disorder, most recent episode depression - Abilify 10 mg at night labs recently PCP educated on all medications, benefits, side effects [...] http_s://www.sofia .org/About-Mental -Illness/Mental-H ealth-Conditions http_s://psychcen tral.com/depressi on/the-cognitive- jnxzmafa-wk-hcrez ssion#treatments http__s://www.nim .nih.gov/health/ topics/mental-hea lth-medications http__s://www.nam i.org/About-Menta l-Illness/Treatme nts/Mental-Health -Medications 2. Generalized anxiety disorder - Hydroxyzine 10 mg once a day as needed for anxiety - [...] Cannabis/marijuan a information: http_s://sierra.nih .gov/publications /drugfacts/cannab is-marijuana http_s://www.ReferralMD/jose elias sxr-hxp-agqdfcdl- marijuana-adhd/ . Long-term drug therapy 08/19/2025 Bipolar disorder, current episode depressed, mild (ICD-10 - F31.31) 1. Bipolar I disorder, - Abilify 10 mg at night AIMS= 0 08/19/25 labs ordered educated on all medications, benefits, side effects [...] austic dxn http_s://www.sofia .org/About-Mental -Illness/Mental-H ealth-Conditions http_s://psychcen [employer]l.com/depressi on/the-cognitive- rlbqnyvp-pt-xqepx ssion#treatments http__s://www.nim h.nih.gov/health/ topics/mental-hea lth-medications http__s://www.nam i.org/About-Menta l-Illness/Treatme nts/Mental-Health -Medications 2. Generalized anxiety disorder - Hydroxyzine 10 mg once a day as needed for anxiety - [...] Qelbree 400 mg daily co-pay card given education on rx hx Wellbutrin 4. Cannabis use [...] Cannabis/marijuan a information: http_s://sierra.nih .gov/publications /drugfacts/cannab is-marijuana http_s://www.ReferralMD/canna jzr-eoa-krxiwijw- marijuana-adhd/ . Long-term drug therapy 08/19/2025 Generalized anxiety disorder (ICD-10 - F41.1) 1. Bipolar I disorder, - Abilify 10 mg at night AIMS= 0 08/19/25 labs ordered educated on all medications, benefits, side effects [...] austic dxn http_s://www.sofia .org/About-Mental -Illness/Mental-H ealth-Conditions http_s://psychcen [employer]l.com/depressi on/the-cognitive- ollgrrac-fz-psmmk ssion#treatments http__s://www.[facility].nih.gov/health/ topics/mental-hea lth-medications http__s://www.nam i.org/About-Menta l-Illness/Treatme nts/Mental-Health -Medications 2. Generalized anxiety disorder - Hydroxyzine 10 mg once a day as needed for anxiety - [...] Qelbree 400 mg daily co-pay card given education on rx hx Wellbutrin 4. Cannabis use [...] Cannabis/marijuan a information: http_s://sierra.nih .gov/publications /drugfacts/cannab is-marijuana http_s://www.ReferralMD/jose elias mdz-fin-pftwvhrv- marijuana-adhd/ . Long-term drug therapy 08/19/2025 Attention-deficit hyperactivity disorder, unspecified type (ICD-10 - F90.9) 1. Bipolar I disorder, - Abilify 10 mg at night AIMS= 0 08/19/25 labs ordered educated on all medications, benefits, side effects [...] http_s://www.sofia .org/About-Mental -Illness/Mental-H ealth-Conditions http_s://psychcen tral.com/depressi on/the-cognitive- clbilgkx-ew-iikql ssion#treatments http__s://www.nim .nih.gov/health/ topics/mental-hea lth-medications http__s://www.nam i.org/About-Menta l-Illness/Treatme nts/Mental-Health -Medications 2. Generalized anxiety disorder - Hydroxyzine 10 mg once a day as needed for anxiety - [...] Qelbree 400 mg daily co-pay card given education on rx hx Wellbutrin 4. Cannabis use [...] Cannabis/marijuan a information: http_s://sierra.nih .gov/publications /drugfacts/cannab is-marijuana http_s://www.ReferralMD/[employer] kio-uhl-habqtuvr- marijuana-adhd/ . Long-term drug therapy 05/20/2025 Bipolar disorder, current episode depressed, mild (ICD-10 - F31.31) 1. Bipolar I disorder, most recent episode depression - Abilify 10 mg at night labs recently PCP educated on all medications, benefits, side effects [...] http_s://www.sofia .org/About-Mental -Illness/Mental-H ealth-Conditions http_s://psychcen tral.com/depressi on/the-cognitive- twmxakyn-yj-teuot ssion#treatments http__s://www.nim .nih.gov/health/ topics/mental-hea [facility]-medications http__s://www.nam i.org/About-Menta l-Illness/Treatme nts/Mental-Health -Medications 2. Generalized anxiety disorder - Hydroxyzine 10 mg once a day as needed for anxiety - [...] Cannabis/marijuan a information: http_s://sierra.nih .gov/publications /drugfacts/cannab is-marijuana http_s://www.ReferralMD/canna gzj-gqp-ljzwarsi- marijuana-adhd/ . Long-term drug therapy 04/01/2025 Generalized anxiety disorder (ICD-10 - F41.1) 02/14/2025 Generalized anxiety disorder (ICD-10 - F41.1) [...] http_s://www.sofia .org/About-Mental -Illness/Mental-H ealth-Conditions http_s://psychcen tral.com/depressi on/the-cognitive- yrgoxocv-ty-jgqnb ssion#treatments http__s://www.nim h.nih.gov/health/ topics/mental-hea lth-medications http__s://www.nam i.org/About-Menta [...] Cannabis/marijuan a information: http_s://sierra.nih .gov/publications /drugfacts/cannab is-marijuana http_s://www.ReferralMD/canna rpg-qyj-atvnhqaw- marijuana-adhd/ . Long-term drug therapy 12/06/2024 Generalized anxiety disorder (ICD-10 - F41.1) 11/16/2024 Attention-deficit hyperactivity disorder, unspecified type (ICD-10 [...] austic dxn http_s://www.sofia .org/About-Mental -Illness/Mental-H ealth-Conditions http_s://psychcen Modbook.com/depressi on/the-cognitive- zvrezyhl-zv-oodhq ssion#treatments http__s://www.[facility].nih.gov/health/ topics/mental-hea lth-medications http__s://www.nam i.org/About-Menta l-Illness/Treatme nts/Mental-Health -Medications [...] Cannabis/marijuan a information: http_s://sierra.nih .gov/publications /drugfacts/cannab is-marijuana http_s://www.ReferralMD/canna erx-lvl-ynmelzmc- marijuana-adhd/ 5. tobacco use Do not smoke. [...] stop smoking hotline given -Quit - Yes [place] Tobacco Quitline Call a Smoking Quitline The National Cancer [place]'s Smoking Quitline, (1-956-52V-QUIT) Smokefree.gov, which connects you with your State's Quitline, (9-098-OMSUESO) Veterans Smoking Quitline, (2-244-HQKCOHG) . Long-term drug therapy 11/16/2024 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 (ICD-10 - Z79.899) 1. [...] http_s://www.sofia .org/About-Mental -Illness/Mental-H ealth-Conditions http_s://psychcen tral.com/depressi on/the-cognitive- usvnpzse-un-umrim ssion#treatments http__s://www.nim h.nih.gov/health/ topics/mental-hea lth-medications http__s://www.nam i.org/About-Menta [...] Cannabis/marijuan a information: http_s://sierra.nih .gov/publications /drugfacts/cannab is-marijuana http_s://www.ReferralMD/canna ucu-ceh-stqqekif- marijuana-adhd/ 5. tobacco use Do not smoke. Nicotine and other chemicals in cigarettes and cigars can cause lung damage. Ask your healthcare provider for information if you currently smoke and need help to quit. E-cigarettes or smokeless tobacco still contain nicotine. Talk to your healthcare provider before you use these products. education on decrease to stopping nicotine products and stop smoking hotline given 54-Quit - Yes [place] Tobacco Quitline Call a Smoking Quitline The National Cancer [place]'s Smoking Quitline, (3-625-15Y-QUIT) Smokefree.gov, which connects you with your State's Quitline, (7-964-CJSDLMZ) Veterans Smoking Quitline, (8-631-MIZVPDN) . Long-term drug therapy 02/14/2025 Attention-deficit hyperactivity [...] http_s://www.sofia .org/About-Mental -Illness/Mental-H ealth-Conditions http_s://psychcen tral.com/depressi on/the-cognitive- leltinpg-ro-zysln ssion#treatments http__s://www.nim .nih.gov/health/ topics/mental-hea lth-medications http__s://www.nam i.org/About-Menta [...] Cannabis/marijuan a information: http_s://sierra.nih .gov/publications /drugfacts/cannab is-marijuana http_s://www.ReferralMD/[employer] uvd-gzv-rbjjszlr- marijuana-adhd/ . Long-term drug therapy 05/20/2025 Generalized anxiety disorder (ICD-10 - F41.1) 1. Bipolar I disorder, most recent episode depression - Abilify 10 mg at night labs recently PCP educated on all medications, benefits, side effects [...] http_s://www.sofia .org/About-Mental -Illness/Mental-H ealth-Conditions http_s://psychcen tral.com/depressi on/the-cognitive- eyijrvcn-rk-pgbmk ssion#treatments http__s://www.[facility].nih.gov/health/ topics/mental-hea [facility]-medications http__s://www.nam i.org/About-Menta l-Illness/Treatme nts/Mental-Health -Medications 2. Generalized anxiety disorder - Hydroxyzine 10 mg once a day as needed for anxiety - [...] Cannabis/marijuan a information: http_s://sierra.nih .gov/publications /drugfacts/cannab is-marijuana http_s://www.ReferralMD/canna nyv-qzz-ubeqprsf- marijuana-adhd/ . Long-term drug therapy 08/19/2025 Borderline personality disorder (ICD-10 - F60.3) 1. Bipolar I disorder, - Abilify 10 mg at night AIMS= 0 08/19/25 labs ordered educated on all medications, benefits, side effects [...] austic dxn http_s://www.sofia .org/About-Mental -Illness/Mental-H ealth-Conditions http_s://psychcen [employer]l.com/depressi on/the-cognitive- hedxwpav-mr-bfsby ssion#treatments http__s://www.nim .nih.gov/health/ topics/mental-hea lth-medications http__s://www.nam i.org/About-Menta l-Illness/Treatme nts/Mental-Health -Medications 2. Generalized anxiety disorder - Hydroxyzine 10 mg once a day as needed for anxiety - [...] Qelbree 400 mg daily co-pay card given education on rx hx Wellbutrin 4. Cannabis use [...] Cannabis/marijuan a information: http_s://sierra.nih .gov/publications /drugfacts/cannab is-marijuana http_s://wwwConsult [employer] wdj-atj-yftfjgkt- marijuana-adhd/ . Long-term drug therapy 08/19/2025 Marijuana user (ICD-10 - F12.90) 1. Bipolar I disorder, - Abilify 10 mg at night AIMS= 0 08/19/25 labs ordered educated on all medications, benefits, side effects [...] http_s://www.sofia .org/About-Mental -Illness/Mental-H ealth-Conditions http_s://psychcen tral.com/depressi on/the-cognitive- hjzpgjrq-bz-hztqy ssion#treatments http__s://www.[facility].nih.gov/health/ topics/mental-hea lth-medications http__s://www.nam i.org/About-Menta l-Illness/Treatme nts/Mental-Health -Medications 2. Generalized anxiety disorder - Hydroxyzine 10 mg once a day as needed for anxiety - [...] Qelbree 400 mg daily co-pay card given education on rx hx Wellbutrin 4. Cannabis use [...] Cannabis/marijuan a information: http_s://sierra.nih .gov/publications /drugfacts/cannab is-marijuana http_s://www.ReferralMD/jose elias hvo-fdn-zfnggprp- marijuana-adhd/ . Long-term drug therapy 05/20/2025 Attention-deficit hyperactivity disorder, unspecified type (ICD-10 - F90.9) 1. Bipolar I disorder, most recent episode depression - Abilify 10 mg at night labs recently PCP educated on all medications, benefits, side effects [...] for austic dxn http_s://www.sofia .org/About-Mental -Illness/Mental-H ealth-Conditions http_s://psychShenzhen Zhiz[employer]., Ltdn SaaSAssurance/depressi on/the-cognitive- qdftbuyr-wp-rtpji ssion#treatments http__s://www.[facility].nih.gov/health/ topics/mental-hea lth-medications http__s://www.nam i.org/About-Menta l-Illness/Treatme nts/Mental-Health -Medications 2. Generalized anxiety disorder - Hydroxyzine 10 mg once a day as needed for anxiety - [...] Cannabis/marijuan a information: http_s://sierra.nih .gov/publications /drugfacts/cannab is-marijuana http_s://www.ReferralMD/jose elias jpp-fun-uyxemeug- marijuana-adhd/ . Long-term drug therapy 02/14/2025 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 (ICD-10 - Z79.899) 1. [...] http_s://www.sofia .org/About-Mental -Illness/Mental-H ealth-Conditions http_s://psychcen tral.com/depressi on/the-cognitive- hlsomqgm-wo-lwxnk ssion#treatments http__s://www.nim h.nih.gov/health/ topics/mental-hea lth-medications http__s://www.nam i.org/About-Menta [...] Cannabis/marijuan a information: http_s://sierra.nih .gov/publications /drugfacts/cannab is-marijuana http_s://www.ReferralMD/cannchata hub-yqa-dtqifehv- marijuana-adhd/ . Long-term drug therapy 11/16/2024 Borderline personality [...] http_s://www.sofia .org/About-Mental -Illness/Mental-H ealth-Conditions http_s://psychcen tral.com/depressi on/the-cognitive- rdeqoyyk-it-crwkn ssion#treatments http__s://www.[facility].nih.gov/health/ topics/mental-hea lth-medications http__s://www.nam i.org/About-Menta l-Illness/Treatme nts/Mental-Health -Medications [...] Cannabis/marijuan a information: http_s://sierra.nih .gov/publications /drugfacts/cannab is-marijuana http_s://www.joshua tudemag.com/jose elias rdy-hwh-loqdgmtb- marijuana-adhd/ 5. tobacco use Do not smoke. [...] stop smoking hotline given -Quit - Yes [place] Tobacco Quitline Call a Smoking Quitline The [employer] [place]'s Smoking Quitline, (0-599-81N-QUIT) Smokefree.gov, which connects you with your State's Quitline, (9-198-DWVKAGM) [facility] Smoking Quitline, (8-530-SULZENT) . Long-term drug therapy 11/16/2024 Marijuana user [...] austic dxn http_s://www.sofia .org/About-Mental -Illness/Mental-H ealth-Conditions http_s://psychcen Modbook.com/depressi on/the-cognitive- haafaeux-dl-vzrpw ssion#treatments http__s://www.[facility].nih.gov/health/ topics/mental-hea lth-medications http__s://www.nam i.org/About-Menta l-Illness/Treatme nts/Mental-Health -Medications [...] can also contribute to development of psychosis. http_s://www.[facility] .nih.gov/health/t opics/mental-heal th-medications http_s://www.sofia .org/About-Mental -Illness/Treatmen ts/Mental-Health- Medications Recommend decrease/stop cannabis use as it may be negatively impacting mood, motivation, anxiety, sleep, focus; can also contribute to development of psychosis Cannabis/marijuan a information: http_s://sierra.nih .gov/publications /drugfacts/cannab is-marijuana http_s://www.ReferralMD/canna gqf-ckb-efwiittj- marijuana-adhd/ 5. tobacco use Do not smoke. [...] stop smoking hotline given -Quit - Yes [place] Tobacco Quitline Call a Smoking Quitline The [employer] [place]'s Smoking Quitline, (9-187-21A-QUIT) Smokefree.gov, which connects you with your State's Quitline, (8-564-NSKJEIO) Veterans Smoking Quitline, (7-070-HHAUIAJ) . Long-term drug therapy 02/14/2025 Borderline personality [...] http_s://www.sofia .org/About-Mental -Illness/Mental-H ealth-Conditions http_s://psychcen tral.com/depressi on/the-cognitive- noiwobbx-xv-alcda ssion#treatments http__s://www.nim h.nih.gov/health/ topics/mental-hea lth-medications http__s://www.nam i.org/About-Menta [...] Cannabis/marijuan a information: http_s://sierra.nih .gov/publications /drugfacts/cannab is-marijuana http_s://[employer].ReferralMD/The Currency Cloudchata vxk-blv-xzkxxobe- marijuana-adhd/ . Long-term drug therapy 08/19/2025 Tobacco user (ICD-10 - Z72.0) 1. Bipolar I disorder, - Abilify 10 mg at night AIMS= 0 08/19/25 labs ordered educated on all medications, benefits, side effects [...] http_s://www.sofia .org/About-Mental -Illness/Mental-H ealth-Conditions http_s://psychcen tral.com/depressi on/the-cognitive- umykiovu-xj-lghcf ssion#treatments http__s://www.nim .nih.gov/health/ topics/mental-hea lth-medications http__s://www.nam i.org/About-Menta l-Illness/Treatme nts/Mental-Health -Medications 2. Generalized anxiety disorder - Hydroxyzine 10 mg once a day as needed for anxiety - [...] Qelbree 400 mg daily co-pay card given education on rx hx Wellbutrin 4. Cannabis use [...] Cannabis/marijuan a information: http_s://sierra.nih .gov/publications /drugfacts/cannab is-marijuana http_s://www.ReferralMD/jose elias wxw-jlr-myblhjqq- marijuana-adhd/ . Long-term drug therapy 05/20/2025 Other senior living (current) drug therapy (ICD-10 - Z79.899) 1. Bipolar I disorder, most recent episode depression - Abilify 10 mg at night labs recently PCP educated on all medications, benefits, side effects [...] http_s://www.sofia .org/About-Mental -Illness/Mental-H ealth-Conditions http_s://psychcen tral.com/depressi on/the-cognitive- prbkebbt-eo-tabyr ssion#treatments http__s://www.nim h.nih.gov/health/ topics/mental-hea lth-medications http__s://www.nam i.org/About-Menta l-Illness/Treatme nts/Mental-Health -Medications 2. Generalized anxiety disorder - Hydroxyzine 10 mg once a day as needed for anxiety - [...] Cannabis/marijuan a information: http_s://sierra.nih .gov/publications /drugfacts/cannab is-marijuana http_s://[employer].ReferralMD/cannKamego kga-kkm-cdwekogo- marijuana-adhd/ . Long-term drug therapy 02/14/2025 Marijuana [...] austic dxn http_s://www.sofia .org/About-Mental -Illness/Mental-H ealth-Conditions http_s://psychcen Vocus Communicationsl.com/depressi on/the-cognitive- mqjohijt-bd-siqlw ssion#treatments http__s://www.nim .nih.gov/health/ topics/mental-hea lth-medications http__s://www.nam i.org/About-Menta [...] Cannabis/marijuan a information: http_s://sierra.nih .gov/publications /drugfacts/cannab is-marijuana http_s://www.ReferralMD/jose elias trx-vug-raapkcna- marijuana-adhd/ . Long-term drug therapy 05/20/2025 Borderline personality disorder (ICD-10 - F60.3) 1. Bipolar I disorder, most recent episode depression - Abilify 10 mg at night labs recently PCP educated on all medications, benefits, side effects [...] http_s://www.sofia .org/About-Mental -Illness/Mental-H ealth-Conditions http_s://psychcen tral.com/depressi on/the-cognitive- xqaiigte-gi-dmvrh ssion#treatments http__s://www.nim h.nih.gov/health/ topics/mental-hea lth-medications http__s://www.nam i.org/About-Menta l-Illness/Treatme nts/Mental-Health -Medications 2. Generalized anxiety disorder - Hydroxyzine 10 mg once a day as needed for anxiety - [...] Cannabis/marijuan a information: http_s://sierra.nih .gov/publications /drugfacts/cannab is-marijuana http_s://www.ReferralMD/canna tsl-qls-kctrsqwa- marijuana-adhd/ . Long-term drug therapy 11/16/2024 Tobacco user [...] austic dxn http_s://www.sofia .org/About-Mental -Illness/Mental-H ealth-Conditions http_s://psychcen Vocus Communicationsl.com/depressi on/the-cognitive- rdfeykno-ii-gyahu ssion#treatments http__s://www.[facility].nih.gov/health/ topics/mental-hea lth-medications http__s://www.[facility] i.org/About-Menta l-Illness/Treatme nts/Mental-Health -Medications 2. Generalized anxiety [...] Cannabis/marijuan a information: http_s://sierra.nih .gov/publications /drugfacts/cannab is-marijuana http_s://www.Xianguo.Tripl/canna lpn-zlc-shsbxlgx- marijuana-adhd/ 5. tobacco use Do not smoke. [...] stop smoking hotline given -Quit - Yes [place] Tobacco Quitline Call a Smoking Quitline The [employer] [place]'s Smoking Quitline, (1-177-14D-QUIT) Smokefree.gov, which connects you with your State's Quitline, (7-977-MNXHQKG) Veterans Smoking Quitline, (5-713-UGIBZFQ) . Long-term drug therapy 02/14/2025 Tobacco user [...] http_s://www.sofia .org/About-Mental -Illness/Mental-H ealth-Conditions http_s://psychcen tral.com/depressi on/the-cognitive- gthslsjq-fv-ansmk ssion#treatments http__s://www.nim h.nih.gov/health/ topics/mental-hea lth-medications http__s://www.nam i.org/About-Menta [...] Cannabis/marijuan a information: http_s://sierra.nih .gov/publications /drugfacts/cannab is-marijuana http_s://www.ReferralMD/[employer] kfy-ioo-xibqmycr- marijuana-adhd/ . Long-term drug therapy 05/20/2025 Marijuana user (ICD-10 - F12.90) 1. Bipolar I disorder, most recent episode depression - Abilify 10 mg at night labs recently PCP educated on all medications, benefits, side effects [...] http_s://www.sofia .org/About-Mental -Illness/Mental-H ealth-Conditions http_s://psychcen tral.com/depressi on/the-cognitive- iuuabhee-ta-vfzke ssion#treatments http__s://www.nim .nih.gov/health/ topics/mental-hea lth-medications http__s://www.nam i.org/About-Menta l-Illness/Treatme nts/Mental-Health -Medications 2. Generalized anxiety disorder - Hydroxyzine 10 mg once a day as needed for anxiety - [...] Cannabis/marijuan a information: http_s://sierra.nih .gov/publications /drugfacts/cannab is-marijuana http_s://www.ReferralMD/jose elias xen-ntm-krbkzbnk- marijuana-adhd/ . Long-term drug therapy 05/20/2025 Tobacco user (ICD-10 - Z72.0) 1. Bipolar I disorder, most recent episode depression - Abilify 10 mg at night labs recently PCP educated on all medications, benefits, side effects [...] http_s://www.sofia .org/About-Mental -Illness/Mental-H ealth-Conditions http_s://psychcen tral.com/depressi on/the-cognitive- pixsbnbw-el-drvmh ssion#treatments http__s://www.nim h.nih.gov/health/ topics/mental-hea lth-medications http__s://www.nam i.org/About-Menta l-Illness/Treatme nts/Mental-Health -Medications 2. Generalized anxiety disorder - Hydroxyzine 10 mg once a day as needed for anxiety - [...] Cannabis/marijuan a information: http_s://sierra.nih .gov/publications /drugfacts/cannab is-marijuana http_s://www.ReferralMD/canna rmd-ycc-ogruhuna- marijuana-adhd/ . Long-term drug therapy 02/14/2025 Encounter [...] http_s://www.sofia .org/About-Mental -Illness/Mental-H ealth-Conditions http_s://psychcen tral.com/depressi on/the-cognitive- orlqyxvx-pn-eligk ssion#treatments http__s://www.nim .nih.gov/health/ topics/mental-hea lth-medications http__s://www.nam i.org/About-Menta [...] Cannabis/marijuan a information: http_s://sierra.nih .gov/publications /drugfacts/cannab is-marijuana http_s://www.ReferralMD/jose elias tod-pgj-oskbliwx- marijuana-adhd/ . Long-term drug therapy 02/14/2025 Encounter for screening for cardiovascular disorders (ICD-10 - Z13.6) 1. Bipolar I disorder, most recent episode depression - Abilify 10 mg at night labs reviewed in [facility] 06/06 completed educated on all medications, benefits, [...] http_s://www.sofia .org/About-Mental -Illness/Mental-H ealth-Conditions http_s://psychcen tral.com/depressi on/the-cognitive- iivspgvy-uk-lybnm ssion#treatments http__s://www.nim h.nih.gov/health/ topics/mental-hea lth-medications http__s://www.nam i.org/About-Menta [...] Cannabis/marijuan a information: http_s://sierra.nih .gov/publications /drugfacts/cannab is-marijuana http_s://www.ReferralMD/canna jst-haf-nmcjzrgc- marijuana-adhd/ . Long-term drug therapy 05/20/2025 Encounter for screening for depression (ICD-10 - Z13.31) 1. Bipolar I disorder, most recent episode depression - Abilify 10 mg at night labs recently PCP educated on all medications, benefits, side effects [...] http_s://www.sofia .org/About-Mental -Illness/Mental-H ealth-Conditions http_s://psychcen tral.com/depressi on/the-cognitive- bvhkfjat-ci-dmdrz ssion#treatments http__s://www.[facility].nih.gov/health/ topics/mental-hea lth-medications http__s://www.nam i.org/About-Menta l-Illness/Treatme nts/Mental-Health -Medications 2. Generalized anxiety disorder - Hydroxyzine 10 mg once a day as needed for anxiety - [...] Cannabis/marijuan a information: http_s://sierra.nih .gov/publications /drugfacts/cannab is-marijuana http_s://www.ReferralMD/jose elias erg-ees-rfhecgqy- marijuana-adhd/ . Long-term drug therapy 05/20/2025 Dietary counseling and surveillance (ICD-10 - Z71.3) 1. Bipolar I disorder, most recent episode depression - Abilify 10 mg at night labs recently PCP educated on all medications, benefits, side effects [...] http_s://www.sofia .org/About-Mental -Illness/Mental-H ealth-Conditions http_s://psychcen tral.com/depressi on/the-cognitive- mzgjtixq-ms-uivpq ssion#treatments http__s://www.nim .nih.gov/health/ topics/mental-hea lth-medications http__s://www.nam i.org/About-Menta l-Illness/Treatme nts/Mental-Health -Medications 2. Generalized anxiety disorder - Hydroxyzine 10 mg once a day as needed for anxiety - [...] Cannabis/marijuan a information: http_s://sierra.nih .gov/publications /drugfacts/cannab is-marijuana http_s://www.ReferralMD/[employer] mhq-xgm-jwsqjwqt- marijuana-adhd/ . Long-term drug therapy 02/14/2025 Dietary [...] http_s://www.sofia .org/About-Mental -Illness/Mental-H ealth-Conditions http_s://psychcen tral.com/depressi on/the-cognitive- cdprjjrl-ui-vajvv ssion#treatments http__s://www.[facility].nih.gov/health/ topics/mental-[facility]-medications http__s://www.nam i.org/About-Menta l-Illness/Treatme nts/Mental-Health -Medications 2. Generalized [...] Cannabis/marijuan a information: http_s://sierra.nih .gov/publications /drugfacts/cannab is-marijuana http_s://www.ReferralMD/canna bdq-shf-vteyeeaj- marijuana-adhd/ . Long-term drug therapy 05/20/2025 Nicotine use (ICD-10 - Z72.0) 1. Bipolar I disorder, most recent episode depression - Abilify 10 mg at night labs recently PCP educated on all medications, benefits, side effects [...] http_s://www.sofia .org/About-Mental -Illness/Mental-H ealth-Conditions http_s://psychcen tral.com/depressi on/the-cognitive- vhiethqt-cw-wcatj ssion#treatments http__s://www.nim h.nih.gov/health/ topics/mental-hea lth-medications http__s://www.nam i.org/About-Menta l-Illness/Treatme nts/Mental-Health -Medications 2. Generalized anxiety disorder - Hydroxyzine 10 mg once a day as needed for anxiety - [...] Cannabis/marijuan a information: http_s://sierra.nih .gov/publications /drugfacts/cannab is-marijuana http_s://www.ReferralMD/canna bzl-diz-uhhvupfw- marijuana-adhd/ . Long-term drug therapy Plan Of Treatment Future Test Test Name Order Date LIPID PANEL WITH REFLEX TO DIRECT LDL (1 9707) 08/19/2025 COMPREHENSIVE METABOLIC PANEL (80067) CBC (INCLUDES DIFF/PLT) (6399) HEMOGLOBIN A1c (496) 08/19/2025 TSH W/REFLEX TO FT4 (46426) 08/19/2025 Next Appt Details Provider Name:Kathie Patel , 11/18/2025 11:15:00 AM, [address], [facility] [address], [place], [address], Insurance Providers Payer Name Payer Address Payer Phone Subscriber Number Group Number Insured Name Patient Relationship to Insured Coverage Start Date Coverage End Date [employer] - [employer] Benef[employer] Plan Management Ppo [address] [place] [id number] LUIS LEWIS Spouse - patient is the [...]
== END 2025-10-31 10:36 | disposition home or self-care (01) ==
LOC: ANHLAB 10:36
PROVIDERS: PCP Nurse Practitioner Family; Visit Provider Internal Medicine Hematology & Oncology
DX: D47.3 Essential (hemorrhagic) thrombocythemia (principal)
CPT/HCPCS: 36415; 80047; 85025

== ENCOUNTER 2025-11-10 10:20 | Emergency (ER) | payer OTHER, SELFPAY ==
--- OUTSIDE RECORDS SUMMARY | 2024-07-23 09:00 | XMS_ITS ---
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 Name Role Phone Angelique Carias PA-C Primary Care Provider Kathie Pratt Unavailable [phone] Nandini Schumacher Unavailable [phone] Social History Sex Assigned At : Social History Observation Description Sex Assigned At Female Encounters Encounter Location Date Provider Diagnosis [facility] [employer] [facility] [address] [facility] [address] [place] [address] 07/23/2024 Nandini Schumacher Plan Of Treatment Next Appt Details Provider Name:Kathie Patel , 11/18/2025 11:15:00 AM, [address], [address], [address], Progress Notes * CAROLINA LEWISREADOB:1989 (35 yo F)Acc No.[id number]:07/23/2024 Patient: PALOMO HITCHCOCK Provider: Halima SCHUMACHER LCSW :1990 A ge:33 Y S ex:Female Date:07/23/2024 Address:[address], [place] Pcp:Angelique Carias PA-C Plan: * Procedure Codes: N STHR NO SHOW THERAPY Billing Information: * Procedure Codes: NSTHR NO SHOW THERAPY. * Electronic signature of Nandini Schumacher LCSW on 11/10/2025 at 10:25 AM DIRECTOR FRAUD Sign off status: Pending Signatures: No Ad Hoc Signature Added * Provider: Halima SCHUMACHER LCSW Date: 0 07/23/2024 Generated for Margarita russo/Jeff/Jennifer on: 1 01/11/2025 10:25 AM DIRECTOR FRAUD
--- OUTSIDE RECORDS SUMMARY | 2024-08-23 05:00 | XMS_ITS ---
Author Organization [facility] As [employer] Address [address] [address] Care Team Providers Care Automatic Serging Machine Operator Name Role Phone Angelique Carias PA-C Primary Care Provider Kathie Pratt Unavailable [phone] Nandini Schumacher Unavailable [phone] Social History Sex Assigned At : Social History Observation Description Sex Assigned At Female Encounters Encounter Location Date Provider Diagnosis [facility] [employer] [facility] [address] [facility] [address] [place] [address] 08/23/2024 Nandini Schumacher Plan Of Treatment Next Appt Details Provider Name:Kathie Patel , 11/18/2025 11:15:00 AM, [address], [address], [address], Progress Notes * CAROLINA LEWISREADOB:1989 (35 yo F)Acc No.[id number]:08/23/2024 Patient: PALOMO HITCHCOCK Provider: Halima SCHUMACHER LCSW :1990 A ge:33 Y S ex:Female Date:08/23/2024 Address:[address] [place], [place] Pcp:Angelique Carias PA-C * Electronic signature of Nandini Schumacher LCSW on 11/10/2025 at 10:24 AM PET AMBASSADOR Sign off status: Pending Signatures: No Ad Hoc Signature Added * Provider: Halima SCHUMACHER LCSW Date: 1 Generated for Margarita russo/Jeff/Jennifer on: 1 01/11/2025 10:24 AM PET AMBASSADOR
--- OUTSIDE RECORDS SUMMARY | 2025-11-10 10:25 | XMS_ITS | Clinical Summary ---
Author Organization [facility] [address] Address [address] [address] Care Team Providers Care Jewel Inspector Name Role Phone Unavailable Primary Care Provider [...] Encounters Date Type Department Care Team Description 11/05/2025 External Device Data STL ABSTRACTION Provider, Abstract 10/31/2025 10:15 AM CASTING TESTER Office Visit [facility] Oncology and Hematology - [place] [address] [place] [phone] Michele Ford MD Essential thrombocytosis (CMS/HCC) (Primary Dx) 10/31/2025 Orders Only [facility] Oncology and Hematology [place] [address] [place] [address] Michele Ford MD 09/03/2025 External Device Data STL ABSTRACTION Provider, [...] on file Legal Sex Female 4:44 AM CASTING TESTER Gender Identity Not on file Sexual Orientation Not on file Last Filed Vital Signs Vital Sign Reading Time Taken Comments Blood Pressure 139/87 10/31/2025 10:36 AM CASTING TESTER Pulse 69 10/31/2025 10:36 AM CASTING TESTER Temperature 36.2 C (97.1 F) 10/31/2025 10:36 AM CASTING TESTER Respiratory Rate 15 10/31/2025 10:36 AM CASTING TESTER Oxygen Saturation 94% 10/31/2025 10:36 AM CASTING TESTER Inhaled Oxygen Concentration - - Weight 81.6 kg (180 lb) 10/31/2025 10:36 AM CASTING TESTER Height 157.5 cm (5' 2) 08/18/2020 10:25 AM CDT Body Mass Index 32.92 08/18/2020 10:25 AM CDT Plan of Treatment Upcoming Encounters Date Type Department Care Team (Late st Contact Info) Description 05/05/2026 10:15 AM CDT Office Visit [facility] Oncology and Hematology - [place] [address] [facility] [address] [place] [address] Michele Ford MD [address] [facility] [address] [place] [address] Health Maintenance Due Date Last [...] PAP SMEAR 09/26/2020 09/26/2017 INFLUENZA VACCINE (#1) 2025 09/27/2019 HPV VACCINES (No Doses Required) Completed Procedures Procedure Name Priority Date/Time Associated Diagnosis Comments CBC WITH AUTODIFFERENTIAL Routine 2024 12:48 PM CASTING TESTER from Last 3 Months Results * CBC WITH AUTODIFFERENTIAL (10/31/2025 12:48 PM CASTING TESTER) Blood us Michele Ford MD HEMATOLOGY ORDERABLES Final Res ult from Last 3 Months [place] [facility] [place] Address: [facility] [id number] [place] [id number]
--- OUTSIDE RECORDS SUMMARY | 2025-11-10 10:25 | XMS_ITS | Clinical Summary ---
Author Organization [facility] Address [address] [place] [address] Care Team Providers Care Health Information Provider Name Role Phone Jarett Haile MD Primary Care Provider [phone] Allergies Active Allergy Reactions Criticality Noted Date [...] Date Migraine headache 06/06/2024 Hypertension 06/06/2024 Asthma 06/06/2024 Diabetes 06/06/2024 Depression 06/06/2024 Anxiety 06/06/2024 Sleep apnea [...] Years) (1 of 2 - PCV) 2008 HPV Vaccines (1 - 3-dose SCD M series) 2016 Cervical Cancer Screening Pa sharonda with HPV Testing (Age 30 to 64) Every 5 Years 2019 Cervical Cancer Screening Pa p Smear (Age 30 to 64) Every 3 Years 09/26/2020 09/26/2017 Cervical Cancer Screening with HPV 09/26/2020 PHQ-2 (Physician Perry) 11/14/2024 07/12/2024 COVID-19 Vaccine (2024-12 6 season) 2025 Influenza Adult (#1) 2025 Hepatitis A Vaccines Aged Out No long er eligible based on patient's age to complete [...] - COMMERCIAL on file [employer] Care Teams Health Information Provider Relationship Specialty Start Date End Date Jarett Haile MD [address] [place] [phone] (work) PCP - General INTERNAL MEDICINE 11/13/19
--- OUTSIDE RECORDS SUMMARY | 2025-11-10 10:25 | XMS_ITS | Encounter Summary ---
Author Organization [facility] Address [address] [place] [address] Care Team Providers Care Manager Economic Name Role Phone Ambrosio Landers MD Primary Care Provider [phone] Encounter Details Date Type Department Care Team (Latest Contact Info) Description 07/10/2003 Inpatient Historical HIS PATIENT IN A BED [place], Seamus Varghese MD [address] [facility] [id number] [place] [phone] BIPOLAR AFFECTIVE NOS (CMS/HCC) (Primary Dx) Social History Tobacco Use Types Packs/Day Years Used Date Smoking Tobacco: Never Assessed Comments Unknown Sex and Gender Information Value Date Recorded Sex Assigned at Not on file 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 Oncology and Hematology - [place] [address] [facility] [address] [place] [address] Michele Ford MD [address] [facility] [address] [place] [address] documented as of this encounter Visit Diagnoses Diagnosis Bipolar I disorder, most recent episode (or current) unspecified (CMS/HCC)- Primary Bipolar I disorder, most recent episode (or current) unspecified documented in this encounter Care Teams Manager Economic Relationship Specialty Start Date End Date Ambrosio Landers MD [address] [place] [phone] PCP - General Family Practice 04/02/24 04/28/25 documented as of this encounter
--- OUTSIDE RECORDS SUMMARY | 2025-11-10 10:25 | XMS_ITS | Encounter Summary ---
Author Organization [facility] Address [address] [place] [address] Care Team Providers Care Dye Jig Operator Name Role Phone Ambrosio Landers MD Primary Care Provider [phone] Encounter Details Date Type Department Care Team (Late Contact Info) Description 07/11/[address] 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 Gender Identity Not on file Sexual Orientation Not on file documented as of this encounter Plan of Treatment Upcoming Encounters Date Type Department Care Team (Late Contact Info) Description 05/05/2026 10:15 AM CDT Office Visit [facility] Oncology and Hematology - [place] [address] [facility] [address] [place] [address] Michele Ford MD [address] [facility] [address] [place] [address] documented as of this encounter Visit Diagnoses Not on filedocumented in this encounter Care Teams Dye Jig Operator Relationship Specialty Start Date End Date Ambrosio Landers MD [address] [place] [phone] PCP - General Family Practice 04/02/24 04/28/25 documented as of this encounter
--- OUTSIDE RECORDS SUMMARY | 2025-11-10 10:25 | XMS_ITS | Patient Health Record ---
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 No Household: Social Info Question Answer Notes [...] have any siblings?: 2 (Notes: Step brother (estate and trust tax principal)-no close; Half brother-trying to work on improving [...] CodeDo you have a medical power of district attorney?: NoPublic Health and TravelHave you been [...] Problem Bipolar affective disorder, currently depressed, mild (770993217) Bipolar disorder, current episode depressed, mild (F31.31) 02/13/20 24 Active confirmed Problem Generalized anxiety disorder (53608705) Generalized anxiety disorder (F41.1) 03/23/20 24 Active confirmed Problem Borderline personality disorder (39974799) Borderline personality disorder (F60.3) 04/07/20 23 Active confirmed Problem Attention deficit hyperactivity disorder, predominantly inattentive type (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) Attention-deficit hyperactivity disorder, 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 confirmed Problem Attention deficit hyperactivity disorder (654530092) Attention-deficit hyperactivity disorder, unspecified type (F90.9) 01/23/20 24 Active confirmed Problem Screening for cardiovascular system disease (053700359) Encounter for screening for cardiovascular disorders (Z13.6) Active confirmed Problem Dietary management surveillance (254175963) Dietary counseling and surveillance (Z71.3) Active confirmed Problem Long-term current use of drug therapy (432872891) Other tank terminal gauger (current) drug therapy (Z79.899) 02/13/20 24 Active confirmed Problem Depression Screening (473743652) Encounter for screening for depression (Z13.31) Active confirmed Problem Marijuana user (800613601) Marijuana user (F12.90) Active confirmed Problem Tobacco user (889028537) Tobacco user (Z72.0) Active confirmed Vital Signs Heart Rate 85 /min 08/19/2025 Respiratory Rate 16 /min 08/19/2025 Blood pressure diastolic 93 mm Hg 08/19/2025 Height-cm 154.94 cm 08/19/2025 Weight-kg 85.55 kg 08/19/2025 Height 61.00 in 08/19/2025 Blood pressure systolic 134 mm Hg 08/19/2025 Weight 188.6 lbs 08/19/2025 BMI 35.63 kg/m2 08/19/2025 Encounters Encounter Location Date Provider Diagnosis [address] [address] 11/16/2024 Kathie Patel Bipolar disorder, current episode depressed, mild F31.31 ; Generalized anxiety disorder F41.1 ; Attention-deficit hyperactivity disorder, unspecified type F90.9 ; [facility] [place] [facility] Z79.899 ; Borderline personality disorder F60.3 ; Marijuana user F12.90 and Tobacco user Z72.0 [facility] [employer] [address] 12/06/2024 Nandini Rodríguez Attention-deficit hyperactivity disorder, predominantly inattentive type F90.0 and Generalized anxiety disorder F41.[address] [address] 02/14/2025 Kathie Patel Bipolar disorder, current episode depressed, mild F31.31 ; Generalized anxiety disorder F41.1 ; Attention-deficit hyperactivity disorder, unspecified type F90.9 ; Other tank terminal gauger (current) drug therapy Z79.899 ; Borderline personality disorder F60.3 ; Marijuana user F12.90 ; Tobacco user Z72.0 ; Encounter for screening for depression Z13.31 ; Encounter for screening for cardiovascular disorders Z13.6 and Dietary counseling and surveillance Z71.[address] [address] 04/01/2025 Nandini Rodríguez Attention-deficit hyperactivity disorder, predominantly inattentive type F90.0 and Generalized anxiety disorder F41.1 [facility] [employer] [address] [place] [address] 05/20/2025 Kathie Amanda Encounter for screen ing for cardiovascular disorders Z13.6 ; Bipolar disorder, current episode depressed, mild F31.31 ; Generalized anxiety disorder F41.1 ; Attention-deficit hyperactivity disorder, unspecified type F90.9 ; Other tank terminal gauger (current) drug therapy Z79.899 ; Borderline personality disorder F60.3 ; Marijuana user F12.90 ; Tobacco user Z72.0 ; Encounter for screening for depression Z13.31 ; Dietary counseling and surveillance Z71.3 and Nicotine use Z72.0 [facility] [employer] [facility] [address] [place] [address] 08/19/2025 Kathie Patel Bipolar disorder, current episode [...] 10 mg at night labs reviewed in [facility] 06/06 completed educated on all medications, [...] austic dxn http_s://www.sofia .org/About-Mental -Illness/Mental-H ealth-Conditions http_s://psychcen [employer]l.com/depressi on/the-cognitive- ktlxruuz-cw-swdld ssion#treatments http__s://www.[facility].nih.gov/health/ topics/mental-hea lth-medications http__s://www.nam i.org/About-Menta l-Illness/Treatme [...] Cannabis/marijuan a information: http_s://sierra.nih .gov/publications /drugfacts/cannab is-marijuana http_s://www.[employer]/inesa uee-kng-djjzjiiz- marijuana-adhd/ . Long-term drug therapy 08/19/2025 Bipolar [...] generation antipsychotics) and more. discuss seeing Dr. Donwing for austic dxn http_s://www.sofia .org/About-Mental -Illness/Mental-H ealth-Conditions http_s://psychcen [employer].com/depressi on/the-cognitive- lugdxgla-fb-bldvf ssion#treatments http__s://www.nim h.nih.gov/health/ topics/mental-hea lth-medications http__s://www.nam i.org/About-Menta [...] Cannabis/marijuan a information: http_s://sierra.nih .gov/publications /drugfacts/cannab is-marijuana http_s://www.[employer]/canna phf-oug-wjoolosm- marijuana-adhd/ . Long-term drug therapy 08/19/2025 Generalized [...] discuss seeing Dr. Downing for austic dxn http_s://www.soifa .org/About-Mental -Illness/Mental-H ealth-Conditions http_s://psychcen tral.com/depressi on/the-cognitive- yepmpkrz-dv-gevwq ssion#treatments http__s://www.[facility].nih.gov/health/ topics/mental-hea lth-medications http__s://www.nam i.org/About-Menta l-Illness/Treatme [...] Cannabis/marijuan a information: http_s://sierra.nih .gov/publications /drugfacts/cannab is-marijuana http_s://www.[employer]/jose elias flg-plm-avidwscd- marijuana-adhd/ . Long-term drug therapy 04/01/2025 Attention-deficit hyperactivity disorder, predominantly inattentive type (ICD-10 - F90.0) 11/16/2024 Bipolar disorder, current episode depressed, mild [...] http_s://www.sofia .org/About-Mental -Illness/Mental-H ealth-Conditions http_s://psychcen tral.com/depressi on/the-cognitive- jofxiyjs-sf-tixez ssion#treatments http__s://www.nim .nih.gov/health/ topics/mental-hea lth-medications http__s://www.nam i.org/About-Menta [...] Cannabis/marijuan a information: http_s://sierra.nih .gov/publications /drugfacts/cannab is-marijuana http_s://www.[employer]/canna ent-axk-hxonxqhs- marijuana-adhd/ 5. tobacco use Do not smoke. Nicotine and other chemicals in cigarettes and cigars can cause lung damage. Ask your healthcare provider for information if you currently smoke and need help to quit. E-cigarettes or smokeless tobacco still contain nicotine. Talk to your healthcare provider before you use these products. education on decrease to stopping nicotine products and stop smoking hotline given 198-Quit - Yes [place] Tobacco Quitline Call a Smoking Quitline The [employer] [place]'s Smoking Quitline, (7-228-06B-QUIT) Smokefree.gov, which connects you with your State's Quitline, (0-766-XIDHFJK) [facility] Smoking Quitline, (5-675-FTOSSZA) . Long-term drug therapy 11/16/2024 Generalized anxiety [...] for austic dxn http_s://www.sofia .org/About-Mental -Illness/Mental-H ealth-Conditions http_s://psychTransmode Systemsn [place]/depressi on/the-cognitive- yhwpgyij-bz-khkuj ssion#treatments http__s://www.nim .nih.gov/health/ topics/mental-hea lth-medications http__s://www.nam i.org/About-Menta [...] Cannabis/marijuan a information: http_s://sierra.nih .gov/publications /drugfacts/cannab is-marijuana http_s://www.[employer]/canna hfq-ycx-tpfyqgzy- marijuana-adhd/ 5. tobacco use Do not smoke. Nicotine and other chemicals in cigarettes and cigars can cause lung damage. Ask your healthcare provider for information if you currently smoke and need help to quit. E-cigarettes or smokeless tobacco still contain nicotine. Talk to your healthcare provider before you use these products. education on decrease to stopping nicotine products and stop smoking hotline given 4-Quit - Yes [place] Tobacco Quitline Call a Smoking Quitline The [employer] [facility] [place]'s Smoking Quitline, (3-717-55K-QUIT) Smokefree.gov, which connects you with your [facility]'s Quitline, (3-053-LENFITR) [facility] Smoking Quitline, (1-578-SGRSTTI) . Long-term drug therapy 05/20/2025 Encounter for screening for cardiovascular disorders [...] austic dxn http_s://www.sofia .org/About-Mental -Illness/Mental-H ealth-Conditions http_s://psychcen [employer].com/depressi on/the-cognitive- lmhctebp-mt-nasaq ssion#treatments http__s://www.[facility].nih.gov/health/ topics/mental-hea lth-medications http__s://www.nam i.org/About-Menta l-Illness/Treatme [...] Cannabis/marijuan a information: http_s://sierra.nih .gov/publications /drugfacts/cannab is-marijuana http_s://www.[employer]/jose elias ivl-jch-cadlgdxh- marijuana-adhd/ . Long-term drug therapy 05/20/2025 Bipolar [...] http_s://www.sofia .org/About-Mental -Illness/Mental-H ealth-Conditions http_s://psychcen tral.com/depressi on/the-cognitive- zxmhkpzf-au-omrsq ssion#treatments http__s://www.nim .nih.gov/health/ topics/mental-hea lth-medications http__s://www.nam i.org/About-Menta [...] Cannabis/marijuan a information: http_s://sierra.nih .gov/publications /drugfacts/cannab is-marijuana http_s://www.[employer]/EyeSpot dii-asy-szpavdpd- marijuana-adhd/ . Long-term drug therapy 11/16/2024 Attention-deficit hyperactivity [...] http_s://www.sofia .org/About-Mental -Illness/Mental-H ealth-Conditions http_s://psychcen tral.com/depressi on/the-cognitive- vouqxyba-ni-astts ssion#treatments http__s://www.[facility].nih.gov/health/ topics/mental-hea lth-medications http__s://www.nam i.org/About-Menta l-Illness/Treatme [...] Cannabis/marijuan a information: http_s://sierra.nih .gov/publications /drugfacts/cannab is-marijuana http_s://www.[employer]/canna eba-lha-jiollgen- marijuana-adhd/ 5. tobacco use Do not smoke. [...] stop smoking hotline given -Quit - Yes [place] Tobacco Quitline Call a Smoking Quitline The [employer] [facility] [place]'s Smoking Quitline, (1-537-32H-QUIT) Smokefree.gov, which connects you with your State's Quitline, (5-548-LPJQVDG) Veterans Smoking Quitline, (5-843-IPUJRSB) . Long-term drug therapy 08/19/2025 Attention-deficit hyperactivity [...] http_s://www.sofia .org/About-Mental -Illness/Mental-H ealth-Conditions http_s://psychcen tral.com/depressi on/the-cognitive- zwcqprbp-za-gprca ssion#treatments http__s://www.nim h.nih.gov/health/ topics/mental-hea lth-medications http__s://www.nam i.org/About-Menta [...] Cannabis/marijuan a information: http_s://sierra.nih .gov/publications /drugfacts/cannab is-marijuana http_s://www.[employer]/jose elias mch-rwh-sobihcug- marijuana-adhd/ . Long-term drug therapy 12/06/2024 Generalized anxiety disorder (ICD-10 - F41.1) 04/01/2025 Generalized anxiety disorder (ICD-10 - F41.1) [...] http_s://www.sofia .org/About-Mental -Illness/Mental-H ealth-Conditions http_s://psychcen tral.com/depressi on/the-cognitive- rmoonzlk-cz-lnnup ssion#treatments http__s://www.[facility].nih.gov/health/ topics/mental-hea lth-medications http__s://www.[facility] i.org/About-Menta l-Illness/Treatme nts/Mental-Health -Medications 2. Generalized [...] Cannabis/marijuan a information: http_s://sierra.nih .gov/publications /drugfacts/cannab is-marijuana http_s://www.[employer]/jose elias tqe-zkx-osqrtqrr- marijuana-adhd/ . Long-term drug therapy 02/14/2025 Attention-deficit [...] http_s://www.sofia .org/About-Mental -Illness/Mental-H ealth-Conditions http_s://psychcen tral.com/depressi on/the-cognitive- zjprtirg-ce-erlwb ssion#treatments http__s://www.nim h.nih.gov/health/ topics/mental-hea lth-medications http__s://www.nam i.org/About-Menta [...] Cannabis/marijuan a information: http_s://sierra.nih .gov/publications /drugfacts/cannab is-marijuana http_s://www.[employer]/jose elias sof-rpr-kzyrxdqm- marijuana-adhd/ . Long-term drug therapy 08/19/2025 Borderline [...] http_s://www.sofia .org/About-Mental -Illness/Mental-H ealth-Conditions http_s://psychcen tral.com/depressi on/the-cognitive- oppdznfv-em-rgkur ssion#treatments http__s://www.nim .nih.gov/health/ topics/mental-hea lth-medications http__s://www.nam i.org/About-Menta [...] Cannabis/marijuan a information: http_s://sierra.nih .gov/publications /drugfacts/cannab is-marijuana http_s://www.[employer]/jose elias ftb-onv-gukpxkie- marijuana-adhd/ . Long-term drug therapy 11/16/2024 [facility] [place] [facility] [place] drug [facility] (ICD-10 - Z79.899) 1. Bipolar I disorder, most recent episode depression - Abilify 10 mg at night labs reviewed in [facility] 06/06 compelted educated on all medications, [...] http_s://www.sofia .org/About-Mental -Illness/Mental-H ealth-Conditions http_s://psychcen tral.com/depressi on/the-cognitive- mjopnbmu-zh-xarli ssion#treatments http__s://www.nim h.nih.gov/health/ topics/mental-hea lth-medications http__s://www.nam i.org/About-Menta [...] Cannabis/marijuan a information: http_s://sierra.nih .gov/publications /drugfacts/cannab is-marijuana http_s://www.[employer]/canna its-acb-jeqchcvo- marijuana-adhd/ 5. tobacco use Do not smoke. Nicotine and other chemicals in cigarettes and cigars can cause lung damage. Ask your healthcare provider for information if you currently smoke and need help to quit. E-cigarettes or smokeless tobacco still contain nicotine. Talk to your healthcare provider before you use these products. education on decrease to stopping nicotine products and stop smoking hotline given 329-Quit - Yes [place] Tobacco Quitline Call a Smoking Quitline The [employer] [facility] [place]'s Smoking Quitline, (6-462-36J-QUIT) Smokefree.gov, which connects you with your State's Quitline, (5-994-EMAKJCI) Veterans Smoking Quitline, (8-033-UQIBXAO) . Long-term drug therapy 05/20/2025 Generalized anxiety [...] http_s://www.sofia .org/About-Mental -Illness/Mental-H ealth-Conditions http_s://psychcen tral.com/depressi on/the-cognitive- mxxawmuj-al-bdckh ssion#treatments http__s://www.nim .nih.gov/health/ topics/mental-hea lth-medications http__s://www.[facility] i.org/About-Menta l-Illness/Treatme nts/Mental-Health -Medications 2. Generalized [...] Cannabis/marijuan a information: http_s://sierra.nih .gov/publications /drugfacts/cannab is-marijuana http_s://wwwHorse Sense Shoes/EyeSpot ekd-oda-wtmvxobz- marijuana-adhd/ . Long-term drug therapy 05/20/2025 Attention-deficit [...] http_s://www.sofia .org/About-Mental -Illness/Mental-H ealth-Conditions http_s://psychcen tral.com/depressi on/the-cognitive- wfwfkmgf-tb-gmefx ssion#treatments http__s://www.[facility].nih.gov/health/ topics/mental-hea lth-medications http__s://www.nam i.org/About-Menta l-Illness/Treatme [...] Cannabis/marijuan a information: http_s://sierra.nih .gov/publications /drugfacts/cannab is-marijuana http_s://www.[employer]/jose elias nbt-chs-rvnqewxx- marijuana-adhd/ . Long-term drug therapy 11/16/2024 Borderline [...] for austic dxn http_s://www.sofia .org/About-Mental -Illness/Mental-H ealth-Conditions http_s://psychTransmode Systemsn [place]/depressi on/the-cognitive- rimiexnm-xw-fgblj ssion#treatments http__s://www.[facility].nih.gov/health/ topics/mental-hea lth-medications http__s://www.nam i.org/About-Menta l-Illness/Treatme [...] Cannabis/marijuan a information: http_s://sierra.nih .gov/publications /drugfacts/cannab is-marijuana http_s://www.[employer]/Axerion Therapeuticschata ray-rlu-laocxeww- marijuana-adhd/ 5. tobacco use Do not smoke. Nicotine and other chemicals in cigarettes and cigars can cause lung damage. Ask your healthcare provider for information if you currently smoke and need help to quit. E-cigarettes or smokeless tobacco still contain nicotine. Talk to your healthcare provider before you use these products. education on decrease to stopping nicotine products and stop smoking hotline given 349-Quit - Yes [place] Tobacco Quitline Call a Smoking Quitline The [employer] [facility] [place]'s Smoking Quitline, (9-149-38Q-QUIT) Smokefree.gov, which connects you with your [facility]'s Quitline, (0-409-QVVRDIH) [facility] Smoking Quitline, (1-669-IAGAJGK) . Long-term drug therapy 08/19/2025 Marijuana user [...] http_s://www.sofia .org/About-Mental -Illness/Mental-H ealth-Conditions http_s://psychcen tral.com/depressi on/the-cognitive- nhmcmuck-wj-njsuv ssion#treatments http__s://www.[facility].nih.gov/health/ topics/mental-hea lth-medications http__s://www.nam i.org/About-Menta l-Illness/Treatme [...] Cannabis/marijuan a information: http_s://sierra.nih .gov/publications /drugfacts/cannab is-marijuana http_s://www.[employer]/jose elias ozu-ccr-rsyyvnwg- marijuana-adhd/ . Long-term drug therapy 02/14/2025 Other tank terminal gauger (current) drug therapy (ICD-10 - Z79.894) 1. Bipolar I disorder, most recent episode [...] http_s://www.sofia .org/About-Mental -Illness/Mental-H ealth-Conditions http_s://psychcen tral.com/depressi on/the-cognitive- oqcsyzeq-iz-fojio ssion#treatments http__s://www.nim .nih.gov/health/ topics/mental-hea lth-medications http__s://www.nam i.org/About-Menta [...] Cannabis/marijuan a information: http_s://sierra.nih .gov/publications /drugfacts/cannab is-marijuana http_s://www.[employer]/Axerion Therapeuticsa nom-zhm-hvuwjenc- marijuana-adhd/ . Long-term drug therapy 02/14/2025 Borderline [...] http_s://www.sofia .org/About-Mental -Illness/Mental-H ealth-Conditions http_s://psychcen tral.com/depressi on/the-cognitive- gfwqvlvm-ff-zndnd ssion#treatments http__s://www.[facility].nih.gov/health/ topics/mental-hea [facility]-medications http__s://www.nam i.org/About-Menta l-Illness/Treatme nts/Mental-Health -Medications 2. [...] Cannabis/marijuan a information: http_s://sierra.nih .gov/publications /drugfacts/cannab is-marijuana http_s://www.[employer]/jose elias xov-bll-toixnnwb- marijuana-adhd/ . Long-term drug therapy 08/19/2025 Tobacco [...] http_s://www.sofia .org/About-Mental -Illness/Mental-H ealth-Conditions http_s://psychcen tral.com/depressi on/the-cognitive- cfnxgnlw-ma-vjfrr ssion#treatments http__s://www.nim h.nih.gov/health/ topics/mental-hea lth-medications http__s://www.nam i.org/About-Menta [...] Cannabis/marijuan a information: http_s://sierra.nih .gov/publications /drugfacts/cannab is-marijuana http_s://www.[employer]/canna kej-wmh-avfluwhb- marijuana-adhd/ . Long-term drug therapy 11/16/2024 Marijuana user [...] http_s://www.sofia .org/About-Mental -Illness/Mental-H ealth-Conditions http_s://psychcen tral.com/depressi on/the-cognitive- fesozrlf-og-dymqu ssion#treatments http__s://www.[facility].nih.gov/health/ topics/mental-hea lth-medications http__s://www.nam i.org/About-Menta l-Illness/Treatme [...] can also contribute to development of psychosis. http_s://www.[facility] .nih.gov/health/t opics/mental-heal th-medications http_s://www.sofia .org/About-Mental -Illness/Treatmen ts/Mental-Health- Medications Recommend decrease/stop cannabis use as it may be negatively impacting mood, motivation, anxiety, sleep, focus; can also contribute to development of psychosis Cannabis/marijuan a information: http_s://sierra.nih .gov/publications /drugfacts/cannab is-marijuana http_s://www.[employer]/canna ptf-fbz-vadtifvp- marijuana-adhd/ 5. tobacco use Do not smoke. [...] stop smoking hotline given Quit - Yes [place] Tobacco Quitline Call a Smoking Quitline The [employer] [place]'s Smoking Quitline, (4-714-60P-QUIT) Smokefree.gov, which connects you with your State's Quitline, (2-105-KJZSHRM) Veterans Smoking Quitline, (3-984-UCCPJZR) . Long-term drug therapy 05/20/2025 [place] [facility] [place] drug therapy (ICD-10 - Z79.899) 1. [...] http_s://www.sofia .org/About-Mental -Illness/Mental-H ealth-Conditions http_s://psychcen tral.com/depressi on/the-cognitive- nostvuxp-sl-uxztv ssion#treatments http__s://www.nim h.nih.gov/health/ topics/mental-hea lth-medications http__s://www.nam i.org/About-Menta [...] Cannabis/marijuan a information: http_s://sierra.nih .gov/publications /drugfacts/cannab is-marijuana http_s://www.[employer]/canna rbk-irb-sgrfhyze- marijuana-adhd/ . Long-term drug therapy 11/16/2024 Tobacco [...] discuss seeing Dr. Downing for austic dxn http_s://www.[facility] .org/About-Mental -Illness/Mental-H ealth-Conditions http_s://psychcen [employer].com/depressi on/the-cognitive- vejkthvg-vs-ursdf ssion#treatments http__s://www.nim .nih.gov/health/ topics/mental-hea lth-medications http__s://www.[facility] i.org/About-Menta l-Illness/Treatme nts/Mental-Health -Medications 2. Generalized [...] development of psychosis. http_s://www.nim .nih.gov/health/t opics/mental-heal th-medications http_s://www.[facility] .org/About-Mental -Illness/Treatmen ts/Mental-Health- Medications Recommend decrease/stop cannabis use as it may be negatively impacting mood, motivation, anxiety, sleep, focus; can also contribute to development of psychosis Cannabis/marijuan a information: http_s://seirra.nih .gov/publications /drugfacts/cannab is-marijuana http_s://www.[employer]/canna khb-inz-vwwjodqm- marijuana-adhd/ 5. tobacco use Do not smoke. [...] stop smoking hotline given -Quit - Yes [place] Tobacco Quitline Call a Smoking Quitline The [employer] [facility] [place]'s Smoking Quitline, (5-590-89H-QUIT) Smokefree.gov, which connects you with your State's Quitline, (1-053-UTGCOZC) Veterans Smoking Quitline, (4-915-TIBVCZX) . Long-term drug therapy 05/20/2025 Borderline personality [...] http_s://www.sofia .org/About-Mental -Illness/Mental-H ealth-Conditions http_s://psychcen tral.com/depressi on/the-cognitive- oggmouff-oo-xpjmr ssion#treatments http__s://www.[facility].nih.gov/health/ topics/mental-hea lth-medications http__s://www.nam i.org/About-Menta l-Illness/Treatme [...] Cannabis/marijuan a information: http_s://sierra.nih .gov/publications /drugfacts/cannab is-marijuana http_s://www.[employer]/jose elias qdw-ukz-wopbrvea- marijuana-adhd/ . Long-term drug therapy 02/14/2025 Marijuana [...] for austic dxn http_s://www.sofia .org/About-Mental -Illness/Mental-H ealth-Conditions http_s://psychTransmode Systemsn [employer].com/depressi on/the-cognitive- ezytldoa-nd-emefh ssion#treatments http__s://www.[facility].nih.gov/health/ topics/mental-hea lth-medications http__s://www.nam i.org/About-Menta l-Illness/Treatme [...] Cannabis/marijuan a information: http_s://sierra.nih .gov/publications /drugfacts/cannab is-marijuana http_s://www.[employer]/cannchata aum-zyj-sjlmteie- marijuana-adhd/ . Long-term drug therapy 02/14/2025 Tobacco [...] http_s://www.sofia .org/About-Mental -Illness/Mental-H ealth-Conditions http_s://psychcen tral.com/depressi on/the-cognitive- awnmzalg-xs-jgcmh ssion#treatments http__s://www.nim h.nih.gov/health/ topics/mental-hea lth-medications http__s://www.nam i.org/About-Menta [...] Cannabis/marijuan a information: http_s://sierra.nih .gov/publications /drugfacts/cannab is-marijuana http_s://www.[employer]/EyeSpot nlt-zct-fgtjtzri- marijuana-adhd/ . Long-term drug therapy 05/20/2025 Marijuana [...] http_s://www.sofia .org/About-Mental -Illness/Mental-H ealth-Conditions http_s://psychcen tral.com/depressi on/the-cognitive- nisswgnz-jz-mscfu ssion#treatments http__s://www.nim .nih.gov/health/ topics/mental-hea lth-medications http__s://www.nam i.org/About-Menta [...] Cannabis/marijuan a information: http_s://sierra.nih .gov/publications /drugfacts/cannab is-marijuana http_s://www.[employer]/jose elias yjs-qla-sxicfdhf- marijuana-adhd/ . Long-term drug therapy 05/20/2025 Tobacco [...] http_s://www.sofia .org/About-Mental -Illness/Mental-H ealth-Conditions http_s://psychcen tral.com/depressi on/the-cognitive- ckjsggxs-vt-pyywu ssion#treatments http__s://www.nim h.nih.gov/health/ topics/mental-hea lth-medications http__s://www.nam i.org/About-Menta [...] Cannabis/marijuan a information: http_s://sierra.nih .gov/publications /drugfacts/cannab is-marijuana http_s://www.[employer]/canna lyq-lzg-yepejzjx- marijuana-adhd/ . Long-term drug therapy 02/14/2025 Encounter [...] http_s://www.sofia .org/About-Mental -Illness/Mental-H ealth-Conditions http_s://psychcen tral.com/depressi on/the-cognitive- tmsqhoyi-gm-raxuq ssion#treatments http__s://www.nim .nih.gov/health/ topics/mental-hea lth-medications http__s://www.nam i.org/About-Menta [...] Cannabis/marijuan a information: http_s://sierra.nih .gov/publications /drugfacts/cannab is-marijuana http_s://www.[employer]/jose elias gth-oey-ltnjjrdd- marijuana-adhd/ . Long-term drug therapy 02/14/2025 Encounter for screening for cardiovascular disorders (ICD-10 - Z13.6) 1. Bipolar I disorder, most recent episode depression - Abilify 10 mg at night labs reviewed in [facility] 06/06 completed educated on all medications, [...] http_s://www.sofia .org/About-Mental -Illness/Mental-H ealth-Conditions http_s://psychcen tral.com/depressi on/the-cognitive- pjaairun-qh-pxrhq ssion#treatments http__s://www.nim h.nih.gov/health/ topics/mental-hea lth-medications http__s://www.nam i.org/About-Menta [...] Cannabis/marijuan a information: http_s://sierra.nih .gov/publications /drugfacts/cannab is-marijuana http_s://www.[employer]/canna wjz-fyp-nolnwiip- marijuana-adhd/ . Long-term drug therapy 05/20/2025 Encounter [...] http_s://www.sofia .org/About-Mental -Illness/Mental-H ealth-Conditions http_s://psychcen tral.com/depressi on/the-cognitive- urcjqjfs-mt-jofnj ssion#treatments http__s://www.[facility].nih.gov/health/ topics/mental-hea lth-medications http__s://www.nam i.org/About-Menta l-Illness/Treatme [...] Cannabis/marijuan a information: http_s://sierra.nih .gov/publications /drugfacts/cannab is-marijuana http_s://www.[employer]/jose elias pej-qpn-oldvcfei- marijuana-adhd/ . Long-term drug therapy 05/20/2025 Dietary [...] http_s://www.sofia .org/About-Mental -Illness/Mental-H ealth-Conditions http_s://psychcen tral.com/depressi on/the-cognitive- rtphitkz-kk-soaef ssion#treatments http__s://www.nim .nih.gov/health/ topics/mental-hea lth-medications http__s://www.nam i.org/About-Menta [...] Cannabis/marijuan a information: http_s://sierra.nih .gov/publications /drugfacts/cannab is-marijuana http_s://www.[employer]/EyeSpot axi-bnf-qchfueig- marijuana-adhd/ . Long-term drug therapy 02/14/2025 Dietary [...] http_s://www.sofia .org/About-Mental -Illness/Mental-H ealth-Conditions http_s://psychcen tral.com/depressi on/the-cognitive- sjukvvml-jr-cqwcv ssion#treatments http__s://www.[facility].nih.gov/health/ topics/mental-hea [facility]-medications http__s://www.nam i.org/About-Menta l-Illness/Treatme nts/Mental-Health -Medications 2. [...] Cannabis/marijuan a information: http_s://sierra.nih .gov/publications /drugfacts/cannab is-marijuana http_s://www.[employer]/canna urm-qav-ebycptym- marijuana-adhd/ . Long-term drug therapy 05/20/2025 Nicotine [...] http_s://www.sofia .org/About-Mental -Illness/Mental-H ealth-Conditions http_s://psychcen tral.com/depressi on/the-cognitive- vfhdnguo-ri-qomrx ssion#treatments http__s://www.nim h.nih.gov/health/ topics/mental-hea lth-medications http__s://www.nam i.org/About-Menta [...] Cannabis/marijuan a information: http_s://sierra.nih .gov/publications /drugfacts/cannab is-marijuana http_s://www.[employer]/canna nmc-kgv-kgbuqmll- marijuana-adhd/ . Long-term drug therapy Plan Of Treatment Future Test Test Name Order Date LIPID PANEL WITH REFLEX TO DIRECT LDL (1 6761) 08/19/2025 COMPREHENSIVE METABOLIC PANEL (80457) CBC (INCLUDES DIFF/PLT) (6399) HEMOGLOBIN A1c (496) 08/19/2025 TSH W/REFLEX TO FT4 (45874) 08/19/2025 Next Appt Details Provider Name:Kathie Patel , 11/18/2025 11:15:00 AM, [address], [facility] [address], [place], [address], Insurance Providers Payer Name Payer Address Payer Phone Subscriber Number Group Number Insured Name Patient Relationship to Insured Coverage Start Date Coverage End Date [employer] [facility] Management Ppo [address] KALYAN MEEKS [phone] [id number] LUIS LEWIS Spouse - patient is the [...]
--- OUTSIDE RECORDS SUMMARY | 2025-11-10 10:25 | XMS_ITS | Encounter Summary ---
Author Organization [facility] Address [address] [place] [address] Care Team Providers Care Rn Access Name Role Phone Ambrosio Landers MD Primary Care Provider [phone] Encounter Details Date Type Department Care Team (Late Contact Info) Description 07/24/2003 Outpatient Historical [facility] Child and Adolescent Psychiatry [facility] [address] [place] [address] Seamus Castro MD [address] [facility] [place] [address] Social History Tobacco Use Types Packs/Day Years Used Date Smoking Tobacco: Never Assessed Comments Unknown Sex and Gender Information Value Date Recorded Sex Assigned at Not on file 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 Gender Identity Not on file Sexual Orientation Not on file documented as of this encounter Plan of Treatment Upcoming Encounters Date Type Department Care Team (Late Contact Info) Description 05/05/2026 10:15 AM CDT Office Visit [facility] Oncology and Hematology - [place] [address] [facility] [address] [place] [address] Michele Ford MD [address] [facility] [address] [place] [address] documented as of this encounter Visit Diagnoses Not on filedocumented in this encounter Care Teams Rn Access Relationship Specialty Start Date End Date Ambrosio Landers MD [address] [place] [phone] PCP - General Family Practice 04/02/24 04/28/25 documented as of this encounter
[2025-11-10 10:53] VITALS: BP 124/80; PULSE 83; RESP 18; TEMP 35.9; O2SAT 100
--- NOTE | 2025-11-10 11:57 | ED.DENTAL ---
HPI - Dental/Oral General Chief complaint: Dental/Oral Stated complaint: LT Side Jaw Injury History of Present Illness HPI Narrative: Chief Complaint: Jaw pain and popping. Patient Summary: Ms. Patience Delgado presents with acute jaw pain and popping, likely related to temporomandibular joint (TMJ) disorder. History of Present Illness: Ms. Delgado reports that this morning her jaw popped loudly, and she is now experiencing significant pain, especially when moving her jaw. 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 She notes that the pain is worst in the morning, as was the case today. Ms. Delgado is aware of her TMJ disorder and has been advised to perform certain exercises. She is concerned about the pain and seeks advice on management. She has not taken any pain relief medication today, although she has access to ibuprofen and Tylenol. 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 Review of Systems: - Reports jaw pain and popping - Reports nausea and vomiting associated with jaw pain - Reports jaw tension and tightness - Reports not having used ibuprofen or Tylenol for current symptoms - Has access to muscle relaxants and gabapentin for other conditions Vitals and Physical Exam findings: Not available. Assessment: 1. Temporomandibular joint disorder 2. Differential Diagnosis: - Jaw dislocation - Dental abscess - Other musculoskeletal causes of jaw pain Plan: - Recommend trying a combination of Tylenol and ibuprofen for pain management. - Consider use of muscle relaxants if pain persists. - Referral to ENT for further evaluation and management of TMJ disorder. - Discuss potential use of gabapentin if appropriate and patient is comfortable. - Advise patient to avoid excessive jaw movement and consider a work note if needed. Related Data Home Medications ?Medication ?Instructions ?Recorded ?Confirmed ?Last Taken ?Type hydroxyzine HCl 25 mg tablet 25 mg PO TID PRN Dizziness Or 10/01/22 08/14/25 05/17/23 09:00 History Vertigo aripiprazole 10 mg tablet 10 mg PO DAILY 05/11/23 08/14/25 05/23/23 21:00 History levonorgestrel (Mirena) See Rx Instructions .Route .COMPLEX 04/13/24 08/14/25 Unknown History spironolactone 100 mg tablet 100 mg PO BID 12/26/24 08/14/25 Unknown History Allergies Allergy/AdvReac Type Severity Reaction Status Date / Time buspirone (From BuSpar) AdvReac Severe Agitated Verified 11/10/25 10:23 ceftriaxone (From Rocephin) AdvReac Intermediate Other Verified 11/10/25 10:23 dapagliflozin (From Farxiga) AdvReac Intermediate Nausea and Verified 11/10/25 10:23 Vomiting doxycycline AdvReac Intermediate Nausea and Verified 11/10/25 10:23 Vomiting metformin AdvReac Mild dysfunctional Verified 11/10/25 10:23 uterine bleeding Review of Systems Review of Systems: All systems reviewed & are unremarkable except as noted in HPI and below Eyes: Eyes: Reports as per HPI ENT: Reports as per HPI Cardiovascular: Cardiovascular: Reports as per HPI Respiratory: Respiratory: Reports as per HPI Genitourinary: Genitourinary: Reports as per HPI Musculoskeletal: Musculoskeletal: Reports as per HPI Integumentary/Breasts: Skin/Breast: Reports as per HPI Neurologic: Reports as per HPI Psychiatric: Psychiatric: Reports as per HPI Endocrine: Endocrine: Reports as per HPI Hematologic/Lymphatic: Hematologic/Lymphatic: Reports as per HPI Allergic/Immunologic: Allergic/Immunologic: Reports as per HPI PMF Past Medical History Medical History ) Blood in stool Hemorrhoids Neutrophilic leukocytosis (~11/2019) Smoker Tachycardia Lumbago Borderline personality disorder Bipolar 1 disorder Hx of suicide attempt GDM, class A2 delivery delivered Failure to progress in labor Pre-eclampsia superimposed on chronic hypertension 37 weeks gestation of Morbid obesity Hypertension Diabetes ADHD Surgical History Surgical History ) Mass on back 02/15/25 Excision of 4 cm left lower back mass Dr. Mahnaz Carterdom teeth extracted S/P ACL repair S/P tonsillectomy Family History Family History ) Grandparent Diabetes mellitus Mother Heart murmur Social History Social History ) Social History: 04/23/25 somewhat confident with medical forms, Smoking packs per day: 0.5 Smoking cigarettes per day: 10.0 Years smoked: 20 Smoking pack-years: 10.00 Smoking status: Current every day smoker Tobacco type: cigarettes Second hand tobacco smoke exposure: No Smoking end date: 07/24/19 Additional smoking assessment comments: QUIT DATE 01/2024 Alcohol intake: current Drinks per week: 6 Alcohol use details: social when not Substance use: current Substance use type: marijuana Other substance usage details: smokes marijuana daily Last use: yesterday - for pain Lack of Transportation: No Lack of Food: Sometimes True Current Housing: Decline to Answer Concerned About Future Housing: No Difficulty Paying Gas/Electric Bills: No Difficulty Paying for Meds: No Currently Unemployed: No Education: High School Diploma/GED Difficulty w/ Childcare or Family Care: No Living arrangements: with family Occupation/Education: occupation Spiritual care concerns: No Exam Const: General: cooperative, healthy appearing, comfortable, no acute distress and well developed Orientation/consciousness: patient oriented x3 HENMT: Head: normal to inspection Throat: posterior oropharynx normal Other: Pt able to open and close moth. no jaw popping heard or felt. no obvious dislocation noted and fluid movement noted when opening and closing jaw. Eyes: General: appearance normal, both eyes and all related structures Resp: Effort & Inspection: normal respiratory effort and able to speak in complete sentences Auscultation: clear to auscultation bilaterally Cardio: Rate: regular rate Rhythm: regular rhythm Heart sounds: S1 normal heart sound present and S2 normal heart sound present Skin: General skin exam: normal color Neuro: General: patient oriented x3 Cognition (Neuro): normal cognition Speech: normal speech Psych: Mental Status: mental status grossly normal Course Course Level of Care: Express Care Visit Vital Signs Vital signs: Vital Signs Temperature 96.6 F L 11/10/25 10:53 Pulse Rate 83 11/10/25 10:53 Respiratory Rate 18 11/10/25 10:53 Blood Pressure 124/80 11/10/25 10:53 Pulse Oximetry 100 11/10/25 10:53 Oxygen Delivery Room Air 11/10/25 10:53 Temperature 96.6 F L 11/10/25 10:53 Pulse Rate 83 11/10/25 10:53 Respiratory Rate 18 11/10/25 10:53 Blood Pressure 124/80 11/10/25 10:53 Pulse Oximetry 100 11/10/25 10:53 Oxygen Delivery Room Air 11/10/25 10:53 [facility] Narrative Medical decision making narrative: HPI and differentials as noted. Exam is benign. No obvious dislocation. Patient was fluid movement with opening and closing jaw. No clicking of noted. . Offer x-ray but did explain to patient that the exam was benign and findings and I had a very low suspicion for dislocation. Patient declined x-ray at this time. Plan: - Recommend trying a combination of Tylenol and ibuprofen for pain management. - Consider use of muscle relaxants if pain persists. - Referral to ENT for further evaluation and management of TMJ disorder. - Discuss potential use of gabapentin if appropriate and patient is comfortable. - Advise patient to avoid excessive jaw movement and consider a work note if needed. Differential Diagnosis Differential Diagnosis: Assessment: 1. Temporomandibular joint disorder 2. Differential Diagnosis: - Jaw dislocation - Dental abscess - Other musculoskeletal causes of jaw pain Discharge Plan Discharge Clinical Impression: TMJ (temporomandibular joint disorder) Patient Disposition: Home Condition: Stable Instructions: Antibiotic Form, Temporomandibular Disorder (ED) Additional Instructions: Please use Tylenol or ibuprofen as needed for pain. Rest the jaw today as much as he can. I am giving a referral to ENT for further evaluation. Any changes please return. Patient Language: Arabic Prescriptions: No Action Mirena 21 mcg/24 hr (8 yrs) 52 mg Intrauterine Device See Rx Instructions .ROUTE .COMPLEX Rx Instructions: intrauterinely Ubrelvy 100 mg tablet 100 mg PO ONCE PRN (Reason: migraine headache) Qty: 14 0RF Rx Instructions: as a single dose; may repeat once in >=2 hours after first dose if needed methocarbamol 750 mg tablet 750 mg PO TID PRN (Reason: muscle relaxer) Qty: 60 0RF hydroxyzine HCl 25 mg tablet 25 mg PO TID PRN (Reason: Dizziness Or Vertigo) Skyrizi 75 mg/0.83 mL syringe 150 mg subcut .Q3 months Qty: 0.83 0RF albuterol sulfate 90 mcg/actuation HFA aerosol inhaler 2 inh inhalation Q4H PRN (Reason: shortness of breath or wheezing) Qty: 8.5 0RF valacyclovir [Valtrex] 500 mg tablet 500 mg PO DAILY Qty: 90 0RF prednisone 20 mg tablet 20 mg PO .COMPLEX Qty: 15 0RF Rx Instructions: 2 tablets daily x 3 days, 1.5 tablets daily x 3 days, 1 tablet daily x 3 days, 1/2 tablet daily x 3 days fluconazole 150 mg tablet 150 mg PO ONCE Qty: 2 0RF Rx Instructions: as a single dose; Repeat in 3 days aripiprazole 10 mg tablet 10 mg PO DAILY spironolactone 100 mg tablet 100 mg PO BID (DME) blood-glucose meter [FreeStyle [place] Lite] Kit See Rx Instructions .Route Qty: 1 0RF Rx Instructions: test once daily (DME) lancets [FreeStyle Lancets] 28 gauge misc See Rx Instructions .Route Qty: 100 0RF Rx Instructions: test once daily (DME) FreeStyle Lite Strips Strip See Rx Instructions .Route Qty: 100 0RF Rx Instructions: test once daily minoxidil 2.5 mg tablet 2.5 mg PO DAILY Qty: 90 0RF gabapentin 100 mg capsule 100 mg PO TID Qty: 90 0RF Ozempic 2 mg/dose (8 mg/3 mL) pen injector 2 mg subcut WEEKLY Qty: 9 0RF Patient Comments: TAKES ON FRIDAYS Follow-up/Referrals: Quoc Roberts MD [Physician, Ear, Nose, Throat] Angelique Carias PA-C [Primary Care Provider, Family Practice] Stand Alone Forms: Work/School Release IP Time of Disposition: 11:59 Quality NIHSS Nursing Documentation ED NIHSS nursing documentation: reviewed/agree
== END 2025-11-10 12:05 | disposition home or self-care (01) ==
PROVIDERS: Emergency Provider Nurse Practitioner Family; PCP Physician Assistant Medical
DX: M26.602 Left temporomandibular joint disorder, unspecified (principal); I10 Essential (primary) hypertension; E11.9 Type 2 diabetes mellitus without complications; Z79.85 Long-term (current) use of injectable non-insulin antidiabetic drugs; E66.01 Morbid (severe) obesity due to excess calories; Z68.34 Body mass index [BMI] 34.0-34.9, adult; Z87.891 Personal history of nicotine dependence
CPT/HCPCS: 99213; G0463